=== PATIENT | female | born 1935 | race Caucasian/White ===

== ENCOUNTER 2019-12-31 08:56 | Outpatient (RCR) | payer OTHER, SELFPAY | END 2020-03-24 10:07 | disposition home or self-care (01) | LOC: HO.OT 08:56 | PROVIDERS: PCP Internal Medicine; Visit Provider Physician Assistant | DX: G56.02 Carpal tunnel syndrome, left upper limb (principal) | CPT/HCPCS: 97110 ==

== ENCOUNTER 2020-06-08 08:21 | Outpatient (REF) | payer OTHER, MEDICAID, SELFPAY ==
[2020-06-08 09:05] LABS: MANUAL DIFF FLAG NO
[2020-06-08 09:13] LABS: Basophils Percent Auto 0.7 % (0-2); Eosinophils Absolute Auto 0.1 X10*3/uL (0.0-0.4); Eosinophils Percent Auto 2.7 % (0-4); Hematocrit 30.7 % (37-47); Imm Gran Abs Auto 0.01 X10*3/uL (0.00-0.03); Imm Gran Pct Auto 0.2 % (0.0-0.4); Lymphocytes Absolute Auto 1.1 X10*3/uL (1.2-4.9); Lymphocytes Percent Auto 24.9 % (20-40); Mean Corpuscular HGB Conc 32.6 g/dl (31.0-35.0); Mean Corpuscular Hemoglobin 26.6 pg (27.0-33.0); Mean Corpuscular Volume 81.6 fL (80-98); Mean Platelet Volume 11.5 fL (9.4-12.3); Monocytes Absolute Auto 0.5 X10*3/uL (0.1-1.2); Monocytes Percent Auto 10.1 % (2-11); Neutrophils Absolute Auto 2.7 X10*3/uL (2.0-8.3); Neutrophils Percent Auto 61.4 % (45-73); Platelet Count 234 X10*3/uL (160-400); Red Blood Count 3.76 X10*6/uL (4.20-5.50); Red Cell Distribution Width 15.1 % (11.0-16.0); Retic HGB Equivalent 30.7 pg (30.0-35.0); Reticulocyte Percent 0.7 % (0.5-1.8); Reticulocytes Absolute 0.024 X10*6/uL (0.026-0.095); White Blood Count 4.5 X10*3/uL (4.8-10.8)
[2020-06-08 09:33] LABS: Alanine Aminotransferase 19 U/L (0-31); Alkaline Phosphatase 69 U/L (39-117); Anion Gap 11 (12-20); Aspartate Amino Transferase 24 U/L (5-31); Bilirubin Total 0.6 mg/dL (0.0-1.0); Blood Urea Nitrogen 23 mg/dL (9-16); Carbon Dioxide 28 mmol/L (22-29); Chloride 100 mmol/L (96-108); Cholesterol 151 mg/dL; Estimated Glomerular Filt Rate 51; Glucose Random 90 mg/dL (60-115); HDL Cholesterol 70 mg/dL; Iron 59 mcg/dL (30-160); LDL Cholesterol Calculated 74 mg/dl; Percent Iron Saturation 15 % (15-50); Potassium 5.1 mmol/L (3.3-5.1); Sodium 134 mmol/L (135-145); Total Iron Binding Capacity 400 mcg/dL (228-428); Total Protein 6.9 g/dL (6.5-8.0); Triglycerides 36 mg/dL; Unsaturated Iron Binding 341 ug/dL
[2020-06-08 09:53] LABS: Ferritin 19 ng/mL (10-250); TSH reflex Free T4 1.32 uIU/mL (0.32-4.0)
[2020-06-08 09:58] LABS: Vitamin B12 684 pg/mL (200-900)
== END 2020-06-08 08:22 | disposition home or self-care (01) ==
LOC: HO.LAB 08:21
PROVIDERS: PCP Internal Medicine; Visit Provider Internal Medicine
DX: D64.9 Anemia, unspecified (principal); E78.00 Pure hypercholesterolemia, unspecified; I10 Essential (primary) hypertension
CPT/HCPCS: 36415; 80053; 80061; 82607; 82728; 83540; 84443; 85025; 85045

== ENCOUNTER 2020-07-11 10:06 | Emergency (ER) | payer OTHER, MEDICAID, SELFPAY ==
--- NOTE | ~2020-07-11 | CT_ITS ---
EXAMINATION: CT HEAD WITHOUT CONTRAST CLINICAL INFORMATION: Generalized weakness COMPARISON: May 08, 2019 TECHNIQUE: Contiguous axial imaging was performed from the skull base to vertex without intravenous administration of contrast. This CT examination was performed using dose optimization techniques as appropriate, variously including the following: *Automated exposure control *Adjustment of mA and/or kV according to patient size (this includes techniques or standardized protocols for targeted exams where dose is matched to indication/reason for exam; i.e. extremities or head) *Use of iterative reconstruction technique DLP: 520 mGy-cm FINDINGS: There is no evidence of acute intracranial hemorrhage or territorial infarction. No abnormal mass effect or midline shift is seen. Adame to white matter differentiation is well preserved. No extra-axial fluid collections are identified. The ventricles are normal in size for age. There is some mild periventricular white matter low density consistent with microangiopathy. The osseous structures and soft tissues are normal. The mastoid air cells and visualized portions of the paranasal sinuses are well aerated. CT/CT head/brain wo con IMPRESSION: No acute intracranial pathology.
--- NOTE | ~2020-07-11 | XR_ITS ---
EXAMINATION: XR CHEST CLINICAL INFORMATION: Generalized weakness COMPARISON: Chest radiographs 05/08/2019, 05/24/2017 TECHNIQUE: 2 views of the chest were obtained. FINDINGS: The lungs are clear. The vascularity is normal. There is no airspace consolidation or effusion. Heart is borderline enlarged similar to prior exam. The hilar and mediastinal contours and bony structures are stable. XR/XR chest 2V IMPRESSION: No acute intrathoracic disease.
[2020-07-11 10:23] VITALS: BP 139/93; PULSE 80; RESP 18; TEMP 37; O2SAT 98; BMI 25.9
--- NOTE | 2020-07-11 11:01 | ECG_ITS ---
Test Reason : WEAKNESS Blood Pressure : / mmHG Vent. Rate : 074 BPM Atrial Rate : 074 BPM P-R Int : 150 ms QRS Dur : 110 ms QT Int : 424 ms P-R-T Axes : 026 053 009 degrees QTc Int : 470 ms Normal sinus rhythm Right bundle branch block Abnormal ECG When compared with ECG of 08-MAY-2019 22:12, No significant change was found Referred By: Tabby Spivey Electronically Signed By:ISELA JUDGE
--- NOTE | 2020-07-11 12:32 | ED.WEAKNESS ---
HPI - Weakness General Chief complaint: Weakness Stated complaint: weakness Time Seen by Provider: 07/11/20 10:46 Source: patient and family Mode of arrival: ambulatory Limitations: no limitations History of Present Illness HPI Narrative: 84-year-old female with a past medical history of anemia, hypertension, chronic kidney disease, carpal tunnel syndrome and history of breast cancer presenting to the ED with vague complaints of generalized weakness and dizziness over the past few days. Patient also reports bilateral upper leg tightness sensation. Denies any fevers, chills, headaches, changes in vision, jaw pain, nausea/vomiting, paresthesias, chest pain, shortness of breath, dyspnea on exertion, orthopnea, palpitations, abdominal pain, back pain, dysuria, diarrhea, constipation, black or bloody stools, hematuria or any other symptoms complaints or concerns at this time. Denies recent travel or sick contacts. MD Complaint: generalized weakness and lack of energy Onset (ago): day(s) Duration: constant and progressively worsening Location: generalized Severity: mild Relieving factors: none Exacerbating factors: none Associated symptoms: denies other symptoms Related Data Previous Rx's Medication Instructions Recorded losartan 100 mg tablet 100 mg PO DAILY #90 tab 04/19/20 cefuroxime axetil 500 mg PO BID 7 Days #14 tab 07/11/20 Allergies Allergy/AdvReac Type Severity Reaction Status Date / Time alendronate sodium Allergy Unknown MOUTH Verified 01/07/20 16:28 [From FOSAMAX] BLEEDING - IRRITATION cholecalciferol (vitamin D3) Allergy Unknown muscle Verified 01/07/20 16:28 [Vitamin D3] pains ALL VITAMINS Allergy Mild MUSCLE Uncoded 01/07/20 16:28 PAINS Review of Systems Review of Systems: Constitutional : No Fever, No Chills, No Night Sweats, No Fatigue, No Malaise ENT/Mouth : No Ear Pain, No Nasal Congestion, No Sinus Pain, No sore throat, No Rhinorrhea Eyes: No Eye Pain, No Swelling, No Redness, No Foreign Body, No Discharge, No Vision Changes Cardiovascular : No Chest Pain, No SOB, No Dyspnea on Exertion, No Orthopnea, No Palpitations Respiratory : No Cough, No Sputum, No Wheezing, No Dyspnea Gastrointestinal : No Nausea, No Vomiting, No Diarrhea, No Constipation, No abdominal Pain, No Hematochezia, No Melena Genitourinary : No Dysuria, No Urinary Frequency, No Urinary Incontinence, No Urgency, No Flank Pain Musculoskeletal : No joint pain, No Myalgias Skin : No lacerations Neuro : + Generalized weakness, + Dizziness, No Focal weakness, No Numbness, No Paresthesias, No Loss of Consciousness, No Headache Yes all other systems are reviewed and are negative [facility] Past Medical History Attestation statement: The following information was validated with the patient. Medical History Anemia Carpal tunnel syndrome Chronic kidney disease (CKD) stage G3a/A1, moderately decreased glomerular filtration rate (GFR) between 45-59 mL/min/1.73 square meter and albuminuria creatinine ratio less than 30 mg/g History of breast cancer Hypertension Surgical History History of carpal tunnel release History of cataract surgery History of cholecystectomy Family History Family History Father No problems noted. Mother No problems noted. Social History Social History Alcohol intake: never Smoking Status: Never smoker Use of substances other than those prescribed or required for medical reasons: No Advance Directives: No Advance Directives Information Provided: No Physical Exam Vital Signs: Vital Signs: Last Vital Signs Temp 98.9 F 07/11/20 15:58 Pulse 71 07/11/20 15:58 Resp 16 07/11/20 15:58 BP 180/79 H 07/11/20 15:58 Pulse Ox 99 07/11/20 15:58 Body Mass Index 25.9 Vital signs have been reviewed as normal and appeared to be correct. Blood pressure hypertensive at 139/93. Heart rate normal. Respiration rate normal. Temperature normal. Oxygen saturation normal. Appearance: Alert. Oriented X3. No acute distress. Head: Normal external exam. Normocephalic. Atraumatic. Able to rotate head bilaterally. Eyes: PERRLA. EOMI. No nystagmus noted. Conjunctiva and sclera normal. Eyelids normal. Corneal reflex normal. ENT: EAC normal. TM's Normal. Hearing normal. Pharynx normal. Uvula midline. tongue midline. Moist mucous membranes. No trismus noted. No drooling noted. No muffled voice noted. No nystagmus noted. Neck: Normal inspection. Neck supple. FROM. No adenopathy. Trachea midline. Thyroid Normal. No meningeal signs. No neck mass noted. CVS: Normal heart rate and rhythm. Heart sound normal. No murmurs noted. Pulses normal throughout. Respiratory: No respiratory distress. Painless inspiration. Breath sounds normal. No wheezes/rales/rhonchi noted. Chest nontender. No accessory muscle usage noted or decreased air movement noted. Abdomen: Soft and nontender. Bowel sounds normal in all 4 quadrants. No distention noted. No organomegaly noted. No visible injury noted. Back: No CVA tenderness. Full range of motion noted. Skin: Skin warm and dry. Normal skin color. Normal skin turgor. No rashes/lesions/lacerations noted. Extremities: No lower extremity edema. Extremities exhibit normal range of motion. Extremities nontender. Able to shrug shoulders bilaterally and keep up against resistance. Neuro: Oriented X 3. No motor deficit. No sensory deficit. Reflexes normal. Moving all extremities. No focal motor deficits. Cranial nerves II-XI intact bilaterally. Facial strength normal. Normal cognition. Speech normal. Gait normal. Strength 5/5 throughout. No pronator drift. No tremor noted. No fasciculations noted. No rigidity noted. Muscle tone normal throughout. No asterixis noted. Iykimd-hc-rpco test normal. Heel to hayes test normal. Tandem gait normal. Does not sway with eyes open. Romberg test negative. Rapid alternating movement upper extremity normal. Rapid alternating movement lower extremity normal. Hand drop from overhead Misses face. NIHSS score 0. Course Course Course Narrative: 12:40pm - 84-year-old female presenting to the ED with vague complaints of generalized weakness, dizziness over the past few days and upper leg tightness. - on exam patient is alert and oriented x3. Not in any acute distress. Mildly hypertensive at 139/93 otherwise all other vitals are within normal limits. No focal neuro deficits are noted. Patient has a normal steady gait NIHSS scored 0 non disabling symptoms therefore patient not a candidate for tPA at this time. - Plan: Labs, CT scan of brain, chest x-ray, EKG, UA, COVID/RSV/flu swab and re-evaluate. Reevaluation(s) Reevaluation #1: - white blood cell count 4000 - patient with a mild baseline anemia similar compared to prior - sodium 133 - potassium 5.5 - BUN 22 - troponin 6.1 - otherwise all other labs are within normal limits - COVID/RSV/flu negative - chest x-ray within normal limits no acute processes are noted - patient positive for UTI. Patient will need to go home with antibiotics for UTI. - awaiting CT scan of brain and patient will need a repeat troponin at 3:30pm will re-evaluate Time: 13:51 Reevaluation #2: - CT scan of brain within normal limits no acute processes are noted. - repeat troponin negative delta therefore at this time will DC home with antibiotics for UTI and instructions to have her blood work drawn again to recheck her sodium in her potassium within the next week with her PCP and to return if any new or worsening symptoms. Patient understands agrees with this plan. Time: 16:43 [facility] - Weakness Medical Records Attestation: I reviewed the patient's medical records. Lab Data Attestation: I reviewed the patient's lab results. Result diagrams: 07/11/20 12:38 07/11/20 12:38 Labs: Lab Results 07/11/20 07/11/20 07/11/20 Range/Units 12:37 12:38 12:38 WBC 4.2 L (4.8-10.8) X10*3/uL RBC 3.59 L (4.20-5.50) X10*6/uL Hgb 9.7 L (12.0-16.0) g/dl Hct 29.7 L (37-47) % MCV 82.7 (80-98) fL MCH 27.0 (27.0-33.0) pg MCHC 32.7 (31.0-35.0) g/dl RDW 14.8 (11.0-16.0) % Plt Count 206 (160-400) X10*3/uL MPV 10.5 (9.4-12.3) fL Immature Gran % (Auto) 0.2 (0.0-0.4) % Neut % (Auto) 59.8 (45-73) % Lymph % (Auto) 26.3 (20-40) % [place] % (Auto) 10.8 (2-11) % Eos % (Auto) 2.2 (0-4) % Baso % (Auto) 0.7 (0-2) % Lymph # (Auto) 1.1 L (1.2-4.9) X10*3/uL [place] # (Auto) 0.5 (0.1-1.2) X10*3/uL Eos # (Auto) 0.1 (0.0-0.4) X10*3/uL Baso # (Auto) 0.0 (0.0-0.2) X10*3/uL Abs Immat Gran (auto) 0.01 (0.00-0.03) X10*3/uL Absolute Neuts (auto) 2.5 (2.0-8.3) X10*3/uL Absolute Nucleated RBC 0.000 (0.0-0.012) X10*3/uL Nucleated RBC % (auto) 0.0 (0.0-0.2) /100WBC PT 10.6 L (10.8-13.0) SEC INR 0.9 (0.9-1.1) APTT 32.0 (24.1-38.0) SEC Sodium (135-145) mmol/L Potassium (3.3-5.1) mmol/L Chloride (96-108) mmol/L Carbon Dioxide (22-29) mmol/L Anion Gap (12-20) BUN (9-16) mg/dL Creatinine (0.5-1.4) mg/dL Estim Creat Clear Calc Estimated GFR Random Glucose (60-115) mg/dL Calcium (8.4-10.2) mg/dL Magnesium (1.6-2.6) mg/dL Total Bilirubin (0.0-1.0) mg/dL AST (5-31) U/L ALT (0-31) U/L Alkaline Phosphatase (39-117) U/L Troponin I High Sens (<3.5-17.0) ng/L B-Natriuretic Peptide (<100) pg/mL Total Protein (6.5-8.0) g/dL Albumin (3.5-5.0) g/dL Urine Color Urine Appearance Urine pH (5.0-8.0) Ur Specific Runnells (1.005-1.025) Urine Protein (NEG-TRACE) MG/DL Urine Glucose (UA) (NEG) MG/DL Urine Ketones (NEG) MG/DL Urine Blood (NEG) Urine Nitrite (NEG) Ur Leukocyte Esterase (NEG) Urine RBC (0) /HPF Urine WBC (0-4) /HPF Urine WBC Clumps Ur Squamous Epith Cells /LPF Urine Bacteria /LPF Coronavirus (PCR) NEGATIVE (Negative) Influenza Type A (PCR) NEGATIVE (Negative) Influenza Type B (PCR) NEGATIVE (Negative) RSV RNA Qual (PCR) NEGATIVE (Negative) 07/11/20 07/11/20 07/11/20 Range/Units 12:38 12:38 14:32 WBC (4.8-10.8) X10*3/uL RBC (4.20-5.50) X10*6/uL Hgb (12.0-16.0) g/dl Hct (37-47) % MCV (80-98) fL MCH (27.0-33.0) pg MCHC (31.0-35.0) g/dl RDW (11.0-16.0) % Plt Count (160-400) X10*3/uL MPV (9.4-12.3) fL Immature Gran % (Auto) (0.0-0.4) % Neut % (Auto) (45-73) % Lymph % (Auto) (20-40) % [place] % (Auto) (2-11) % Eos % (Auto) (0-4) % Baso % (Auto) (0-2) % Lymph # (Auto) (1.2-4.9) X10*3/uL [place] # (Auto) (0.1-1.2) X10*3/uL Eos # (Auto) (0.0-0.4) X10*3/uL Baso # (Auto) (0.0-0.2) X10*3/uL Abs Immat Gran (auto) (0.00-0.03) X10*3/uL Absolute Neuts (auto) (2.0-8.3) X10*3/uL Absolute Nucleated RBC (0.0-0.012) X10*3/uL Nucleated RBC % (auto) (0.0-0.2) /100WBC PT (10.8-13.0) SEC INR (0.9-1.1) APTT (24.1-38.0) SEC Sodium 133 L (135-145) mmol/L Potassium 5.5 H (3.3-5.1) mmol/L Chloride 100 (96-108) mmol/L Carbon Dioxide 27 (22-29) mmol/L Anion Gap 12 (12-20) BUN 22 H (9-16) mg/dL Creatinine 1.01 (0.5-1.4) mg/dL Estim Creat Clear Calc 22.4 Estimated GFR 52 Random Glucose 94 (60-115) mg/dL Calcium 9.6 (8.4-10.2) mg/dL Magnesium 2.3 (1.6-2.6) mg/dL Total Bilirubin 0.5 (0.0-1.0) mg/dL AST 22 (5-31) U/L ALT 17 (0-31) U/L Alkaline Phosphatase 62 (39-117) U/L Troponin I High Sens 6.1 (<3.5-17.0) ng/L B-Natriuretic Peptide 54 (<100) pg/mL Total Protein 6.8 (6.5-8.0) g/dL Albumin 4.0 (3.5-5.0) g/dL Urine Color STRAW Urine Appearance CLEAR Urine pH 6.5 (5.0-8.0) Ur Specific R[place]ells 1.010 (1.005-1.025) Urine Protein NEG (NEG-TRACE) MG/DL Urine Glucose (UA) NEG (NEG) MG/DL Urine Ketones NEG (NEG) MG/DL Urine Blood NEG (NEG) Urine Nitrite POS H (NEG) Ur Leukocyte Esterase 1+ H (NEG) Urine RBC 0 (0) /HPF Urine WBC 5-9 H (0-4) /HPF Urine WBC Clumps NOTED Ur Squamous Epith Cells TRACE /LPF Urine Bacteria 4+ /LPF Coronavirus (PCR) (Negative) Influenza Type A (PCR) (Negative) Influenza Type B (PCR) (Negative) RSV RNA Qual (PCR) (Negative) 07/11/20 Range/Units 15:54 WBC (4.8-10.8) X10*3/uL RBC (4.20-5.50) X10*6/uL Hgb (12.0-16.0) g/dl Hct (37-47) % MCV (80-98) fL MCH (27.0-33.0) pg MCHC (31.0-35.0) g/dl RDW (11.0-16.0) % Plt Count (160-400) X10*3/uL MPV (9.4-12.3) fL Immature Gran % (Auto) (0.0-0.4) % Neut % (Auto) (45-73) % Lymph % (Auto) (20-40) % [place] % (Auto) (2-11) % Eos % (Auto) (0-4) % Baso % (Auto) (0-2) % Lymph # (Auto) (1.2-4.9) X10*3/uL [place] # (Auto) (0.1-1.2) X10*3/uL Eos # (Auto) (0.0-0.4) X10*3/uL Baso # (Auto) (0.0-0.2) X10*3/uL Abs Immat Gran (auto) (0.00-0.03) X10*3/uL Absolute Neuts (auto) (2.0-8.3) X10*3/uL Absolute Nucleated RBC (0.0-0.012) X10*3/uL Nucleated RBC % (auto) (0.0-0.2) /100WBC PT (10.8-13.0) SEC INR (0.9-1.1) APTT (24.1-38.0) SEC Sodium (135-145) mmol/L Potassium (3.3-5.1) mmol/L Chloride (96-108) mmol/L Carbon Dioxide (22-29) mmol/L Anion Gap (12-20) BUN (9-16) mg/dL Creatinine (0.5-1.4) mg/dL Estim Creat Clear Calc Estimated GFR Random Glucose (60-115) mg/dL Calcium (8.4-10.2) mg/dL Magnesium (1.6-2.6) mg/dL Total Bilirubin (0.0-1.0) mg/dL AST (5-31) U/L ALT (0-31) U/L Alkaline Phosphatase (39-117) U/L Troponin I High Sens 6.0 (<3.5-17.0) ng/L B-Natriuretic Peptide (<100) pg/mL Total Protein (6.5-8.0) g/dL Albumin (3.5-5.0) g/dL Urine Color Urine Appearance Urine pH (5.0-8.0) Ur Specific R[place]ells (1.005-1.025) Urine Protein (NEG-TRACE) MG/DL Urine Glucose (UA) (NEG) MG/DL Urine Ketones (NEG) MG/DL Urine Blood (NEG) Urine Nitrite (NEG) Ur Leukocyte Esterase (NEG) Urine RBC (0) /HPF Urine WBC (0-4) /HPF Urine WBC Clumps Ur Squamous Epith Cells /LPF Urine Bacteria /LPF Coronavirus (PCR) (Negative) Influenza Type A (PCR) (Negative) Influenza Type B (PCR) (Negative) RSV RNA Qual (PCR) (Negative) Imaging Data Chest x-ray: Attestation: I personally reviewed and interpreted this imaging study as follows: Radiologist's impression: FINDINGS: The lungs are clear. The vascularity is normal. There is no airspace consolidation or effusion. Heart is borderline enlarged similar to prior exam. The hilar and mediastinal contours and bony structures are stable. XR/XR chest 2V IMPRESSION: No acute intrathoracic disease. CT scan of head without contrast: Attestation: I personally reviewed and interpreted this imaging study as follows: Radiologist's impression: FINDINGS: There is no evidence of acute intracranial hemorrhage or territorial infarction. No abnormal mass effect or midline shift is seen. Adame to white matter differentiation is well preserved. No extra-axial fluid collections are identified. The ventricles are normal in size for age. There is some mild periventricular white matter low density consistent with microangiopathy. The osseous structures and soft tissues are normal. The mastoid air cells and visualized portions of the paranasal sinuses are well aerated. CT/CT head/brain wo con IMPRESSION: No acute intracranial pathology. ECG Data Attestation: I personally reviewed and interpreted this ECG as follows: ECG interpretation date: 07/11/20 ECG interpretation time: 14:13 Interpretation: Normal sinus rhythm with ventricular rate of 74 with a right bundle-branch block otherwise no acute ischemic changes are noted. EKG 05/08/2019 Critical Care Time Critical Care Time Critical Care Time: Yes Total Critical Care Time: 60 Attestation: I personally attest to this time spent taking care of the patient Discharge Plan Discharge Clinical Impression: UTI (urinary tract infection), Acute hyperkalemia, Acute hyponatremia Patient Disposition: Home, Self-Care Instructions: Hyponatremia (ED), Hyperkalemia (ED), Urinary Tract Infection in Older Adults (ED) Additional Instructions: Your sodium was 133 today. Your potassium was 5.5. I gave you p.o. medication Kayexalate to get rid of the potassium. You should follow-up with her primary care provider this week to have repeat blood work to check her sodium and potassium. You have a UTI please start these antibiotics as prescribed and return if any new or worsening symptoms. Prescriptions: New cefuroxime axetil 500 mg tablet 500 mg PO BID 7 Days Qty: 14 RF: 0 No Action losartan 100 mg tablet 100 mg PO DAILY Qty: 90 RF: 2 Referrals: Po,Jarad Ruiz MD [Primary Care Provider] - 2 days Print Language: Setswana
[2020-07-11 12:45] LABS: MANUAL DIFF FLAG NO
[2020-07-11 12:48] LABS: Basophils Percent Auto 0.7 % (0-2); Eosinophils Absolute Auto 0.1 X10*3/uL (0.0-0.4); Eosinophils Percent Auto 2.2 % (0-4); Hematocrit 29.7 % (37-47); Hemoglobin 9.7 g/dl (12.0-16.0); Imm Gran Abs Auto 0.01 X10*3/uL (0.00-0.03); Imm Gran Pct Auto 0.2 % (0.0-0.4); Lymphocytes Absolute Auto 1.1 X10*3/uL (1.2-4.9); Lymphocytes Percent Auto 26.3 % (20-40); Mean Corpuscular HGB Conc 32.7 g/dl (31.0-35.0); Mean Corpuscular Volume 82.7 fL (80-98); Mean Platelet Volume 10.5 fL (9.4-12.3); Monocytes Absolute Auto 0.5 X10*3/uL (0.1-1.2); Monocytes Percent Auto 10.8 % (2-11); Neutrophils Absolute Auto 2.5 X10*3/uL (2.0-8.3); Neutrophils Percent Auto 59.8 % (45-73); Platelet Count 206 X10*3/uL (160-400); Red Blood Count 3.59 X10*6/uL (4.20-5.50); Red Cell Distribution Width 14.8 % (11.0-16.0); White Blood Count 4.2 X10*3/uL (4.8-10.8)
[2020-07-11 12:58] LABS: INTERNATIONAL NORM RATIO 0.9 (0.9-1.1); Prothrombin Time 10.6 SEC (10.8-13.0)
[2020-07-11 13:20] LABS: Alanine Aminotransferase 17 U/L (0-31); Alkaline Phosphatase 62 U/L (39-117); Anion Gap 12 (12-20); Aspartate Amino Transferase 22 U/L (5-31); Bilirubin Total 0.5 mg/dL (0.0-1.0); Blood Urea Nitrogen 22 mg/dL (9-16); Calcium 9.6 mg/dL (8.4-10.2); Carbon Dioxide 27 mmol/L (22-29); Chloride 100 mmol/L (96-108); Creatinine Clr Calc Pharmacy 22.4; Estimated Glomerular Filt Rate 52; Glucose Random 94 mg/dL (60-115); Magnesium 2.3 mg/dL (1.6-2.6); Potassium 5.5 mmol/L (3.3-5.1); Sodium 133 mmol/L (135-145); Total Protein 6.8 g/dL (6.5-8.0)
[2020-07-11 13:23] LABS: B Type Natriuretic Peptide 54 pg/mL (<100); Troponin-I High Sensitivity 6.1 ng/L (<3.5-17.0)
[2020-07-11 13:40] LABS: Influenza A PCR NEGATIVE (Negative); Influenza B PCR NEGATIVE (Negative); Resp Syncy Virus RNA Qual PCR NEGATIVE (Negative); SARS COV2 PCR INHOUSE NEGATIVE (Negative)
[2020-07-11] MEDS: Sodium Polystyrene Sulfon/Sorb 15 GM/60 ML ORAL.SUSP 45 GM PO (13:58)
--- NOTE | 2020-07-11 14:08 | PC.NURSE ---
pt updated about lab work, given kayexelate, tolerating po and swallow w/o issue.
[2020-07-11 14:35] VITALS: BP 192/70; PULSE 70; RESP 20; TEMP 37.1; O2SAT 98
[2020-07-11 14:37] VITALS: BP 192/70; PULSE 77
[2020-07-11 14:39] VITALS: BP 181/63; PULSE 73
[2020-07-11 14:41] VITALS: BP 166/71; PULSE 89
[2020-07-11 14:48] LABS: Glucose Urine UA NEG (NEG); Leukocyte Esterase Urine 1+ (NEG); Nitrite Urine POS (NEG); PH 6.5 (5.0-8.0); UACC Culture Trigger YES; Urine Blood NEG (NEG); Urine Ketones NEG (NEG); Urine Protein NEG (NEG-TRACE)
[2020-07-11 14:50] LABS: Appearance Urine CLEAR; Color Urine STRAW
[2020-07-11 14:57] LABS: RBC Urine 0 /HPF (0); Squamous Epithelial Cell Urine TRACE /LPF
[2020-07-11 14:58] LABS: Bacteria Urine 4+ /LPF; WBC Clumps Urine NOTED
[2020-07-11 15:58] VITALS: BP 180/79; PULSE 71; RESP 16; TEMP 37.2; O2SAT 99
--- NOTE | 2020-07-11 17:07 | PC.NURSE ---
provider and this rn at bedside to educate pt about workup, findings and discharge instructions. pt is extremely argumentative, sts youre giving me antibiotics but you dont know which one im alergic to . pt educated about lack of allergies in pt record and that we as healthcare providers cannot assume pt allergies if they are not provided by the pt. pt insistent that we should know her allergies and that it is our responsibility. pt advised to findout which abx they may be allergic to and contact us so that correct abx may be ordered. pt appears agitated. refusing to sign discharge paper work.
== END 2020-07-11 18:04 | disposition home or self-care (01) ==
PROVIDERS: Physician Assistant Medical; Emergency Provider Emergency Medicine; PCP Internal Medicine
DX: N39.0 Urinary tract infection, site not specified (principal); I12.9 Hypertensive chronic kidney disease with stage 1 through stage 4 chronic kidney disease, or unspecified chronic kidney disease; E87.5 Hyperkalemia; Z20.822 Contact with and (suspected) exposure to COVID-19; R53.1 Weakness; N18.31 Chronic kidney disease, stage 3a; E87.1 Hypo-osmolality and hyponatremia
CPT/HCPCS: 0241U; 36415; 70450; 71046; 80053; 81001; 81003; 83735; 83880; 84484; 85025; 85610; 85730; 87086; 93005; 99284; 99291

== ENCOUNTER 2020-07-28 10:39 | Outpatient (REF) | payer OTHER, MEDICAID, SELFPAY ==
[2020-07-28 11:21] LABS: MANUAL DIFF FLAG NO
[2020-07-28 11:43] LABS: Basophils Percent Auto 0.6 % (0-2); Eosinophils Absolute Auto 0.1 X10*3/uL (0.0-0.4); Eosinophils Percent Auto 1.8 % (0-4); Hematocrit 31.7 % (37-47); Hemoglobin 10.1 g/dl (12.0-16.0); Imm Gran Abs Auto 0.01 X10*3/uL (0.00-0.03); Imm Gran Pct Auto 0.2 % (0.0-0.4); Lymphocytes Absolute Auto 1.2 X10*3/uL (1.2-4.9); Lymphocytes Percent Auto 24.1 % (20-40); Mean Corpuscular HGB Conc 31.9 g/dl (31.0-35.0); Mean Corpuscular Hemoglobin 26.3 pg (27.0-33.0); Mean Corpuscular Volume 82.6 fL (80-98); Mean Platelet Volume 11.2 fL (9.4-12.3); Monocytes Absolute Auto 0.4 X10*3/uL (0.1-1.2); Neutrophils Absolute Auto 3.3 X10*3/uL (2.0-8.3); Neutrophils Percent Auto 65.3 % (45-73); Platelet Count 253 X10*3/uL (160-400); Red Blood Count 3.84 X10*6/uL (4.20-5.50); Red Cell Distribution Width 14.7 % (11.0-16.0)
[2020-07-28 11:51] LABS: Glucose Urine UA NEG (NEG); Leukocyte Esterase Urine TRACE (NEG); Nitrite Urine POS (NEG); Specific Gravity - Urine 1.015 (1.005-1.025); Urine Blood NEG (NEG); Urine Ketones NEG (NEG); Urine Protein NEG (NEG-TRACE)
[2020-07-28 11:53] LABS: Appearance Urine HAZY; Color Urine YELLOW
[2020-07-28 12:01] LABS: Bacteria Urine 4+ /LPF; RBC Urine 0 /HPF (0); Squamous Epithelial Cell Urine 3+ /LPF
[2020-07-28 12:33] LABS: Thyroid Stimulating Hormone 0.83 uIU/mL (0.32-4.0)
[2020-07-28 12:41] LABS: Alanine Aminotransferase 19 U/L (0-31); Albumin Level 4.3 g/dL (3.5-5.0); Alkaline Phosphatase 76 U/L (39-117); Anion Gap 14 (12-20); Aspartate Amino Transferase 19 U/L (5-31); Bilirubin Total 0.7 mg/dL (0.0-1.0); Blood Urea Nitrogen 16 mg/dL (9-16); Carbon Dioxide 26 mmol/L (22-29); Chloride 103 mmol/L (96-108); Estimated Glomerular Filt Rate 52; Glucose Random 101 mg/dL (60-115); Potassium 4.3 mmol/L (3.3-5.1); Sodium 139 mmol/L (135-145); Total Protein 7.3 g/dL (6.5-8.0)
== END 2020-07-28 10:40 | disposition home or self-care (01) ==
LOC: HO.LAB 10:39
PROVIDERS: PCP Internal Medicine; Visit Provider Internal Medicine
DX: Z13.89 Encounter for screening for other disorder (principal)
CPT/HCPCS: 36415; 80053; 81001; 84443; 85025

== ENCOUNTER 2020-07-30 02:00 | Inpatient (IN) | payer OTHER, MEDICAID, SELFPAY ==
[2020-07-30] VITALS (7 sets, daily range): BP systolic 115–186; BP diastolic 60–87; PULSE 18–79; RESP 16–18; TEMP 36.2–36.9; O2SAT 96–99; BMI 28.1
--- NOTE | ~2020-07-30 | MR_ITS ---
EXAMINATION: MR BRAIN WITHOUT CONTRAST CLINICAL INFORMATION: Acute psychosis. COMPARISON: CT head from 07/11/2020. TECHNIQUE: MRI of the brain was obtained using routine sequences without contrast. FINDINGS: No focal restricted diffusion is demonstrated to suggest acute or subacute cerebral ischemia. Small focus of susceptibility artifact in the left temporal lobe consistent with petechial microhemorrhage. Basal ganglia mineralization. No evidence of acute hemorrhagic products on heme-sensitive imaging. Scattered periventricular and deep white matter T2 FLAIR hyperintensities consistent with moderate underlying microangiopathy. Proportional prominence of the ventricles and sulcal spaces without evidence of obstructive hydrocephalus. No abnormal mass effect. No midline shift. Normal appearance of the pituitary gland. No abnormalities of the posterior fossa with normal appearance of the brainstem and cerebellum. Normal positioning of the cerebellar tonsils. Normal arterial and venous vascular flow voids are present. Normal, homogeneous marrow signal. Mild to moderate mucosal thickening of the paranasal sinuses. No signal abnormalities within the mastoids. Bilateral lens extractions. MR/MR head/brain wo con IMPRESSION: 1. No acute intracranial abnormalities. 2. Moderate underlying microangiopathy and mild generalized cerebral volume loss.
[2020-07-30 06:13] LABS: Basophils Percent Auto 0.7 % (0-2); Eosinophils Absolute Auto 0.1 X10*3/uL (0.0-0.4); Eosinophils Percent Auto 2.7 % (0-4); Hematocrit 32.8 % (37-47); Hemoglobin 10.5 g/dl (12.0-16.0); Imm Gran Abs Auto 0.01 X10*3/uL (0.00-0.03); Imm Gran Pct Auto 0.2 % (0.0-0.4); MANUAL DIFF FLAG NO; Mean Corpuscular Hemoglobin 26.6 pg (27.0-33.0); Mean Platelet Volume 10.2 fL (9.4-12.3); Monocytes Absolute Auto 0.4 X10*3/uL (0.1-1.2); Monocytes Percent Auto 8.9 % (2-11); Neutrophils Absolute Auto 2.9 X10*3/uL (2.0-8.3); Neutrophils Percent Auto 65.5 % (45-73); Platelet Count 228 X10*3/uL (160-400); Red Blood Count 3.95 X10*6/uL (4.20-5.50); Red Cell Distribution Width 14.6 % (11.0-16.0); White Blood Count 4.5 X10*3/uL (4.8-10.8)
[2020-07-30 06:18] LABS: Glucose Urine UA NEG (NEG); Leukocyte Esterase Urine 1+ (NEG); Nitrite Urine POS (NEG); Specific Gravity - Urine 1.015 (1.005-1.025); UACC Culture Trigger YES; Urine Blood NEG (NEG); Urine Ketones NEG (NEG); Urine Protein NEG (NEG-TRACE)
[2020-07-30 06:19] LABS: Appearance Urine HAZY; Color Urine YELLOW
[2020-07-30 06:31] LABS: Bacteria Urine 4+ /LPF; RBC Urine 0 /HPF (0); Squamous Epithelial Cell Urine 2+ /LPF
[2020-07-30 06:46] LABS: Alanine Aminotransferase 15 U/L (0-31); Albumin Level 4.1 g/dL (3.5-5.0); Alkaline Phosphatase 71 U/L (39-117); Anion Gap 15 (12-20); Aspartate Amino Transferase 22 U/L (5-31); Bilirubin Total 0.8 mg/dL (0.0-1.0); Blood Urea Nitrogen 15 mg/dL (9-16); Calcium 9.9 mg/dL (8.4-10.2); Carbon Dioxide 26 mmol/L (22-29); Chloride 103 mmol/L (96-108); Creatinine Clr Calc Pharmacy 21.3; Estimated Glomerular Filt Rate 54; Glucose Random 90 mg/dL (60-115); Potassium 4.1 mmol/L (3.3-5.1); Sodium 140 mmol/L (135-145); Total Protein 7.2 g/dL (6.5-8.0)
--- NOTE | 2020-07-30 07:54 | ED.GENADULT ---
HPI - General Adult General Chief complaint: Psychiatric Symptoms Stated complaint: Hallucinations Time Seen by Provider: 07/30/20 07:54 Source: patient and family Mode of arrival: ambulatory Limitations: no limitations History of Present Illness HPI narrative: 84 years old female presented with family for evaluation of auditory hallucination. This is a 84-year-old female with past medical history significant for anemia, hypertension, chronic kidney disease. Patient was seen and evaluated in the emergency department 3 weeks ago for generalized weakness and patient found to have a mild hyponatremia and mild hyperkalemia, patient had an extensive workup during her visit in the emergency department including head CT which was unremarkable for acute pathology. Patient brought in by family for re-evaluation because patient lives home alone complaining of hearing voices that telling her to hurt herself, patient has been hearing her son who live in [place] and other son who many years ago. Patient has been refusing to take her medication thing that she is not sick. Patient walked into the lobby of her building trying to skate the voices that she hears in her apartment telling her to hurt herself. Patient otherwise declined headache, blurry vision, chest pain, or abdominal pain. Patient has been complaining of cramps in her right lower extremities. Related Data Previous Rx's Medication Instructions Recorded cefuroxime axetil 500 mg PO BID 7 Days #14 tab 07/11/20 losartan 100 mg tablet 100 mg PO DAILY #90 tab 07/18/20 Allergies Allergy/AdvReac Type Severity Reaction Status Date / Time alendronate sodium Allergy Unknown MOUTH Verified 01/07/20 16:28 [From FOSAMAX] BLEEDING - IRRITATION cholecalciferol (vitamin D3) Allergy Unknown muscle Verified 01/07/20 16:28 [Vitamin D3] pains ALL VITAMINS Allergy Mild MUSCLE Uncoded 01/07/20 16:28 PAINS Review of Systems Review of Systems: All other systems are reviewed and are negative Constitutional: Reports as per HPI and Reports no additional constitutional complaints Eyes: Reports as per HPI and Reports no additional eye complaints Reports system reviewed and no additional complaints, except as documented Cardiovascular: Reports as per HPI and Reports no additional cardiovascular complaints Respiratory: Reports as per HPI and Reports no additional respiratory complaints Gastrointestinal: Reports as per HPI and Reports no additional gastrointestinal complaints Genitourinary: Reports no additional female genitourinary complaints Musculoskeletal: Reports no additional musculoskeletal complaints Skin/Breast: Reports system reviewed and no additional complaints, except as docu Psychiatric: Reports no additional psychiatric complaints Endocrine: Reports no additional endocrine complaints Hematologic/Lymphatic: Reports no additional hematologic/lymphatic complaints Allergic/Immunologic: Reports no additional allergic/immunologic complaints Reports system reviewed and no additional complaints, except as documented and Reports Abnormal speech present [facility] Past Medical History Medical History Anemia Carpal tunnel syndrome Chronic kidney disease (CKD) stage G3a/A1, moderately decreased glomerular filtration rate (GFR) between 45-59 mL/min/1.73 square meter and albuminuria creatinine ratio less than 30 mg/g History of breast cancer Hypertension Surgical History History of carpal tunnel release History of cataract surgery History of cholecystectomy Family History Family History Father No problems noted. Mother No problems noted. Social History Social History Alcohol intake: never Smoking Status: Never smoker Use of substances other than those prescribed or required for medical reasons: No Advance Directives: No Physical Exam Vital Signs: Vital Signs: Last Vital Signs Temp 98.4 F 07/30/20 02:29 Pulse 70 07/30/20 02:29 Resp 16 07/30/20 10:00 BP 115/67 07/30/20 02:29 Pulse Ox 98 07/30/20 02:29 Body Mass Index 28.1 Vital signs have been reviewed as appeared to be correct. Blood pressure normal. Heart rate normal. Respiration rate normal. Temperature normal. Oxygen saturation normal. Appearance: Alert. Oriented X3. No acute distress. Head: Normal external exam. Normocephalic. Atraumatic. No Mata signs noted. No raccoon eyes noted Eyes: PERRLA. EOMI. Conjunctiva and sclera normal. Eyelids normal. ENT: TM's Normal. Pharynx normal. Uvula midline. Moist mucous membranes. No trismus noted. No drooling noted. No muffled voice noted. Neck: Normal inspection. Neck supple. FROM. No adenopathy. Thyroid Normal. No meningeal signs. No neck mass noted. CVS: Normal heart rate and rhythm. Heart sound normal. No murmurs noted. Pulses normal throughout. Respiratory: No respiratory distress. Painless inspiration. Breath sounds normal. No wheezes/rales/rhonchi noted. Chest nontender. No accessory muscle usage noted or decreased air movement noted. Abdomen: Soft and nontender. Bowel sounds normal in all 4 quadrants. No distention noted. No organomegaly noted. No visible injury noted. Back: No CVA tenderness. Full range of motion noted. Skin: Skin warm and dry. Normal skin color. Normal skin turgor. No rashes/lesions/lacerations noted. Extremities: No lower extremity edema. Extremities exhibit normal range of motion. Extremities nontender. Neuro: Oriented X 3. No motor deficit. No sensory deficit. Reflexes normal. Patient Appearance: Appropriate Patient Orientation: Person, Place, Time and Situation Level of Consciousness: Awake, Appropriate and Alert Patient Behavior: Talkative, Cooperative. Mood Description: Depressed. Affect Description: Flat. Patient Cognition Impaired: No Ability to Follow Directions: Good Speech Pattern: Spontaneous Speech Memory Description: Intact Hallucinations: Not present. Delusions: Auditory hallucination Thought Process: Not logical Thought Content: Unremarkable Depressive Symptoms: Increased anxiety. Judgement: Poor. Course Reevaluation(s) Reevaluation #1: Physician observation started at8:30 . Patient placed in physician observation because the patient needed more time to be evaluated by N. patient's vital sign were stable, patient is alert and oriented , neuro exam unchanged, unremarkable rest of physical exam. Time: 08:38 Reevaluation #2: Patient has been seen and evaluated by N in, patient's psychosis is likely secondary to UTI, unlikely patient to have onset of psychosis at the age, patient had a recent CT of the head which was week ago was unremarkable, electrolytes are unremarkable. Patient was not compliant with her antibiotic for UTI, do not meet criteria for SIRS. Will admit the patient for IV antibiotic and reassess her mental status. Will end observation time now at 15:00. Time: 14:56 Medical Decision Making Lab Data Lab results reviewed: Yes I reviewed the patient's lab results. Result diagrams: 07/30/20 06:05 07/30/20 06:05 Labs: Lab Results 07/30/20 07/30/20 07/30/20 Range/Units 06:00 06:05 06:05 WBC 4.5 L (4.8-10.8) X10*3/uL RBC 3.95 L (4.20-5.50) X10*6/uL Hgb 10.5 L (12.0-16.0) g/dl Hct 32.8 L (37-47) % MCV 83.0 (80-98) fL MCH 26.6 L (27.0-33.0) pg MCHC 32.0 (31.0-35.0) g/dl RDW 14.6 (11.0-16.0) % Plt Count 228 (160-400) X10*3/uL MPV 10.2 (9.4-12.3) fL Immature Gran % (Auto) 0.2 (0.0-0.4) % Neut % (Auto) 65.5 (45-73) % Lymph % (Auto) 22.0 (20-40) % [place] % (Auto) 8.9 (2-11) % Eos % (Auto) 2.7 (0-4) % Baso % (Auto) 0.7 (0-2) % Lymph # (Auto) 1.0 L (1.2-4.9) X10*3/uL [place] # (Auto) 0.4 (0.1-1.2) X10*3/uL Eos # (Auto) 0.1 (0.0-0.4) X10*3/uL Baso # (Auto) 0.0 (0.0-0.2) X10*3/uL Abs Immat Gran (auto) 0.01 (0.00-0.03) X10*3/uL Absolute Neuts (auto) 2.9 (2.0-8.3) X10*3/uL Absolute Nucleated RBC 0.000 (0.0-0.012) X10*3/uL Nucleated RBC % (auto) 0.0 (0.0-0.2) /100WBC Hold Purple Top SEE NOTE Hold Blue Top Sodium (135-145) mmol/L Potassium (3.3-5.1) mmol/L Chloride (96-108) mmol/L Carbon Dioxide (22-29) mmol/L Anion Gap (12-20) BUN (9-16) mg/dL Creatinine (0.5-1.4) mg/dL Estim Creat Clear Calc Estimated GFR Random Glucose (60-115) mg/dL Calcium (8.4-10.2) mg/dL Total Bilirubin (0.0-1.0) mg/dL AST (5-31) U/L ALT (0-31) U/L Alkaline Phosphatase (39-117) U/L Total Protein (6.5-8.0) g/dL Albumin (3.5-5.0) g/dL Urine Color YELLOW Urine Appearance HAZY Urine pH 7.0 (5.0-8.0) Ur Specific [place] 1.015 (1.005-1.025) Urine Protein NEG (NEG-TRACE) MG/DL Urine Glucose (UA) NEG (NEG) MG/DL Urine Ketones NEG (NEG) MG/DL Urine Blood NEG (NEG) Urine Nitrite POS H (NEG) Ur Leukocyte Esterase 1+ H (NEG) Urine RBC 0 (0) /HPF Urine WBC 10-14 H (0-4) /HPF Ur Squamous Epith Cells 2+ /LPF Urine Bacteria 4+ /LPF 07/30/20 07/30/20 Range/Units 06:05 06:05 WBC (4.8-10.8) X10*3/uL RBC (4.20-5.50) X10*6/uL Hgb (12.0-16.0) g/dl Hct (37-47) % MCV (80-98) fL MCH (27.0-33.0) pg MCHC (31.0-35.0) g/dl RDW (11.0-16.0) % Plt Count (160-400) X10*3/uL MPV (9.4-12.3) fL Immature Gran % (Auto) (0.0-0.4) % Neut % (Auto) (45-73) % Lymph % (Auto) (20-40) % [place] % (Auto) (2-11) % Eos % (Auto) (0-4) % Baso % (Auto) (0-2) % Lymph # (Auto) (1.2-4.9) X10*3/uL [place] # (Auto) (0.1-1.2) X10*3/uL Eos # (Auto) (0.0-0.4) X10*3/uL Baso # (Auto) (0.0-0.2) X10*3/uL Abs Immat Gran (auto) (0.00-0.03) X10*3/uL Absolute Neuts (auto) (2.0-8.3) X10*3/uL Absolute Nucleated RBC (0.0-0.012) X10*3/uL Nucleated RBC % (auto) (0.0-0.2) /100WBC Hold Purple Top Hold Blue Top SEE NOTE Sodium 140 (135-145) mmol/L Potassium 4.1 (3.3-5.1) mmol/L Chloride 103 (96-108) mmol/L Carbon Dioxide 26 (22-29) mmol/L Anion Gap 15 (12-20) BUN 15 (9-16) mg/dL Creatinine 0.98 (0.5-1.4) mg/dL Estim Creat Clear Calc 21.3 Estimated GFR 54 Random Glucose 90 (60-115) mg/dL Calcium 9.9 (8.4-10.2) mg/dL Total Bilirubin 0.8 (0.0-1.0) mg/dL AST 22 (5-31) U/L ALT 15 (0-31) U/L Alkaline Phosphatase 71 (39-117) U/L Total Protein 7.2 (6.5-8.0) g/dL Albumin 4.1 (3.5-5.0) g/dL Urine Color Urine Appearance Urine pH (5.0-8.0) Ur Specific [place] (1.005-1.025) Urine Protein (NEG-TRACE) MG/DL Urine Glucose (UA) (NEG) MG/DL Urine Ketones (NEG) MG/DL Urine Blood (NEG) Urine Nitrite (NEG) Ur Leukocyte Esterase (NEG) Urine RBC (0) /HPF Urine WBC (0-4) /HPF Ur Squamous Epith Cells /LPF Urine Bacteria /LPF Discharge Plan Discharge Clinical Impression: Auditory hallucination Urinary tract infection Qualifiers: Urinary tract infection type: acute cystitis Hematuria presence: without hematuria Qualified Code(s): N30.00 - Acute cystitis without hematuria Prescriptions: No Action losartan 100 mg tablet 100 mg PO DAILY Qty: 90 RF: 2 cefuroxime axetil 500 mg tablet 500 mg PO BID 7 Days Qty: 14 RF: 0
--- NOTE | 2020-07-30 10:18 | PC.NURSE ---
faxed and called to [facility] spoke to remberto
--- NOTE | 2020-07-30 11:37 | PC.NURSE ---
[facility] states d/t medical diagnosis they do not feel the need to see the pt. no one is available anyway to see pt per n. care team made aware.
--- NOTE | 2020-07-30 13:56 | MHC.CARE ---
1315: Met with pt at the request of the ED staff, GREGORIA Huff. GREGORIA Huff advised me she had placed a consult with N a few hours prior and upon speaking with them was advised they wouldn't see the pt as the pt has a UTI. GREGORIA Huff advised me that they also advised her they had no one to respond. Conducted a collateral contact with pt's emergency contact Mr. Zhang who advised me that this is new behavior for the pt and is very out of character for her. Mr Zhang stated that she called him last evening frightened as she was hearing voices that were telling her she was going to be killed and that someone was coming for her. Mr. Jones met the pt in the lobby of her apartment building and brought her to [facility]. Mr. Zhang stated that she has a urinary tract infection and has not been taking her medications for that. Mr. Zhang, to the best of his knowledge, reports no known history of mental health disorders or any such behaviors or experiences before. The pt, is alert and oriented, stating that she is hearing voices, 1 male and 1 female for about a month. Pt stated that it has grown progressively worse and was at its worse yesterday. Pt stated that she was active and social prior to the pandemic and since the pandemic has been isolated and increasingly overwhelmed by maintaining her home, managing bills, and the volume of mail she is receiving. Pt reports no history or diagnosis of mental health disorder and no previous events such as this. Pts Delmy was present at bedside and confirmed what Mr. Zhang reported. [facility] staff arrived to interview the pt during my interview. [facility] will be holding onto this case. Spoke with Dr. Gregorio regarding the above.
--- NOTE | 2020-07-30 14:11 | PC.NURSE ---
[facility] at bedside
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
[2020-07-30 15:37] LABS: COVID-19 Test Negative (Negative)
[2020-07-30] MEDS: cefTRIAXone sodium 1 GM in 0.9 % Sodium Chloride 50 ML IV (15:54)
[2020-07-30 16:22] LABS: Lactic Acid 2.1 mmol/L (0.5-2.0)
--- NOTE | 2020-07-30 16:23 | PC.NURSE ---
CALLED TO [facility] FOR REPORT, POP WILL CALL BACK
--- NOTE | 2020-07-30 16:26 | PC.NURSE ---
REPORT GIVEN TO POP KINNEY
--- NOTE | 2020-07-30 16:34 | P.EN_ITS ---
Event Note Date of Service: 07/30/20 Event Note: Patient Seen examined case discussed with APC 84-year-old female with past medical history significant for hypertension chronic kidney disease and anemia recently seen at [facility] on 07/11 due to generalized weakness diagnosed to have mild hyponatremia, hyperkalemia and possible UTI patient was discharged home on antibiotics however patient decided not to take the medication and was brought back to [facility] today since she was complaining of hearing voices this morning she became scared and worked down to the lobby of her building since voicing were telling her to hurt herself therefore brought into [facility] at the present time patient is awake alert offers no acute complaints of headache lightheadedness dizziness no nausea vomiting fever chills no urinary symptoms denies visual hallucination, denies new medications her electrolytes are unremarkable has normal renal function is stable blood count, however urinalysis is positive for 4+ bacteria 10-14 WBC and positive nitrate On examination patient awake alert Neck is supple Lungs clear to auscultation Heart regular rate rhythm systolic murmur Extremities no edema Neuro nonfocal, patient oriented to person only Assessment and plan Auditory hallucination likely related to isolation and UTI will follow urine culture and sensitivity will treat patient with IV ceftriaxone follow clinical course Hypertension continue home medication and follow BP Agree with treatment plan as per APC
[2020-07-30] MEDS: Heparin Sodium,Porcine 5,000 UNIT/ML VIAL 5000 UNIT SUBCUT (17:17)
[2020-07-30 17:49] LABS: Reflex Lactate? Lactic Acid Added
[2020-07-30 18:54] LABS: ~Lactic Acid-LAB USE ONLY 1.5 mmol/L (0.5-2.0)
[2020-07-31] VITALS (7 sets, daily range): BP systolic 100–165; BP diastolic 49–76; PULSE 71–102; RESP 14–18; TEMP 35.6–37.3; O2SAT 96–99
[2020-07-31] MEDS: 0.9 % Sodium Chloride Flush 3 ML SYRINGE IVFLUSH ×4 (00:57→20:38)
[2020-07-31] MEDS: Heparin Sodium,Porcine 5,000 UNIT/ML VIAL 5000 UNIT SUBCUT ×2 (03:46→15:53)
[2020-07-31 07:08] LABS: MANUAL DIFF FLAG NO
[2020-07-31 07:12] LABS: Basophils Percent Auto 0.4 % (0-2); Eosinophils Absolute Auto 0.2 X10*3/uL (0.0-0.4); Eosinophils Percent Auto 3.1 % (0-4); Hematocrit 32.5 % (37-47); Hemoglobin 10.6 g/dl (12.0-16.0); Imm Gran Abs Auto 0.01 X10*3/uL (0.00-0.03); Imm Gran Pct Auto 0.2 % (0.0-0.4); Lymphocytes Absolute Auto 0.9 X10*3/uL (1.2-4.9); Lymphocytes Percent Auto 19.3 % (20-40); Mean Corpuscular HGB Conc 32.6 g/dl (31.0-35.0); Mean Corpuscular Volume 82.9 fL (80-98); Mean Platelet Volume 10.7 fL (9.4-12.3); Monocytes Absolute Auto 0.5 X10*3/uL (0.1-1.2); Monocytes Percent Auto 9.2 % (2-11); Neutrophils Absolute Auto 3.3 X10*3/uL (2.0-8.3); Neutrophils Percent Auto 67.8 % (45-73); Platelet Count 231 X10*3/uL (160-400); Red Blood Count 3.92 X10*6/uL (4.20-5.50); Red Cell Distribution Width 14.6 % (11.0-16.0); White Blood Count 4.9 X10*3/uL (4.8-10.8)
[2020-07-31 07:32] LABS: Anion Gap 11 (12-20); Blood Urea Nitrogen 23 mg/dL (9-16); Calcium 9.6 mg/dL (8.4-10.2); Carbon Dioxide 27 mmol/L (22-29); Chloride 105 mmol/L (96-108); Estimated Glomerular Filt Rate 45; Glucose Random 98 mg/dL (60-115); Potassium 4.1 mmol/L (3.3-5.1); Sodium 139 mmol/L (135-145)
[2020-07-31] MEDS: Losartan Potassium 50 MG TABLET 100 MG PO (09:56)
[2020-07-31] MEDS: QUEtiapine Fumarate 25 MG TABLET 12.5 MG PO ×2 (09:56→20:38)
--- NOTE | 2020-07-31 10:49 | MHC.CM.PN ---
Patient is here with Auditory Hallucinations and s/s of Confusion; CM spoke with Nephew/Donny @ [phone] and addressed IMM with him, mailing original certified letter to Donny and placing a copy on the chart. Patient lives alone in her apartment and she is functionally independent (no DME/No services). Home/no services is the goal for dc and CM has initiated and will follow for dc planning. Patient's Niece is the HCP.
--- NOTE | 2020-07-31 10:55 | P.PNIM_ITS ---
Subjective Subjective Date of Service: 07/31/20 Interval History: History obtained via behavioral health care manager, patient continued to hear voicing telling her that she has criminal and accusing her, later patient started screaming that someone is in the room, patient aware that she is in the hospital, eating breakfast, no aggressive behavior. ROS General no headache, no dizziness, no fever chills. CVS no chest pain, no palpitation. Respiratory no cough, no sob. Gastrointestinal no nausea, no vomiting, no abdominal pain Physical Exam Vital Signs: Vital Signs: Last Vital Signs Temp 99.2 F 07/31/20 07:55 Pulse 102 H 07/31/20 09:56 Resp 17 07/31/20 07:55 BP 138/72 07/31/20 09:56 Pulse Ox 98 07/31/20 07:55 Body Mass Index 28.1 General no acute distress. Neck no JVD. CVS regular rate rhythm, Respiratory lungs clear to auscultation, no respiratory distress Gastrointestinal abdomen soft, nontender, bowel sounds audible, no guarding Extremities no edema. Neuro nonfocal , speech clear, aware of place and person. Skin no rash Objective Data Current Medications Generic Name Dose Route Start Last Admin Trade Name Freq PRN Reason Stop Dose Admin Acetaminophen 650 mg 07/30/20 14:54 Acetaminophen 325 Mg Tablet PO Q6H PRN Pain, Mild (Pain Scale 1-3) Heparin Sodium (Porcine) 5,000 unit 07/30/20 16:00 07/31/20 03:46 Heparin Sodium,Porcine 5,000 Unit/Ml Vial SUBCUT 5,000 unit Q12H CHIKI Administration Ceftriaxone Sodium 1 gm/ 50 mls @ 100 mls/hr 07/31/20 14:00 Sodium Chloride IV Q24H [facility] Losartan Potassium 100 mg 07/31/20 09:00 07/31/20 09:56 Losartan Potassium 50 Mg Tablet PO 100 mg DAILY CHIKI Administration Protocol Ondansetron HCl 4 mg 07/30/20 14:54 Ondansetron Hcl 4 Mg/2 Ml Vial IVPUSH Q8H PRN Nausea and Vomiting Sodium Chloride 3 ml 07/30/20 16:00 07/31/20 09:56 0.9 % Sodium Chloride Flush 3 Ml Syringe IVFLUSH 3 ml QSHIFT CHIKI Administration Labs CBC & Chem 7: 07/31/20 06:58 07/31/20 06:58 Microbiology Microbiology Results: Microbiology 07/30/20 Unknown Urine clean catch - Clean Catch Midstream Urine Culture - Preliminary Culture in progress. Assessment and Plan (1) Auditory hallucination: Status: Acute (2) Urinary tract infection: Status: Acute (3) Hypertension: Status: Acute Assessment and Plan: 84 year old women admitted with auditory hallucinations secondary to a UTI. This is new, she has no hx of mental illness. UTI Patient offers no urinary symptoms, no fever chills, normal WBC, urine culture and blood cultures pending Continue IV Rocephin and follow cultures Auditory hallucinations. Persistent symptoms likely Secondary to UTI and living alone, no history of prior psychiatric disease. Will add low-dose Seroquel, follow clinical course Hypertension. On arrival to ED noted to have elevated blood pressure now improved continue Losartan Chronic normocytic anemia follow CBC DVT prophylaxis with heparin
[2020-07-31] MEDS: cefTRIAXone sodium 1 GM in 0.9 % Sodium Chloride 50 ML IV (13:50)
[2020-07-31] MEDS: OLANZapine 10 MG VIAL 2.5 MG IM (18:16)
--- NOTE | 2020-07-31 19:32 | PC.NURSE ---
1800 Pt began screaming at staff claiming we were trying to kill her. Pt would not get into her bed or sit down. Attempted to redirect with no success. Dr. Ledesma made aware. NETO Allen ordered and adminsitered.
[2020-08-01] VITALS (7 sets, daily range): BP systolic 140–198; BP diastolic 77–91; PULSE 86–105; RESP 14–22; TEMP 36.3–37; O2SAT 97–100
--- NOTE | 2020-08-01 | ECG_ITS ---
Test Reason : QTC CHECK Blood Pressure : / mmHG Vent. Rate : 094 BPM Atrial Rate : 094 BPM P-R Int : 142 ms QRS Dur : 112 ms QT Int : 376 ms P-R-T Axes : 007 064 020 degrees QTc Int : 470 ms Sinus rhythm with Premature atrial complexes Right bundle branch block Abnormal ECG When compared with ECG of 11-JUL-2020 14:13, Premature atrial complexes are now Present Referred By: Alphonso Priest Electronically Signed By:ISELA JUDGE
[2020-08-01] MEDS: Heparin Sodium,Porcine 5,000 UNIT/ML VIAL 5000 UNIT SUBCUT ×2 (05:54→16:20)
[2020-08-01] MEDS: Losartan Potassium 50 MG TABLET 100 MG PO (08:34)
[2020-08-01] MEDS: 0.9 % Sodium Chloride Flush 3 ML SYRINGE IVFLUSH ×3 (08:34→22:53)
--- NOTE | 2020-08-01 10:57 | P.CDIC_ITS ---
CDI Concurrent Query Service Date: 08/01/20 Documentation Clarification: Please clarify if you are treating a proba ble/suspected/likely or confirmed: Toxic encephalopathy Metabolic encephalopathy Please specify if known Encephalopathy, cause unknown Provider Response: Other Other Diagnosis: Encephalopathy, cause unknown PLEASE DO NOT DELETE/MODIFY EXISTING CONTENT Additional information is needed in order to code to the highest accuracy and appropriate Severity of Illness (SOI). Please clarify the information noted below in your progress notes and discharge summary. Risk Factors/Clinical Indicators/Treatments Auditory hallucinations was diagnosed over a month ago with UTI, refused to take meds. Auditiory hallucinations likely secondary to UTI infection and living alone. Recent CT scan was unremarkable for psychosis, abnormal speech present. trouble w location and date. IV antibiotics and reassess her mental status. No history of mental issues or dementia. Hyponatremia, hyperkalemia, urine positive for UTI. CDS: Delisa Hammer CCS, CDIS Contact Number: [phone] Please Review the information above and exercise your independent professional judgment in responding to the query. If you concur, pleas document in the PROGRESS NOTES and DISCHARGE SUMMARY. If you do not agree with the query, please document in the query above. THIS QUERY IS PART OF THE PERMANENT MEDICAL RECORD
--- NOTE | 2020-08-01 13:06 | MHC.CM.PN ---
PER PHYSICIAN ROUNDS, PSYCHIATRIC CONSULT PENDING. CASE MANAGEMENT CONTINUING TO FOLLOW
--- NOTE | 2020-08-01 13:33 | HO.PM.IMPN ---
Subjective Subjective Date of Service: 08/01/20 Interval History: seen this AM with educational interpreter services pt appears acutely psychotic and does not answer questions or exam repeatedly talking in Ukrainian per RN, multiple attempts to redirect her have been unfruitful and now she has become combative, attacking staff ROS unreliable Physical Exam Vital Signs: Vital Signs: Last Vital Signs Temp 98.6 F 08/01/20 11:56 Pulse 100 08/01/20 11:56 Resp 22 H 08/01/20 11:56 BP 198/91 H 08/01/20 11:56 Pulse Ox 97 08/01/20 11:56 Body Mass Index 28.1 Const: Other: General - appears in acute distress Lungs - does not appear to be in distress Extremities - no edema bilaterally Neuro - awake and alert psych - appears acute psychotic and agitated Objective Data Current Medications Generic Name Dose Route Start Last Admin Trade Name Freq PRN Reason Stop Dose Admin Acetaminophen 650 mg 07/30/20 14:54 Acetaminophen 325 Mg Tablet PO Q6H PRN Pain, Mild (Pain Scale 1-3) Heparin Sodium (Porcine) 5,000 unit 07/30/20 16:00 08/01/20 05:54 Heparin Sodium,Porcine 5,000 Unit/Ml Vial SUBCUT 5,000 unit Q12H CHIKI Administration Losartan Potassium 100 mg 07/31/20 09:00 08/01/20 08:34 Losartan Potassium 50 Mg Tablet PO 100 mg DAILY CHIKI Administration Protocol Ondansetron HCl 4 mg 07/30/20 14:54 Ondansetron Hcl 4 Mg/2 Ml Vial IVPUSH Q8H PRN Nausea and Vomiting Quetiapine Fumarate 12.5 mg 07/31/20 21:00 07/31/20 20:38 Quetiapine Fumarate 25 Mg Tablet PO 12.5 mg BEDTIME CHIKI Administration Sodium Chloride 3 ml 07/30/20 16:00 08/01/20 08:34 0.9 % Sodium Chloride Flush 3 Ml Syringe IVFLUSH 3 ml QSHIFT CHIKI Administration Labs CBC & Chem 7: 07/31/20 06:58 07/31/20 06:58 Microbiology Microbiology Results: Microbiology 07/30/20 Unknown Urine clean catch - Clean Catch Midstream Urine Culture - Final 07/30/20 15:43 Blood - Venous Blood Culture - Preliminary No growth after 24 hours. 07/30/20 15:13 Blood - Venous Blood Culture - Preliminary No growth after 24 hours. Assessment and Plan (1) Confusion: Status: Acute Assessment and Plan: This is an 84 yo F admitted for acute confusion, initially thought to be secondary to UTI. 1. Acute Confusion / ? psychosis initially thought to be secondary to UTI. Treated with IV antibiotics, will d/c today as cultures are negative She has been unable to managed with behavioral modifications. She appears to be acute psychotic. Will give IM zyprexa (she has refused to take oral meds) x 1 and get psych invovled. This does not appear to be related to an active medical issue, however no prior history of psychiatric illness reported and so will require further input from psych. 2. UTI, ruled out cultures negative, stop antibiotics 3. Uncontrolled HTN acutely worsened by her [facility] condition continue losartan and observe BP will avoid adding any additional meds at this time 4. Chronic normocytic anemia h/h stable monitor intermittently as needed Full Code DVT pptx, subcut. heparin
[2020-08-01] MEDS: OLANZapine 10 MG VIAL 2.5 MG IM (14:16)
--- NOTE | 2020-08-01 14:50 | PM.PSYCN ---
History of Present Illness Date of Service: t Chief Complaint: UTI Reason for Consult: Psychosis and agitation Discussed with referring provider: Yes Sources of Information: patient interviewed and chart reviewed Additional Sources of Information: Family members HPI Narrative: The patient is an 84 year old female, living alone, highly independent at baseline, with no prior history of mental illness. A few days ago, she came to the ED due to weakness and probably UTI and she had an extensive work-out and later discharged to her family. As per niece's report, since then, her behavior changed with episodes of confusion and irritability. The day of the admission to the ED, she complained of auditory hallucinations with derogatory content, paranoia and disorganized behavior, she went down to the lobby of her apartment on [address]. Apparently, she has always been very independent and highly functional. During the interview, the patient was able to be oriented on person and place but not on time, she acknowledged auditory hallucinations and paranoia. She was agitated in the morning and requiered Zyprexa AM. So far, medically, she is stable without a major metabolic problem. Past Psychiatric History: Denies Medical Evaluation Reviewed: Yes Personal & Social History: No prior psychiatric history, she is the mother of 4 adult children, she was always highly independent and functional. She lives by herself on her own apartment. [facility] Medical History Anemia Carpal tunnel syndrome Chronic kidney disease (CKD) stage G3a/A1, moderately decreased glomerular filtration rate (GFR) between 45-59 mL/min/1.73 square meter and albuminuria creatinine ratio less than 30 mg/g History of breast cancer Hypertension Surgical History History of carpal tunnel release History of cataract surgery History of cholecystectomy Family History: Denies Social History: Born [place], she was and had 4 children, she raised her children, has worked and she was very independent. Substance History: None Trauma History: Refused to elaborate Diagnostics Vital Signs (24Hr): Vital Signs - 24 hr 07/31/20 15:42 07/31/20 19:02 08/01/20 04:00 Temperature 96.7 F L 96.1 F L 97.4 F Pulse Rate 91 97 90 Respiratory Rate 16 14 18 Blood Pressure 126/54 L 100/49 L 173/77 H Pulse Oximetry 98 99 99 08/01/20 07:32 08/01/20 11:56 Temperature 97.6 F 98.6 F Pulse Rate 88 100 Respiratory Rate 16 22 H Blood Pressure 142/81 H 198/91 H Pulse Oximetry 99 97 Body Mass Index 28.1 Labs Results: 07/31/20 06:58 07/31/20 06:58 Labs: Laboratory Results - last 48 hr 07/30/20 07/30/20 07/30/20 15:03 15:43 18:31 WBC RBC Hgb Hct MCV MCH MCHC RDW Plt Count MPV Immature Gran % (Auto) Neut % (Auto) Lymph % (Auto) [place] % (Auto) Eos % (Auto) Baso % (Auto) Lymph # (Auto) [place] # (Auto) Eos # (Auto) Baso # (Auto) Abs Immat Gran (auto) Absolute Neuts (auto) Absolute Nucleated RBC Nucleated RBC % (auto) Sodium Potassium Chloride Carbon Dioxide Anion Gap BUN Creatinine Estim Creat Clear Calc Estimated GFR Random Glucose Lactic Acid 2.1 H* Lactic Acid Fup @ 2Hr 1.5 Calcium COVID-19 ([facility]) Negative COVID-19 Clin Com See Note 07/31/20 07/31/20 06:58 06:58 WBC 4.9 RBC 3.92 L Hgb 10.6 L Hct 32.5 L MCV 82.9 MCH 27.0 MCHC 32.6 RDW 14.6 Plt Count 231 MPV 10.7 Immature Gran % (Auto) 0.2 Neut % (Auto) 67.8 Lymph % (Auto) 19.3 L [place] % (Auto) 9.2 Eos % (Auto) 3.1 Baso % (Auto) 0.4 Lymph # (Auto) 0.9 L [place] # (Auto) 0.5 Eos # (Auto) 0.2 Baso # (Auto) 0.0 Abs Immat Gran (auto) 0.01 Absolute Neuts (auto) 3.3 Absolute Nucleated RBC 0.000 Nucleated RBC % (auto) 0.0 Sodium 139 Potassium 4.1 Chloride 105 Carbon Dioxide 27 Anion Gap 11 L BUN 23 H D Creatinine 1.16 Estim Creat Clear Calc 18.0 Estimated GFR 45 Random Glucose 98 Lactic Acid Lactic Acid Fup @ 2Hr Calcium 9.6 COVID-19 ([facility]) COVID-19 Clin Com Mental Status Exam Mental Status Exam Patient Appearance: Disheveled (on hospital gowns) Patient Orientation: Person and Situation Level of Consciousness: Awake Patient Behavior: Suspicious Mood Description: Constricted Affect Description: Withdrawn and Fearful Patient Cognition Impaired: Yes Ability to Follow Directions: Good Speech Pattern: Clear (in Yakut) Memory Description: Episodic Impaired Hallucinations: Auditory (Reported auditory hallucinations) Delusions: Paranoid Ideation Perceptual Disturbances: Hallucinations Thought Process: Distracted Thought Content: positive for Thought Blocking Depressive Symptoms: Increased Anxiety Abnormal Motor Activity Signs and Symptoms: Restlessness Judgement: Poor Medications Medications Current Medications Generic Name Dose Route Start Last Admin Trade Name Freq PRN Reason Stop Dose Admin Acetaminophen 650 mg 07/30/20 14:54 Acetaminophen 325 Mg Tablet PO Q6H PRN Pain, Mild (Pain Scale 1-3) Heparin Sodium (Porcine) 5,000 unit 07/30/20 16:00 08/01/20 05:54 Heparin Sodium,Porcine 5,000 Unit/Ml Vial SUBCUT 5,000 unit Q12H CHIKI Administration Losartan Potassium 100 mg 07/31/20 09:00 08/01/20 08:34 Losartan Potassium 50 Mg Tablet PO 100 mg DAILY CHIKI Administration Protocol Ondansetron HCl 4 mg 07/30/20 14:54 Ondansetron Hcl 4 Mg/2 Ml Vial IVPUSH Q8H PRN Nausea and Vomiting Quetiapine Fumarate 12.5 mg 07/31/20 21:00 07/31/20 20:38 Quetiapine Fumarate 25 Mg Tablet PO 12.5 mg BEDTIME CHIKI Administration Sodium Chloride 3 ml 07/30/20 16:00 08/01/20 08:34 0.9 % Sodium Chloride Flush 3 Ml Syringe IVFLUSH 3 ml QSHIFT CHIKI Administration Allergies Allergies Allergy/AdvReac Type Severity Reaction Status Date / Time alendronate sodium Allergy Unknown MOUTH Verified 01/07/20 16:28 [From FOSAMAX] BLEEDING - IRRITATION cholecalciferol (vitamin D3) Allergy Unknown muscle Verified 01/07/20 16:28 [Vitamin D3] pains ALL VITAMINS Allergy Mild MUSCLE Uncoded 01/07/20 16:28 PAINS Assessment & Plan Assessment & Plan (1) Auditory hallucination: Status: Acute Code(s): R44.0 - Auditory hallucinations Recommendations: Elderly female, mostly Yakut speaking with a recent onset of auditory hallucinations, paranoia and disorganized behavior without prior psychiatric history, most likely in the context of delirium post UTI. Plan: 1. D/C Seroquel at hs. 2. Start Zyprexa Zydis 2.5 mg po qhs to target psychotic symptoms. 3. Zyprexa 1.25 mg po qam. 4. Zyprexa 2.5 mg po q6h PRN psychotic symptoms. 5. Try to avoid benzodiazepines since they can worsened delirium. 6. Gather more collateral. 7. F/U in 24 hours. Greater than 50% of the session was spent on counseling and/or coordination of care
[2020-08-01] MEDS: OLANZapine 2.5 MG TABLET PO (19:52)
--- NOTE | 2020-08-01 22:26 | MHC.PIE ---
Addendum entered by Sophie Staley RN 08/01/20 22:50: i; new order haldol 2mg iv now e; will cont to monitor Original Note: p; pt in room yelling out for help, to go home and etc. prn brenda attempted multiple times - pt refused with combative behavior i; pt redirected multiple times by this jingle writer and sitter in room. p; pt cont to yell out at times i; dr goel notified
[2020-08-01] MEDS: Haloperidol Lactate 5 MG/ML VIAL 2 MG IVPUSH (22:50)
--- NOTE | 2020-08-02 | EEG_ITS ---
This is a 16-channel EEG with an EKG lead. The patient is reported awake, drowsy, and asleep during the tracing. Background EEG rhythm during wakefulness is low to medium amplitude fast alpha and beta with no obvious asymmetry or paroxysmal tendency. The patient transitioned into drowsiness and light sleep with no significant abnormality. No obvious sharp wave spikes or paroxysmal tendencies noted. Cardiac lead does not reveal any significant abnormality. Photic stimulation is normal. Hyperventilation is not performed. IMPRESSION: Unremarkable EEG. MD ELICEO Perez/EDU / [id number]
[2020-08-02 04:00] VITALS: BP 105/58; PULSE 63; RESP 20; TEMP 36.1; O2SAT 100
[2020-08-02] MEDS: Heparin Sodium,Porcine 5,000 UNIT/ML VIAL 5000 UNIT SUBCUT ×2 (05:14→17:09)
[2020-08-02 07:58] VITALS: BP 115/70; PULSE 80; RESP 15; TEMP 36.8; O2SAT 100
[2020-08-02] MEDS: OLANZapine 2.5 MG TABLET 1.25 MG PO (09:21)
[2020-08-02] MEDS: Losartan Potassium 50 MG TABLET 100 MG PO (09:22)
[2020-08-02] MEDS: 0.9 % Sodium Chloride Flush 3 ML SYRINGE IVFLUSH ×2 (09:22→17:07)
--- NOTE | 2020-08-02 09:36 | HO.PM.IMPN ---
Subjective Subjective Date of Service: 08/02/20 Interval History: seen and examined this AM overnight events reviewed this AM sleepy but opens eyes to her name. reports not feeling well ROS unreliable Physical Exam Vital Signs: Vital Signs: Last Vital Signs Temp 98.2 F 08/02/20 07:58 Pulse 80 08/02/20 07:58 Resp 15 08/02/20 07:58 BP 115/70 08/02/20 07:58 Pulse Ox 100 08/02/20 07:58 Body Mass Index 28.1 Const: Other: General - resting Lungs - does not appear to be in distress CVS - s1s2 Extremities - no edema bilaterally Neuro - resting, but opens eyes to verbal stimuli psych - appears acute psychotic and agitated Objective Data Current Medications Generic Name Dose Route Start Last Admin Trade Name Jarred PRN Reason Stop Dose Admin Acetaminophen 650 mg 07/30/20 14:54 Acetaminophen 325 Mg Tablet PO Q6H PRN Pain, Mild (Pain Scale 1-3) Heparin Sodium (Porcine) 5,000 unit 07/30/20 16:00 08/02/20 05:14 Heparin Sodium,Porcine 5,000 Unit/Ml Vial SUBCUT 5,000 unit Q12H CHIKI Administration Losartan Potassium 100 mg 07/31/20 09:00 08/02/20 09:22 Losartan Potassium 50 Mg Tablet PO 100 mg DAILY CHIKI Administration Protocol Olanzapine 2.5 mg 08/01/20 21:00 08/01/20 19:52 Olanzapine 2.5 Mg Tablet PO 2.5 mg BEDTIME CHIKI Administration Olanzapine 1.25 mg 08/02/20 09:00 08/02/20 09:21 Olanzapine 2.5 Mg Tablet PO 1.25 mg DAILY CHIKI Administration Olanzapine 2.5 mg 08/01/20 15:33 Olanzapine 2.5 Mg Tablet PO Q6H PRN psychotic symptoms Ondansetron HCl 4 mg 07/30/20 14:54 Ondansetron Hcl 4 Mg/2 Ml Vial IVPUSH Q8H PRN Nausea and Vomiting Sodium Chloride 3 ml 07/30/20 16:00 08/02/20 09:22 0.9 % Sodium Chloride Flush 3 Ml Syringe IVFLUSH 3 ml QSHIFT CHIKI Administration Labs CBC & Chem 7: 07/31/20 06:58 07/31/20 06:58 Microbiology Microbiology Results: Microbiology 07/30/20 15:43 Blood - Venous Blood Culture - Preliminary No growth after 48 hours. 07/30/20 15:13 Blood - Venous Blood Culture - Preliminary No growth after 48 hours. 07/30/20 Unknown Urine clean catch - Clean Catch Midstream Urine Culture - Final Assessment and Plan (1) Confusion: Status: Acute Assessment and Plan: This is an 84 yo F admitted for acute confusion, initially thought to be secondary to UTI. 1. Delirium still remains intermittently agitated, required IV haldol over night not entirely clear what the cause is, she was recently treated for UTI (per H&P she did not take these antibiotics). urine cx this time is negative psych input appreciated - meds ordered per their recs will get neurology 2. UTI, ruled out cultures negative, stop antibiotics 3. Uncontrolled HTN improved, continue norvasc 4. Chronic normocytic anemia h/h stable monitor intermittently as needed Full Code DVT pptx, subcut. heparin
[2020-08-02 11:28] VITALS: BP 114/59; PULSE 75; RESP 16; TEMP 36.6; O2SAT 99
--- NOTE | 2020-08-02 13:00 | P.CNNE_ITS ---
History of Present Illness Data of Consult Service Date: 08/02/20 Primary Care Provider: Jarad Johnson MD 84 years old woman with the previous history of intraductal carcinoma of breast in situ, but no previous history of psychiatric illness or dementia. He was brought to hospital with relatively acute onset of psychotic symptoms including delusions and hallucinations. When I talked to her she said that she was weak. She was comfortably sitting taking her lunch and did not seem overtly confused. There was no sign of distress. Review of Systems Review of Systems: No recent cold or flu-like illness. No rash. [facility] Past Medical History Medical History Anemia Carpal tunnel syndrome Chronic kidney disease (CKD) stage G3a/A1, moderately decreased glomerular filtration rate (GFR) between 45-59 mL/min/1.73 square meter and albuminuria c reatinine ratio less than 30 mg/g History of breast cancer Hypertension Family History Family History Father No problems noted. Mother No problems noted. Surgical History Surgical History History of carpal tunnel release History of cataract surgery History of cholecystectomy Social History Social History Household Members: None Housing: Apartment Do you presently have visiting nurse or other home services: No Alcohol intake: never Smoking Status: Never smoker Use of substances other than those prescribed or required for medical reasons: No Currently Displaying Signs/Symptoms of Drug Intoxication Withdrawal: No Have you been hit, kicked, punched, or otherwise hurt by someone within the past year? If so, by whom?: No Do you feel safe in your current relationship?: No Current Relationship Is there a partner from a previous relationship who is making you feel unsafe now?: No Are you made to feel afraid or neglected: No Advance Directives: No Do you have thoughts of harming others: None Do you have a plan to hurt others: No Plan Recently lost weight without trying: No Nutrition Risks: No Nutritional Risk service: No Current occupational status: disabled Meds Allergies Allergy/AdvReac Type Severity Reaction Status Date / Time alendronate sodium Allergy Unknown MOUTH Verified 01/07/20 16:28 [From FOSAMAX] BLEEDING - IRRITATION cholecalciferol (vitamin D3) Allergy Unknown muscle Verified 01/07/20 16:28 [Vitamin D3] pains ALL VITAMINS Allergy Mild MUSCLE Uncoded 01/07/20 16:28 PAINS Active Medications: Current Medications Generic Name Dose Route Start Last Admin Trade Name Freq PRN Reason Stop Dose Admin Acetaminophen 650 mg 07/30/20 14:54 Acetaminophen 325 Mg Tablet PO Q6H PRN Pain, Mild (Pain Scale 1-3) Heparin Sodium (Porcine) 5,000 unit 07/30/20 16:00 08/02/20 05:14 Heparin Sodium,Porcine 5,000 Unit/Ml Vial SUBCUT 5,000 unit Q12H CHIKI Administration Losartan Potassium 100 mg 07/31/20 09:00 08/02/20 09:22 Losartan Potassium 50 Mg Tablet PO 100 mg DAILY CHIKI Administration Protocol Olanzapine 2.5 mg 08/01/20 21:00 08/01/20 19:52 Olanzapine 2.5 Mg Tablet PO 2.5 mg BEDTIME CHIKI Administration Olanzapine 1.25 mg 08/02/20 09:00 08/02/20 09:21 Olanzapine 2.5 Mg Tablet PO 1.25 mg DAILY CHIKI Administration Olanzapine 2.5 mg 08/01/20 15:33 Olanzapine 2.5 Mg Tablet PO Q6H PRN psychotic symptoms Ondansetron HCl 4 mg 07/30/20 14:54 Ondansetron Hcl 4 Mg/2 Ml Vial IVPUSH Q8H PRN Nausea and Vomiting Sodium Chloride 3 ml 07/30/20 16:00 08/02/20 09:22 0.9 % Sodium Chloride Flush 3 Ml Syringe IVFLUSH 3 ml QSHIFT CHIKI Administration Physical Exam Vital Signs: Vital Signs: Last Vital Signs Temp 97.8 F 08/02/20 11:28 Pulse 75 08/02/20 11:28 Resp 16 08/02/20 11:28 BP 114/59 L 08/02/20 11:28 Pulse Ox 99 08/02/20 11:28 Body Mass Index 28.1 She was alert and awake with normal spontaneity of speech fluency comprehension and affect. Pupils were equal and reactive to light and extraocular muscles were intact. Visual goel are full to threat. Face was symmetrical. There was no obvious focal weakness. Deep tendon reflexes were somewhat on brisker side with absent ankle reflexes and equivocal plantars. Results Labs CBC & Chem 7: 07/31/20 06:58 07/31/20 06:58 Microbiology Microbiology Results: Microbiology 07/30/20 15:43 Blood - Venous Blood Culture - Preliminary No growth after 48 hours. 07/30/20 15:13 Blood - Venous Blood Culture - Preliminary No growth after 48 hours. 07/30/20 Unknown Urine clean catch - Clean Catch Midstream Urine Culture - Final Her noncontrast head CT did not reveal any significant abnormality. Assessment and Plan (1) Psychotic disorder: Problem details: 84 years old woman who apparently has no prior history of significant dementia or psychiatric disease presented with subacute onset of delusions paranoia and hallucinations. Examination was nonfocal other than mild hyper reflexia. Etiology of this syndrome included atypical dementias. I would start with an MRI of brain that could help to figure out multiple possible conditions. If MRI was entirely normal I might also considered lumbar puncture. An EEG was also recommended as prion disease was part of differential diagnosis. Status: Acute
[2020-08-02 15:32] VITALS: BP 99/50; PULSE 82; RESP 15; TEMP 36.4; O2SAT 99
--- NOTE | 2020-08-02 15:32 | MHC.CM.PN ---
PSYCH AND CARE TEAM ASSISTED WITH CONTACT NUMBER RETRIEVAL SON KARL (AKA PAGE) [phone] BROTHER LUDMILA [phone]. PATIENT ASKS THAT BROTHER ALSO BE ADDED TO HCP. COMPLETED DOCUMENT UPLOADED TO [email or web address] AND COPY IN CHART
--- NOTE | 2020-08-02 16:30 | PC.NURSE ---
Pt needing MRI form completed. Application Developer called, but pt unable to appropriately answer questions. Multiple attempts made to call niece and nephew but no responses. Dr. Priest updated. MRI aware. No new orders at this time.
[2020-08-02 19:18] VITALS: BP 116/62; PULSE 89; RESP 16; TEMP 37.2; O2SAT 98
[2020-08-02] MEDS: OLANZapine 2.5 MG TABLET PO (20:08)
[2020-08-02 23:59] VITALS: BP 123/65; PULSE 85; RESP 14; TEMP 37.1; O2SAT 98
[2020-08-03] MEDS: 0.9 % Sodium Chloride Flush 3 ML SYRINGE IVFLUSH ×4 (00:35→20:33)
[2020-08-03 03:36] VITALS: BP 130/66; PULSE 65; RESP 14; TEMP 37.2; O2SAT 100
[2020-08-03] MEDS: Heparin Sodium,Porcine 5,000 UNIT/ML VIAL 5000 UNIT SUBCUT ×2 (04:52→17:17)
[2020-08-03 07:50] VITALS: BP 145/68; PULSE 87; RESP 16; TEMP 36.8; O2SAT 98
[2020-08-03] MEDS: OLANZapine 2.5 MG TABLET 1.25 MG PO (08:12)
--- NOTE | 2020-08-03 11:54 | P.PNIM_ITS ---
Subjective Subjective Date of Service: 08/03/20 Interval History: seen this AM in her room and on her way to EEG she feels weak and tired. she knows shes in the hospital at [facility] Physical Exam Vital Signs: Vital Signs: Last Vital Signs Temp 98.3 F 08/03/20 07:50 Pulse 87 08/03/20 07:50 Resp 16 08/03/20 07:50 BP 145/68 H 08/03/20 07:50 Pulse Ox 98 08/03/20 07:50 Body Mass Index 28.1 Const: Other: General - resting Lungs - does not appear to be in distress CVS - s1s2 Extremities - no edema bilaterally Neuro - non-focal psych - calm and cooperative Objective Data Current Medications Generic Name Dose Route Start Last Admin Trade Name Freq PRN Reason Stop Dose Admin Acetaminophen 650 mg 07/30/20 14:54 Acetaminophen 325 Mg Tablet PO Q6H PRN Pain, Mild (Pain Scale 1-3) Heparin Sodium (Porcine) 5,000 unit 07/30/20 16:00 08/03/20 04:52 Heparin Sodium,Porcine 5,000 Unit/Ml Vial SUBCUT 5,000 unit Q12H CHIKI Administration Losartan Potassium 100 mg 07/31/20 09:00 08/02/20 09:22 Losartan Potassium 50 Mg Tablet PO 100 mg DAILY CHIKI Administration Protocol Olanzapine 2.5 mg 08/01/20 21:00 08/02/20 20:08 Olanzapine 2.5 Mg Tablet PO 2.5 mg BEDTIME CHIKI Administration Olanzapine 1.25 mg 08/02/20 09:00 08/03/20 08:12 Olanzapine 2.5 Mg Tablet PO 1.25 mg DAILY CHIKI Administration Olanzapine 2.5 mg 08/01/20 15:33 Olanzapine 2.5 Mg Tablet PO Q6H PRN psychotic symptoms Ondansetron HCl 4 mg 07/30/20 14:54 Ondansetron Hcl 4 Mg/2 Ml Vial IVPUSH Q8H PRN Nausea and Vomiting Sodium Chloride 3 ml 07/30/20 16:00 08/03/20 08:13 0.9 % Sodium Chloride Flush 3 Ml Syringe IVFLUSH 3 ml QSHIFT CHIKI Administration Labs CBC & Chem 7: 07/31/20 06:58 07/31/20 06:58 Microbiology Microbiology Results: Microbiology 07/30/20 15:43 Blood - Venous Blood Culture - Preliminary No growth after 48 hours. 07/30/20 15:13 Blood - Venous Blood Culture - Preliminary No growth after 48 hours. 07/30/20 Unknown Urine clean catch - Clean Catch Midstream Urine Culture - Final Assessment and Plan (1) Psychotic disorder: Status: Acute Assessment and Plan: This is an 84 yo F admitted for acute confusion, initially thought to be secondary to UTI. 1. Delirium appears improved but not at baseline work up in progress - DDx -- post medical illness delirium vs organic neurological cause (see neurology notes) EEG today MRI negative for acute findings -- but diffuse atrophy neuro and psych inputs appreciated 2. UTI, ruled out cultures negative, stop antibiotics 3. Uncontrolled HTN improved, continue norvasc 4. Chronic normocytic anemia h/h stable monitor intermittently as needed Full Code DVT pptx, subcut. heparin dipso: TBD -- home with services vs STR
--- NOTE | 2020-08-03 15:30 | PM.PSYCN ---
History of Present Illness Date of Service: t Chief Complaint: UTI Reason for Consult: Auditory hallucinations, management of atypical antipsychotics Requesting physician: Alphonso Priest Discussed with referring provider: Yes Sources of Information: patient interviewed and chart reviewed HPI Narrative: The pateint was assessed at [facility] and she was extremely tired and sleepy but she awaken with verbal stimuli in Hungarian. She was able to remember me froma previous visit I did 2 days ago. She admitted that she is hearing less voices, she is less paranoid but she looks oversedated. Past Psychiatric History: Denies Medical Evaluation Reviewed: Yes [facility] Medical History Anemia Carpal tunnel syndrome Chronic kidney disease (CKD) stage G3a/A1, moderately decreased glomerular filtration rate (GFR) between 45-59 mL/min/1.73 square meter and albuminuria creatinine ratio less than 30 mg/g History of breast cancer Hypertension Surgical History History of carpal tunnel release History of cataract surgery History of cholecystectomy Family History: Denies Social History: Born and raised in [place], she was and had 4 children, she raised her children, has worked and she was very independent. Trauma History: Refused to elaborate Diagnostics Vital Signs (24Hr): Vital Signs - 24 hr 08/02/20 15:32 08/02/20 19:18 08/02/20 23:59 Temperature 97.6 F 99 F 98.7 F Pulse Rate 82 89 85 Respiratory Rate 15 16 14 Blood Pressure 99/50 L 116/62 123/65 Pulse Oximetry 99 98 98 08/03/20 03:36 08/03/20 07:50 Temperature 98.9 F 98.3 F Pulse Rate 65 87 Respiratory Rate 14 16 Blood Pressure 130/66 145/68 H Pulse Oximetry 100 98 Body Mass Index 28.1 Labs Results: 07/31/20 06:58 07/31/20 06:58 Imaging Radiology Impressions: ITS Impressions Brain MRI 08/02/20 14:11 IMPRESSION: 1. No acute intracranial abnormalities. 2. Moderate underlying microangiopathy and mild generalized cerebral volume loss. Mental Status Exam Mental Status Exam Patient Appearance: Disheveled (on hospital gowns) Patient Orientation: Person, Place and Situation Level of Consciousness: Drowsy Patient Behavior: Passive Mood Description: Relaxed Affect Description: Constricted Patient Cognition Impaired: No Ability to Follow Directions: Fair Speech Pattern: Clear (in Hungarian) Hallucinations: Auditory (sporadic voices with derogatory content but no behavioral response) Thought Process: Slowed Thinking Thought Content: positive for Circumstantial Judgement: Fair Medications Medications Current Medications Generic Name Dose Route Start Last Admin Trade Name Freq PRN Reason Stop Dose Admin Acetaminophen 650 mg 07/30/20 14:54 Acetaminophen 325 Mg Tablet PO Q6H PRN Pain, Mild (Pain Scale 1-3) Heparin Sodium (Porcine) 5,000 unit 07/30/20 16:00 08/03/20 04:52 Heparin Sodium,Porcine 5,000 Unit/Ml Vial SUBCUT 5,000 unit Q12H CHIKI Administration Losartan Potassium 100 mg 07/31/20 09:00 08/02/20 09:22 Losartan Potassium 50 Mg Tablet PO 100 mg DAILY CHIKI Administration Protocol Olanzapine 2.5 mg 08/01/20 21:00 08/02/20 20:08 Olanzapine 2.5 Mg Tablet PO 2.5 mg BEDTIME CHIKI Administration Olanzapine 1.25 mg 08/02/20 09:00 08/03/20 08:12 Olanzapine 2.5 Mg Tablet PO 1.25 mg DAILY CHIKI Administration Olanzapine 2.5 mg 08/01/20 15:33 Olanzapine 2.5 Mg Tablet PO Q6H PRN psychotic symptoms Ondansetron HCl 4 mg 07/30/20 14:54 Ondansetron Hcl 4 Mg/2 Ml Vial IVPUSH Q8H PRN Nausea and Vomiting Sodium Chloride 3 ml 07/30/20 16:00 08/03/20 08:13 0.9 % Sodium Chloride Flush 3 Ml Syringe IVFLUSH 3 ml QSHIFT CHIKI Administration Allergies Allergies Allergy/AdvReac Type Severity Reaction Status Date / Time alendronate sodium Allergy Unknown MOUTH Verified 01/07/20 16:28 [From FOSAMAX] BLEEDING - IRRITATION cholecalciferol (vitamin D3) Allergy Unknown muscle Verified 01/07/20 16:28 [Vitamin D3] pains ALL VITAMINS Allergy Mild MUSCLE Uncoded 01/07/20 16:28 PAINS Assessment & Plan Assessment & Plan (1) Auditory hallucination: Status: Acute Code(s): R44.0 - Auditory hallucinations Recommendations: The patient is an elderly Puertor[place] female, with no prior history of mental illness or dementia who was admitted after an abrupt episode of psychosis elicited by auditory hallucinations with derogatory content, paranoia and confusion, most likely induced by UTI or any other medical problem. Currently, the patient is much better, still with some residual hallucinations but she seems oversedated. Plan: Taper off Zyprexa slowly: 1. Start by stopping Zyprexa 1.25 mg po qam. 2. After 24 hours, start lowering Zyprexa 2.5 mg po qhs to 1.25 mg po qhs for 3 days, then discontinue if the psychosis is resolved. Continue Neurology assessment and work-out Reassessment as demand. (2) Confusion: Status: Acute Code(s): R41.0 - Disorientation, unspecified Greater than 50% of the session was spent on counseling and/or coordination of care
[2020-08-03 15:31] VITALS: BP 160/64; PULSE 81; RESP 16; TEMP 37; O2SAT 98
[2020-08-03 19:41] VITALS: BP 133/67; PULSE 88; RESP 16; TEMP 36.5; O2SAT 96
[2020-08-03] MEDS: OLANZapine 2.5 MG TABLET PO (20:32)
[2020-08-03 23:59] VITALS: BP 126/60; PULSE 78; RESP 14; TEMP 37.1; O2SAT 96
[2020-08-04 03:07] VITALS: RESP 16
[2020-08-04] MEDS: Heparin Sodium,Porcine 5,000 UNIT/ML VIAL 5000 UNIT SUBCUT ×2 (04:16→15:17)
[2020-08-04 07:48] VITALS: BP 141/75; PULSE 83; RESP 18; TEMP 36.6; O2SAT 98
[2020-08-04] MEDS: 0.9 % Sodium Chloride Flush 3 ML SYRINGE IVFLUSH ×3 (09:04→20:51)
[2020-08-04 11:38] VITALS: BP 102/63; PULSE 95; RESP 18; TEMP 36.4; O2SAT 97
--- NOTE | 2020-08-04 14:02 | HO.PM.IMPN ---
Subjective Subjective Date of Service: 08/04/20 Interval History: seen and examined this AM much more lucid tells me she has bene hearing voices at home stating Agnes, home here voices not telling her to harm herself shes tells me that she doesnt think she can live on her own any longer she denies any current voices ROS General - no fevers or chills Cardiovascular - no chest pain Respiratory - no shortness of breath or cough Abdominal- no abdominal pain, nausea, vomiting, diarrhea neuro / psych -- no voices Physical Exam Vital Signs: Vital Signs: Last Vital Signs Temp 97.5 F 08/04/20 11:38 Pulse 95 08/04/20 11:38 Resp 18 08/04/20 11:38 BP 102/63 08/04/20 11:38 Pulse Ox 97 08/04/20 11:38 Body Mass Index 28.1 Const: Other: General - resting Lungs - does not appear to be in distress CVS - s1s2 Extremities - no edema bilaterally Neuro - non-focal, oriented x 3 psych - calm and cooperative Objective Data Current Medications Generic Name Dose Route Start Last Admin Trade Name Freq PRN Reason Stop Dose Admin Acetaminophen 650 mg 07/30/20 14:54 Acetaminophen 325 Mg Tablet PO Q6H PRN Pain, Mild (Pain Scale 1-3) Heparin Sodium (Porcine) 5,000 unit 07/30/20 16:00 08/04/20 04:16 Heparin Sodium,Porcine 5,000 Unit/Ml Vial SUBCUT 5,000 unit Q12H CHIKI Administration Losartan Potassium 100 mg 07/31/20 09:00 08/02/20 09:22 Losartan Potassium 50 Mg Tablet PO 100 mg DAILY CHIKI Administration Protocol Olanzapine 2.5 mg 08/01/20 21:00 08/03/20 20:32 Olanzapine 2.5 Mg Tablet PO 2.5 mg BEDTIME CHIKI Administration Olanzapine 2.5 mg 08/01/20 15:33 Olanzapine 2.5 Mg Tablet PO Q6H PRN psychotic symptoms Ondansetron HCl 4 mg 07/30/20 14:54 Ondansetron Hcl 4 Mg/2 Ml Vial IVPUSH Q8H PRN Nausea and Vomiting Sodium Chloride 3 ml 07/30/20 16:00 08/04/20 09:04 0.9 % Sodium Chloride Flush 3 Ml Syringe IVFLUSH 3 ml QSHIFT CHIKI Administration Labs CBC & Chem 7: 07/31/20 06:58 07/31/20 06:58 Microbiology Microbiology Results: Microbiology 07/30/20 15:43 Blood - Venous Blood Culture - Preliminary No growth after 48 hours. 07/30/20 15:13 Blood - Venous Blood Culture - Preliminary No growth after 48 hours. 07/30/20 Unknown Urine clean catch - Clean Catch Midstream Urine Culture - Final Assessment and Plan (1) Psychotic disorder: Status: Acute Assessment and Plan: This is an 84 yo F admitted for acute confusion, initially thought to be secondary to UTI. 1. Dementia with behavioral disturbances improving daily MRI showing volume loss + chronic microangiopathic changes, likely pointing towards dementia EEG negative d/w Dr. Najera today -- no need for LP Psych input appreciated -- starting to taper her antipsychotics -- AM dose zyprexa discontinued, will change to 1.25mg at bedtime starting tomorrow 2. UTI, ruled out cultures negative, stop antibiotics 3. Uncontrolled HTN likely worsened by her agitation losartan on hold last 48 hours, bp stable off losartan monitor and restart once it elevates 4. Chronic normocytic anemia h/h stable monitor intermittently as needed Full Code DVT pptx, subcut. heparin dipso: TBD -- home with services vs STR
--- NOTE | 2020-08-04 14:55 | MHC.CM.PN ---
Addendum entered by Marilia Gunderson RN 08/04/20 16:17: Per pt's niece pt reported she had AH as a child up until she was 12yrs old and they stopped, this is the only psychiatric hx niece is aware of. Original Note: CM contacted pt's nephew Donny at 1:45pm [phone] to determine if pt would be able to stay with him, per nephew he cannot accommodate pt and requested t/w contact his sister Helen who was visiting pt. CM spoke w/niece Helen who reported pt can not stay with her right now due to her having housing but said it might be a possibility in the future. Per niece pt is reporting the people in the tv are watching her and reports she will go home but she will not stay there at night. Per niece pt has 3 children, one of who from complications r/t AIDS, one who is in [facility] for life and the third is incapable due to living in a senior care. Niece also reports she will talk w/her brother (pt's nephew) and discuss any other options in assisting pt w/housing. Hospitalist aware and will order PT consult. CM to follow for d/c needs. CM also met w/pt via die tester to complete a HCP w/ pt, per pt she named her nephew Donny Villa [phone] as Health Care Agent and niece Helen Miller [phone], pt given education, original and two copies and a copy was uplaoded to [facility] and placed in chart.
[2020-08-04 15:25] VITALS: BP 139/59; PULSE 98; RESP 18; TEMP 36.4; O2SAT 97
[2020-08-04 19:16] VITALS: BP 102/53; PULSE 90; RESP 18; TEMP 37.1; O2SAT 97
[2020-08-04] MEDS: OLANZapine 2.5 MG TABLET PO (20:51)
[2020-08-04 23:09] VITALS: BP 134/62; PULSE 78; RESP 16; TEMP 36.9; O2SAT 99
[2020-08-05 04:00] VITALS: BP 150/84; PULSE 85; RESP 16; TEMP 36.8; O2SAT 97
[2020-08-05] MEDS: Heparin Sodium,Porcine 5,000 UNIT/ML VIAL 5000 UNIT SUBCUT ×2 (04:32→16:38)
[2020-08-05 08:00] VITALS: BP 134/63; PULSE 83; RESP 18; TEMP 36.1; O2SAT 97
[2020-08-05] MEDS: Losartan Potassium 50 MG TABLET 100 MG PO (08:18)
[2020-08-05] MEDS: 0.9 % Sodium Chloride Flush 3 ML SYRINGE IVFLUSH ×3 (08:20→23:54)
--- NOTE | 2020-08-05 09:57 | MHC.CM.PN ---
CM attempted to contact to contact pt's nephew at 9:46am [phone] to discuss possibility of family taking pt in or placement for pt, message was left w/ CM contact number.
--- NOTE | 2020-08-05 10:04 | P.PNIM_ITS ---
Subjective Subjective Date of Service: 08/05/20 Interval History: seen and examined this AM remains calm and cooperative no hallucinations at this time feels better than yesterday, less tired ROS General - no fevers or chills Cardiovascular - no chest pain Respiratory - no shortness of breath or cough Abdominal- no abdominal pain, nausea, vomiting, diarrhea neuro / psych -- no voices Physical Exam Vital Signs: Vital Signs: Last Vital Signs Temp 97.0 F 08/05/20 08:00 Pulse 83 08/05/20 08:00 Resp 18 08/05/20 08:00 BP 134/63 08/05/20 08:00 Pulse Ox 97 08/05/20 08:00 Body Mass Index 28.1 Const: Other: General - resting Lungs - does not appear to be in distress CVS - s1s2 Extremities - no edema bilaterally Neuro - non-focal, oriented x 3 psych - calm and cooperative, denies AH Objective Data Current Medications Generic Name Dose Route Start Last Admin Trade Name Freq PRN Reason Stop Dose Admin Acetaminophen 650 mg 07/30/20 14:54 Acetaminophen 325 Mg Tablet PO Q6H PRN Pain, Mild (Pain Scale 1-3) Heparin Sodium (Porcine) 5,000 unit 07/30/20 16:00 08/05/20 04:32 Heparin Sodium,Porcine 5,000 Unit/Ml Vial SUBCUT 5,000 unit Q12H CHIKI Administration Losartan Potassium 100 mg 07/31/20 09:00 08/05/20 08:18 Losartan Potassium 50 Mg Tablet PO 100 mg DAILY CHIKI Administration Protocol Olanzapine 2.5 mg 08/01/20 21:00 08/04/20 20:51 Olanzapine 2.5 Mg Tablet PO 2.5 mg BEDTIME CHIKI Administration Olanzapine 2.5 mg 08/01/20 15:33 Olanzapine 2.5 Mg Tablet PO Q6H PRN psychotic symptoms Ondansetron HCl 4 mg 07/30/20 14:54 Ondansetron Hcl 4 Mg/2 Ml Vial IVPUSH Q8H PRN Nausea and Vomiting Sodium Chloride 3 ml 07/30/20 16:00 08/05/20 08:20 0.9 % Sodium Chloride Flush 3 Ml Syringe IVFLUSH 3 ml QSHIFT CHIKI Administration Labs CBC & Chem 7: 07/31/20 06:58 07/31/20 06:58 Microbiology Microbiology Results: Microbiology 07/30/20 15:43 Blood - Venous Blood Culture - Final No growth after 5 days. 07/30/20 15:13 Blood - Venous Blood Culture - Final No growth after 5 days. 07/30/20 Unknown Urine clean catch - Clean Catch Midstream Urine Culture - Final Assessment and Plan (1) Psychotic disorder: Status: Acute Assessment and Plan: This is an 84 yo F admitted for acute confusion, initially thought to be secondary to UTI. 1. Dementia with behavioral disturbances continues to improve taper zyprexa per psych recs (1.25mg x 3 days, then stop if no further disturba nces). behavioral distubances have subsided MRI showing volume loss + chronic microangiopathic changes, likely pointing towards dementia. EEG negative Psych / Neuro input appreciated 2. UTI, ruled out cultures negative, stop antibiotics 3. Labile HTN Bp improved and stable x 24 hours will restart her losartan 4. Chronic normocytic anemia h/h stable monitor intermittently as needed 5. Weakness PT evaluation Full Code DVT pptx, subcut. heparin dipso: TBD -- home with services vs STR
[2020-08-05 10:30] VITALS: BP 134/63; PULSE 83; O2SAT 97
[2020-08-05 11:41] VITALS: BP 122/56; PULSE 88; RESP 18; TEMP 36.3; O2SAT 97
[2020-08-05 12:59] LABS: COVID-19 Test Negative (Negative); IDNOW Serial# 9DD0AD1C
--- NOTE | 2020-08-05 13:10 | MHC.CM.PN ---
CM ATTEMPTED TO CALL PT'S NEPHEW/HCP [facility] AT 12:20PM [phone] REGARDING PT'S DISCHARGE PLAN, NO ANSWER SECOND MESSAGE LEFT. CM MET W/PT WHO REPORTS SHE IS OK GOING TO STR TO GET STRONGER PRIOR TO GOING TO LIVE W/NEPHEW. CM ALSO ATTEMPTED TO CALL PT'S ALTERNATE HCP/NIECE MEL AT 1:10PM, NO ANSWER AND VOICEMAIL IS CURRENTLY FULL. CM TO CONT W/PLAN TO FIND STR BED FOR PT.
--- NOTE | 2020-08-05 13:53 | MHC.CM.PN ---
CM RECEIVED CALL FROM YARI PT'S CM FROM [facility] TO DISCUSS PT'S CASE AND PLAN, YARI IS ON BOARD W/PLAN FOR STR AND PLAN TO EVENTUALLY MOVE IN W/FAMILY.
--- NOTE | 2020-08-05 14:13 | P.DS_ITS ---
DS: Providers Provider Date of Service: 08/05/20 Date of admission: 07/30/20 14:54 Primary care physician: Jarad Johnson MD Consults: 07/30/20 08:03 Consult to Crisis Stat Reason for consultation: Auditory hallucination Has provider been notified: Yes 08/01/20 11:35 Consult to Psychiatry Routine Consulting Provider: [facility] Reason for consultation: acute psychosis 08/02/20 09:39 Consult to Neurology Routine Consulting Provider: [facility] Reason for consultation: acute delirium, ? psychatric vs medical in nature DS: Diagnosis Discharge Diagnosis (1) Dementia with behavioral disturbance: Status: Acute (2) Auditory hallucination: Status: Acute (3) Urinary tract infection: Status: Acute Problem details: ruled out DS: Medications Discharge Medications Home Medications: Previous Rx's Medication Instructions Recorded losartan 100 mg tablet 100 mg PO DAILY #90 tab 07/18/20 olanzapine 1.25 mg PO BEDTIME #30 tab 08/05/20 DS: Summary Hospital Course Hospital Course: Presented to the hospital with acute confusion and auditory hallucinations. This was initially felt secondary to a urinary tract infection and she was empirically started on IV ceftriaxone. Patient's urine cultures and blood cultures returned negative and her symptoms persisted. Further workup was initiated including psychiatric and neurologic evaluations. She underwent an MRI which showed diffuse cerebral atrophy and chronic microangiopathic changes. Her EEG was within normal limits. Psychiatry recommended treatment of her symptoms with oral Zyprexa in the morning as well as at bedtime. With these medications for hallucinations and acute psychosis resolved. Her a.m. dose of Zyprexa has been tapered and discontinued at the time of discharge. She was initially started on Zyprexa 2.5 mg at bedtime which is now decreased to 1.25 mg at bedtime at the time of discharge. This can be tapered off over the next several days as her behaviors continue to improve. Ultimately, the likely diagnosis of her presentation was deemed secondary to dementia with behavioral disturbances. Time Spent with Patient Time attestation: Total time spent providing and/or coordinating discharge services: Discharge coordination time: Greater than 30 minutes Physical Exam Vital Signs: Vital Signs: Last Vital Signs Temp 97.4 F 08/05/20 11:41 Pulse 88 08/05/20 11:41 Resp 18 08/05/20 11:41 BP 122/56 L 08/05/20 11:41 Pulse Ox 97 08/05/20 11:41 Body Mass Index 28.1 Const: Other: General - no acute distress, appears comfortable Cardiovascular - regular rate and rhythm, S1-S2 Lungs - normal respiratory effort, clear to auscultation bilaterally, no wheezing Abdomen - soft, non-tender, no rebound or guarding Extremities - no edema bilaterally Neuro - awake and alert - oriented to person, place and time, no focal deficits Psych - appropriate affect DS: Data Data Completed and Pending Labs on day of discharge: Laboratory Results - last 24 hr 08/05/20 12:30 COVID-19 ([facility]) Negative COVID-19 Clin Com See Note Discharge Plan Discharge Patient Disposition: Xfer SNF Discharge Diagnosis: Dementia with behavioral disturbances Referrals: Alex,Jarad Ruiz MD [Primary Care Provider] - 1 Week Discharge Medications: New olanzapine 2.5 mg Tablet 1.25 mg PO BEDTIME Qty: 30 RF: 0 Continued losartan 100 mg tablet 100 mg PO DAILY Qty: 90 RF: 2 Discontinued cefuroxime axetil 500 mg tablet 500 mg PO BID 7 Days Qty: 14 RF: 0 Discharge Orders: Discharge Order (Routine); Ordered 08/05/20 Ordered By: Alphonso Priest Diet: advance to usual diet Activity on Discharge: As tolerated Stand Alone Forms: Patient Portal Discharge page Care Plan Goals: To stay healthy and out of the hospital. Health Concerns: Dementia with behavioral disturbances Generalized weakness Plan of Treatment: Dementia with behavioral disturbances - take zyprexa and discontinue once symptoms resolved (already improved, likely able to d/c in a few days Generalized weakness - physical therapy at SNF Assessment: 84 yo F admitted for confusion, initially thought secondary to UTI (ruled out). Diagnosed with delirium. Neurological work up consist dementia
[2020-08-05 15:18] VITALS: BP 107/52; PULSE 70; RESP 12; TEMP 36.4; O2SAT 97
[2020-08-05 19:15] VITALS: BP 116/58; PULSE 85; RESP 14; TEMP 37.2; O2SAT 95
[2020-08-05] MEDS: OLANZapine 2.5 MG TABLET 1.25 MG PO (21:08)
[2020-08-06] VITALS (7 sets, daily range): BP systolic 103–131; BP diastolic 50–67; PULSE 76–91; RESP 15–17; TEMP 36.4–37.2; O2SAT 95–99
[2020-08-06] MEDS: Heparin Sodium,Porcine 5,000 UNIT/ML VIAL 5000 UNIT SUBCUT ×2 (05:05→15:06)
[2020-08-06] MEDS: Losartan Potassium 50 MG TABLET 100 MG PO (08:37)
[2020-08-06] MEDS: 0.9 % Sodium Chloride Flush 3 ML SYRINGE IVFLUSH ×3 (08:37→20:55)
--- NOTE | 2020-08-06 10:41 | MHC.CM.PN ---
PATIENT INSURANCE NOT AVAILABLE FOR AUTH PROCESS ON WEEKENDS. [facility] TO READDRESS ON Saturday08/08/20
[2020-08-06] MEDS: OLANZapine 2.5 MG TABLET 1.25 MG PO (20:46)
[2020-08-07] VITALS: BP 137/58; PULSE 79; TEMP 36.3; O2SAT 98
[2020-08-07 04:00] VITALS: BP 115/63; PULSE 74; RESP 18; TEMP 36.6; O2SAT 96
[2020-08-07] MEDS: Heparin Sodium,Porcine 5,000 UNIT/ML VIAL 5000 UNIT SUBCUT ×2 (04:41→17:07)
[2020-08-07] MEDS: 0.9 % Sodium Chloride Flush 3 ML SYRINGE IVFLUSH ×2 (07:51→17:09)
[2020-08-07 07:55] VITALS: BP 142/52; PULSE 80; RESP 16; TEMP 36.4; O2SAT 98
--- NOTE | 2020-08-07 09:45 | P.PNIM_ITS ---
Subjective Subjective Date of Service: 08/07/20 Interval History: seen and examined this AM remains calm and cooperative no hallucinations--could not be discharged d/t insurance issues ROS General - no fevers or chills Cardiovascular - no chest pain Respiratory - no shortness of breath or cough Abdominal- no abdominal pain, nausea, vomiting, diarrhea neuro / psych -- no voices Review of Systems No recent cold or flu-like illness. No rash. Physical Exam Vital Signs: Vital Signs: Last Vital Signs Temp 97.5 F 08/07/20 07:55 Pulse 80 08/07/20 07:55 Resp 16 08/07/20 07:55 BP 142/52 H 08/07/20 07:55 Pulse Ox 98 08/07/20 07:55 Body Mass Index 28.1 Const: Other: General - no acute distress, appears comfortable Cardiovascular - regular rate and rhythm, S1-S2 Lungs - normal respiratory effort, clear to auscultation bilaterally, no wheezing Abdomen - soft, non-tender, no rebound or guarding Extremities - no edema bilaterally Neuro - awake and alert - oriented to person, place and time, no focal deficits Psych - appropriate affect Objective Data Current Medications Generic Name Dose Route Start Last Admin Trade Name Freq PRN Reason Stop Dose Admin Acetaminophen 650 mg 07/30/20 14:54 Acetaminophen 325 Mg Tablet PO Q6H PRN Pain, Mild (Pain Scale 1-3) Heparin Sodium (Porcine) 5,000 unit 07/30/20 16:00 08/07/20 04:41 Heparin Sodium,Porcine 5,000 Unit/Ml Vial SUBCUT 5,000 unit Q12H CHIKI Administration Losartan Potassium 100 mg 07/31/20 09:00 08/07/20 09:10 Losartan Potassium 50 Mg Tablet PO Not Given DAILY CHIKI Protocol Olanzapine 1.25 mg 08/05/20 21:00 08/06/20 20:46 Olanzapine 2.5 Mg Tablet PO 08/07/20 21:01 1.25 mg BEDTIME CHIKI Administration Ondansetron HCl 4 mg 07/30/20 14:54 Ondansetron Hcl 4 Mg/2 Ml Vial IVPUSH Q8H PRN Nausea and Vomiting Sodium Chloride 3 ml 07/30/20 16:00 08/07/20 07:51 0.9 % Sodium Chloride Flush 3 Ml Syringe IVFLUSH 3 ml QSHIFT CHIKI Administration Labs CBC & Chem 7: 07/31/20 06:58 07/31/20 06:58 Microbiology Microbiology Results: Microbiology 07/30/20 15:43 Blood - Venous Blood Culture - Final No growth after 5 days. 07/30/20 15:13 Blood - Venous Blood Culture - Final No growth after 5 days. 07/30/20 Unknown Urine clean catch - Clean Catch Midstream Urine Culture - Final Assessment and Plan (1) Dementia with behavioral disturbance: Status: Acute (2) Auditory hallucination: Status: Acute (3) Urinary tract infection: Problem details: ruled out Status: Acute Assessment and Plan: This is an 84 yo F admitted for acute confusion, initially thought to be secondary to UTI. 1. Dementia with behavioral disturbances continues to improve taper zyprexa per psych recs (1.25mg x 3 days, then stop if no further disturbances)--day 3 today behavioral distubances have subsided MRI showing volume loss + chronic microangiopathic changes, likely pointing tow ards dementia. EEG negative Psych / Neuro input appreciated 2. UTI, ruled out cultures negative, no antibiotics needed 3. HTN--Losartan 4. Chronic normocytic anemia h/h stable monitor intermittently as needed 5. Weakness PT evaluation Full Code DVT pptx, subcut. heparin dipso: TBD -- home with services vs STR
--- NOTE | 2020-08-07 10:08 | PC.NURSE ---
Pt refused her Cozaar, states it akes her sick. Dr Frank notified. No new orders at this time. Will monitor BP
[2020-08-07 11:44] VITALS: BP 106/51; PULSE 75; RESP 16; TEMP 36.1; O2SAT 97
[2020-08-07 16:00] VITALS: BP 109/47; PULSE 85; RESP 14; TEMP 36.7; O2SAT 97
[2020-08-07 20:00] VITALS: BP 106/56; PULSE 92; RESP 14; TEMP 36.7; O2SAT 97
[2020-08-07] MEDS: OLANZapine 2.5 MG TABLET 1.25 MG PO (20:19)
[2020-08-08] MEDS: 0.9 % Sodium Chloride Flush 3 ML SYRINGE IVFLUSH ×2 (00:02→08:49)
[2020-08-08 00:04] VITALS: BP 112/55; PULSE 81; RESP 16; TEMP 36.7; O2SAT 95
[2020-08-08 03:32] VITALS: BP 119/57; PULSE 86; RESP 14; TEMP 37.1; O2SAT 98
[2020-08-08] MEDS: Heparin Sodium,Porcine 5,000 UNIT/ML VIAL 5000 UNIT SUBCUT (05:25)
[2020-08-08 07:56] VITALS: BP 111/52; PULSE 83; RESP 15; TEMP 36.6; O2SAT 100
[2020-08-08 08:37] VITALS: BP 111/52; PULSE 83; O2SAT 100
--- NOTE | 2020-08-08 10:29 | PM.EVENT ---
Event Note Date of Service: 08/08/20 Event Note: SEen and examined this AM was unable to be discharged over the weekend due to insurance issues doing well, no AH reported this Am tapered off her zyprexa and remains without issues await insurance auth and subsequent transfer to SNF
--- NOTE | 2020-08-08 11:40 | MHC.CM.PN ---
IMM 08/08/20, PT DISCHARGING TODAY AT 1PM TO [facility] [place] FOR STR, ACTION FOR BLS TRANSPORT. CM SPOKE W/PT'S NEPHEW/HCP BASSAM AT 11:35AM [phone], NEPHEW AWARE OF D/C PLAN AND FEELS IT IS A GOOD CHOICE FOR PT.
[2020-08-08 11:44] VITALS: BP 142/61; RESP 17; O2SAT 99
--- NOTE | 2020-08-08 12:21 | MHC.INPTTRAN ---
More alert and cooperative. Takes meds whole with water. BP med held today for BP 111/52 Ambulates with supervision. Yolanda diet. Denies pain. feels stiff in legs
[2020-08-08 12:41] LABS: COVID-19 Test Negative (Negative)
== END 2020-08-08 13:04 | disposition skilled nursing facility (03) | DRG 71 ==
LOC: HO.ED 15:00 → HO.EDOVER 15:04 → HO.S3 15:30
PROVIDERS: Nurse Practitioner Acute Care; Admitting Provider Hospitalist; Emergency Provider Emergency Medicine; PCP Internal Medicine; Visit Provider Family Medicine
DX: G93.40 Encephalopathy, unspecified (principal); F05 Delirium due to known physiological condition; F03.91 Unspecified dementia, unspecified severity, with behavioral disturbance; D63.1 Anemia in chronic kidney disease; I12.9 Hypertensive chronic kidney disease with stage 1 through stage 4 chronic kidney disease, or unspecified chronic kidney disease; N18.30 Chronic kidney disease, stage 3 unspecified; Z20.822 Contact with and (suspected) exposure to COVID-19; Z79.899 Other long term (current) drug therapy
CPT/HCPCS: 36415; 70551; 80048; 80053; 81001; 81003; 83605; 84443; 85025; 87040; 87086; 87635; 93005; 95816; 96365; 97116; 97162; 99285; J0696

== ENCOUNTER 2020-10-09 12:18 | Emergency (ER) | payer OTHER, MEDICAID, SELFPAY ==
[2020-10-09 12:24] VITALS: BP 194/86; PULSE 70; RESP 16; O2SAT 97; BMI 24.0
--- NOTE | 2020-10-09 12:32 | ECG_ITS ---
Test Reason : GENERAL MED Blood Pressure : / mmHG Vent. Rate : 067 BPM Atrial Rate : 067 BPM P-R Int : 166 ms QRS Dur : 114 ms QT Int : 414 ms P-R-T Axes : 035 035 017 degrees QTc Int : 437 ms Normal sinus rhythm Right bundle branch block Abnormal ECG When compared with ECG of 01-AUG-2020 14:22, Premature atrial complexes are no longer Present Referred By: Etelvina Phipps Electronically Signed By:ISELA JUDGE
[2020-10-09 12:42] VITALS: BP 194/86; PULSE 70
[2020-10-09] MEDS: Losartan Potassium 50 MG TABLET 100 MG PO (12:42)
--- NOTE | 2020-10-09 12:51 | ED_ITS ---
HPI - General Adult General Chief complaint: General Medical Stated complaint: EVALUATION Time Seen by Provider: 10/09/20 12:32 Source: patient and EMS Mode of arrival: EMS Limitations: no limitations History of Present Illness HPI narrative: 85-year-old female with a past medical history of dementia, chronic kidney disease here with complaints of high blood pressure. The patient tells me that she had the visiting nurse come in today and during her blood pressure check it was noted to be elevated with systolic of 200. The patient tells me that she does not normally check her blood pressure. She is supposed to be taking losartan 100 mg but she has not taken it for several weeks as it makes her feel weak and tired. Of note, the patient was recently discharged from [facility] after being admitted for short-term rehab. She does tell me that she checked herself out as she felt they were not doing anything for her. I asked the patient how she was feeling at home and she tells me she is feeling well. She denies any auditory hallucinations, SI or HI. She does feel anxious. No chest pain, shortness of breath, dizziness, YEH, vomiting. Related Data Previous Rx's Medication Instructions Recorded losartan 100 mg tablet 100 mg PO DAILY #90 tab 07/18/20 Allergies Allergy/AdvReac Type Severity Reaction Status Date / Time alendronate sodium Allergy Unknown MOUTH Verified 01/07/20 16:28 [From FOSAMAX] BLEEDING - IRRITATION cholecalciferol (vitamin D3) Allergy Unknown muscle Verified 01/07/20 16:28 [Vitamin D3] pains ALL VITAMINS Allergy Mild MUSCLE Uncoded 01/07/20 16:28 PAINS Review of Systems Review of Systems: Yes all other systems are reviewed and are negative Constitutional: Constitutional: Reports no additional constitutional complaints, Denies body ache(s), Denies chills, Denies fever(s), Denies headache(s) and Denies weakness Eyes: Eyes: Reports no additional eye complaints and Denies change in vision ENT: Reports system reviewed and no additional complaints, except as documented, Denies dizziness, Denies headache(s), Denies nasal congestion, Denies nasal discharge and Denies neck pain Cardiovascular: Cardiovascular: Reports no additional cardiovascular complaints, Denies chest pain, Denies leg edema and Denies dyspnea Respiratory: Respiratory: Reports no additional respiratory complaints, Denies cough and Denies dyspnea Gastrointestinal: Gastrointestinal: Reports no additional gastrointestinal complaints, Denies abdominal pain, Denies diarrhea, Denies nausea and Denies vomiting Genitourinary: Genitourinary: Reports no additional female genitourinary complaints and Denies urinary incontinence Musculoskeletal: Musculoskeletal: Reports no additional musculoskeletal complaints, Denies back pain, Denies arthralgias, Denies joint swelling, Denies neck pain, Denies numbness and Denies tingling Integumentary/Breasts: Skin/Breast: Reports system reviewed and no additional complaints, except as docu and Denies rash Neurologic: Reports system reviewed and no additional complaints, except as documented, Denies Abnormal speech present, Denies dizziness, Denies headach e(s), Denies numbness, Denies tingling and Denies weakness Psychiatric: Psychiatric: Reports anxiety, Denies paranoia, Denies visual hallucinations, Denies hallucinations, Denies homicidal ideation and Denies suicidal ideation [facility] Past Medical History Attestation statement: The following information was validated with the patient. Source: old records reviewed and nursing notes reviewed Medical History Anemia Carpal tunnel syndrome Chronic kidney disease (CKD) stage G3a/A1, moderately decreased glomerular filtration rate (GFR) between 45-59 mL/min/1.73 square meter and albuminuria creatinine ratio less than 30 mg/g History of breast cancer Hypertension Surgical History History of carpal tunnel release History of cataract surgery History of cholecystectomy Family History Family History Father No problems noted. Mother No problems noted. Social History Social History Household Members: None Housing: Apartment Do you presently have visiting nurse or other home services: No Alcohol intake: never Advance Directives: No Advance Directives Information Provided: Yes service: No Current occupational status: disabled Physical Exam Vital Signs: Vital Signs: Last Vital Signs Temp 98.4 F 10/09/20 13:33 Pulse 63 10/09/20 14:30 Resp 16 10/09/20 14:30 BP 189/74 H 10/09/20 14:30 Pulse Ox 93 10/09/20 13:33 Body Mass Index 24.0 Const: General: anxious Limitations: no limitations HENMT: Head: Yes normal to inspection Ears: hearing grossly normal bilaterally General nose exam: Normal external nose present Face and sinus: Yes normal facial exam Mouth: Normal oral and palatal mucosa present Throat: Yes posterior oropharynx normal Eyes: General: appearance normal, both eyes and all related structures Pupils: Equal, round and reactive pupils present Neck: Neck: Yes normal visual inspection Chest: Chest palpation & inspection: normal inspection of the chest Resp: Effort & Inspection: normal respiratory effort Auscultation: clear to auscultation bilaterally Cardio: Rate: regular rate Rhythm: regular rhythm Peripheral pulses: Peripheral pulses 2+ throughout GI: Inspection: Yes normal to inspection Palpation (GI): Soft to palpation and nontender Auscultation: normal bowel sounds Back/Spine/Pelvis: Thoracic/Lumbar Spine: thoracic and lumbar spine normal to inspection Skin: General skin exam: no rashes or lesions noted Neuro: General: no focal motor deficits and normal sensation to monofilament Cranial nerves: Yes CN's II-XII intact bilaterally, Yes Equal, round and reactive pupils present, Yes Bilaterally intact EOM present, Yes Nystagmus not present, Yes Normal facial strength present and Yes Midline tongue present Cognition (Neuro): normal cognition Speech: No Abnormal speech present Gait exam (Neuro): Normal gait present Motor exam (neuro): 5/5 motor strength present throughout Sensory Exam: Normal double simultaneous stimulation for sensation Extrem: General: Yes normal to inspection, Yes no pedal edema and Yes no calf tenderness Course Course Course Narrative: 85-year-old female here after being noted to be hypertensive by the visiting nurse. She is asymptomatic. It sounds like she has been noncompliant with her losartan at home due to feeling weak and tired. On arrival she is mildly hypertensive. Normal neuro exam. Alert and oriented. Will check labs, EKG, UA will give dose of losartan. Patient very anxious. She tells me she has not been taking her losartan because she thinks the physical therapist that came in to visit her home stole it. However, she has a bottle on her person. She had a recent admission for auditory hallucinations, change in mental status and has been taking Zyprexa. She denies hallucinations. Denies SI. Will have care team involved. May also need CM 1410-labs are unremarkable. EKG shows no ischemic changes. Patient has asymptomatic hypertension which is mildly improving after receiving her dose of losartan. She does appear to be perseverating on several things during the exam. She appears very anxious but denies feeling this way. Will have care team come and evaluate her. 1430-cleared by care team. Patient walks with a steady gait the bathroom. She does have VNA services as well as physical therapy that come into her home. She feels comfortable going home and does not feel like she needs any additional services. 1440-I also spoke to the patient's next of kin Donny her nephew and I explained to him that I a.m. concerned the patient seems confused about which medication she should be taking and appropriate follow-up. He tells me that he checks on the patient frequently and will make sure she takes her medication and follows up with her primary care doctor. Reviewed worrisome signs symptoms of when to return to the emergency department. Comfortable discharge home. Medical Decision Making Medical Records Medical records reviewed: Yes I reviewed the patient's medical records. Lab Data Lab results reviewed: Yes I reviewed the patient's lab results. Result diagrams: 10/09/20 13:21 07 13:21 Labs: Lab Results 10/09/20 10/09/20 10/09/20 Range/Units 13:21 13:21 13:21 WBC 4.5 L (4.8-10.8) X10*3/uL RBC 3.56 L (4.20-5.50) X10*6/uL Hgb 9.4 L (12.0-16.0) g/dl Hct 29.2 L (37-47) % MCV 82.0 (80-98) fL MCH 26.4 L (27.0-33.0) pg MCHC 32.2 (31.0-35.0) g/dl RDW 15.3 (11.0-16.0) % Plt Count 198 (160-400) X10*3/uL MPV 10.8 (9.4-12.3) fL Immature Gran % (Auto) 0.4 (0.0-0.4) % Neut % (Auto) 61.5 (45-73) % Lymph % (Auto) 25.2 (20-40) % [place] % (Auto) 8.2 (2-11) % Eos % (Auto) 3.8 (0-4) % Baso % (Auto) 0.9 (0-2) % Lymph # (Auto) 1.1 L (1.2-4.9) X10*3/uL [place] # (Auto) 0.4 (0.1-1.2) X10*3/uL Eos # (Auto) 0.2 (0.0-0.4) X10*3/uL Baso # (Auto) 0.0 (0.0-0.2) X10*3/uL Abs Immat Gran (auto) 0.02 (0.00-0.03) X10*3/uL Absolute Neuts (auto) 2.8 (2.0-8.3) X10*3/uL Absolute Nucleated RBC 0.000 (0.0-0.012) X10*3/uL Nucleated RBC % (auto) 0.0 (0.0-0.2) /100WBC Sodium 137 (135-145) mmol/L Potassium 4.2 (3.3-5.1) mmol/L Chloride 102 (96-108) mmol/L Carbon Dioxide 26 (22-29) mmol/L Anion Gap 13 (12-20) BUN 20 H (9-16) mg/dL Creatinine 1.07 (0.5-1.4) mg/dL Estim Creat Clear Calc 33.2 Estimated GFR 49 Random Glucose 94 (60-115) mg/dL Calcium 9.8 (8.4-10.2) mg/dL Magnesium 2.1 (1.6-2.6) mg/dL Total Bilirubin 0.5 (0.0-1.0) mg/dL Direct Bilirubin 0.2 (0.0-0.5) mg/dL AST 22 (5-31) U/L ALT 17 (0-31) U/L Alkaline Phosphatase 63 (39-117) U/L Total Protein 7.1 (6.5-8.0) g/dL Albumin 4.2 (3.5-5.0) g/dL Urine Color Urine Appearance Urine pH (5.0-8.0) Ur Specific [place] (1.005-1.025) Urine Protein (NEG-TRACE) MG/DL Urine Glucose (UA) (NEG) MG/DL Urine Ketones (NEG) MG/DL Urine Blood (NEG) Urine Nitrite (NEG) Ur Leukocyte Esterase (NEG) 10/09/20 Range/Units 13:21 WBC (4.8-10.8) X10*3/uL RBC (4.20-5.50) X10*6/uL Hgb (12.0-16.0) g/dl Hct (37-47) % MCV (80-98) fL MCH (27.0-33.0) pg MCHC (31.0-35.0) g/dl RDW (11.0-16.0) % Plt Count (160-400) X10*3/uL MPV (9.4-12.3) fL Immature Gran % (Auto) (0.0-0.4) % Neut % (Auto) (45-73) % Lymph % (Auto) (20-40) % [place] % (Auto) (2-11) % Eos % (Auto) (0-4) % Baso % (Auto) (0-2) % Lymph # (Auto) (1.2-4.9) X10*3/uL [place] # (Auto) (0.1-1.2) X10*3/uL Eos # (Auto) (0.0-0.4) X10*3/uL Baso # (Auto) (0.0-0.2) X10*3/uL Abs Immat Gran (auto) (0.00-0.03) X10*3/uL Absolute Neuts (auto) (2.0-8.3) X10*3/uL Absolute Nucleated RBC (0.0-0.012) X10*3/uL Nucleated RBC % (auto) (0.0-0.2) /100WBC Sodium (135-145) mmol/L Potassium (3.3-5.1) mmol/L Chloride (96-108) mmol/L Carbon Dioxide (22-29) mmol/L Anion Gap (12-20) BUN (9-16) mg/dL Creatinine (0.5-1.4) mg/dL Estim Creat Clear Calc Estimated GFR Random Glucose (60-115) mg/dL Calcium (8.4-10.2) mg/dL Magnesium (1.6-2.6) mg/dL Total Bilirubin (0.0-1.0) mg/dL Direct Bilirubin (0.0-0.5) mg/dL AST (5-31) U/L ALT (0-31) U/L Alkaline Phosphatase (39-117) U/L Total Protein (6.5-8.0) g/dL Albumin (3.5-5.0) g/dL Urine Color YELLOW Urine Appearance CLEAR Urine pH 6.0 (5.0-8.0) Ur Specific [place] <= 1.005 (1.005-1.025) Urine Protein NEG (NEG-TRACE) MG/DL Urine Glucose (UA) NEG (NEG) MG/DL Urine Ketones NEG (NEG) MG/DL Urine Blood NEG (NEG) Urine Nitrite NEG (NEG) Ur Leukocyte Esterase NEG (NEG) ECG Data Attestation: I personally reviewed and interpreted this ECG as follows: Interpretation: Normal sinus rhythm with a rate of 67, right bundle-branch block, normal [place] Discharge Plan Discharge Clinical Impression: Hypertension Patient Disposition: Home, Self-Care Instructions: Hypertension (ED) Additional Instructions: You need to take your losartan every single day. If you do not take your losartan your blood pressure will be elevated. If you feel like this is not the right medication for you you should discuss this with your primary care doctor who manages your blood pressure. See attached list for new PCP. Your lab work, EKG and urine tests were all normal today. Prescriptions: No Action losartan 100 mg tablet 100 mg PO DAILY Qty: 90 RF: 2 Referrals: Po,Jarad Ruiz MD [Primary Care Provider] - 2 days Interventions: ED Discharge Assessment Last Done: 10/09/20 15:12 Discharge Date/Time: 10/09/20 15:14
[2020-10-09 13:28] LABS: MANUAL DIFF FLAG NO
[2020-10-09 13:30] LABS: Glucose Urine UA NEG (NEG); Leukocyte Esterase Urine NEG (NEG); Nitrite Urine NEG (NEG); Specific Gravity - Urine <= 1.005 (1.005-1.025); Urine Blood NEG (NEG); Urine Ketones NEG (NEG); Urine Protein NEG (NEG-TRACE)
[2020-10-09 13:33] VITALS: BP 187/78; PULSE 76; RESP 16; TEMP 36.9; O2SAT 93
[2020-10-09 13:34] LABS: Appearance Urine CLEAR; Color Urine YELLOW
[2020-10-09 13:35] LABS: Basophils Percent Auto 0.9 % (0-2); Eosinophils Absolute Auto 0.2 X10*3/uL (0.0-0.4); Eosinophils Percent Auto 3.8 % (0-4); Hematocrit 29.2 % (37-47); Hemoglobin 9.4 g/dl (12.0-16.0); Imm Gran Abs Auto 0.02 X10*3/uL (0.00-0.03); Imm Gran Pct Auto 0.4 % (0.0-0.4); Lymphocytes Absolute Auto 1.1 X10*3/uL (1.2-4.9); Lymphocytes Percent Auto 25.2 % (20-40); Mean Corpuscular HGB Conc 32.2 g/dl (31.0-35.0); Mean Corpuscular Hemoglobin 26.4 pg (27.0-33.0); Mean Platelet Volume 10.8 fL (9.4-12.3); Monocytes Absolute Auto 0.4 X10*3/uL (0.1-1.2); Monocytes Percent Auto 8.2 % (2-11); Neutrophils Absolute Auto 2.8 X10*3/uL (2.0-8.3); Neutrophils Percent Auto 61.5 % (45-73); Platelet Count 198 X10*3/uL (160-400); Red Blood Count 3.56 X10*6/uL (4.20-5.50); Red Cell Distribution Width 15.3 % (11.0-16.0); White Blood Count 4.5 X10*3/uL (4.8-10.8)
[2020-10-09 13:51] LABS: Magnesium 2.1 mg/dL (1.6-2.6)
[2020-10-09 13:52] LABS: Alanine Aminotransferase 17 U/L (0-31); Albumin Level 4.2 g/dL (3.5-5.0); Alkaline Phosphatase 63 U/L (39-117); Anion Gap 13 (12-20); Aspartate Amino Transferase 22 U/L (5-31); Bilirubin Direct 0.2 mg/dL (0.0-0.5); Bilirubin Total 0.5 mg/dL (0.0-1.0); Blood Urea Nitrogen 20 mg/dL (9-16); Calcium 9.8 mg/dL (8.4-10.2); Carbon Dioxide 26 mmol/L (22-29); Chloride 102 mmol/L (96-108); Creatinine Clr Calc Pharmacy 33.2; Estimated Glomerular Filt Rate 49; Glucose Random 94 mg/dL (60-115); Potassium 4.2 mmol/L (3.3-5.1); Sodium 137 mmol/L (135-145); Total Protein 7.1 g/dL (6.5-8.0)
[2020-10-09 14:30] VITALS: BP 189/74; PULSE 63; RESP 16
== END 2020-10-09 15:14 | disposition home or self-care (01) ==
PROVIDERS: Nurse Practitioner Family; Emergency Provider Emergency Medicine; PCP Internal Medicine
DX: I12.9 Hypertensive chronic kidney disease with stage 1 through stage 4 chronic kidney disease, or unspecified chronic kidney disease (principal); N18.31 Chronic kidney disease, stage 3a; Z91.14 Patient's other noncompliance with medication regimen
CPT/HCPCS: 36415; 80048; 80076; 81003; 83735; 85025; 93005; 99284; 99285

== ENCOUNTER 2020-11-18 11:58 | Emergency (ER) | payer OTHER, MEDICAID, SELFPAY ==
[2020-11-18 12:11] VITALS: BP 138/75; PULSE 75; O2SAT 99
[2020-11-18 12:13] VITALS: BP 141/58; PULSE 73; RESP 18; TEMP 36.7; O2SAT 99; BMI 30.9
[2020-11-18 12:55] LABS: MANUAL DIFF FLAG NO
[2020-11-18 13:00] LABS: Basophils Percent Auto 0.5 % (0-2); Eosinophils Absolute Auto 0.1 X10*3/uL (0.0-0.4); Eosinophils Percent Auto 1.7 % (0-4); Hematocrit 30.8 % (37-47); Hemoglobin 10.1 g/dl (12.0-16.0); Imm Gran Abs Auto 0.01 X10*3/uL (0.00-0.03); Imm Gran Pct Auto 0.2 % (0.0-0.4); Lymphocytes Absolute Auto 1.1 X10*3/uL (1.2-4.9); Lymphocytes Percent Auto 27.2 % (20-40); Mean Corpuscular HGB Conc 32.8 g/dl (31.0-35.0); Mean Corpuscular Hemoglobin 26.7 pg (27.0-33.0); Mean Corpuscular Volume 81.5 fL (80-98); Mean Platelet Volume 10.6 fL (9.4-12.3); Monocytes Absolute Auto 0.4 X10*3/uL (0.1-1.2); Monocytes Percent Auto 9.8 % (2-11); Neutrophils Absolute Auto 2.5 X10*3/uL (2.0-8.3); Neutrophils Percent Auto 60.6 % (45-73); Platelet Count 211 X10*3/uL (160-400); Red Blood Count 3.78 X10*6/uL (4.20-5.50); Red Cell Distribution Width 15.7 % (11.0-16.0); White Blood Count 4.2 X10*3/uL (4.8-10.8)
[2020-11-18 13:25] LABS: Anion Gap 12 (12-20); Blood Urea Nitrogen 15 mg/dL (9-16); Carbon Dioxide 27 mmol/L (22-29); Chloride 98 mmol/L (96-108); Creatinine Clr Calc Pharmacy 16.7; Estimated Glomerular Filt Rate 46; Glucose Random 101 mg/dL (60-115); Potassium 5.2 mmol/L (3.3-5.1); Sodium 132 mmol/L (135-145)
[2020-11-18 22:03] VITALS: BP 126/59; PULSE 65; RESP 18; TEMP 36.6; O2SAT 97
--- NOTE | 2020-11-18 22:57 | ED.EXTPRO ---
HPI - Extremity Problem General Chief complaint: Extremity Problem Stated complaint: leg pain Time Seen by Provider: 11/18/20 22:57 Source: patient Mode of arrival: ambulatory Limitations: no limitations History of Present Illness HPI Narrative: patient with one week of feet swelling. No leg or calf pain, no leg swelling. No history of long trips. No history of DVT. Patient has a history of renal insufficiency. MD Complaint: extremity swelling Onset (ago): week(s) Pain Consistency: constant Location: left, right and other (feet) Quality: burning Associated symptoms: denies other symptoms Related Data Previous Rx's Medication Instructions Recorded losartan 100 mg tablet 100 mg PO DAILY #90 tab 07/18/20 Allergies Allergy/AdvReac Type Severity Reaction Status Date / Time alendronate sodium Allergy Unknown MOUTH Verified 01/07/20 16:28 [From FOSAMAX] BLEEDING - IRRITATION cholecalciferol (vitamin D3) Allergy Unknown muscle Verified 01/07/20 16:28 [Vitamin D3] pains ALL VITAMINS Allergy Mild MUSCLE Uncoded 01/07/20 16:28 PAINS Review of Systems Constitutional: Constitutional: Reports no additional constitutional complaints Eyes: Eyes: Reports no additional eye complaints ENT: Denies dizziness Cardiovascular: Cardiovascular: Reports no additional cardiovascular complaints Respiratory: Respiratory: Reports as per HPI Gastrointestinal: Gastrointestinal: Reports no additional gastrointestinal complaints Genitourinary: Genitourinary: Reports no additional female genitourinary complaints Musculoskeletal: Musculoskeletal: Reports no additional musculoskeletal complaints Integumentary/Breasts: Skin/Breast: Denies rash Neurologic: Reports system reviewed and no additional complaints, except as documented, Denies dizziness and Denies Sensory deficit (Neuro) Psychiatric: Psychiatric: Denies anxiety [facility] Past Medical History Medical History Anemia Carpal tunnel syndrome Chronic kidney disease (CKD) stage G3a/A1, moderately decreased glomerular filtration rate (GFR) between 45-59 mL/min/1.73 square meter and albuminuria creatinine ratio less than 30 mg/g History of breast cancer Hypertension Surgical History History of carpal tunnel release History of cataract surgery History of cholecystectomy Family History Family History Father No problems noted. Mother No problems noted. Social History Social History Household Members: None Housing: Apartment Do you presently have visiting nurse or other home services: No Alcohol intake: never Advance Directives: Yes Advance Directives Information Provided: Yes Advance Directives on File: No service: No Current occupational status: disabled Physical Exam Vital Signs: Vital Signs: Last Vital Signs Temp 97.8 F 11/18/20 22:03 Pulse 65 11/18/20 22:03 Resp 18 11/18/20 22:03 BP 126/59 L 11/18/20 22:03 Pulse Ox 97 11/18/20 22:03 Body Mass Index 30.9 Const: General: healthy appearing Nutritional Appearance: average body habitus Orientation/consciousness: oriented to person and patient oriented x3 Limitations: no limitations HENMT: Head: Yes normal to inspection Ears: external ears normal General nose exam: Normal external nose present Mouth: Normal oral and palatal mucosa present and oropharynx normal Throat: Yes posterior oropharynx normal Eyes: General: appearance normal, both eyes and all related structures Neck: Other: supple Neck: Yes normal visual inspection Chest: Chest palpation & inspection: normal inspection of the chest Resp: Auscultation: clear to auscultation bilaterally Cardio: Jugular venous distension: no JVD Rate: regular rate Rhythm: regular rhythm Heart sounds: S1 normal heart sound present and S2 normal heart sound present GI: Inspection: Yes normal to inspection Palpation (GI): Soft to palpation, nontender and No hepatosplenomegaly present Auscultation: normal bowel sounds : General: Yes no CVA tenderness Back/Spine/Pelvis: Back: no CVA tenderness Skin: General skin exam: no rashes or lesions noted Neuro: General: oriented to person and patient oriented x3 Cranial nerves: Yes CN's II-XII intact bilaterally Motor exam (neuro): 5/5 motor strength present throughout Sensory Exam: No Sensory deficit (Neuro) Extrem: Other: feet with slight swelling good DP pulses Psych: Appearance: grossly normal Course Reevaluation(s) Reevaluation #1: patients renal function is baseline, UA negative, not spilling protein. Impression is that her edema is secondary to new amliodipine that was started last week. Will have patient follow up with her PMD. Time: 01:02 MDM - Extremity (Nontraumatic) Lab Data Result diagrams: 11/18/20 12:50 11/18/20 12:50 Labs: Lab Results 11/18/20 11/18/20 11/19/20 Range/Units 12:50 12:50 00:11 WBC 4.2 L (4.8-10.8) X10*3/uL RBC 3.78 L (4.20-5.50) X10*6/uL Hgb 10.1 L (12.0-16.0) g/dl Hct 30.8 L (37-47) % MCV 81.5 (80-98) fL MCH 26.7 L (27.0-33.0) pg MCHC 32.8 (31.0-35.0) g/dl RDW 15.7 (11.0-16.0) % Plt Count 211 (160-400) X10*3/uL MPV 10.6 (9.4-12.3) fL Immature Gran % (Auto) 0.2 (0.0-0.4) % Neut % (Auto) 60.6 (45-73) % Lymph % (Auto) 27.2 (20-40) % [place] % (Auto) 9.8 (2-11) % Eos % (Auto) 1.7 (0-4) % Baso % (Auto) 0.5 (0-2) % Lymph # (Auto) 1.1 L (1.2-4.9) X10*3/uL [place] # (Auto) 0.4 (0.1-1.2) X10*3/uL Eos # (Auto) 0.1 (0.0-0.4) X10*3/uL Baso # (Auto) 0.0 (0.0-0.2) X10*3/uL Abs Immat Gran (auto) 0.01 (0.00-0.03) X10*3/uL Absolute Neuts (auto) 2.5 (2.0-8.3) X10*3/uL Absolute Nucleated RBC 0.000 (0.0-0.012) X10*3/uL Nucleated RBC % (auto) 0.0 (0.0-0.2) /100WBC Sodium 132 L (135-145) mmol/L Potassium 5.2 H D (3.3-5.1) mmol/L Chloride 98 (96-108) mmol/L Carbon Dioxide 27 (22-29) mmol/L Anion Gap 12 (12-20) BUN 15 (9-16) mg/dL Creatinine 1.13 (0.5-1.4) mg/dL Estim Creat Clear Calc 16.7 Estimated GFR 46 Random Glucose 101 (60-115) mg/dL Calcium 10.0 (8.4-10.2) mg/dL Urine Color STRAW Urine Appearance CLEAR Urine pH 6.5 (5.0-8.0) Ur Specific [place] <= 1.005 (1.005-1.025) Urine Protein NEG (NEG-TRACE) MG/DL Urine Glucose (UA) NEG (NEG) MG/DL Urine Ketones NEG (NEG) MG/DL Urine Blood NEG (NEG) Urine Nitrite NEG (NEG) Ur Leukocyte Esterase TRACE H (NEG) Urine RBC 0 (0) /HPF Urine WBC 0-2 (0-4) /HPF Ur Squamous Epith Cells 3+ /LPF Urine Bacteria TRACE /LPF Discharge Plan Discharge Clinical Impression: Lower extremity edema Patient Disposition: Home, Self-Care Instructions: Leg Edema (ED) Additional Instructions: It is likely that your swelling is secondary to you starting amlodipine. Please discuss this with your doctor. Prescriptions: No Action losartan 100 mg tablet 100 mg PO DAILY Qty: 90 RF: 2 Referrals: Physician,Unknown [Primary Care Provider] - 5 days
[2020-11-19 00:20] LABS: Glucose Urine UA NEG (NEG); Leukocyte Esterase Urine TRACE (NEG); Nitrite Urine NEG (NEG); PH 6.5 (5.0-8.0); Specific Gravity - Urine <= 1.005 (1.005-1.025); UACC Culture Trigger YES; Urine Blood NEG (NEG); Urine Ketones NEG (NEG); Urine Protein NEG (NEG-TRACE)
[2020-11-19 00:21] LABS: Appearance Urine CLEAR; Color Urine STRAW
[2020-11-19 00:26] LABS: Bacteria Urine TRACE /LPF; RBC Urine 0 /HPF (0); Squamous Epithelial Cell Urine 3+ /LPF; WBC Urine 0-2 /HPF (0-4)
== END 2020-11-19 01:21 | disposition home or self-care (01) ==
PROVIDERS: Emergency Provider Emergency Medicine
DX: R60.0 Localized edema (principal); I12.9 Hypertensive chronic kidney disease with stage 1 through stage 4 chronic kidney disease, or unspecified chronic kidney disease; N18.31 Chronic kidney disease, stage 3a; D64.9 Anemia, unspecified; F03.91 Unspecified dementia, unspecified severity, with behavioral disturbance; Z85.3 Personal history of malignant neoplasm of breast
CPT/HCPCS: 36415; 80048; 81001; 85025; 87086; 99283; 99284

== ENCOUNTER 2020-12-26 15:45 | Emergency (ER) | payer OTHER, MEDICAID, SELFPAY ==
[2020-12-26 15:50] VITALS: BP 140/73; BP 157/69; PULSE 75; PULSE 76; RESP 18; TEMP 36.1; O2SAT 97; O2SAT 99; BMI 17.7
[2020-12-26 16:03] VITALS: BP 153/58; PULSE 61; RESP 16; TEMP 37; O2SAT 98
--- NOTE | 2020-12-26 16:12 | ED.PSYCH ---
HPI - Psych General Chief Complaint: Psychiatric Symptoms Stated Complaint: HEARING VOICES Time Seen by Provider: 12/26/20 16:12 Source: patient Mode of arrival: ambulatory Limitations: no limitations History of Present Illness HPI Narrative: Patient is hearing voices, they are just calling her name and she is scared. This has happened in the past. Patient lives alone. Patient denies suicidal or homicidal ideation. The voices are not letting her sleep. complaint: feels depressed and anxiety Onset (ago): day(s) Duration: intermittent and getting worse History of same: Yes Relieving factors: medication Exacerbating factors: none Related Data Home Medications Medication Instructions Recorded Confirmed amlodipine 10 mg tablet 1 tab PO DAILY 12/26/20 12/26/20 ferrous sulfate 325 mg (65 mg 1 tab PO 3XW 12/26/20 12/26/20 iron) tablet,delayed release hydrochlorothiazide 25 mg tablet 1 tab PO DAILY 12/26/20 12/26/20 Previous Rx's Medication Instructions Recorded nitrofurantoin 100 mg PO Q12H 7 Days #14 cap 12/27/20 monohydrate/macrocrystals 100 mg capsule (Macrobid) Allergies Allergy/AdvReac Type Severity Reaction Status Date / Time alendronate sodium Allergy Unknown MOUTH Verified 01/07/20 16:28 [From FOSAMAX] BLEEDING - IRRITATION cholecalciferol (vitamin D3) Allergy Unknown muscle Verified 01/07/20 16:28 [Vitamin D3] pains ALL VITAMINS Allergy Mild MUSCLE Uncoded 01/07/20 16:28 PAINS Review of Systems Constitutional: Constitutional: Reports no additional constitutional complaints Eyes: Eyes: Reports no additional eye complaints ENT: Denies dizziness Cardiovascular: Cardiovascular: Reports no additional cardiovascular complaints Respiratory: Respiratory: Reports as per HPI Gastrointestinal: Gastrointestinal: Reports no additional gastrointestinal complaints Genitourinary: Genitourinary: Reports no additional female genitourinary complaints Musculoskeletal: Musculoskeletal: Reports no additional musculoskeletal complaints Integumentary/Breasts: Skin/Breast: Denies rash Neurologic: Reports system reviewed and no additional complaints, except as documented, Denies dizziness and Denies Sensory deficit (Neuro) Psychiatric: Psychiatric: Denies anxiety PMFSH Past Medical History Medical History Anemia Carpal tunnel syndrome Chronic kidney disease (CKD) stage G3a/A1, moderately decreased glomerular filtration rate (GFR) between 45-59 mL/min/1.73 square meter and albuminuria creatinine ratio less than 30 mg/g History of breast cancer Hypertension Surgical History History of carpal tunnel release History of cataract surgery History of cholecystectomy Family History Family History Father No problems noted. Mother No problems noted. Social History Social History Household Members: None Housing: Apartment Do you presently have visiting nurse or other home services: No Alcohol intake: never Advance Directives: No Advance Directives Information Provided: No service: No Current occupational status: disabled Physical Exam Vital Signs: Vital Signs: Last Vital Signs Temp 98.0 F 12/26/20 22:00 Pulse 60 12/26/20 22:00 Resp 15 12/26/20 22:00 BP 163/63 H 12/26/20 22:00 Pulse Ox 98 12/26/20 22:00 Body Mass Index 17.7 Const: Other: anxious teaful General: healthy appearing Nutritional Appearance: average body habitus Orientation/consciousness: oriented to person and patient oriented x3 Limitations: no limitations HENMT: Head: Yes normal to inspection Ears: external ears normal General nose exam: Normal external nose present Mouth: Normal oral and palatal mucosa present and oropharynx normal Throat: Yes posterior oropharynx normal Eyes: General: appearance normal, both eyes and all related structures Neck: Other: supple Neck: Yes normal visual inspection Chest: Chest palpation & inspection: normal inspection of the chest Resp: Auscultation: clear to auscultation bilaterally Cardio: Jugular venous distension: no JVD Rate: regular rate Rhythm: regular rhythm Heart sounds: S1 normal heart sound present and S2 normal heart sound present GI: Inspection: Yes normal to inspection Palpation (GI): Soft to palpation, nontender and No hepatosplenomegaly present Auscultation: normal bowel sounds : General: Yes no CVA tenderness Back/Spine/Pelvis: Back: no CVA tenderness Skin: General skin exam: no rashes or lesions noted Neuro: General: oriented to person and patient oriented x3 Cranial nerves: Yes CN's II-XII intact bilaterally Motor exam (neuro): 5/5 motor strength present throughout Sensory Exam: No Sensory deficit (Neuro) Extrem: General: Yes normal to inspection Psych: Other: anxious and tearful Course Reevaluation(s) Reevaluation #1: seen by crisis who feels that this is not acute psychosis. Will start Macrobid and dc home Time: 01:09 [facility] - Psych Lab Data Result diagrams: 12/26/20 16:38 12/26/20 16:38 Labs: Lab Results 12/26/20 12/26/20 12/26/20 Range/Units 16:38 16:38 16:38 WBC 4.6 L (4.8-10.8) X10*3/uL RBC 3.68 L (4.20-5.50) X10*6/uL Hgb 10.0 L (12.0-16.0) g/dl Hct 30.2 L (37-47) % MCV 82.1 (80-98) fL MCH 27.2 (27.0-33.0) pg MCHC 33.1 (31.0-35.0) g/dl RDW 15.1 (11.0-16.0) % Plt Count 210 (160-400) X10*3/uL MPV 9.7 (9.4-12.3) fL Immature Gran % (Auto) 0.2 (0.0-0.4) % Neut % (Auto) 57.1 (45-73) % Lymph % (Auto) 30.1 (20-40) % [place] % (Auto) 9.5 (2-11) % Eos % (Auto) 2.4 (0-4) % Baso % (Auto) 0.7 (0-2) % Lymph # (Auto) 1.4 (1.2-4.9) X10*3/uL [place] # (Auto) 0.4 (0.1-1.2) X10*3/uL Eos # (Auto) 0.1 (0.0-0.4) X10*3/uL Baso # (Auto) 0.0 (0.0-0.2) X10*3/uL Abs Immat Gran (auto) 0.01 (0.00-0.03) X10*3/uL Absolute Neuts (auto) 2.6 (2.0-8.3) X10*3/uL Absolute Nucleated RBC 0.000 (0.0-0.012) X10*3/uL Nucleated RBC % (auto) 0.0 (0.0-0.2) /100WBC Sodium 135 (135-145) mmol/L Potassium 3.9 D (3.3-5.1) mmol/L Chloride 99 (96-108) mmol/L Carbon Dioxide 31 H (22-29) mmol/L Anion Gap 9 L (12-20) BUN 15 (9-16) mg/dL Creatinine 0.96 (0.5-1.4) mg/dL Estim Creat Clear Calc 29.8 Estimated GFR 55 Random Glucose 106 (60-115) mg/dL Calcium 9.6 (8.4-10.2) mg/dL Total Bilirubin 0.4 (0.0-1.0) mg/dL AST 20 (5-31) U/L ALT 17 (0-31) U/L Alkaline Phosphatase 51 (39-117) U/L Total Protein 6.5 (6.5-8.0) g/dL Albumin 3.9 (3.5-5.0) g/dL Urine Color Urine Appearance Urine pH (5.0-8.0) Ur Specific [place] (1.005-1.025) Urine Protein (NEG-TRACE) MG/DL Urine Glucose (UA) (NEG) MG/DL Urine Ketones (NEG) MG/DL Urine Blood (NEG) Urine Nitrite (NEG) Ur Leukocyte Esterase (NEG) Urine RBC (0) /HPF Urine WBC (0-4) /HPF Urine WBC Clumps Ur Squamous Epith Cells /LPF Ur Renal Epithelial Cell [place] Biurate Crystals Calcium Carbonate Cryst Calcium Phosphate Cryst Calcium Oxalate Crystal Leucine Crystals Cystine Crystals Uric Acid Crystals Triple Phos Crystals Talc Crystals Tyrosine Crystals Other Crystals Amorphous Sediment Urine Bacteria /LPF Epithelial Casts Fatty Casts Hyaline Casts Granular Casts Waxy Casts RBC Casts WBC Casts Other Casts Urine Mucus Urine Trichomonas Urine Yeast Urine Sperm Ur Oval Fat Bodies Urine Opiates Screen (Not Detect) Urine Fentanyl Screen (Not Detect) Ur Barbiturates Screen (Not Detect) Ur Phencyclidine Scrn (Not Detect) Ur Amphetamines Screen (Not Detect) U Benzodiazepines Scrn (Not Detect) Urine Cocaine Screen (Not Detect) U Marijuana (THC) Screen (Not Detect) Ethyl Alcohol < 10 mg/dL 12/26/20 12/26/20 12/26/20 Range/Units 17:27 20:48 21:36 WBC (4.8-10.8) X10*3/uL RBC (4.20-5.50) X10*6/uL Hgb (12.0-16.0) g/dl Hct (37-47) % MCV (80-98) fL MCH (27.0-33.0) pg MCHC (31.0-35.0) g/dl RDW (11.0-16.0) % Plt Count (160-400) X10*3/uL MPV (9.4-12.3) fL Immature Gran % (Auto) (0.0-0.4) % Neut % (Auto) (45-73) % Lymph % (Auto) (20-40) % [place] % (Auto) (2-11) % Eos % (Auto) (0-4) % Baso % (Auto) (0-2) % Lymph # (Auto) (1.2-4.9) X10*3/uL [place] # (Auto) (0.1-1.2) X10*3/uL Eos # (Auto) (0.0-0.4) X10*3/uL Baso # (Auto) (0.0-0.2) X10*3/uL Abs Immat Gran (auto) (0.00-0.03) X10*3/uL Absolute Neuts (auto) (2.0-8.3) X10*3/uL Absolute Nucleated RBC (0.0-0.012) X10*3/uL Nucleated RBC % (auto) (0.0-0.2) /100WBC Sodium (135-145) mmol/L Potassium (3.3-5.1) mmol/L Chloride (96-108) mmol/L Carbon Dioxide (22-29) mmol/L Anion Gap (12-20) BUN (9-16) mg/dL Creatinine (0.5-1.4) mg/dL Estim Creat Clear Calc Estimated GFR Random Glucose (60-115) mg/dL Calcium (8.4-10.2) mg/dL Total Bilirubin (0.0-1.0) mg/dL AST (5-31) U/L ALT (0-31) U/L Alkaline Phosphatase (39-117) U/L Total Protein (6.5-8.0) g/dL Albumin (3.5-5.0) g/dL Urine Color YELLOW Cancelled Urine Appearance HAZY Cancelled Urine pH 6.5 Cancelled (5.0-8.0) Ur Specific [place] 1.010 Cancelled (1.005-1.025) Urine Protein NEG Cancelled (NEG-TRACE) MG/DL Urine Glucose (UA) NEG Cancelled (NEG) MG/DL Urine Ketones NEG Cancelled (NEG) MG/DL Urine Blood TRACE Cancelled (NEG) Urine Nitrite NEG Cancelled (NEG) Ur Leukocyte Esterase 3+ H Cancelled (NEG) Urine RBC 0-2 Cancelled (0) /HPF Urine WBC 15-29 H Cancelled (0-4) /HPF Urine WBC Clumps Cancelled Ur Squamous Epith Cells TRACE Cancelled /LPF Ur Renal Epithelial Cell Cancelled [place] Biurate Crystals Cancelled Calcium Carbonate Cryst Cancelled Calcium Phosphate Cryst Cancelled Calcium Oxalate Crystal Cancelled Leucine Crystals Cancelled Cystine Crystals Cancelled Uric Acid Crystals Cancelled Triple Phos Crystals Cancelled Talc Crystals Cancelled Tyrosine Crystals Cancelled Other Crystals Cancelled Amorphous Sediment Cancelled Urine Bacteria 2+ Cancelled /LPF Epithelial Casts Cancelled Fatty Casts Cancelled Hyaline Casts Cancelled Granular Casts Cancelled Waxy Casts Cancelled RBC Casts Cancelled WBC Casts Cancelled Other Casts Cancelled Urine Mucus Cancelled Urine Trichomonas Cancelled Urine Yeast Cancelled Urine Sperm Cancelled Ur Oval Fat Bodies Cancelled Urine Opiates Screen Not Detected (Not Detect) Urine Fentanyl Screen Not Detected (Not Detect) Ur Barbiturates Screen Not Detected (Not Detect) Ur Phencyclidine Scrn Not Detected (Not Detect) Ur Amphetamines Screen Not Detected (Not Detect) U Benzodiazepines Scrn Not Detected (Not Detect) Urine Cocaine Screen Not Detected (Not Detect) U Marijuana (THC) Screen Not Detected (Not Detect) Ethyl Alcohol mg/dL Discharge Plan Discharge Clinical Impression: Acute anxiety Urinary tract infection Qualifiers: Urinary tract infection type: site unspecified Hematuria presence: without hematuria Qualified Code(s): N39.0 - Urinary tract infection, site not specified Patient Disposition: Home, Self-Care Instructions: Urinary Tract Infection in Women (ED), Anxiety (ED) Prescriptions: New nitrofurantoin monohyd/m-cryst [Macrobid] 100 mg capsule 100 mg PO Q12H 7 Days Qty: 14 RF: 0 No Action amlodipine 10 mg tablet 1 tab PO DAILY RF: 0 hydrochlorothiazide 25 mg tablet 1 tab PO DAILY RF: 0 ferrous sulfate 325 mg (65 mg iron) tablet,delayed release (DR/EC) 1 tab PO 3XW RF: 0 Referrals: Physician,Unknown [Primary Care Provider] - 1 week
[2020-12-26 16:43] LABS: MANUAL DIFF FLAG NO
[2020-12-26 16:44] LABS: Basophils Percent Auto 0.7 % (0-2); Eosinophils Absolute Auto 0.1 X10*3/uL (0.0-0.4); Eosinophils Percent Auto 2.4 % (0-4); Hematocrit 30.2 % (37-47); Imm Gran Abs Auto 0.01 X10*3/uL (0.00-0.03); Imm Gran Pct Auto 0.2 % (0.0-0.4); Lymphocytes Absolute Auto 1.4 X10*3/uL (1.2-4.9); Lymphocytes Percent Auto 30.1 % (20-40); Mean Corpuscular HGB Conc 33.1 g/dl (31.0-35.0); Mean Corpuscular Hemoglobin 27.2 pg (27.0-33.0); Mean Corpuscular Volume 82.1 fL (80-98); Mean Platelet Volume 9.7 fL (9.4-12.3); Monocytes Absolute Auto 0.4 X10*3/uL (0.1-1.2); Monocytes Percent Auto 9.5 % (2-11); Neutrophils Absolute Auto 2.6 X10*3/uL (2.0-8.3); Neutrophils Percent Auto 57.1 % (45-73); Platelet Count 210 X10*3/uL (160-400); Red Blood Count 3.68 X10*6/uL (4.20-5.50); Red Cell Distribution Width 15.1 % (11.0-16.0); White Blood Count 4.6 X10*3/uL (4.8-10.8)
--- NOTE | 2020-12-26 16:45 | PC.NURSE ---
patient arrives to ED from home via EMS with c/o hearing voices. A+Ox4. States does not have a history of hearing voices. Labs drawn and sent. Resting safely.
[2020-12-26 17:00] LABS: Ethanol < 10 mg/dL
[2020-12-26 17:02] LABS: Alanine Aminotransferase 17 U/L (0-31); Albumin Level 3.9 g/dL (3.5-5.0); Alkaline Phosphatase 51 U/L (39-117); Anion Gap 9 (12-20); Aspartate Amino Transferase 20 U/L (5-31); Bilirubin Total 0.4 mg/dL (0.0-1.0); Blood Urea Nitrogen 15 mg/dL (9-16); Calcium 9.6 mg/dL (8.4-10.2); Carbon Dioxide 31 mmol/L (22-29); Chloride 99 mmol/L (96-108); Creatinine Clr Calc Pharmacy 29.8; Estimated Glomerular Filt Rate 55; Glucose Random 106 mg/dL (60-115); Potassium 3.9 mmol/L (3.3-5.1); Sodium 135 mmol/L (135-145); Total Protein 6.5 g/dL (6.5-8.0)
[2020-12-26 17:13] VITALS: BP 158/64; PULSE 63; RESP 18; TEMP 36.8; O2SAT 97
[2020-12-26 17:46] LABS: Amphetamine Screen Urine Not Detected (Not Detect); Barbiturates, Urine Not Detected (Not Detect); Benzodiazepines Screen Urine Not Detected (Not Detect); Cannabinoid Screen Urine Not Detected (Not Detect); Cocaine Screen Urine Not Detected (Not Detect); Fentanyl, urine Not Detected (Not Detect); Opiate Screen Urine Not Detected (Not Detect); Phencyclidine Screen Urine Not Detected (Not Detect)
[2020-12-26 19:50] VITALS: BP 137/65; PULSE 61; RESP 16; TEMP 36.9; O2SAT 98
[2020-12-26 20:22] VITALS: BP 163/63; PULSE 60; RESP 15; TEMP 36.7; O2SAT 98
[2020-12-26 21:01] LABS: Appearance Urine HAZY; Color Urine YELLOW; Glucose Urine UA NEG (NEG); Leukocyte Esterase Urine 3+ (NEG); Nitrite Urine NEG (NEG); PH 6.5 (5.0-8.0); UACC Culture Trigger YES; Urine Blood TRACE (NEG); Urine Ketones NEG (NEG); Urine Protein NEG (NEG-TRACE)
[2020-12-26 21:18] LABS: Bacteria Urine 2+ /LPF; RBC Urine 0-2 /HPF (0); Squamous Epithelial Cell Urine TRACE /LPF
[2020-12-26 22:00] VITALS: BP 163/63; PULSE 60; RESP 15; TEMP 36.7; O2SAT 98
[2020-12-27] MEDS: Nitrofurantoin Monohyd/M-Cryst 100 MG CAPSULE PO (02:14)
== END 2020-12-27 02:37 | disposition home or self-care (01) ==
PROVIDERS: Emergency Provider Emergency Medicine
DX: N39.0 Urinary tract infection, site not specified (principal); R44.0 Auditory hallucinations; F41.1 Generalized anxiety disorder; F43.0 Acute stress reaction; Z79.899 Other long term (current) drug therapy
CPT/HCPCS: 80053; 80307; 81001; 81003; 82077; 85025; 87086; 99284

== ENCOUNTER 2021-11-12 14:06 | Emergency (ER) | payer OTHER, MEDICAID, SELFPAY ==
--- NOTE | ~2021-11-12 | XR_ITS ---
EXAMINATION: XR chest 1V CLINICAL INFORMATION: Reason for Exam COVID positive. Cough COMPARISON: Chest radiograph 07/11/2020 TECHNIQUE: One view of the chest FINDINGS: Clear lungs. No pneumothorax or pleural effusion. Normal cardiomediastinal silhouette. XR/XR chest 1V Impression: * Clear lungs.
--- NOTE | 2021-11-12 14:36 | ED_ITS ---
HPI - General Adult General Chief complaint: General Medical Stated complaint: AGGRESIVE Time Seen by Provider: 11/12/21 14:35 Source: patient and EMS Mode of arrival: EMS History of Present Illness HPI narrative: 86-year-old female with a past medical history of CKD, anemia, HTN, COVID-19 positive yesterday, presenting to ED via EMS from [facility] for increased aggression since diagnosed with UTI, recently finished antibiotics. Per EMS patient was also started on Risperidone yesterday. Patient reports cough. States staff members at the facility yell at her/she is unhappy which causes increased anxiety. Reports symptomatic improvement at present. Also reports symptoms of UTI have resolved since completing antibiotics, denies dysuria, hematuria, abdominal pain, nausea/vomiting, CP/SOB, fever Onset (ago): unknown Related Data Home Medications Medication Instructions Recorded Confirmed amlodipine 10 mg tablet 1 tab PO DAILY 12/26/20 12/26/20 ferrous sulfate 325 mg (65 mg 1 tab PO 3XW 12/26/20 12/26/20 iron) tablet,delayed release hydrochlorothiazide 25 mg tablet 1 tab PO DAILY 12/26/20 12/26/20 Previous Rx's Medication Instructions Recorded nitrofurantoin 100 mg PO Q12H 7 days #14 caps 12/27/20 monohydrate/macrocrystals 100 mg capsule (Macrobid) Allergies Allergy/AdvReac Type Severity Reaction Status Date / Time alendronate sodium Allergy Unknown MOUTH Verified 01/07/20 16:28 [From FOSAMAX] BLEEDING - IRRITATION cholecalciferol (vitamin D3) Allergy Unknown muscle Verified 01/07/20 16:28 [Vitamin D3] pains fish oil Allergy Unknown Verified 11/12/21 14:44 ALL VITAMINS Allergy Mild MUSCLE Uncoded 01/07/20 16:28 PAINS Review of Systems Review of Systems: Constitutional: No Fever, No Chills, No Fatigue, No Malaise ENT/Mouth: No Ear Pain, No Nasal Congestion, No Sinus Pain, No sore throat, No Rhinorrhea, No Swallowing Difficulty Eyes: No Eye Pain, No Swelling, No Redness, No Foreign Body, No Discharge, No Vision Changes Cardiovascular: No Chest Pain, No SOB, No Dyspnea on Exertion, No Orthopnea, No Edema, No Palpitations Respiratory: + Cough, No Sputum, No Wheezing, No Dyspnea Gastrointestinal: No Nausea, No Vomiting, No Diarrhea, No Constipation, No Abdominal pain Genitourinary: No Dysuria, No Urinary Frequency, No Hematuria, No Urinary Incontinence/retention, No Flank Pain, No Urinary Flow Changes Musculoskeletal: No joint pain, No Myalgias, No Joint Swelling Skin: No Skin Lesions, No rash Neuro: No Weakness, No Numbness, No Paresthesias, No Headache Psych: No Anxiety/Panic, No Depression, No SI/HI/AH/VH, +Social Issues Yes all other systems are reviewed and are negative Constitutional: Constitutional: Reports as per [facility] Past Medical History Attestation statement: The following information was validated with the patient. Medical History Anemia Carpal tunnel syndrome Chronic kidney disease (CKD) stage G3a/A1, moderately decreased glomerular roger tration rate (GFR) between 45-59 mL/min/1.73 square meter and albuminuria creatinine ratio less than 30 mg/g History of breast cancer Hypertension Surgical History History of carpal tunnel release History of cataract surgery History of cholecystectomy Family History Family History Father No problems noted. Mother No problems noted. Social History Social History Household Members: None Housing: Apartment Do you presently have visiting nurse or other home services: No Alcohol intake: never Advance Directives: No Advance Directives Information Provided: Yes service: No Current occupational status: disabled Physical Exam ED Vital Signs: Vital Signs - 24 hr 11/12/21 14:38 Pulse Rate 95 Respiratory Rate 16 Blood Pressure 125/65 Pulse Oximetry 96 Oxygen Delivery Method Room Air BMI result Body Mass Index 36.6 Const General: cooperative, healthy appearing, no acute distress, alert and awake Orientation/consciousness: patient oriented x3 Limitations: no limitations HENMT Head: Yes normal to inspection and Yes atraumatic Ears: hearing grossly normal bilaterally General nose exam: Normal external nose present Face and sinus: Yes normal facial exam Eyes General: appearance normal, both eyes and all related structures EOM: EOMs intact bilaterally Neck Neck: Yes normal visual inspection and Yes no meningeal signs Resp Effort & Inspection: normal respiratory effort and no respiratory distress Auscultation: clear to auscultation bilaterally, no crackles, no rales, no rhonchi and no wheezes Cardio Rate: regular rate Heart sounds: S1 normal heart sound present and S2 normal heart sound present GI Inspection: Yes normal to inspection Palpation (GI): Soft to palpation, nontender, no guarding and not rigid General: Yes no CVA tenderness Back/Spine/Pelvis Back: no CVA tenderness Skin Rashes: no rashes Wounds: no wounds Neuro General: patient oriented x3, tone normal, moves all extremities, no meningeal signs and no focal motor deficits Extrem General: Yes normal to inspection Psych Appearance: grossly normal Affect: normal affect Attitude: cooperative Thought process: Normal thought process present Course Course Course Narrative: XR chest 1V Impression: ? *? Clear lungs. -1900--UA not infected. Patient has been calm and cooperative since ED arrival. Plan to DC back to SNF Medical Decision Making MDM Narrative Medical decision making narrative: 86-year-old female with a past medical history of CKD, anemia, HTN, COVID-19 positive yesterday, presenting to ED via EMS from [facility] for increased aggression since diagnosed with UTI, was also started on Risperidone yesterday. Patient reports cough. States staff members at the facility yell at her/she is unhappy which causes increased anxiety. On exam vital signs stable, NAD, nontoxic appearing, A&O x3, cooperative/calm during evaluation. Concern for behavioral disturbance due to patient being unhappy at facility. Low suspicion for psychosis or metabolic/infectious etiology Plan: Repeat UA, CXR, contact facility for patients return Medical Records Medical records reviewed: Yes I reviewed the patient's medical records. Lab Data Lab results reviewed: Yes I reviewed the patient's lab results. Labs: Lab Results 11/12/21 Range/Units 17:45 Urine Color YELLOW Urine Appearance CLEAR Urine pH 5.5 (5.0-8.0) Ur Specific [place] 1.015 (1.005-1.025) Urine Protein 1+ H (NEG-TRACE) MG/DL Urine Glucose (UA) NEG (NEG) MG/DL Urine Ketones NEG (NEG) MG/DL Urine Blood NEG (NEG) Urine Nitrite NEG (NEG) Ur Leukocyte Esterase NEG (NEG) Urine RBC 0-2 (0) /HPF Urine WBC 1-4 (0-4) /HPF Ur Squamous Epith Cells 2+ /LPF Urine Bacteria NONE /LPF Hyaline Casts 0-2 /LPF Discharge Plan Discharge Clinical Impression: Aggressive behavior, COVID-19 Patient Disposition: Xfer [facility] Additional Instructions: Your chest x-ray was unremarkable. Your urine is not infected. Continue home medications. You are cleared to go back to your halfway. If symptoms persist or worsen return to the emergency department Prescriptions: No Action amlodipine 10 mg tablet 1 tab PO DAILY hydrochlorothiazide 25 mg tablet 1 tab PO DAILY ferrous sulfate 325 mg (65 mg iron) tablet,delayed release (DR/EC) 1 tab PO 3XW nitrofurantoin monohyd/m-cryst [Macrobid] 100 mg capsule 100 mg PO Q12H 7 Days Qty: 14 0RF Rx Instructions: must administer with a meal/food Referrals: Physician,Unknown J [Primary Care Provider] -
[2021-11-12 14:38] VITALS: BP 125/65; BP 129/67; PULSE 93; PULSE 95; RESP 16; O2SAT 96; O2SAT 99; BMI 36.6
[2021-11-12 17:51] LABS: Appearance Urine CLEAR; Color Urine YELLOW; Glucose Urine UA NEG (NEG); Leukocyte Esterase Urine NEG (NEG); Nitrite Urine NEG (NEG); PH 5.5 (5.0-8.0); Specific Gravity - Urine 1.015 (1.005-1.025); UACC Culture Trigger NO; Urine Blood NEG (NEG); Urine Ketones NEG (NEG); Urine Protein 1+ MG/DL (NEG-TRACE)
[2021-11-12 18:03] LABS: RBC Urine 0-2 /HPF (0); Squamous Epithelial Cell Urine 2+ /LPF
[2021-11-12 18:04] LABS: Hyaline Casts Urine 0-2 /LPF
--- NOTE | 2021-11-12 19:54 | PC.NURSE ---
RN to RN report given to Robson SINGH pt to return to facility.
--- NOTE | 2021-11-12 20:19 | PC.NURSE ---
[facility] was called at 1930 regarding transport to return patient back to [facility] REGAN spoke to FRIDA and she confirmed [facility] will do transport before [id number]
== END 2021-11-12 20:59 | disposition skilled nursing facility (03) ==
PROVIDERS: Physician Assistant; Emergency Provider Emergency Medicine Emergency Medical Services
DX: U07.1 COVID-19 (principal); R07.89 Other chest pain; I10 Essential (primary) hypertension; Z79.899 Other long term (current) drug therapy
CPT/HCPCS: 71045; 81001; 99282; 99283

== ENCOUNTER 2021-11-13 20:06 | Emergency (ER) | payer OTHER, MEDICAID, SELFPAY ==
--- NOTE | 2021-11-13 | ECG_ITS ---
Test Reason : SYNCOPE Blood Pressure : / mmHG Vent. Rate : 081 BPM Atrial Rate : 081 BPM P-R Int : 216 ms QRS Dur : 106 ms QT Int : 400 ms P-R-T Axes : 018 063 041 degrees QTc Int : 464 ms Sinus rhythm with 1st degree A-V block with Premature atrial complexes Right bundle branch block T wave abnormality, consider anterior ischemia Abnormal ECG When compared with ECG of 09-OCT-2020 13:15, Premature atrial complexes are now Present ME interval has increased Referred By: Matias Fernandes Electronically Signed By:SUZANNE QUINTANILLA
--- NOTE | ~2021-11-13 | CT_ITS ---
EXAMINATION: CT ABDOMEN AND PELVIS WITHOUT CONTRAST CLINICAL INFORMATION: Abdominal pain COMPARISON: None TECHNIQUE: Multidetector volumetric imaging was performed from the superior aspect of the liver through the pubic symphysis. Sagittal and coronal reformatted images were obtained on the technologist's workstation. This CT examination was performed using dose optimization techniques as appropriate, variously including the following: *Automated exposure control *Adjustment of mA and/or kV according to patient size (this includes techniques or standardized protocols for targeted exams where dose is matched to indication/reason for exam; i.e. extremities or head) *Use of iterative reconstruction technique DLP: 303 mGy-cm FINDINGS: LUNG BASES: There are small calcified bilateral lower lobe pulmonary nodules probably representing calcified granulomas. LIVER, GALLBLADDER, AND BILIARY TREE: The liver is normal in size, shape, and attenuation. No focal hepatic lesion or biliary ductal dilatation is present. The gallbladder has been removed. PANCREAS: Unremarkable. SPLEEN: Unremarkable. ADRENAL GLANDS: Unremarkable. KIDNEYS AND URETERS: There are multiple low-attenuation right renal lesion suggestive of cysts. Largest measures 4 cm in the lower pole of the right kidney. There is a small 1 cm low-attenuation lesion in the upper pole the left kidney also probably representing a cyst BLADDER: There is diffuse mild wall thickening of the bladder. There is more focal thicker wall thickening along the right anterior lateral bladder wall and stranding of the perivesicular fat. GASTROINTESTINAL TRACT: There is diverticulosis of the colon. No evidence of diverticulitis is seen. There is a long segment of questionable wall thickening of the distal left colon and proximal sigmoid colon questionable for colitis versus changes due to underdistention. There is a similar question mild wall thickening versus changes due to underdistention of the proximal right colon. Small and large bowel is otherwise unremarkable. The appendix is unremarkable. The stomach is unremarkable. ABDOMINAL WALL: No significant hernia is appreciated. LYMPH NODES: Normal. VASCULAR: There is evidence of atherosclerotic disease. No aneurysm. PELVIC VISCERA: Unremarkable. OSSEOUS STRUCTURES: There is curvature of the lumbar spine and degenerative changes. There are degenerative changes of the right hip joint. CT/CT abdomen pelvis wo con IMPRESSION: Wall thickening of the bladder particularly involving the right anterior lateral bladder wall. There is also mild perivesicular fat stranding. Infectious, inflammatory and neoplastic processes should be considered. Correlation with urinalysis, urine cytology and urine culture recommended. Diverticulosis of the colon. No evidence of diverticulitis. Question mild colitis of the distal left and proximal sigmoid colon and proximal right colon versus changes due to underdistention. Bilateral renal cysts., Right greater than left. Fleischner guidelines were followed.
[2021-11-13 20:12] VITALS: BP 106/44; PULSE 65; O2SAT 96
[2021-11-13 20:20] VITALS: BMI 22.5
--- NOTE | 2021-11-13 20:25 | ED.SYNCOPE ---
HPI - Syncope General Chief Complaint: Syncope Stated Complaint: Syncope Covid + Time Seen by Provider: 11/13/21 20:19 Source: EMS Mode of arrival: EMS Limitations: altered mental status History of Present Illness HPI narrative: Patient 86 years old with history of dementia with behavioral disturbances CKD chronic anemia was COVID positive on 11/11 syncopized while having bowel movement, was found on the floor was confused when EMS reached vomited 2 times blood pressure was 76/40 repeat blood pressure was 106/44 heart rate 65 patient received 350 cc of Ringer's lactate prior to arrival 4 mg of Zofran was given patient was seen here yesterday for aggression since she was diagnosed with UTI recently she finished her antibiotics UA yesterday was negative for UTI patient states since yesterday patient been having multiple bowel movements nausea vomiting and diffuse abdominal pain Related Data Home Medications Medication Instructions Recorded Confirmed cholecalciferol (vitamin D3) 25 25 mcg PO DAILY 11/13/21 11/13/21 mcg (1,000 unit) tablet (Vitamin D3) escitalopram oxalate 5 mg tablet 1 tab PO DAILY 11/13/21 11/13/21 lisinopril 20 mg tablet 1 tab PO DAILY 11/13/21 11/13/21 risperidone 0.5 mg tablet 0.25 mg PO BID PRN Psychosis 11/13/21 11/13/21 risperidone 0.5 mg tablet 0.25 mg PO DAILY 11/13/21 11/13/21 Allergies Allergy/AdvReac Type Severity Reaction Status Date / Time alendronate sodium Allergy Unknown MOUTH Verified 01/07/20 16:28 [From FOSAMAX] BLEEDING - IRRITATION cholecalciferol (vitamin D3) Allergy Unknown muscle Verified 01/07/20 16:28 [Vitamin D3] pains fish oil Allergy Unknown Verified 11/12/21 14:44 ALL VITAMINS Allergy Mild MUSCLE Uncoded 01/07/20 16:28 PAINS PMFSH Past Medical History Medical History Anemia Carpal tunnel syndrome Chronic kidney disease (CKD) stage G3a/A1, moderately decreased glomerular filtration rate (GFR) between 45-59 mL/min/1.73 square meter and albuminuria creatinine ratio less than 30 mg/g History of breast cancer Hypertension Surgical History History of carpal tunnel release History of cataract surgery History of cholecystectomy Family History Family History Father No problems noted. Mother No problems noted. Social History Social History Household Members: None Housing: Apartment Do you presently have visiting nurse or other home services: No Alcohol intake: never Advance Directives: No Advance Directives Information Provided: No service: No Current occupational status: disabled Physical Exam Vital Signs: Vital Signs: Last Vital Signs Temp 98.3 F 11/13/21 22:03 Pulse 91 11/14/21 00:58 Resp 14 11/14/21 00:46 BP 135/60 11/14/21 00:58 Pulse Ox 95 11/14/21 00:46 O2 Del Method 11/14/21 00:46 BMI result Body Mass Index 22.5 Appearance: Alert. Oriented X3. No acute distress. Eyes: PERRLA, No Nystagmus ENT: Pharynx normal. Oral Mucosa moist Neck: Normal inspection. Neck supple. CVS: Normal heart rate and rhythm. Pulses normal. Respiratory: No respiratory distress. Equal air entry bilateral, no wheezing/rales/rhonchi Abdomen: Soft and nontender. Bowel sounds are present, no mass palpable, no CVA tenderness Skin: Skin warm and dry. Normal skin color. Normal skin turgor. Extremities: No lower extremity edema. No calf tenderness Neuro: Oriented X 3. No motor deficit. No sensory deficit.No cerebellar signs , cranial nerves II-XII intact MDM - Syncope MDM Narrative Medical decision making narrative: Patient with acute gastroenteritis with nausea vomiting and diarrhea with vasovagal syncope episode with recent COVID CT scan of the abdomen negative for any acute pathology. Patient had 3 bowel movement in the ER blood pressure stayed stable back to baseline will discharge patient to group home for gastroenteritis advised drink plenty of fluids Medical Records Attestation: I reviewed the patient's medical records. Lab Data Attestation: I reviewed the patient's lab results. Result diagrams: 11/13/21 20:58 11/13/21 20:58 Labs: Lab Results 11/13/21 11/13/21 11/13/21 Range/Units 20:57 20:58 20:58 WBC 8.9 (4.8-10.8) X10*3/uL RBC 3.60 L (4.20-5.50) X10*6/uL Hgb 10.3 L (12.0-16.0) g/dl Hct 32.1 L (37.0-47.0) % MCV 89.2 (80.0-98.0) fL MCH 28.6 (27.0-33.0) pg MCHC 32.1 (31.0-35.0) g/dl RDW 13.5 (11.0-16.0) % Plt Count 162 (160-400) X10*3/uL MPV 11.0 (9.4-12.3) fL Immature Gran % (Auto) 0.6 H (0.0-0.4) % Neut % (Auto) 84.3 H (45-73) % Lymph % (Auto) 8.0 L (20-40) % [place] % (Auto) 6.2 (2-11) % Eos % (Auto) 0.6 (0-4) % Baso % (Auto) 0.3 (0-2) % Lymph # (Auto) 0.7 L (1.2-4.9) X10*3/uL [place] # (Auto) 0.6 (0.1-1.2) X10*3/uL Eos # (Auto) 0.1 (0.0-0.4) X10*3/uL Baso # (Auto) 0.0 (0.0-0.2) X10*3/uL Abs Immat Gran (auto) 0.05 H (0.00-0.03) X10*3/uL Absolute Neuts (auto) 7.5 (2.0-8.3) x10*3/uL Absolute Nucleated RBC 0.000 (0.0-0.012) X10*3/uL Nucleated RBC % (auto) 0.0 (0.0-0.2) /100WBC Sodium 138 (135-145) mmol/L Potassium 5.1 D (3.3-5.1) mmol/L Chloride 104 (96-108) mmol/L Carbon Dioxide 23 (22-29) mmol/L Anion Gap 16 (12-20) BUN 30 H (9-16) mg/dL Creatinine 1.59 H (0.5-1.4) mg/dL Estim Creat Clear Calc 18.2 Estimated GFR 31 POC Glucose 147 H (60-115) mg/dL Random Glucose 155 H (60-115) mg/dL Lactic Acid (0.5-2.0) mmol/L Calcium 8.8 D (8.4-10.2) mg/dL Total Bilirubin 0.5 (0.0-1.0) mg/dL Direct Bilirubin 0.2 (0.0-0.5) mg/dL AST 24 (5-31) U/L ALT 16 (0-31) U/L Alkaline Phosphatase 53 (39-117) U/L Troponin I High Sens (<3.5-17.0) ng/L Total Protein 6.1 L (6.5-8.0) g/dL Albumin 3.4 L (3.5-5.0) g/dL Lipase 64 (8-78) U/L 11/13/21 11/13/21 Range/Units 20:58 20:58 WBC (4.8-10.8) X10*3/uL RBC (4.20-5.50) X10*6/uL Hgb (12.0-16.0) g/dl Hct (37.0-47.0) % MCV (80.0-98.0) fL MCH (27.0-33.0) pg MCHC (31.0-35.0) g/dl RDW (11.0-16.0) % Plt Count (160-400) X10*3/uL MPV (9.4-12.3) fL Immature Gran % (Auto) (0.0-0.4) % Neut % (Auto) (45-73) % Lymph % (Auto) (20-40) % [place] % (Auto) (2-11) % Eos % (Auto) (0-4) % Baso % (Auto) (0-2) % Lymph # (Auto) (1.2-4.9) X10*3/uL [place] # (Auto) (0.1-1.2) X10*3/uL Eos # (Auto) (0.0-0.4) X10*3/uL Baso # (Auto) (0.0-0.2) X10*3/uL Abs Immat Gran (auto) (0.00-0.03) X10*3/uL Absolute Neuts (auto) (2.0-8.3) x10*3/uL Absolute Nucleated RBC (0.0-0.012) X10*3/uL Nucleated RBC % (auto) (0.0-0.2) /100WBC Sodium (135-145) mmol/L Potassium (3.3-5.1) mmol/L Chloride (96-108) mmol/L Carbon Dioxide (22-29) mmol/L Anion Gap (12-20) BUN (9-16) mg/dL Creatinine (0.5-1.4) mg/dL Estim Creat Clear Calc Estimated GFR POC Glucose (60-115) mg/dL Random Glucose (60-115) mg/dL Lactic Acid 2.0 (0.5-2.0) mmol/L Calcium (8.4-10.2) mg/dL Total Bilirubin (0.0-1.0) mg/dL Direct Bilirubin (0.0-0.5) mg/dL AST (5-31) U/L ALT (0-31) U/L Alkaline Phosphatase (39-117) U/L Troponin I High Sens 6.2 (<3.5-17.0) ng/L Total Protein (6.5-8.0) g/dL Albumin (3.5-5.0) g/dL Lipase (8-78) U/L Discharge Plan Discharge Clinical Impression: Vasovagal syncope, Gastroenteritis Patient Disposition: Home, Self-Care Instructions: Gastroenteritis (ED), Syncope in Older Adults (ED) Additional Instructions: Drink plenty of fluids Imodium for severe diarrhea Follow-up with your PCP in 1 week to recheck your kidney functions Prescriptions: No [facility] lisinopril 20 mg tablet 1 tab PO DAILY risperidone 0.5 mg tablet 0.25 mg PO DAILY risperidone 0.5 mg tablet 0.25 mg PO BID PRN (Reason: Psychosis) escitalopram oxalate 5 mg tablet 1 tab PO DAILY cholecalciferol (vitamin D3) [Vitamin D3] 25 mcg (1,000 unit) Tablet 25 mcg PO DAILY
[2021-11-13] MEDS: 0.9 % Sodium Chloride 1,000 ML 999 ML IV ×2 (20:37→22:40)
[2021-11-13 20:46] VITALS: BP 102/41; PULSE 95; RESP 16
[2021-11-13 20:47] VITALS: O2SAT 96
--- NOTE | 2021-11-13 20:48 | PC.NURSE ---
call out to [facility] to get more information as no info was included with paperwork. no answer, this RN was on hold for 10 minutes, called back and was on hold for 8 minutes before the line disconnected
[2021-11-13 20:51] VITALS: BP 114/55; PULSE 74; RESP 13; O2SAT 95
--- NOTE | 2021-11-13 20:51 | PC.NURSE ---
immediatley upon entering room, pt asked for bedpad as she had to have BM. pt had a large BM, was in some discomfort during, but is now resting quietly with no complaints.
[2021-11-13 21:02] LABS: Glucose, Whole Blood 147 mg/dL (60-115)
[2021-11-13 21:03] LABS: MANUAL DIFF FLAG NO
[2021-11-13 21:23] LABS: Alanine Aminotransferase 16 U/L (0-31); Albumin Level 3.4 g/dL (3.5-5.0); Alkaline Phosphatase 53 U/L (39-117); Anion Gap 16 (12-20); Aspartate Amino Transferase 24 U/L (5-31); Basophils Percent Auto 0.3 % (0-2); Bilirubin Direct 0.2 mg/dL (0.0-0.5); Bilirubin Total 0.5 mg/dL (0.0-1.0); Blood Urea Nitrogen 30 mg/dL (9-16); Calcium 8.8 mg/dL (8.4-10.2); Carbon Dioxide 23 mmol/L (22-29); Chloride 104 mmol/L (96-108); Creatinine Clr Calc Pharmacy 18.2; Eosinophils Absolute Auto 0.1 X10*3/uL (0.0-0.4); Eosinophils Percent Auto 0.6 % (0-4); Estimated Glomerular Filt Rate 31; Glucose Random 155 mg/dL (60-115); Hematocrit 32.1 % (37.0-47.0); Hemoglobin 10.3 g/dl (12.0-16.0); Imm Gran Abs Auto 0.05 X10*3/uL (0.00-0.03); Imm Gran Pct Auto 0.6 % (0.0-0.4); Lipase 64 U/L (8-78); Lymphocytes Absolute Auto 0.7 X10*3/uL (1.2-4.9); Mean Corpuscular HGB Conc 32.1 g/dl (31.0-35.0); Mean Corpuscular Hemoglobin 28.6 pg (27.0-33.0); Mean Corpuscular Volume 89.2 fL (80.0-98.0); Monocytes Absolute Auto 0.6 X10*3/uL (0.1-1.2); Monocytes Percent Auto 6.2 % (2-11); Neutrophils Absolute Auto 7.5 x10*3/uL (2.0-8.3); Neutrophils Percent Auto 84.3 % (45-73); Platelet Count 162 X10*3/uL (160-400); Potassium 5.1 mmol/L (3.3-5.1); Red Cell Distribution Width 13.5 % (11.0-16.0); Sodium 138 mmol/L (135-145); Total Protein 6.1 g/dL (6.5-8.0); White Blood Count 8.9 X10*3/uL (4.8-10.8)
[2021-11-13 21:25] LABS: Troponin-I High Sensitivity 6.2 ng/L (<3.5-17.0)
[2021-11-13 22:03] VITALS: BP 131/56; PULSE 69; RESP 15; TEMP 36.8; O2SAT 96
--- NOTE | 2021-11-13 22:12 | PC.NURSE ---
pt assisted on bedpan per request. pt had a medium loose BM. alert and oriented. pt reminded to keep her left arm straight so she gets her fluids
--- NOTE | 2021-11-13 22:33 | PC.NURSE ---
update given to RN at [facility]. will contact with updates in plan of care.
[2021-11-13 23:55] VITALS: BP 128/53; PULSE 82
[2021-11-14] MEDS: Loperamide HCl 2 MG CAPSULE PO (00:44)
--- NOTE | 2021-11-14 00:45 | PC.NURSE ---
pt requested bedpanapprox 1 hr ago, had a medium loose bm, pt was reassessed, had an incontinent loose BM. pt given incontinent care with the assistance of another RN. notified.
[2021-11-14 00:46] VITALS: BP 124/62; PULSE 74; RESP 14; O2SAT 95
[2021-11-14 00:56] VITALS: BP 127/52; PULSE 85
[2021-11-14 00:58] VITALS: BP 135/60; PULSE 91
--- NOTE | 2021-11-14 01:51 | PC.NURSE ---
This Us/Pct Called [facility] at 0140 spoke with Usha for a BLS transfer back to [facility],She stated that she has no trucks and she will try to pass. At 0150 Usha called and stated [facility] will transport patient ETA of a 30Mins. RN and wool grader aware
== END 2021-11-14 02:24 | disposition home or self-care (01) ==
PROVIDERS: Emergency Provider Internal Medicine
DX: R55 Syncope and collapse (principal); K52.9 Noninfective gastroenteritis and colitis, unspecified; R11.2 Nausea with vomiting, unspecified; F03.91 Unspecified dementia, unspecified severity, with behavioral disturbance; I12.9 Hypertensive chronic kidney disease with stage 1 through stage 4 chronic kidney disease, or unspecified chronic kidney disease; N18.31 Chronic kidney disease, stage 3a
CPT/HCPCS: 36415; 74176; 80053; 82248; 82947; 83605; 83690; 84484; 85025; 93005; 96360; 96361; 99285

== ENCOUNTER 2022-11-05 12:02 | Emergency (ER) | payer OTHER, MEDICAID, SELFPAY ==
[2022-11-05 12:13] VITALS: BP 116/80; PULSE 93; O2SAT 99
[2022-11-05 12:18] VITALS: BP 179/88; PULSE 83; RESP 16; TEMP 36.7; O2SAT 96; BMI 20.6
--- NOTE | 2022-11-05 12:24 | ECG_ITS ---
Test Reason : POLYPHARAMACY Blood Pressure : / mmHG Vent. Rate : 078 BPM Atrial Rate : 078 BPM P-R Int : 140 ms QRS Dur : 106 ms QT Int : 398 ms P-R-T Axes : 013 059 017 degrees QTc Int : 453 ms Sinus rhythm with Premature atrial complexes Incomplete right bundle branch block Borderline ECG When compared with ECG of 13-NOV-2021 20:47, [place] interval has decreased Referred By: Sandie Murphy Electronically Signed By:Luis Mccoy
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
[2022-11-05 13:37] LABS: MANUAL DIFF FLAG NO
[2022-11-05 13:38] LABS: Basophils Absolute Auto 0.1 X10*3/uL (0.0-0.2); Basophils Percent Auto 0.9 % (0-2); Eosinophils Absolute Auto 0.1 X10*3/uL (0.0-0.4); Eosinophils Percent Auto 1.3 % (0-4); Hematocrit 34.1 % (37.0-47.0); Hemoglobin 10.8 g/dl (12.0-16.0); Imm Gran Abs Auto 0.01 X10*3/uL (0.00-0.03); Imm Gran Pct Auto 0.2 % (0.0-0.4); Lymphocytes Absolute Auto 1.3 X10*3/uL (1.2-4.9); Lymphocytes Percent Auto 23.5 % (20-40); Mean Corpuscular HGB Conc 31.7 g/dl (31.0-35.0); Mean Corpuscular Hemoglobin 27.1 pg (27.0-33.0); Mean Corpuscular Volume 85.5 fL (80.0-98.0); Mean Platelet Volume 10.2 fL (9.4-12.3); Monocytes Absolute Auto 0.4 X10*3/uL (0.1-1.2); Monocytes Percent Auto 7.9 % (2-11); Neutrophils Absolute Auto 3.7 x10*3/uL (2.0-8.3); Neutrophils Percent Auto 66.2 % (45-73); Platelet Count 181 X10*3/uL (160-400); Red Blood Count 3.99 X10*6/uL (4.20-5.50); Red Cell Distribution Width 13.7 % (11.0-16.0); White Blood Count 5.6 X10*3/uL (4.8-10.8)
[2022-11-05 14:00] LABS: Alanine Aminotransferase 13 U/L (0-31); Albumin Level 3.8 g/dL (3.5-5.0); Alkaline Phosphatase 57 U/L (39-117); Anion Gap 13 (12-20); Aspartate Amino Transferase 19 U/L (5-31); Bilirubin Total 0.6 mg/dL (0.0-1.0); Blood Urea Nitrogen 21 mg/dL (9-16); Calcium 9.6 mg/dL (8.4-10.2); Carbon Dioxide 26 mmol/L (22-29); Chloride 103 mmol/L (96-108); Creatinine Clr Calc Pharmacy 23.6; Estimated Glomerular Filt Rate 51; Ethanol < 10 mg/dL; Glucose Random 86 mg/dL (60-115); Potassium 3.8 mmol/L (3.3-5.1); Sodium 138 mmol/L (135-145); Total Protein 6.7 g/dL (6.5-8.0)
[2022-11-05 14:03] VITALS: BP 165/60; PULSE 74; RESP 13; TEMP 36.6; O2SAT 98
[2022-11-05 14:19] LABS: Acetaminophen LAB < 17 mcg/mL (<30); Salicylate < 5.0 mg/dL (15-30)
[2022-11-05 14:27] LABS: COVID-19 Test Negative (Negative); IDNOW Serial# 6674DD1D
[2022-11-05 16:00] VITALS: BP 178/84; PULSE 70; RESP 16; TEMP 36.8; O2SAT 99
[2022-11-05 17:39] LABS: Appearance Urine Clear; Color Urine Yellow; Glucose Urine UA Negative (Negative); Leukocyte Esterase Urine Trace (Negative); Nitrite Urine Negative (Negative); UMIC TRIGGER UACC YES; Urine Blood Negative (Negative); Urine Ketones Negative (Negative); Urine Protein Negative (Neg-Trace)
[2022-11-05 17:47] LABS: Bacteria Urine 4+ (None Seen); Hyaline Casts Urine 0-2 /LPF (0-2); RBC Urine 0-2 /HPF (0-2); Squamous Epithelial Cell Urine 0-2 /HPF (0-2); UACC Culture Trigger YES
[2022-11-05 18:00] VITALS: BP 178/71; PULSE 67; RESP 16; TEMP 36.8; O2SAT 97
[2022-11-05 19:52] VITALS: BP 167/83; PULSE 74; RESP 16; TEMP 36.2; O2SAT 98
--- NOTE | 2022-11-05 19:53 | MHC.EDTECH ---
2000 VITALS SIGN TAKEN ,PT HAD A [employer] SANDWICH AND SOME ORANGE JUICE FOR SNACK ,PT IN [place] WATCHING TELEVISION .
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
== END 2022-11-05 21:11 | disposition skilled nursing facility (03) ==
PROVIDERS: Physician Assistant Medical; Emergency Provider Emergency Medicine
DX: N39.0 Urinary tract infection, site not specified (principal); B96.20 Unspecified Escherichia coli [E. coli] as the cause of diseases classified elsewhere; Z20.822 Contact with and (suspected) exposure to COVID-19; I12.9 Hypertensive chronic kidney disease with stage 1 through stage 4 chronic kidney disease, or unspecified chronic kidney disease; N18.30 Chronic kidney disease, stage 3 unspecified; Z79.899 Other long term (current) drug therapy
CPT/HCPCS: 80053; 80143; 80179; 80307; 81001; 81003; 85025; 87086; 87088; 87186; 87635; 93005; 99283; 99284; S9485

== ENCOUNTER → 2022-11-05 12:24 | Outpatient (BNV) | payer OTHER, MEDICAID, SELFPAY | PROVIDERS: Emergency Provider Emergency Medicine; Visit Provider Internal Medicine Cardiovascular Disease | DX: I49.1 Atrial premature depolarization (principal) | CPT/HCPCS: 93010 ==

== ENCOUNTER 2023-03-10 03:05 | Emergency (ER) | payer OTHER, SELFPAY ==
--- NOTE | 2023-03-10 | ECG_ITS ---
Test Reason : ams Blood Pressure : / mmHG Vent. Rate : 079 BPM Atrial Rate : 080 BPM P-R Int : 152 ms QRS Dur : 102 ms QT Int : 396 ms P-R-T Axes : 007 051 016 degrees QTc Int : 454 ms Sinus rhythm with marked sinus arrhythmia Incomplete right bundle branch block T wave abnormality, consider anterior ischemia Abnormal ECG When compared with ECG of 05-NOV-2022 13:18, No significant changes seen Referred By: Generic ED Physician Electronically Signed By:ISELA JUDGE
[2023-03-10 03:14] VITALS: BP 123/66; BP 132/78; PULSE 81; PULSE 93; RESP 18; TEMP 36.8; O2SAT 95; O2SAT 97; BMI 18.5
[2023-03-10 03:29] LABS: MANUAL DIFF FLAG NO
[2023-03-10 03:31] LABS: Basophils Percent Auto 0.9 % (0-2); Eosinophils Absolute Auto 0.1 X10*3/uL (0.0-0.4); Eosinophils Percent Auto 1.3 % (0-4); Hematocrit 32.5 % (37.0-47.0); Hemoglobin 10.7 g/dl (12.0-16.0); Imm Gran Abs Auto 0.01 X10*3/uL (0.00-0.03); Imm Gran Pct Auto 0.2 % (0.0-0.4); Lymphocytes Absolute Auto 1.3 X10*3/uL (1.2-4.9); Lymphocytes Percent Auto 27.8 % (20-40); Mean Corpuscular HGB Conc 32.9 g/dl (31.0-35.0); Mean Corpuscular Hemoglobin 27.9 pg (27.0-33.0); Mean Corpuscular Volume 84.6 fL (80.0-98.0); Monocytes Absolute Auto 0.4 X10*3/uL (0.1-1.2); Monocytes Percent Auto 9.5 % (2-11); Neutrophils Absolute Auto 2.8 x10*3/uL (2.0-8.3); Neutrophils Percent Auto 60.3 % (45-73); Platelet Count 199 X10*3/uL (160-400); Red Blood Count 3.84 X10*6/uL (4.20-5.50); Red Cell Distribution Width 14.3 % (11.0-16.0); White Blood Count 4.6 X10*3/uL (4.8-10.8)
[2023-03-10 03:52] LABS: Alanine Aminotransferase 18 U/L (0-31); Alkaline Phosphatase 55 U/L (39-117); Anion Gap 15 (12-20); Aspartate Amino Transferase 38 U/L (5-31); Bilirubin Total 0.4 mg/dL (0.0-1.0); Blood Urea Nitrogen 28 mg/dL (9-16); Calcium 9.7 mg/dL (8.4-10.2); Carbon Dioxide 23 mmol/L (22-29); Chloride 105 mmol/L (96-108); Creatinine Clr Calc Pharmacy 24.5; Estimated Glomerular Filt Rate 49; Glucose Random 103 mg/dL (60-115); Potassium 5.2 mmol/L (3.3-5.1); Sodium 138 mmol/L (135-145); Total Protein 7.6 g/dL (6.5-8.0)
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
[2023-03-10 04:28] LABS: Lactic Acid 0.6 mmol/L (0.5-2.0)
--- NOTE | 2023-03-10 04:30 | PC.NURSE ---
this rn straight cath pt, pt tolerated well. pt voided 600cc of urine.
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
[2023-03-10 04:37] LABS: Appearance Urine Cloudy; Color Urine Yellow; Glucose Urine UA Negative (Negative); Leukocyte Esterase Urine Negative (Negative); Nitrite Urine Negative (Negative); PH 6.5 (5.0-9.0); Specific Gravity - Urine 1.015 (1.005-1.025); Urine Blood Negative (Negative); Urine Ketones Negative (Negative); Urine Protein Negative (Neg-Trace)
[2023-03-10] MEDS: 0.9 % Sodium Chloride 500 ML 999 ML IV (05:05)
--- NOTE | 2023-03-10 06:05 | PC.NURSE ---
fluids complete at this time, repeat BMP obtained and sent.
[2023-03-10 06:14] VITALS: BP 150/78; PULSE 87; RESP 12; TEMP 36.7; O2SAT 98
[2023-03-10 06:21] LABS: Anion Gap 10 (12-20); Blood Urea Nitrogen 27 mg/dL (9-16); Calcium 9.1 mg/dL (8.4-10.2); Carbon Dioxide 26 mmol/L (22-29); Chloride 109 mmol/L (96-108); Creatinine Clr Calc Pharmacy 22.2; Estimated Glomerular Filt Rate 44; Glucose Random 85 mg/dL (60-115); Potassium 4.2 mmol/L (3.3-5.1); Sodium 141 mmol/L (135-145)
== END 2023-03-10 08:42 | disposition home or self-care (01) ==
PROVIDERS: Emergency Provider Student in an Organized Health Care Education/Training Program; PCP Internal Medicine
DX: F03.918 Unspecified dementia, unspecified severity, with other behavioral disturbance (principal); I12.9 Hypertensive chronic kidney disease with stage 1 through stage 4 chronic kidney disease, or unspecified chronic kidney disease; N18.31 Chronic kidney disease, stage 3a; Z85.3 Personal history of malignant neoplasm of breast; Z87.440 Personal history of urinary (tract) infections
CPT/HCPCS: 36415; 51701; 80048; 80053; 81003; 83605; 85025; 87040; 93005; 96360; 99284; 99285

== ENCOUNTER → 2023-03-10 03:32 | Outpatient (BNV) | payer OTHER, MEDICAID, SELFPAY | PROVIDERS: Emergency Provider Student in an Organized Health Care Education/Training Program; PCP Internal Medicine; Visit Provider Internal Medicine | DX: R94.31 Abnormal electrocardiogram [ECG] [EKG] (principal); I45.10 Unspecified right bundle-branch block | CPT/HCPCS: 93010 ==

== ENCOUNTER 2023-04-27 16:01 | Emergency (ER) | payer OTHER, SELFPAY ==
[2023-04-27 16:20] VITALS: BP 200/86; PULSE 97; RESP 16; TEMP 36.8; O2SAT 97; BMI 18.4
[2023-04-27 16:22] VITALS: BP 176/97; PULSE 98; O2SAT 97
--- NOTE | 2023-04-27 16:55 | PC.NURSE ---
pt presents to dept from [facility]. pt has know shingles, with zosters primarily located on the chest. today pt began screaming uncontrollably and pointing to the posterior surface of her arm. EMS was then contacted by the facility for evaluation. on arrival pt is noted to be hypertensive (200/86), all other vital signs WNL. pt does have dementia, and will respond to some questions. oriented pt to room and call walter, bed in lowest postition, bilateral side rails up for safety.
--- NOTE | 2023-04-27 18:35 | ED_ITS ---
HPI - General Adult General Chief complaint: General Medical Stated complaint: left arm pain from SNF, hx of shingles Time Seen by Provider: 04/27/23 18:31 Source: patient and EMS Mode of arrival: EMS Limitations: language barrier and altered mental status (patient is demented at baseline) History of Present Illness HPI narrative: Patient is an 87 year old assigned female at with a history of CKD, shingles, and dementia presenting to the emergency department today with possible left arm pain and increased disruptive behavior. Patient is unable to answer questions appropriately per her baseline. SNF staff states that they were concerned she was having pain and that's why she was shouting more. SNF staff states that the patient's neighbor was caught watching the exorcist last night and ever since, the patient has been acting out further and paranoid there is someone in her trash. Related Data Home Medications Medication Instructions Recorded Confirmed cholecalciferol (vitamin D3) 25 25 mcg PO DAILY 11/13/21 11/13/21 mcg (1,000 unit) tablet (Vitamin D3) escitalopram oxalate 5 mg tablet 1 tab PO DAILY 11/13/21 11/13/21 lisinopril 20 mg tablet 1 tab PO DAILY 11/13/21 11/13/21 risperidone 0.5 mg tablet 0.25 mg PO BID PRN Psychosis 11/13/21 11/13/21 risperidone 0.5 mg tablet 0.25 mg PO DAILY 11/13/21 11/13/21 Previous Rx's Medication Instructions Recorded loperamide 2 mg capsule (Imodium 2 mg PO Q8H PRN loose stool #10 11/14/21 A-D) caps cefuroxime axetil 500 mg tablet 500 mg PO BID #13 tabs 11/05/22 Allergies Allergy/AdvReac Type Severity Reaction Status Date / Time alendronate sodium Allergy Unknown MOUTH Verified 03/10/23 03:21 [From FOSAMAX] BLEEDING - IRRITATION cholecalciferol (vitamin D3) Allergy Unknown muscle Verified 03/10/23 03:21 [Vitamin D3] pains fish oil Allergy Unknown Verified 03/10/23 03:21 ALL VITAMINS Allergy Mild MUSCLE Uncoded 01/07/20 16:28 PAINS Review of Systems 2 Review of Systems: Yes Unobtainable due to mental condition (dementia) Neurologic: Reports confusion (per baseline) Psychiatric: Psychiatric: Reports confusion (per baseline) [facility] Past Medical History Attestation statement: The following information was validated with the patient. Source: old records reviewed and nursing notes reviewed Medical History Chronic kidney disease (CKD) stage G3a/A1, moderately decreased glomerular filtration rate (GFR) between 45-59 mL/min/1.73 square meter and albuminuria creatinine ratio less than 30 mg/g Carpal tunnel syndrome History of breast cancer Anemia Hypertension Surgical History History of carpal tunnel release History of cataract surgery History of cholecystectomy Family History Family History Father No problems noted. Mother No problems noted. Social History Social History Household Members: None Housing: Apartment Do you presently have visiting nurse or other home services: No Unable to assess alcohol history related to: Unable to respond Alcohol intake: never Smoked in Last 30 Days: No Use of substances other than those prescribed or required for medical reasons: Unable to respond Advance Directives: Yes Advance Directives on File: Yes Advance Directives Date on File: 08/09/20 service: No Current occupational status: disabled Physical Exam ED Vital Signs: Vital Signs - 24 hr 04/27/23 16:20 04/27/23 18:46 04/27/23 20:27 Temperature 98.2 F 98.2 F 98.7 F Pulse Rate 97 77 72 Respiratory Rate 16 16 14 Blood Pressure 200/86 H 196/98 H 181/81 H Pulse Oximetry 97 95 97 Oxygen Delivery Method Room Air Room Air Room Air 04/27/23 22:12 Temperature 98.2 F Pulse Rate 67 Respiratory Rate 14 Blood Pressure 194/74 H Pulse Oximetry 98 Oxygen Delivery Method Room Air BMI result Body Mass Index 18.4 Const General: cooperative, no acute distress, alert, awake and confusion (per baseline) Nutritional Appearance: well nourished Orientation/consciousness: confusion (per baseline) Limitations: no limitations HENMT Head: Yes normal to inspection and Yes atraumatic Ears: hearing grossly normal bilaterally and external ears normal General nose exam: Normal external nose present, no nasal discharge noted and no epistaxis Face and sinus: Yes normal facial exam, No abrasion and No laceration Mouth: Normal oral and palatal mucosa present, no drooling and no muffled voice Eyes General: appearance normal, both eyes and all related structures Periorbital: periorbital findings normal Eyelids: Yes eyelids normal Conjunctivae: conjunctivae normal Pupils: Equal, round and reactive pupils present EOM: EOMs intact bilaterally Neck Neck: Yes normal visual inspection, Yes full ROM and Yes no lymphadenopathy Chest Chest palpation & inspection: normal inspection of the chest Resp Effort & Inspection: normal respiratory effort and able to speak in complete sentences GI Inspection: Yes normal to inspection Neuro General: moves all extremities and confusion (per baseline) Cranial nerves: Yes Equal, round and reactive pupils present Extrem General: Yes normal to inspection, Yes full ROM and Yes capillary refill normal Medical Decision Making Medical Decision Making [facility] Narrative: Patient is an 87 year old assigned female at with a history of CKD, shingles, and dementia presenting to the emergency department today with possible arm pain and an outburst. Patient's physical exam was as noted in the physical exam portion of this note. Patient's blood work was unremarkable. I explained my physical exam findings as well as all test results to the patient. Patient cleared for discharge back to her SNF. Differential Diagnosis Differential Diagnoses: The differential diagnosis associated with the presentation includes Dementia Outburst Behavioral problem Shingles Admission/Observation Consideration of admission/observation: Escalation of care including admission/observation considered Patient would have been admitted to the hospital had her work up had any findings where hospital admission was appropriate and her clinical presentation warranted hospital admission. Lab Data [facility] Lab Attestation statement: I reviewed the patient's lab results. My interpretation of these results are in the MDM Rationale portion of this note. 04/27/23 18:53 04/27/23 18:53 Labs: Lab Results 04/27/23 Range/Units 18:53 WBC 4.1 L (4.8-10.8) X10*3/uL RBC 3.30 L (4.20-5.50) X10*6/uL Hgb 9.1 L (12.0-16.0) g/dl Hct 28.2 L (37.0-47.0) % MCV 85.5 (80.0-98.0) fL MCH 27.6 (27.0-33.0) pg MCHC 32.3 (31.0-35.0) g/dl RDW 14.6 (11.0-16.0) % Plt Count 262 D (160-400) X10*3/uL MPV 9.3 L (9.4-12.3) fL Immature Gran % (Auto) 0.2 (0.0-0.4) % Neut % (Auto) 51.2 (45-73) % Lymph % (Auto) 28.9 (20-40) % [place] % (Auto) 16.2 H (2-11) % Eos % (Auto) 2.0 (0-4) % Baso % (Auto) 1.5 (0-2) % Lymph # (Auto) 1.2 (1.2-4.9) X10*3/uL [place] # (Auto) 0.7 (0.1-1.2) X10*3/uL Eos # (Auto) 0.1 (0.0-0.4) X10*3/uL Baso # (Auto) 0.1 (0.0-0.2) X10*3/uL Abs Immat Gran (auto) 0.01 (0.00-0.03) X10*3/uL Absolute Neuts (auto) 2.1 (2.0-8.3) x10*3/uL Absolute Nucleated RBC 0.000 (0.0-0.012) X10*3/uL Nucleated RBC % (auto) 0.0 (0.0-0.2) /100WBC Sodium 140 (135-145) mmol/L Potassium 4.1 (3.3-5.1) mmol/L Chloride 105 (96-108) mmol/L Carbon Dioxide 25 (22-29) mmol/L Anion Gap 14 (12-20) BUN 15 (9-16) mg/dL Creatinine 0.84 (0.5-1.4) mg/dL Estim Creat Clear Calc 30.8 Estimated GFR > 60 Random Glucose 106 (60-115) mg/dL Calcium 9.3 (8.4-10.2) mg/dL Magnesium 2.0 (1.6-2.6) mg/dL Total Bilirubin 0.3 (0.0-1.0) mg/dL AST 15 (5-31) U/L ALT 13 (0-31) U/L Alkaline Phosphatase 53 (39-117) U/L Total Protein 6.3 L (6.5-8.0) g/dL Albumin 3.3 L (3.5-5.0) g/dL Independent Historian Clinical information obtained from an independent historian. History obtained from or confirmed by: EMS (EMS provided additional history and confirmed the history provided by the SNF staff) and Other (SNF staff provided additional history and confirmed the history provided by EMS) Discharge Plan Discharge Clinical Impression: Dementia with behavioral disturbance, Shingles Patient Disposition: Home, Self-Care Instructions: Shingles (ED), Dementia (ED) Additional Instructions: Follow up with your primary care provider. Return to the emergency department immediately if your symptoms worsen or if you develop any dizziness, shortness of breath, difficulty breathing, chest pain, blurry vision, loss of vision, nausea, vomiting, abdominal pain, fever, chills, back pain, or any other complaints. Todd un seguimiento con montejo proveedor de atenci?n primaria. Regrese al departamento de emergencias inmediatamente si katelynn s?ntomas empeoran o si presenta mareos, dificultad para respirar, dificultad para respirar, dolor en el pecho, visi?n borrosa, p?rdida de la visi?n, n?useas, v?mitos, dolor abdominal, fiebre, escalofr?os, dolor de espalda o cualquier otras quejas. Prescriptions: No Action lisinopril 20 mg tablet 1 tab PO DAILY risperidone 0.5 mg tablet 0.25 mg PO DAILY risperidone 0.5 mg tablet 0.25 mg PO BID PRN (Reason: Psychosis) escitalopram oxalate 5 mg tablet 1 tab PO DAILY cholecalciferol (vitamin D3) [Vitamin D3] 25 mcg (1,000 unit) Tablet 25 mcg PO DAILY loperamide [Imodium A-D] 2 mg capsule 2 mg PO Q8H PRN (Reason: loose stool) Qty: 10 0RF cefuroxime axetil 500 mg tablet 500 mg PO BID Qty: 13 0RF Referrals: Ruth Richardson PA-C [Primary Care Provider] - Print Language: Thai
[2023-04-27 18:46] VITALS: BP 196/98; PULSE 77; RESP 16; TEMP 36.8; O2SAT 95
[2023-04-27 18:57] LABS: MANUAL DIFF FLAG NO
[2023-04-27 18:59] LABS: Basophils Absolute Auto 0.1 X10*3/uL (0.0-0.2); Basophils Percent Auto 1.5 % (0-2); Eosinophils Absolute Auto 0.1 X10*3/uL (0.0-0.4); Hematocrit 28.2 % (37.0-47.0); Hemoglobin 9.1 g/dl (12.0-16.0); Imm Gran Abs Auto 0.01 X10*3/uL (0.00-0.03); Imm Gran Pct Auto 0.2 % (0.0-0.4); Lymphocytes Absolute Auto 1.2 X10*3/uL (1.2-4.9); Lymphocytes Percent Auto 28.9 % (20-40); Mean Corpuscular HGB Conc 32.3 g/dl (31.0-35.0); Mean Corpuscular Hemoglobin 27.6 pg (27.0-33.0); Mean Corpuscular Volume 85.5 fL (80.0-98.0); Mean Platelet Volume 9.3 fL (9.4-12.3); Monocytes Absolute Auto 0.7 X10*3/uL (0.1-1.2); Monocytes Percent Auto 16.2 % (2-11); Neutrophils Absolute Auto 2.1 x10*3/uL (2.0-8.3); Neutrophils Percent Auto 51.2 % (45-73); Platelet Count 262 X10*3/uL (160-400); Red Cell Distribution Width 14.6 % (11.0-16.0); White Blood Count 4.1 X10*3/uL (4.8-10.8)
--- NOTE | 2023-04-27 19:00 | MHC.EDTECH ---
Patient was change into hospital attire ,vitals taken ,GREGORIA Greenfield aware of Pt high bp ,blood drawn and sent to lab .
[2023-04-27 19:14] LABS: Alanine Aminotransferase 13 U/L (0-31); Albumin Level 3.3 g/dL (3.5-5.0); Alkaline Phosphatase 53 U/L (39-117); Anion Gap 14 (12-20); Aspartate Amino Transferase 15 U/L (5-31); Bilirubin Total 0.3 mg/dL (0.0-1.0); Blood Urea Nitrogen 15 mg/dL (9-16); Calcium 9.3 mg/dL (8.4-10.2); Carbon Dioxide 25 mmol/L (22-29); Chloride 105 mmol/L (96-108); Creatinine Clr Calc Pharmacy 30.8; Estimated Glomerular Filt Rate > 60; Glucose Random 106 mg/dL (60-115); Potassium 4.1 mmol/L (3.3-5.1); Sodium 140 mmol/L (135-145); Total Protein 6.3 g/dL (6.5-8.0)
--- NOTE | 2023-04-27 20:01 | PC.NURSE ---
pt has been resting quietly,pt did have an episode of screaming in dept but was quickly redirected. Labs pending. call walter within reach
[2023-04-27 20:27] VITALS: BP 181/81; PULSE 72; RESP 14; TEMP 37.1; O2SAT 97
--- NOTE | 2023-04-27 20:28 | PC.NURSE ---
spoke with GREGORIA Rodriguez at [facility] that pt was sent to dept to evaluate left arm pain. reviewed providers exam findings with nurse, reviewed labs. [facility] facility is willing to take pt back pending medical clearance. With regard to pt behaviors of screaming, t/w advised pt has been calm and cooperative throughout visit. Jennifer then advised that they will consulting [facility] to evaluate pt in house. as there have been other concerning behaviors a the facility as well (ex: another pt on unit was watching a scary movie and pt thought the devil was in her room. Pt has also dug through trash cans in an attempt to save a person that she believes is trapped in said trash can. advised thus far pt workup has been reassuring and at this time plan is for DC bck to facility. ANAMARIA Palacios updated.
--- NOTE | 2023-04-27 21:19 | PC.NURSE ---
US notified pt will; need transport back to [facility]- nurse to nurse called to sergio blandon
[2023-04-27 22:12] VITALS: BP 194/74; PULSE 67; RESP 14; TEMP 36.8; O2SAT 98
--- NOTE | 2023-04-28 08:36 | MHC.CM.ED ---
Received CM consult for assessment of d/c needs: pt from a SNF: brought in to ED for evaluations of ? behaviors. No findings for admission or further work up by ED: pt d/c'd back to SNF prior to CM arrival on 04/28.
== END 2023-04-28 01:46 | disposition skilled nursing facility (03) ==
PROVIDERS: Physician Assistant Medical; Emergency Provider Emergency Medicine; PCP Physician Assistant Medical
DX: F03.911 Unspecified dementia, unspecified severity, with agitation (principal); B02.9 Zoster without complications; I10 Essential (primary) hypertension; Z85.3 Personal history of malignant neoplasm of breast; Z79.899 Other long term (current) drug therapy
CPT/HCPCS: 36415; 80053; 83735; 85025; 99284

== ENCOUNTER 2024-09-03 14:21 | Emergency (ER) | payer OTHER, SELFPAY ==
--- NOTE | ~2024-09-03 | CT_ITS ---
CLINICAL HISTORY: poorly responsive CT head without contrast. COMPARISON: None FINDINGS: The visualized paranasal sinuses are clear. The mastoid air cells are clear. No calvarial fracture. Atherosclerotic intracranial vasculature. No evidence for mass or mass effect. No intracranial hemorrhage or abnormal extra-axial fluid collection. No CT evidence of acute infarct. The ventricles are proportional with the degree of mild global cerebral volume loss without evidence of hydrocephalus. Basilar cisterns are patent. There are periventricular areas of low attenuation compatible with mild white matter small vessel disease. Posterior fossa appears unremarkable. IMPRESSION: 1. No acute intracranial findings. This document has been electronically signed by: Judd Chong MD on 09/03/2024 17:23:12
--- NOTE | ~2024-09-03 | XR_ITS ---
EXAMINATION: XR CHEST CLINICAL INFORMATION: weakness COMPARISON: 11/12/2021. TECHNIQUE: Frontal view of the chest was obtained. FINDINGS: The cardiac, hilar, and mediastinal contours are normal. The lungs are clear bilaterally. No pneumothorax or effusion. No focal osseous or soft tissue abnormality. There are spinal degenerative changes. There are cholecystectomy clips. XR/XR chest 1V IMPRESSION: No active pulmonary disease. Electronically signed by: Cristofer Apodaca MD 09/03/2024 03:31 PM EDT
[2024-09-03 14:25] VITALS: BP 151/83; PULSE 66; RESP 16; TEMP 37.1; O2SAT 94; BMI 21.1
--- NOTE | 2024-09-03 14:37 | ECG_ITS ---
Test Reason : AMS Blood Pressure : */* mmHG Vent. Rate : 65 BPM Atrial Rate : 65 BPM P-R Int : 174 ms QRS Dur : 110 ms QT Int : 450 ms P-R-T Axes : 37 61 18 degrees QTcB Int : 468 ms Sinus rhythm with Fusion complexes Right bundle branch block Abnormal ECG When compared with ECG of 10-Mar-2023 03:32, No significant changes seen Referred By: Oneyda Ro Electronically Signed By: ISELA JUDGE
--- NOTE | 2024-09-03 14:38 | ED_ITS ---
HPI - Altered Mental Status General Chief Complaint: Altered Mental Status Stated Complaint: UNRESPONSIVE @SNF,RESPOND TO PAIN,UNK LKWT PER EMS Time Seen by Provider: 09/03/24 14:28 Source: patient, EMS, RN notes reviewed and old records reviewed Mode of arrival: EMS Limitations: altered mental status History of Present Illness ED Provider: Jono Ro PA-C HPI narrative: 88-year-old female with history of vascular dementia with behavioral disturbances, history of auditory hallucinations, history of anemia, breast cancer, carpal tunnel syndrome, CKD III, HTN who presents to the ER for evaluation of unresponsiveness. Patient was found to be poorly responsive at her SNF on afternoon rounds. She was reportedly normal earlier this morning. Unclear last known well time. She was responsive to pain per EMS. On arrival to the ER patient was slightly groaning, opened her eyes to verbal stimuli. She is moving all 4 extremities on command. She denied any physical pain Called and spoke with the [facility] nurse [facility] - nurse reports that she is baseline confused, speaks Cambodian only. she sleeps most of the day and is lethargic often. she frequently has poor PO intake and needs to be forced to eat and drink. she occasionally walks slowly with a walker and assistance. she is incontinent and requires straight cath for retention. MD complaint: decreased responsiveness Onset (ago): unknown Consistency of symptoms: waxing and waning Associated symptoms: denies other symptoms Related Data Home Medications ?Medication ?Instructions ?Recorded ?Confirmed cholecalciferol (vitamin D3) 25 25 mcg PO DAILY 11/13/21 11/13/21 mcg (1,000 unit) tablet (Vitamin D3) escitalopram oxalate 5 mg tablet 1 tab PO DAILY 11/13/21 11/13/21 lisinopril 20 mg tablet 1 tab PO DAILY 11/13/21 11/13/21 risperidone 0.5 mg tablet 0.25 mg PO BID PRN Psychosis 11/13/21 11/13/21 risperidone 0.5 mg tablet 0.25 mg PO DAILY 11/13/21 11/13/21 Previous Rx's ?Medication ?Instructions ?Recorded loperamide 2 mg capsule (Imodium 2 mg PO Q8H PRN loose stool #10 11/14/21 A-D) caps cefuroxime axetil 500 mg tablet 500 mg PO BID #13 tabs 11/05/22 Allergies Allergy/AdvReac Type Severity Reaction Status Date / Time alendronate sodium Allergy Unknown MOUTH Verified 03/10/23 03:21 [From FOSAMAX] BLEEDING - IRRITATION cholecalciferol (vitamin D3) Allergy Unknown muscle Verified 03/10/23 03:21 [Vitamin D3] pains fish oil Allergy Unknown Unknown Verified 09/03/24 14:56 ALL VITAMINS Allergy Mild MUSCLE Uncoded 01/07/20 16:28 PAINS Review of Systems 2 Review of Systems: Yes all other systems are reviewed and are negative [facility] Past Medical History Medical History Chronic kidney disease (CKD) stage G3a/A1, moderately decreased glomerular filtration rate (GFR) between 45-59 mL/min/1.73 square meter and albuminuria creatinine ratio less than 30 mg/g Carpal tunnel syndrome History of breast cancer Anemia Hypertension Surgical History History of carpal tunnel release History of cataract surgery History of cholecystectomy Family History Family History Father No problems noted. Mother No problems noted. Social History Social History Household Members: None Housing: Apartment Do you presently have visiting nurse or other home services: No Unable to assess alcohol history related to: Unable to respond Alcohol intake: never Smoked in Last 30 Days: No Use of substances other than those prescribed or required for medical reasons: No Advance Directives: Yes Advance Directives on File: Yes Advance Directives Date on File: 08/09/20 Do you have a plan to hurt others: No Plan service: No Current occupational status: disabled Physical Exam ED Vital Signs: Vital Signs - 24 hr 09/03/24 14:25 09/03/24 18:16 Temperature 98.8 F 97.8 F Pulse Rate 66 66 Respiratory Rate 16 16 Blood Pressure 151/83 H 99/84 Pulse Oximetry 94 100 Oxygen Delivery Method Room Air Room Air BMI result Body Mass Index 21.1 Appearance: Lethargic, frail, elderly woman lying in bed, Oriented X2. No acute distress. Head: normocephalic, atraumatic. Eyes: Pupils equal, round and reactive to light. Corneal haziness bilaterally ENT: Pharynx normal. No tonsillar swelling or exudate. Neck: Normal inspection. Neck supple. CVS: Normal heart rate and rhythm. Pulses normal. Respiratory: No respiratory distress. Breath sounds normal. Abdomen: Softly distended with lower abdominal tenderness and fullness to the umbilicus +BS x4 Skin: Skin warm and dry. Normal skin color. Normal skin turgor. No rashes. Extremities: No lower extremity edema. No joint swelling. Neuro/psych: Oriented X 2 No motor deficit. No sensory deficit. Bilateral upper extremities with equal and symmetrical strength. Able to lift both lower extremities off of the bed. CN II-XII intact. Answers some questions intermittently with yes no answers NIH Stroke Scale Internal: Initial- Upon Arrival Level of Consciousness: Not Alert; requires repeated stimulation, or strong of painful stim. Level of Consciousness Questions: Answers one question correctly Level of Consciousness Commands: Performs both tasks correctly Best Gaze: Normal Visual: No visual loss Facial Palsy: Normal Motor Arm (Right): Drift Motor Arm (Left): Drift Motor Leg (Right): Some effort against gravity Motor Leg (Left): Some effort against gravity Limb Ataxia: Absent Sensory: Normal Best Language: No aphasia Dysarthia: Normal Extinction and Inattention: No abnormality Score: 9 Course Reevaluation(s) Reevaluation #1: When Radha BAUMANN have accepted care of the patient and signed out pending IV fluid therapy and discharged back to the nursing facility. Medications Administered Discontinued Medications Generic Name Dose Route Start Last Admin Trade Name Freq PRN Reason Stop Dose Admin Lactated Ringer's 1,000 mls @ 999 mls/hr 09/03/24 17:00 09/03/24 18:05 Lr IV 09/03/24 18:00 999 mls/hr .Q1H1M CHIKI Administration Medical Decision Making Medical Decision Making MDM Narrative: 88-year-old female with history of vascular dementia with behavioral disturbances, auditory hallucinations, history of failure to thrive, CKD, anxiety, failure to thrive coming from SNF after she was found unresponsive on afternoon rounds. She arrives to the ER lethargic but arouses to voice and stimulation. she is oriented to self only. she is weak but moves all 4 extremities. VS are stable. afebrile on rectal temp. abdominal distention noted, straight cathed for 800+ cc. initial presentation less consistent with stroke as her primary symptom is lethargy and generalized weakness, she is nonfocal and moving all extremities equally. she does not appear to be septic at this time. labs showing mild, stable normocytic anemia. no leukocytosis. she has mildly elevated BUN 21, and SCr 1.01. LFTs, TSH, ammonia, VBG all unremarkable. CT head was performed, pending results. 17:03 - re-evaluated with staff forester. patient continues to be lethargic, difficult to arouse but states her name and is able to move all extremities. she reports she is hungry. she denies pain. Will plan to hydrate with IV fluids and reassess. 17:42 - negative head CT. Differential Diagnosis Differential Diagnoses: The differential diagnosis associated with the presentation includes Acute metabolic encephalopathy, seizure, stroke, UTI, medication adverse reaction, behavioral disturbance Admission/Observation Consideration of admission/observation: Escalation of care including admission/observation considered Lab Data MDM Lab Attestation statement: I reviewed the patient's lab results. as above 09/03/24 16:05 09/03/24 16:05 Labs: Lab Results 09/03/24 09/03/24 09/03/24 Range/Units 14:28 14:50 16:05 WBC 5.9 (4.8-10.8) X10*3/uL RBC 4.15 L D (4.20-5.50) X10*6/uL Hgb 11.5 L D (12.0-16.0) g/dl Hct 35.1 L D (37.0-47.0) % MCV 84.6 (80.0-98.0) fL MCH 27.7 (27.0-33.0) pg MCHC 32.8 (31.0-35.0) g/dl RDW 15.1 (11.0-16.0) % Plt Count 208 (160-400) X10*3/uL MPV 10.6 (9.4-12.3) fL Immature Gran % (Auto) 0.5 H (0.0-0.4) % Neut % (Auto) 53.5 (45-73) % Lymph % (Auto) 33.5 (20-40) % Dane % (Auto) 9.4 (2-11) % Eos % (Auto) 2.4 (0-4) % Baso % (Auto) 0.7 (0-2) % Lymph # (Auto) 2.0 (1.2-4.9) X10*3/uL Dane # (Auto) 0.6 (0.1-1.2) X10*3/uL Eos # (Auto) 0.1 (0.0-0.4) X10*3/uL Baso # (Auto) 0.0 (0.0-0.2) X10*3/uL Abs Immat Gran (auto) 0.03 (0.00-0.03) X10*3/uL Absolute Neuts (auto) 3.2 (2.0-8.3) x10*3/uL Absolute Nucleated RBC 0.000 (0.0-0.012) X10*3/uL Nucleated RBC % (auto) 0.0 (0.0-0.2) /100WBC VBG pH (7.32-7.43) VBG pCO2 mmHg VBG pO2 mmHg VBG HCO3 (22-26) mmol/L VBG O2 Saturation % VBG Base Excess mmol/L Sodium 140 (135-145) mmol/L Potassium 4.0 (3.3-5.1) mmol/L Chloride 106 (96-108) mmol/L Carbon Dioxide 27 (22-29) mmol/L Anion Gap 11 L (12-20) BUN 21 H (9-16) mg/dL Creatinine 1.01 (0.5-1.4) mg/dL Estim Creat Clear Calc 27.6 Estimated GFR 52 POC Glucose 78 (60-115) mg/dL Random Glucose 83 (60-115) mg/dL Calcium 9.5 (8.4-10.2) mg/dL Magnesium 2.0 (1.6-2.6) mg/dL Total Bilirubin 0.6 (0.0-1.0) mg/dL Direct Bilirubin 0.2 (0.0-0.5) mg/dL AST 19 (5-31) U/L ALT 10 (0-31) U/L Alkaline Phosphatase 50 (39-117) U/L Ammonia 29 (13-55) umol/L Troponin I High Sens 6.2 (<3.5-17.0) ng/L Total Protein 6.5 (6.5-8.0) g/dL Albumin 3.6 (3.5-5.0) g/dL TSH 1.10 (0.32-4.0) uIU/mL Urine Color Yellow Urine Appearance Clear Urine pH 6.5 (5.0-9.0) Ur Specific [place] 1.015 (1.005-1.025) Urine Protein Negative (Neg-Trace) mg/dL Urine Glucose (UA) Negative (Negative) mg/dL Urine Ketones Trace (Negative) mg/dL Urine Blood Negative (Negative) Urine Nitrite Negative (Negative) Ur Leukocyte Esterase Trace H (Negative) Urine RBC 0-2 (0-2) /HPF Urine WBC 0-5 (0-5) /HPF Ur Squamous Epith Cells 0-2 (0-2) /HPF Urine Bacteria None Seen (None Seen) Hyaline Casts 0-2 (0-2) /LPF Influenza Type A (PCR) NEGATIVE (Negative) Influenza Type B (PCR) NEGATIVE (Negative) RSV RNA Qual (PCR) NEGATIVE (Negative) SARS-CoV-2 RNA (RT-PCR) NEGATIVE (Negative) 09/03/24 Range/Units 16:26 WBC (4.8-10.8) X10*3/uL RBC (4.20-5.50) X10*6/uL Hgb (12.0-16.0) g/dl Hct (37.0-47.0) % MCV (80.0-98.0) fL MCH (27.0-33.0) pg MCHC (31.0-35.0) g/dl RDW (11.0-16.0) % Plt Count (160-400) X10*3/uL MPV (9.4-12.3) fL Immature Gran % (Auto) (0.0-0.4) % Neut % (Auto) (45-73) % Lymph % (Auto) (20-40) % Dane % (Auto) (2-11) % Eos % (Auto) (0-4) % Baso % (Auto) (0-2) % Lymph # (Auto) (1.2-4.9) X10*3/uL Dane # (Auto) (0.1-1.2) X10*3/uL Eos # (Auto) (0.0-0.4) X10*3/uL Baso # (Auto) (0.0-0.2) X10*3/uL Abs Immat Gran (auto) (0.00-0.03) X10*3/uL Absolute Neuts (auto) (2.0-8.3) x10*3/uL Absolute Nucleated RBC (0.0-0.012) X10*3/uL Nucleated RBC % (auto) (0.0-0.2) /100WBC VBG pH 7.39 (7.32-7.43) VBG pCO2 52 mmHg VBG pO2 42 mmHg VBG HCO3 32 H (22-26) mmol/L VBG O2 Saturation 40.0 % VBG Base Excess 6.3 mmol/L Sodium (135-145) mmol/L Potassium (3.3-5.1) mmol/L Chloride (96-108) mmol/L Carbon Dioxide (22-29) mmol/L Anion Gap (12-20) BUN (9-16) mg/dL Creatinine (0.5-1.4) mg/dL Estim Creat Clear Calc Estimated GFR POC Glucose (60-115) mg/dL Random Glucose (60-115) mg/dL Calcium (8.4-10.2) mg/dL Magnesium (1.6-2.6) mg/dL Total Bilirubin (0.0-1.0) mg/dL Direct Bilirubin (0.0-0.5) mg/dL AST (5-31) U/L ALT (0-31) U/L Alkaline Phosphatase (39-117) U/L Ammonia (13-55) umol/L Troponin I High Sens (<3.5-17.0) ng/L Total Protein (6.5-8.0) g/dL Albumin (3.5-5.0) g/dL TSH (0.32-4.0) uIU/mL Urine Color Urine Appearance Urine pH (5.0-9.0) Ur Specific [place] (1.005-1.025) Urine Protein (Neg-Trace) mg/dL Urine Glucose (UA) (Negative) mg/dL Urine Ketones (Negative) mg/dL Urine Blood (Negative) Urine Nitrite (Negative) Ur Leukocyte Esterase (Negative) Urine RBC (0-2) /HPF Urine WBC (0-5) /HPF Ur Squamous Epith Cells (0-2) /HPF Urine Bacteria (None Seen) Hyaline Casts (0-2) /LPF Influenza Type A (PCR) (Negative) Influenza Type B (PCR) (Negative) RSV RNA Qual (PCR) (Negative) SARS-CoV-2 RNA (RT-PCR) (Negative) Independent Interpretation I performed an independent interpretation of an: EKG, Plain X-Ray and CT Scan Interpretation: EKG with normal sinus rhythm, right bundle branch block present, T-wave inversions in V1 through V3 - present on prior Chest x-ray is clear without any focal infiltrate or effusion CT of the head without any acute bleed or edema Radiology Impression Discussion of test interpretation with radiology: I have reviewed the radiologist's reading. Radiologist Impression: XR/XR chest 1V IMPRESSION: No active pulmonary disease. CT Head: IMPRESSION: 1. No acute intracranial findings. Independent Historian Clinical information obtained from an independent historian. History obtained from or confirmed by: EMS and Other (nurse at SNF) External Record Review External record reviewed: Inpatient record, Outpatient record, Prior outpatient labs and Prior outpatient radiology Tests considered The following testing was considered but not selected: CTA head and neck considered, low suspicion for LVO Prescription Management I considered prescription management with: Antibiotic Chronic Conditions Patient?s care impacted by: Other (Vascular dementia with behavioral disturbances) Critical Care Time Critical Care Time Critical Care Time: Yes Total Critical Care Time: 36 Attestation: I have personally provided critical care time exclusive of time spent on separately billable procedures. Time includes review of lab data, radiology results, multiple bedside re-evaluations of mental status and monitoring for potential decompensation. Intervention performed as documented. Discharge Plan Discharge Clinical Impression: Altered mental status Qualifiers: Altered mental status type: somnolence Qualified Code(s): R40.0 - Somnolence Patient Disposition: Xfer [facility] Additional Instructions: All the patient's screening labs were normal. Her urinalysis did not reveal infection. A viral panel was obtained, she was screened for influenza, RSV and COVID. It was negative. A CT scan of the brain was negative. She received IV fluid hydration. Her new onset fatigue/somnolence, and lack of appetite, could be progression of the dementia. She should follow up with her primary care provider for further assessment. Prescriptions: No Action lisinopril 20 mg tablet 1 tab PO DAILY risperidone 0.5 mg tablet 0.25 mg PO DAILY risperidone 0.5 mg tablet 0.25 mg PO BID PRN (Reason: Psychosis) escitalopram oxalate 5 mg tablet 1 tab PO DAILY cholecalciferol (vitamin D3) [Vitamin D3] 25 mcg (1,000 unit) Tablet 25 mcg PO DAILY loperamide [Imodium A-D] 2 mg capsule 2 mg PO Q8H PRN (Reason: loose stool) Qty: 10 0RF cefuroxime axetil 500 mg tablet 500 mg PO BID Qty: 13 0RF Print Language: Macedonian
[2024-09-03 15:09] LABS: Appearance Urine Clear; Color Urine Yellow; Glucose Urine UA Negative (Negative); Leukocyte Esterase Urine Trace (Negative); Nitrite Urine Negative (Negative); PH 6.5 (5.0-9.0); Specific Gravity - Urine 1.015 (1.005-1.025); UMIC TRIGGER UACC YES; Urine Blood Negative (Negative); Urine Ketones Trace mg/dL (Negative); Urine Protein Negative (Neg-Trace)
[2024-09-03 15:11] LABS: Bacteria Urine None Seen (None Seen); Hyaline Casts Urine 0-2 /LPF (0-2); RBC Urine 0-2 /HPF (0-2); Squamous Epithelial Cell Urine 0-2 /HPF (0-2); WBC Urine 0-5 /HPF (0-5)
[2024-09-03 16:11] LABS: MANUAL DIFF FLAG NO
[2024-09-03 16:12] LABS: Basophils Percent Auto 0.7 % (0-2); Eosinophils Absolute Auto 0.1 X10*3/uL (0.0-0.4); Eosinophils Percent Auto 2.4 % (0-4); Hematocrit 35.1 % (37.0-47.0); Hemoglobin 11.5 g/dl (12.0-16.0); Imm Gran Abs Auto 0.03 X10*3/uL (0.00-0.03); Imm Gran Pct Auto 0.5 % (0.0-0.4); Lymphocytes Percent Auto 33.5 % (20-40); Mean Corpuscular HGB Conc 32.8 g/dl (31.0-35.0); Mean Corpuscular Hemoglobin 27.7 pg (27.0-33.0); Mean Corpuscular Volume 84.6 fL (80.0-98.0); Mean Platelet Volume 10.6 fL (9.4-12.3); Monocytes Absolute Auto 0.6 X10*3/uL (0.1-1.2); Monocytes Percent Auto 9.4 % (2-11); Neutrophils Absolute Auto 3.2 x10*3/uL (2.0-8.3); Neutrophils Percent Auto 53.5 % (45-73); Platelet Count 208 X10*3/uL (160-400); Red Blood Count 4.15 X10*6/uL (4.20-5.50); Red Cell Distribution Width 15.1 % (11.0-16.0); White Blood Count 5.9 X10*3/uL (4.8-10.8)
[2024-09-03 16:22] LABS: Ammonia 29 umol/L (13-55)
[2024-09-03 16:23] LABS: Glucose, Whole Blood 78 mg/dL (60-115)
[2024-09-03 16:29] LABS: Venous Blood Gas Refer to POC result
[2024-09-03 16:30] LABS: VBG Base Excess 6.3 mmol/L; VBG HCO3 32 mmol/L (22-26); VBG pCO2 52 mmHg; VBG pH 7.39 (7.32-7.43); VBG pO2 42 mmHg
[2024-09-03 16:39] LABS: Alanine Aminotransferase 10 U/L (0-31); Albumin Level 3.6 g/dL (3.5-5.0); Alkaline Phosphatase 50 U/L (39-117); Anion Gap 11 (12-20); Aspartate Amino Transferase 19 U/L (5-31); Bilirubin Direct 0.2 mg/dL (0.0-0.5); Bilirubin Total 0.6 mg/dL (0.0-1.0); Blood Urea Nitrogen 21 mg/dL (9-16); Calcium 9.5 mg/dL (8.4-10.2); Carbon Dioxide 27 mmol/L (22-29); Chloride 106 mmol/L (96-108); Creatinine Clr Calc Pharmacy 27.6; Estimated Glomerular Filt Rate 52; Glucose Random 83 mg/dL (60-115); Sodium 140 mmol/L (135-145); Total Protein 6.5 g/dL (6.5-8.0)
[2024-09-03 16:40] LABS: Troponin-I High Sensitivity 6.2 ng/L (<3.5-17.0)
[2024-09-03 16:54] LABS: Influenza A PCR NEGATIVE (Negative); Influenza B PCR NEGATIVE (Negative); Resp Syncy Virus RNA Qual PCR NEGATIVE (Negative); SARS COV2 PCR INHOUSE NEGATIVE (Negative)
[2024-09-03] MEDS: Lactated Ringers 1,000 ML 999 ML IV (18:05)
[2024-09-03 18:16] VITALS: BP 99/84; PULSE 66; RESP 16; TEMP 36.6; O2SAT 100
--- OUTSIDE RECORDS SUMMARY | 2024-09-03 18:16 | XMS_ITS | Encounter Summary ---
Author Organization [employer] Address [address] [place] [address] Care Team Providers Care Side Trimmer Name Role Phone Leatha Cantu MD Primary Care Provider + Encounter Details Date Type Department Care Team (Late st Contact Info) Description 08/16/2024 Lab Requisition [facility] - Main Lab [address] [facility] [place] [address] Leatha Cantu MD [address] [address] Chronic kidney disease, unspecified Social History Tobacco Use Types Packs/Day Years Used Date Smoking Tobacco: Never Assessed Comments Unknown Sex and Gender Information Value Date Recorded Sex Assigned at Not on file Legal Sex Female 11:28 AM EST Gender Identity Not on file Sexual Orientation Not on file documented as of this encounter Plan of Treatment Not on file documented as of this encounter Procedures Procedure Name Priority Date/Time Associated Diagnosis Comments BASIC METABOLIC PANEL Routine 08/17/2024 10:50 AM EDT Chronic kidney disease, unspecified documented in this encounter Results * Basic metabolic panel (08/17/2024 10:50 AM EDT) Sodium 135 133 - 145 mmol/L LAB CHEMISTRY METHOD 08/17/2024 2:[address] [facility] Potassium 4.1 3.5 - 5.5 mmol/L LAB CHEMISTRY METHOD 08/17/2024 2:[address] [facility] Chloride 102 96 - 110 mmol/L LAB CHEMISTRY METHOD 08/17/2024 2:06 PM [facility] CO2 25 21 - 32 mmol/L LAB CHEMISTRY METHOD 08/17/2024 2:[address] [facility] Anion Gap 8 3 - 11 LAB CHEMISTRY METHOD 08/17/2024 2:[address] [facility] Glucose 91 70 - 100 mg/dL LAB CHEMISTRY METHOD 08/17/2024 2:[address] [facility] BUN 16 5 - 25 mg/dL LAB CHEMISTRY METHOD 08/17/2024 2:[address] [facility] Creatinine 0.92 0.50 - 1.10 mg/dL LAB CHEMISTRY METHOD 08/17/2024 2:[address] [facility] eGFR 60 >=60 mL/min/1. 73m2 LAB CHEMISTRY METHOD 08/17/2024 2:[address] [facility] Comment:Calculation based on the Chronic Kidney Disease Epidemiology Collaboration (CKD-EPI) equation refit without adjustment for race. BUN/Creatinine Ratio 17.4 LAB CHEMISTRY METHOD 08/17/2024 2:06 PM [facility] Calcium 9.2 8.5 - 10.5 mg/dL LAB CHEMISTRY METHOD 08/17/2024 2:06 PM [facility] Blood Venous blood specimen / Unknown Venipuncture / Unknown 08/17/2024 10:50 AM EDT 08/17/2024 12:33 PM EDT us Leatha Cantu MD LAB BLOOD ORDERABLES Fin al Result [facility] [address] [place] [address], documented in this encounter Visit Diagnoses Diagnosis Chronic kidney disease, unspecified documented in this encounter Care Teams Side Trimmer Relationship Specialty Start Date End Date Leatha Cantu MD [address] [place] [id number] PCP - General Family Medicine 05/04/24 documented as of this encounter
--- NOTE | 2024-09-03 18:24 | MHC.EDTECH ---
pt is clean and dry, no episode of incontinence. pt was repositioned to right side. vitals obtained and documented
[2024-09-03 20:22] VITALS: BP 162/60; PULSE 66; RESP 16; TEMP 36.6; O2SAT 100
== END 2024-09-03 20:23 | disposition skilled nursing facility (03) ==
PROVIDERS: Physician Assistant; Emergency Provider Emergency Medicine; PCP Internal Medicine
DX: R40.0 Somnolence (principal); F03.911 Unspecified dementia, unspecified severity, with agitation; F05 Delirium due to known physiological condition; I12.9 Hypertensive chronic kidney disease with stage 1 through stage 4 chronic kidney disease, or unspecified chronic kidney disease; N18.30 Chronic kidney disease, stage 3 unspecified; D63.1 Anemia in chronic kidney disease; I45.10 Unspecified right bundle-branch block; R94.31 Abnormal electrocardiogram [ECG] [EKG]; Z79.899 Other long term (current) drug therapy; Z03.818 Encounter for observation for suspected exposure to other biological agents ruled out
CPT/HCPCS: 0241U; 70450; 71045; 80048; 80076; 81001; 81003; 82140; 82803; 82947; 83735; 84443; 84484; 85025; 93005; 96360; 99284; 99285; J7120

== ENCOUNTER → 2024-09-03 14:37 | Outpatient (BNV) | payer OTHER, SELFPAY | PROVIDERS: Emergency Provider Emergency Medicine; Visit Provider Radiology Diagnostic Radiology | DX: R46.4 Slowness and poor responsiveness (principal); R53.1 Weakness | CPT/HCPCS: 70450; 71045 ==

== ENCOUNTER → 2024-09-03 14:37 | Outpatient (BNV) | payer OTHER, SELFPAY | PROVIDERS: Emergency Provider Emergency Medicine; PCP Internal Medicine; Visit Provider Internal Medicine | DX: I45.10 Unspecified right bundle-branch block (principal) | CPT/HCPCS: 93010 ==

== ENCOUNTER 2024-09-17 12:49 | Inpatient (IN) | payer OTHER, SELFPAY ==
[2024-09-17] VITALS (10 sets, daily range): BP systolic 86–157; BP diastolic 36–81; PULSE 63–106; RESP 9–18; TEMP 36.4–37.9; O2SAT 92–99; BMI 20.9; BMI 19.2
--- NOTE | ~2024-09-17 | CT_ITS ---
EXAMINATION: CT CHEST WITHOUT CONTRAST CLINICAL INFORMATION: Cough, dyspnea, rule out pneumonia. COMPARISON: None available. TECHNIQUE: Multidetector volumetric CT imaging of the chest was done. Axial MIP volume rendering provided. Sagittal and coronal reformatted images were obtained. This CT examination was performed using dose optimization techniques as appropriate, variously including the following: *Automated exposure control *Adjustment of mA and/or kV according to patient size (this includes techniques or standardized protocols for targeted exams where dose is matched to indication/reason for exam; i.e. extremities or head) *Use of iterative reconstruction technique FINDINGS: LUNGS: There are patchy right upper lobe groups centrilobular nodules with associated mild reticular and groundglass foci, findings consistent with bronchopneumonia. There is rather diffuse small airway thickening suggesting inflammatory small airways disease. This is most notable in the lower lobes and right upper lobe. There is no segmental consolidation. There is minimal gravity dependent atelectasis. There are no suspicious nodules. There are a few scattered calcified granulomata. There is no effusion or pneumothorax. MEDIASTINUM: There is a 2.0 cm right thyroid nodule. Thyroid is otherwise normal. No adenopathy or mass in the mediastinum. There are calcified prevascular lymph nodes, suggesting prior granulomatous disease. The aorta is normal in caliber with mild atheromatous calcification. The main pulmonary artery is mildly prominent but not enlarged by size criteria. The heart size is mildly enlarged. There is a small pericardial effusion present. There are moderate coronary calcifications. There is a small type I hiatus hernia. There is mild thickening of the distal esophagus which could indicate esophagitis. AXILLA/CHEST WALL: No mass or lymphadenopathy. There are postoperative changes in the left superior breast. UPPER ABDOMEN: There is abundant stool seen in the imaged colon. There are bilateral renal cysts, the largest on the right, upper pole, measuring 3.4 cm in diameter. There has been a cholecystectomy. The unenhanced liver is normal. OSSEOUS STRUCTURES: No suspicious lytic or blastic bone lesions. There are mild degenerative changes throughout the spine. CT/CT chest wo IV con IMPRESSION: 1. Findings suspicious for right upper lobe bronchopneumonia. 2. Diffuse small airway thickening, suggesting infectious/inflammatory airways disease. 3. Evidence of prior granulomatous disease. 4. No effusion or pneumothorax. 5. Mild cardiomegaly with a small pericardial effusion. 6. There is a 2.0 cm right thyroid nodule. 7. There is abundant stool within the imaged colon. 8. Additional ancillary findings as discussed in the body of the report. Fleischner guidelines were followed. Electronically signed by: Cristofer Apodaca MD 09/17/2024 01:32 PM EDT
--- NOTE | ~2024-09-17 | CT_ITS ---
EXAMINATION: CT HEAD WITHOUT CONTRAST (STROKE PROTOCOL) CLINICAL INFORMATION: Stroke protocol. Altered mental status; unresponsive. COMPARISON: 09/03/2024. TECHNIQUE: Contiguous axial imaging was performed from the skull base to vertex without intravenous administration of contrast. This CT examination was performed using dose optimization techniques as appropriate, variously including the following: *Automated exposure control *Adjustment of mA and/or kV according to patient size (this includes techniques or standardized protocols for targeted exams where dose is matched to indication/reason for exam; i.e. extremities or head) *Use of iterative reconstruction technique FINDINGS: There is no evidence of intracranial hemorrhage or extra-axial fluid collection. There is no mass effect, or edema. No CT evidence of acute territorial infarct. Ventricles, sulci, and cisterns are normal in size and configuration for patient age. No hydrocephalus. No midline shift. Negative hyperdense MCA sign. Negative insular ribbon sign. Patchy periventricular and deep white matter hypoattenuation is consistent with mild to moderate small vessel ischemic changes. There is a prominent VR space in the right subinsular region. Mild atheromatous calcification of the bilateral carotid siphons and V4 segments vertebral arteries bilaterally. Globes and orbital contents image normally. There are bilateral lens replacements, and bilateral senile calcifications. No extracranial soft tissue abnormalities. The paranasal sinuses, mastoid air cells, and tympanic cavities are normally aerated. No suspicious bony abnormalities. There are no acute fractures evident. CT/CT head for STROKE IMPRESSION: No acute intracranial abnormality. This critical result was discussed with Dr. Rios of the [facility] at 1:15 PM, 09/17/2024. It was ascertained that the content and urgency of the report was understood at the time of direct communication. Electronically signed by: Cristofer Apodaca MD 09/17/2024 01:12 PM EDT
--- NOTE | ~2024-09-17 | CT_ITS ---
CLINICAL HISTORY: Fevers and UTI CT abdomen and pelvis without IV contrast. COMPARISON: None provided. FINDINGS: Cardiomegaly. Small pericardial effusion. Coronary artery calcifications present within the partially visualized RCA. Aortic annular calcifications. No focal hepatic lesion. Cholecystectomy. Normal spleen. Normal pancreas. Normal adrenal glands. Right renal cystic lesion measuring 2.7 cm. No hydronephrosis or hydroureter. No renal or ureteral calculus bilaterally. Normal appendix. Moderate colonic stool burden. No bowel obstruction. No mesenteric or retroperitoneal lymphadenopathy. Moderate aortoiliac atherosclerotic vascular calcifications. Garcia catheter present within the contracted urinary bladder. Diffuse thickening of the mucosa of the urinary bladder. No adnexal mass. Levocurvature of the lower thoracic and upper lumbar spine. Moderate to advanced multilevel spondylosis. Osteopenia. No acute fracture or suspicious bone lesion. IMPRESSION: 1. No evidence of renal obstruction. No renal or ureteral calculus identified bilaterally. 2. Diffuse thickening of the mucosa of the urinary bladder can be seen with cystitis, chronic instrumentation, or outlet obstruction. 3. Moderate colonic stool burden. No bowel obstruction. 4. Cardiomegaly with small pericardial effusion. This document has been electronically signed by: Judd Chong MD on 09/19/2024 16:17:09
--- NOTE | 2024-09-17 12:55 | ECG_ITS ---
Test Reason : STROKE Blood Pressure : */* mmHG Vent. Rate : 82 BPM Atrial Rate : 82 BPM P-R Int : 140 ms QRS Dur : 112 ms QT Int : 416 ms P-R-T Axes : 44 65 6 degrees QTcB Int : 486 ms Normal sinus rhythm Right bundle branch block Abnormal ECG When compared with ECG of 03-Sep-2024 14:53, Fusion complexes are no longer Present Referred By: Eddie Rios Electronically Signed By: Luis Mccoy
--- NOTE | 2024-09-17 12:57 | ED_ITS ---
HPI - Neuro Symptoms/Deficit General Chief Complaint: Altered Mental Status Stated Complaint: AMS,UNRESPONSIVE TO VERBAL STIMULI PER EMS Time Seen by Provider: 09/17/24 12:53 Source: EMS Mode of arrival: EMS Limitations: altered mental status History of Present Illness HPI Narrative: THIS IS 88 YEARS OLD THE PATIENT SENT FROM [facility] BECAUSE OF ALTERED MENTAL STATUS PER EMT REPORT SYMPTOMS ABOUT 07:30 AMBULANCE WAS CALLED AT THIS TIME BY THE STAFF. PATIENT HAS BEEN MORE LETHARGIC. PATIENT HAS HISTORY OF DEMENTIA, URINARY TRACT INFECTION, CHRONIC KIDNEY DISEASE Onset (ago): hour(s) (5) Timing confirmed by: other (EMS) History of same: No Severity: moderate Relieving factors: none Exacerbating factors: none Context: gradual onset Related Data Home Medications ?Medication ?Instructions ?Recorded ?Confirmed cholecalciferol (vitamin D3) 25 25 mcg PO DAILY 11/13/21 mcg (1,000 unit) tablet (Vitamin D3) escitalopram oxalate 5 mg tablet 1 tab PO DAILY 11/13/21 lisinopril 20 mg tablet 1 tab PO DAILY 11/13/2110/30 risperidone 0.5 mg tablet 0.25 mg PO BID PRN Psychosis 11/13/21 11/13/21 risperidone 0.5 mg tablet 0.25 mg PO DAILY 11/13/21 Previous Rx's ?Medication ?Instructions ?Recorded loperamide 2 mg capsule (Imodium 2 mg PO Q8H PRN loose stool #10 11/14/21 A-D) caps cefuroxime axetil 500 mg tablet 500 mg PO BID #13 tabs 11/05/22 Allergies Allergy/AdvReac Type Severity Reaction Status Date / Time alendronate sodium (From Allergy Unknown MOUTH Verified 09/17/24 13:03 FOSAMAX) BLEEDING - IRRITATION cholecalciferol (vitamin D3) Allergy Unknown muscle Verified 09/17/24 13:03 (Vitamin D3) pains fish oil Allergy Unknown Unknown Verified 09/17/24 13:03 ALL VITAMINS Allergy Mild MUSCLE Uncoded 09/17/24 13:03 PAINS Review of Systems 2 Review of Systems: Yes Unobtainable due to mental status PMFSH Past Medical History Attestation statement: The following information was validated with the patient. Medical History Chronic kidney disease (CKD) stage G3a/A1, moderately decreased glomerular filtration rate (GFR) between 45-59 mL/min/1.73 square meter and albuminuria creatinine ratio less than 30 mg/g Carpal tunnel syndrome History of breast cancer Anemia Hypertension Surgical History History of carpal tunnel release History of cataract surgery History of cholecystectomy Family History Family History Father No problems noted. Mother No problems noted. Social History Social History Household Members: None Housing: Apartment Do you presently have visiting nurse or other home services: No Unable to assess alcohol history related to: Unable to respond Alcohol intake: never Advance Directives: Yes Advance Directives on File: Yes Advance Directives Date on File: 08/09/20 service: No Current occupational status: disabled Physical Exam 2 Vital Signs: Vital Signs: Last Vital Signs Temp 97.7 F 09/17/24 15:16 Pulse 65 09/17/24 15:16 Resp 10 L 09/17/24 15:16 BP 111/54 L 09/17/24 15:16 Pulse Ox 94 09/17/24 15:16 O2 Del Method Room Air 09/17/24 15:16 BMI result Body Mass Index 20.9 PATIENT IS LETHARGIC AROUSABLE TO PAINFUL STIMULI AT THIS TIME Const: Nutritional Appearance: average body habitus HEENT: Head: Yes normal to inspection General nose exam: Normal external nose present Face and sinus: Yes normal facial exam Mouth: Normal oral and palatal mucosa present Neck: Neck: Yes normal visual inspection Chest: Chest palpation & inspection: normal inspection of the chest Resp: Effort & Inspection: normal respiratory effort Auscultation: clear to auscultation bilaterally Cardio: Jugular venous distension: no JVD Rate: regular rate Rhythm: r egular rhythm GI: Inspection: Yes normal to inspection Palpation (GI): Soft to palpation, not firm and nontender Skin: General skin exam: no rashes or lesions noted Lesions: no lesions Rashes: no rashes Neuro: Other: LETHARGIC RESPOND TO PAINFUL STIMULI Course Reevaluation(s) Reevaluation #1: ON RE-EXAMINATION THE PATIENT IS IMPROVING SOMEWHAT SHE IS AFEBRILE A LACTIC ACID IS NORMAL WORKUP COMPLETED CLINICAL PICTURE CONSISTENT WITH URINARY TRACT INFECTION ALSO BY CT SCAN SHE HAS A RIGHT UPPER LOBE INFILTRATE WE WILL ADMIT THE PATIENT FOR IV ANTIBIOTIC AND MONITORING DISCUSSED WITH THE HOSPITALIST Time: 15:40 Medications Administered Generic Name Dose Route Start Last Admin Trade Name Freq PRN Reason Stop Dose Admin Enoxaparin Sodium 30 mg 09/17/24 17:00 09/17/24 16:00 Enoxaparin Sodium 30 Mg/0.3 Ml Syringe SUBCUT 30 mg Q24H CHIKI Administration Vancomycin HCl 1,250 mg/ 250 mls @ 166.667 mls/hr 09/17/24 16:00 09/17/24 16:00 Sodium Chloride IV 09/17/24 17:29 166.67 mls/hr ONCE ONE Administration Sodium Chloride 3 ml 09/17/24 16:00 09/17/24 16:01 0.9 % Sodium Chloride Flush 3 Ml Syringe IVFLUSH 3 ml QSHIFT CHIKI Administration Discontinued Medications Generic Name Dose Route Start Last Admin Trade Name Freq PRN Reason Stop Dose Admin Sodium Chloride 1,000 mls @ 999 mls/hr 09/17/24 13:00 09/17/24 15:07 Ns IVCONT 09/17/24 14:00 Infused .Q1H1M CHIKI Infusion Cefepime HCl 2 gm in 50 mls @ 100 mls/hr 09/17/24 14:12 09/17/24 15:57 Maxipime IV 09/17/24 14:41 Infused ONCE ONE Infusion Medical Decision Making Medical Decision Making [facility] Narrative: PATIENT IS HERE WITH ALTERED MENTAL STATUS BROAD DIFFERENTIAL DIAGNOSIS WE WILL OBTAIN HEAD CT UA LABS Differential Diagnosis Differential Diagnoses: The differential diagnosis associated with the presentation includes URINARY TRACT INFECTION/HYPOGLYCEMIA/STROKE/HEAD BLEED Admission/Observation Consideration of admission/observation: Escalation of care including admission/observation considered Consult Healthcare Provider Management of the patient was discussed with: Hospitalist Lab Data [facility] Lab Attestation statement: I reviewed the patient's lab results. 09/17/24 13:21 09/17/24 13:21 Labs: Lab Results 09/17/24 09/17/24 09/17/24 Range/Units 12:55 13:21 13:36 WBC 11.5 H (4.8-10.8) X10*3/uL RBC 3.95 L (4.20-5.50) X10*6/uL Hgb 11.2 L (12.0-16.0) g/dl Hct 33.1 L (37.0-47.0) % MCV 83.8 (80.0-98.0) fL MCH 28.4 (27.0-33.0) pg MCHC 33.8 (31.0-35.0) g/dl RDW 15.2 (11.0-16.0) % Plt Count 170 (160-400) X10*3/uL MPV 10.2 (9.4-12.3) fL Immature Gran % (Auto) 0.6 H (0.0-0.4) % Neut % (Auto) 87.0 H (45-73) % Lymph % (Auto) 5.6 L (20-40) % [place] % (Auto) 6.7 (2-11) % Eos % (Auto) 0.0 (0-4) % Baso % (Auto) 0.1 (0-2) % Lymph # (Auto) 0.7 L (1.2-4.9) X10*3/uL [place] # (Auto) 0.8 (0.1-1.2) X10*3/uL Eos # (Auto) 0.0 (0.0-0.4) X10*3/uL Baso # (Auto) 0.0 (0.0-0.2) X10*3/uL Abs Immat Gran (auto) 0.07 H (0.00-0.03) X10*3/uL Absolute Neuts (auto) 10.0 H (2.0-8.3) x10*3/uL Absolute Nucleated RBC 0.000 (0.0-0.012) X10*3/uL Nucleated RBC % (auto) 0.0 (0.0-0.2) /100WBC Whole Blood PT 12.4 (11.1-13.5) sec Whole Blood INR 1.0 (0.9-1.1) Sodium 136 (135-145) mmol/L Potassium 3.9 (3.3-5.1) mmol/L Chloride 100 (96-108) mmol/L Carbon Dioxide 24 (22-29) mmol/L Anion Gap 16 (12-20) BUN 23 H (9-16) mg/dL Creatinine 1.21 (0.5-1.4) mg/dL Estim Creat Clear Calc 23.0 Estimated GFR 42 POC Glucose 100 (60-115) mg/dL Random Glucose 102 (60-115) mg/dL Lactic Acid (0.5-2.0) mmol/L Calcium 9.5 (8.4-10.2) mg/dL Total Bilirubin 0.8 (0.0-1.0) mg/dL AST 23 (5-31) U/L ALT 8 (0-31) U/L Alkaline Phosphatase 48 (39-117) U/L Troponin I High Sens 14.3 D (<3.5-17.0) ng/L Total Protein 7.0 (6.5-8.0) g/dL Albumin 3.9 (3.5-5.0) g/dL Urine Color Yellow Urine Appearance Cloudy Urine pH 6.0 (5.0-9.0) Ur Specific [place] 1.010 (1.005-1.025) Urine Protein 30 (1+) H (Neg-Trace) mg/dL Urine Glucose (UA) Negative (Negative) mg/dL Urine Ketones Negative (Negative) mg/dL Urine Blood Negative (Negative) Urine Nitrite Negative (Negative) Ur Leukocyte Esterase Large (3+) H (Negative) Urine RBC 0-2 (0-2) /HPF Urine WBC >50 H (0-5) /HPF Ur Squamous Epith Cells 0-2 (0-2) /HPF Urine Bacteria 4+ (None Seen) Hyaline Casts 0-2 (0-2) /LPF 09/17/24 Range/Units 14:08 WBC (4.8-10.8) X10*3/uL RBC (4.20-5.50) X10*6/uL Hgb (12.0-16.0) g/dl Hct (37.0-47.0) % MCV (80.0-98.0) fL MCH (27.0-33.0) pg MCHC (31.0-35.0) g/dl RDW (11.0-16.0) % Plt Count (160-400) X10*3/uL MPV (9.4-12.3) fL Immature Gran % (Auto) (0.0-0.4) % Neut % (Auto) (45-73) % Lymph % (Auto) (20-40) % [place] % (Auto) (2-11) % Eos % (Auto) (0-4) % Baso % (Auto) (0-2) % Lymph # (Auto) (1.2-4.9) X10*3/uL [place] # (Auto) (0.1-1.2) X10*3/uL Eos # (Auto) (0.0-0.4) X10*3/uL Baso # (Auto) (0.0-0.2) X10*3/uL Abs Immat Gran (auto) (0.00-0.03) X10*3/uL Absolute Neuts (auto) (2.0-8.3) x10*3/uL Absolute Nucleated RBC (0.0-0.012) X10*3/uL Nucleated RBC % (auto) (0.0-0.2) /100WBC Whole Blood PT (11.1-13.5) sec Whole Blood INR (0.9-1.1) Sodium (135-145) mmol/L Potassium (3.3-5.1) mmol/L Chloride (96-108) mmol/L Carbon Dioxide (22-29) mmol/L Anion Gap (12-20) BUN (9-16) mg/dL Creatinine (0.5-1.4) mg/dL Estim Creat Clear Calc Estimated GFR POC Glucose (60-115) mg/dL Random Glucose (60-115) mg/dL Lactic Acid 0.8 (0.5-2.0) mmol/L Calcium (8.4-10.2) mg/dL Total Bilirubin (0.0-1.0) mg/dL AST (5-31) U/L ALT (0-31) U/L Alkaline Phosphatase (39-117) U/L Troponin I High Sens (<3.5-17.0) ng/L Total Protein (6.5-8.0) g/dL Albumin (3.5-5.0) g/dL Urine Color Urine Appearance Urine pH (5.0-9.0) Ur Specific [place] (1.005-1.025) Urine Protein (Neg-Trace) mg/dL Urine Glucose (UA) (Negative) mg/dL Urine Ketones (Negative) mg/dL Urine Blood (Negative) Urine Nitrite (Negative) Ur Leukocyte Esterase (Negative) Urine RBC (0-2) /HPF Urine WBC (0-5) /HPF Ur Squamous Epith Cells (0-2) /HPF Urine Bacteria (None Seen) Hyaline Casts (0-2) /LPF Independent Interpretation I performed an independent interpretation of an: CT Scan Radiology Impression Discussion of test interpretation with radiology: I have reviewed the radiologist's reading. Radiologist Impression: compression Doppler were performed on the left lower extremity. FINDINGS: Respiratory variation, normal compression and augmented flow are present throughout the interrogated left common femoral vein, superficial femoral vein, profunda femoral vein, popliteal vein and midcalf peroneal and posterior tibial venous segments. There is no Quinn's cyst. US/US venous duplex LE LT IMPRESSION: No acute deep venous thrombosis interrogated veins, left lower extremity. Negative for DVT. Electronically signed by: Pratik Cobb MD 09/17/2024 09:57 AM EDT External Record Review External record reviewed: Inpatient record Prescription Management I considered prescription management with: Antibiotic Chronic Conditions Patient?s care impacted by: Other (DEMENTIA) Critical Care Time Critical Care Time Critical Care Time: Yes Total Critical Care Time: 60 Attestation: altered mental status /pneumonia UTI Discharge Plan Discharge Clinical Impression: Acute UTI Pneumonia Qualifiers: Pneumonia type: due to unspecified organism Laterality: right Lung location: u pper lobe of lung Qualified Code(s): J18.9 - Pneumonia, unspecified organism Patient Disposition: Admitted As Inpatient
[2024-09-17 12:59] LABS: Prothrombin Time Whole Bld POC 12.4 sec (11.1-13.5)
[2024-09-17 13:01] LABS: Glucose, Whole Blood 100 mg/dL (60-115)
[2024-09-17 13:25] LABS: MANUAL DIFF FLAG NO
[2024-09-17 13:27] LABS: Basophils Percent Auto 0.1 % (0-2); Hematocrit 33.1 % (37.0-47.0); Hemoglobin 11.2 g/dl (12.0-16.0); Imm Gran Abs Auto 0.07 X10*3/uL (0.00-0.03); Imm Gran Pct Auto 0.6 % (0.0-0.4); Lymphocytes Absolute Auto 0.7 X10*3/uL (1.2-4.9); Lymphocytes Percent Auto 5.6 % (20-40); Mean Corpuscular HGB Conc 33.8 g/dl (31.0-35.0); Mean Corpuscular Hemoglobin 28.4 pg (27.0-33.0); Mean Corpuscular Volume 83.8 fL (80.0-98.0); Mean Platelet Volume 10.2 fL (9.4-12.3); Monocytes Absolute Auto 0.8 X10*3/uL (0.1-1.2); Monocytes Percent Auto 6.7 % (2-11); Platelet Count 170 X10*3/uL (160-400); Red Blood Count 3.95 X10*6/uL (4.20-5.50); Red Cell Distribution Width 15.2 % (11.0-16.0); White Blood Count 11.5 X10*3/uL (4.8-10.8)
[2024-09-17] MEDS: 0.9 % Sodium Chloride 1,000 ML 999 ML IVCONT (13:37)
--- NOTE | 2024-09-17 13:45 | PC.NURSE ---
patient straight catheterization for urine sample. Output 900ml. odorous cloudy straw colored urine.
[2024-09-17 13:57] LABS: Alanine Aminotransferase 8 U/L (0-31); Albumin Level 3.9 g/dL (3.5-5.0); Alkaline Phosphatase 48 U/L (39-117); Anion Gap 16 (12-20); Aspartate Amino Transferase 23 U/L (5-31); Bilirubin Total 0.8 mg/dL (0.0-1.0); Blood Urea Nitrogen 23 mg/dL (9-16); Calcium 9.5 mg/dL (8.4-10.2); Carbon Dioxide 24 mmol/L (22-29); Chloride 100 mmol/L (96-108); Estimated Glomerular Filt Rate 42; Glucose Random 102 mg/dL (60-115); Potassium 3.9 mmol/L (3.3-5.1); Sodium 136 mmol/L (135-145)
[2024-09-17 14:00] LABS: Troponin-I High Sensitivity 14.3 ng/L (<3.5-17.0)
[2024-09-17 14:01] LABS: Appearance Urine Cloudy; Color Urine Yellow; Glucose Urine UA Negative (Negative); Leukocyte Esterase Urine Large (3+) (Negative); Nitrite Urine Negative (Negative); UMIC TRIGGER UACC YES; Urine Blood Negative (Negative); Urine Ketones Negative (Negative); Urine Protein 30 (1+) mg/dL (Neg-Trace)
[2024-09-17 14:06] LABS: Bacteria Urine 4+ (None Seen); Hyaline Casts Urine 0-2 /LPF (0-2); RBC Urine 0-2 /HPF (0-2); Squamous Epithelial Cell Urine 0-2 /HPF (0-2); UACC Culture Trigger YES; WBC Urine >50 /HPF (0-5)
[2024-09-17 14:31] LABS: Lactic Acid 0.8 mmol/L (0.5-2.0)
[2024-09-17] MEDS: cefEPime HCl/D5W 2 GM/50 ML PIGGYBACK IV (14:37)
--- OUTSIDE RECORDS SUMMARY | 2024-09-17 15:28 | XMS_ITS | Encounter Summary ---
Author Organization [employer] Address [address] [place] [address] Care Team Providers Care Administration Assistant Name Role Phone Leatha Cantu MD Primary Care Provider + Encounter Details Date Type Department Care Team (Late st Contact Info) Description 08/16/2024 Lab Requisition [facility] - Main Lab [address] [facility], [facility] [place] [address] Leatha Cantu MD [address] [address] Chronic kidney disease, unspecified Social History Tobacco [...] LAB CHEMISTRY METHOD 08/17/2024 2:06 PM EDT [facility] Potassium 4.1 3.5 - 5.5 mmol/L LAB CHEMISTRY METHOD 08/17/2024 2:06 PM T [facility] Chloride 102 96 - 110 mmol/L LAB CHEMISTRY METHOD 08/17/2024 2:06 PM [facility] CO2 25 21 - 32 mmol/L LAB CHEMISTRY METHOD 08/17/2024 2:06 PM EDT [facility] Anion Gap 8 3 - 11 LAB CHEMISTRY METHOD 08/17/2024 2:06 PM T [facility] Glucose 91 70 - 100 mg/dL LAB CHEMISTRY METHOD 08/17/2024 2:06 PM T [facility] BUN 16 5 - 25 mg/dL LAB CHEMISTRY METHOD 08/17/2024 2:06 PM EDT [facility] Creatinine 0.92 0.50 - 1.10 mg/dL LAB CHEMISTRY METHOD 08/17/2024 2:06 PM T [facility] eGFR 60 >=60 mL/min/1. 73m2 LAB CHEMISTRY METHOD 08/17/2024 2:06 PM T [facility] Comment:Calculation based on the Chronic Kidney Disease Epidemiology Collaboration (CKD-EPI) equation refit without adjustment for race. BUN/Creatinine Ratio 17.4 LAB CHEMISTRY METHOD 08/17/2024 2:06 PM [facility] Calcium 9.2 8.5 - 10.5 mg/dL LAB CHEMISTRY METHOD 08/17/2024 2:06 PM [facility] Blood Venous blood specimen / Unknown Venipuncture / Unknown 08/17/2024 10:50 AM EDT 08/17/2024 12:33 PM EDT us Leatha Cantu MD LAB BLOOD ORDERABLES Fin al Result [facility] [address] [place] [address], documented in this encounter Visit Diagnoses Diagnosis Chronic kidney disease, unspecified documented in this encounter Care Teams Administration Assistant Relationship Specialty Start Date End Date Leatha Cantu MD [address] [place] [id number] PCP - General Family Medicine 05/04/24 documented as of this encounter
--- NOTE | 2024-09-17 15:35 | P.HPHOSP_ITS ---
History of Present Illness Date of Service: 09/17/24 Chief Complaint: AMS An 88-year-old [place]an-speaking female with a history of CKD stage 3, hypertension (HTN), and dementia, residing in a correction, was brought to the ED for altered mental status. She was at her baseline at 6:30 AM when morning medications were given but was noted to be confused by 7:30 AM during breakfast reassessment. No focal neurological deficits were reported. In the ED, a head CT showed no acute findings. A chest CT, performed for unclear reasons, suggested possible bronchopneumonia, though the patient has no fever or respiratory symptoms. Labs show WBC 11.5 (mildly elevated), normal lactic acid, and a urinalysis positive for UTI. The patient is significantly confused, limiting history-taking, so records were reviewed. Review of Systems 2 Review of Systems: Yes Unobtainable due to mental status [facility] Medical History Chronic kidney disease (CKD) stage G3a/A1, moderately decreased glomerular filtration rate (GFR) between 45-59 mL/min/1.73 square meter and albuminuria creatinine ratio less than 30 mg/g Carpal tunnel syndrome History of breast cancer Anemia Hypertension Family History Father No problems noted. Mother No problems noted. Surgical History History of carpal tunnel release History of cataract surgery History of cholecystectomy Social History Household Members: None Housing: Apartment Do you presently have visiting nurse or other home services: No Unable to assess alcohol history related to: Unable to respond Alcohol intake: never Advance Directives: Yes Advance Directives on File: Yes Advance Directives Date on File: 08/09/20 service: No Current occupational status: disabled Meds Allergies Allergy/AdvReac Type Severity Reaction Status Date / Time alendronate sodium (From Allergy Unknown MOUTH Verified 09/17/24 13:03 FOSAMAX) BLEEDING - IRRITATION cholecalciferol (vitamin D3) Allergy Unknown muscle Verified 09/17/24 13:03 (Vitamin D3) pains fish oil Allergy Unknown Unknown Verified 09/17/24 13:03 ALL VITAMINS Allergy Mild MUSCLE Uncoded 09/17/24 13:03 PAINS Active Medications: Current Medications Acetaminophen (Acetaminophen 325 Mg Tablet) 650 mg PO Q6H PRN PRN Reason: Pain, Mild 1-3,fever,headache Al Hydroxide/Mg Hydroxide (Magnesium Hydrox/Alum Hydrox 30 Ml Oral.Susp) 30 ml PO Q4H PRN PRN Reason: Heartburn Calcium Carbonate (Calcium Carbonate 750 Mg Tab.Chew) 750 mg PO Q4H PRN PRN Reason: Heartburn Docusate Sodium (Docusate Sodium 100 Mg Capsule) 100 mg PO BID [facility] Enoxaparin Sodium (Enoxaparin Sodium 40 Mg/0.4 Ml Syringe) 40 mg SUBCUT Q24H CHIKI Vancomycin HCl 1,250 mg/ (Sodium Chloride) 250 mls @ 166.667 mls/hr IV ONCE ONE Stop: 09/17/24 17:29 Magnesium Hydroxide (Milk Of Magnesia 30 Ml Oral.Susp) 30 ml PO DAILY PRN PRN Reason: Constipation Melatonin (Melatonin 3 Mg Tablet) 6 mg PO BEDTIME PRN PRN Reason: Insomnia Ondansetron HCl (Ondansetron Hcl 4 Mg/2 Ml Vial) 4 mg IVPUSH Q8H PRN PRN Reason: Nausea and Vomiting Senna (Sennosides 8.6 Mg Tablet) 17.2 mg PO BEDTIME CHIKI Sodium Chloride (0.9 % Sodium Chloride Flush 3 Ml Syringe) 3 ml IVFLUSH QSHIFT [facility] Home Medications ?Medication ?Instructions ?Recorded ?Confirmed ?Last Taken ?Type cholecalciferol (vitamin D3) 25 25 mcg PO DAILY 09/17/24 Unknown History mcg (1,000 unit) tablet (Vitamin D3) escitalopram oxalate 5 mg tablet 1 tab PO DAILY 09/17/24 Unknown History risperidone 0.5 mg tablet 0.25 mg PO BID 11/13/2108/30 Unknown History acetaminophen 325 mg tablet 650 mg PO Q6H PRN Pain (Sc joe 09/17/24 09/17/24 Unknown History Score 1-3) bisacodyl 10 mg rectal suppository 10 mg DC Q24H PRN C onstipation 09/17/24 09/17/24 Unknown History gabapentin 100 mg capsule 100 mg PO BID 09/17/2409/17 Unknown History guaifenesin 100 mg/5 mL oral liquid 200 mg PO Q24H PRN Cough 09/17/24 09/17/24 Unknown History hydrocortisone 1 % topical cream 1 appl topical BID DC N itchy 09/17/24 09/17/24 Unknown History magnesium hydroxide 400 mg/5 mL 30 ml PO Q24H PRN Cons tipation 09/17/24 09/17/24 Unknown History oral suspension (Milk of Magnesia) melatonin 3 mg tablet 3 mg PO Q8H PRN Insomnia 09/17/24 Unknown History menthol 5 % topical patch 1 patch topical Q24H PRN Sujata n 09/17/24 09/17/24 Unknown History (Scale Score 1-3) Physical Exam 2 Vital Signs and Narrative: Vital Signs: Last Vital Signs Temp 97.7 F 09/17/24 15:16 Pulse 65 09/17/24 15:16 Resp 10 L 09/17/24 15:16 BP 111/54 L 09/17/24 15:16 Pulse Ox 94 09/17/24 15:16 O2 Del Method Room Air 09/17/24 15:16 BMI result Body Mass Index 20.9 Results Labs 09/17/24 13:21 09/17/24 13:21 Labs: Laboratory Results - last 24 hr 09/17/24 09/17/24 09/17/24 12:55 13:21 13:36 MCV 83.8 MCH 28.4 MCHC 33.8 RDW 15.2 Plt Count 170 MPV 10.2 Immature Gran % (Auto) 0.6 H Neut % (Auto) 87.0 H Lymph % (Auto) 5.6 L [place] % (Auto) 6.7 Eos % (Auto) 0.0 Baso % (Auto) 0.1 Lymph # (Auto) 0.7 L [place] # (Auto) 0.8 Eos # (Auto) 0.0 Baso # (Auto) 0.0 Abs Immat Gran (auto) 0.07 H Absolute Neuts (auto) 10.0 H Absolute Nucleated RBC 0.000 Nucleated RBC % (auto) 0.0 Whole Blood PT 12.4 Whole Blood INR 1.0 Anion Gap 16 Estim Creat Clear Calc 23.0 Estimated GFR 42 POC Glucose 100 Random Glucose 102 Lactic Acid Calcium 9.5 Total Bilirubin 0.8 AST 23 ALT 8 Alkaline Phosphatase 48 Troponin I High Sens 14.3 D Total Protein 7.0 Albumin 3.9 Urine Color Yellow Urine Appearance Cloudy Urine pH 6.0 Ur Specific [place] 1.010 Urine Protein 30 (1+) H Urine Glucose (UA) Negative Urine Ketones Negative Urine Blood Negative Urine Nitrite Negative Ur Leukocyte Esterase Large (3+) H Urine RBC 0-2 Urine WBC >50 H Ur Squamous Epith Cells 0-2 Urine Bacteria 4+ Hyaline Casts 0-2 09/17/24 14:08 MCV MCH MCHC RDW Plt Count MPV Immature Gran % (Auto) Neut % (Auto) Lymph % (Auto) [place] % (Auto) Eos % (Auto) Baso % (Auto) Lymph # (Auto) [place] # (Auto) Eos # (Auto) Baso # (Auto) Abs Immat Gran (auto) Absolute Neuts (auto) Absolute Nucleated RBC Nucleated RBC % (auto) Whole Blood PT Whole Blood INR Anion Gap Estim Creat Clear Calc Estimated GFR POC Glucose Random Glucose Lactic Acid 0.8 Calcium Total Bilirubin AST ALT Alkaline Phosphatase Troponin I High Sens Total Protein Albumin Urine Color Urine Appearance Urine pH Ur Specific Center Urine Protein Urine Glucose (UA) Urine Ketones Urine Blood Urine Nitrite Ur Leukocyte Esterase Urine RBC Urine WBC Ur Squamous Epith Cells Urine Bacteria Hyaline Casts Imaging Radiologist's Impressions: Impressions Head CT 09/17/24 11:54 IMPRESSION: No acute intracranial abnormality. This critical result was discussed with Dr. Rios of the [facility] at 1:15 PM, 09/17/2024. It was ascertained that the content and urgency of the report was understood at the time of direct communication. Electronically signed by: Cristofer Apodaca MD 09/17/2024 01:[address] 09/17/24 11:58 IMPRESSION: 1. Findings suspicious for right upper lobe bronchopneumonia. 2. Diffuse small airway thickening, suggesting infectious/inflammatory airways disease. 3. Evidence of prior granulomatous disease. 4. No effusion or pneumothorax. 5. Mild cardiomegaly with a small pericardial effusion. 6. There is a 2.0 cm right thyroid nodule. 7. There is abundant stool within the imaged colon. 8. Additional ancillary findings as discussed in the body of the report. Fleischner guidelines were followed. Electronically signed by: Cristofer Apodaca MD 09/17/2024 01:32 PM EDT RP Assessment and Plan (1) Metabolic encephalopathy: Status: Acute (2) UTI (urinary tract infection): Status: Inactive Plan 88 year old mongolian speaking with history of CKD3, HTN, dementia from correction brought in to be assess for altereed mental status and found to have UTI Metabolic encephalopathy due to UTI continue Ceftriaxone follow cultures incidental finding of ? Pnuemonia on CT chest, has no respiratory symptoms and doubt clinical pneumonia no specific treatment at this time HTN not on meds, bp ok Dimentia CKD 3 stable DVT prophylaxis: lovenox Full code Quality Stroke Does the patient have a stroke diagnosis?: No VTE Prior VTE?: No VTE Risk Level:: Medical - moderate - high VTE Device Contraindication: Treatment Not Indicated VTE Drug Contraindication: N/A - Med Ordered
[2024-09-17] MEDS: Enoxaparin Sodium 30 MG/0.3 ML SYRINGE SUBCUT (16:00)
[2024-09-17] MEDS: vancomycin HCL 1,250 MG in 0.9 % Sodium Chloride 250 ML 166.67 MG IV (16:00)
[2024-09-17] MEDS: 0.9 % Sodium Chloride Flush 3 ML SYRINGE IVFLUSH ×2 (16:01→20:45)
--- NOTE | 2024-09-17 16:43 | PHA.MEDREC ---
Pharmacy Consult ? Medication Reconciliation Pharmacy has completed the medication reconciliation. list from [facility] and md gino notified med rec complete
[2024-09-18 03:43] VITALS: BP 135/63; PULSE 89; RESP 18; TEMP 37.4; O2SAT 98
--- NOTE | 2024-09-18 06:19 | PC.NURSE ---
0600 pt did not void all shift and was bladder scanned for 720cc. notified and ordered st.cath x1.pt st.cathed for 800cc cloudy foul smelling urine.
[2024-09-18 07:07] LABS: MANUAL DIFF FLAG NO
[2024-09-18 07:15] LABS: Basophils Absolute Auto 0.1 X10*3/uL (0.0-0.2); Basophils Percent Auto 0.6 % (0-2); Eosinophils Percent Auto 0.1 % (0-4); Hematocrit 36.3 % (37.0-47.0); Hemoglobin 11.6 g/dl (12.0-16.0); Imm Gran Pct Auto 0.7 % (0.0-0.4); Lymphocytes Absolute Auto 1.5 X10*3/uL (1.2-4.9); Lymphocytes Percent Auto 10.4 % (20-40); Mean Corpuscular Hemoglobin 27.7 pg (27.0-33.0); Mean Corpuscular Volume 86.6 fL (80.0-98.0); Mean Platelet Volume 10.6 fL (9.4-12.3); Monocytes Absolute Auto 1.1 X10*3/uL (0.1-1.2); Monocytes Percent Auto 7.8 % (2-11); Neutrophils Absolute Auto 11.4 x10*3/uL (2.0-8.3); Neutrophils Percent Auto 80.4 % (45-73); Platelet Count 179 X10*3/uL (160-400); Red Blood Count 4.19 X10*6/uL (4.20-5.50); Red Cell Distribution Width 15.5 % (11.0-16.0); White Blood Count 14.2 X10*3/uL (4.8-10.8)
[2024-09-18 07:39] LABS: Anion Gap 14 (12-20); Blood Urea Nitrogen 24 mg/dL (9-16); Calcium 9.3 mg/dL (8.4-10.2); Carbon Dioxide 21 mmol/L (22-29); Chloride 105 mmol/L (96-108); Creatinine Clr Calc Pharmacy 23.7; Estimated Glomerular Filt Rate 45; Glucose Random 78 mg/dL (60-115); Potassium 4.1 mmol/L (3.3-5.1); Sodium 136 mmol/L (135-145)
[2024-09-18] MEDS: 0.9 % Sodium Chloride Flush 3 ML SYRINGE IVFLUSH ×2 (07:40→16:07)
[2024-09-18 08:00] VITALS: BP 179/81; PULSE 89; RESP 18; TEMP 37.7; O2SAT 94
[2024-09-18] MEDS: Cholecalciferol (Vitamin D3) 25 MCG TABLET PO (08:00)
[2024-09-18] MEDS: risperiDONE 0.25 MG TABLET PO (08:00)
[2024-09-18] MEDS: Gabapentin 100 MG CAPSULE PO (08:00)
[2024-09-18] MEDS: Docusate Sodium 100 MG CAPSULE PO (08:00)
[2024-09-18] MEDS: Escitalopram Oxalate 5 MG TABLET PO (08:01)
--- NOTE | 2024-09-18 08:55 | P.PNIM_ITS ---
Subjective Subjective Date of Service: 09/18/24 Interval History: she is more awake, alert and conversing more Physical Exam 2 Vital Signs: Vital Signs: Last Vital Signs Temp 99.8 F 09/18/24 08:00 Pulse 89 09/18/24 08:00 Resp 18 09/18/24 08:00 BP 179/81 H 09/18/24 08:00 Pulse Ox 94 09/18/24 08:00 O2 Del Method Room Air 09/18/24 08:00 BMI result Body Mass Index 19.2 General: oriented x 1 Resp: CTA bilateral CVS: S1,S2,RRR GI: +BS, NT, no distention Skin: No rash Neuro: motor grossly intact Psych: appropriate affect Objective Data Active Medications Acetaminophen (Acetaminophen 325 Mg Tablet) 650 mg PO Q6H PRN PRN Reason: Pain, Mild 1-3,fever,headache Al Hydroxide/Mg Hydroxide (Magnesium Hydrox/Alum Hydrox 30 Ml Oral.Susp) 30 ml PO Q4H PRN PRN Reason: Heartburn Bisacodyl (Bisacodyl 10 Mg Supp.Rect) 10 mg ID Q24H PRN PRN Reason: Constipation Calcium Carbonate (Calcium Carbonate 750 Mg Tab.Chew) 750 mg PO Q4H PRN PRN Reason: Heartburn Ceftriaxone Sodium (Ceftriaxone Sodium 2 Gm Vial) 2 gm IVPUSH Q24H [facility] Docusate Sodium (Docusate Sodium 100 Mg Capsule) 100 mg PO BID [facility] Last Admin: 09/18/24 08:00 Dose: 100 mg Documented By: NUSRAT Enoxaparin Sodium (Enoxaparin Sodium 30 Mg/0.3 Ml Syringe) 30 mg SUBCUT Q24H [facility] Last Admin: 09/17/24 16:00 Dose: 30 mg Documented By: SUJEY Escitalopram Oxalate (Escitalopram Oxalate 5 Mg Tablet) 5 mg PO DAILY [facility] Last Admin: 09/18/24 08:01 Dose: 5 mg Documented By: NUSRAT Gabapentin (Gabapentin 100 Mg Capsule) 100 mg PO BID [facility] Last Admin: 09/18/24 08:00 Dose: 100 mg Documented By: NUSRAT Guaifenesin (Guaifenesin 200 Mg/10 Ml 10 Ml Liquid) 10 ml PO Q24H PRN PRN Reason: Cough Magnesium Hydroxide (Milk Of Magnesia 30 Ml Oral.Susp) 30 ml PO DAILY PRN PRN Reason: Constipation Magnesium Hydroxide (Milk Of Magnesia 30 Ml Oral.Susp) 30 ml PO Q24H PRN PRN Reason: Constipation Melatonin (Melatonin 3 Mg Tablet) 6 mg PO BEDTIME PRN PRN Reason: Insomnia Ondansetron HCl (Ondansetron Hcl 4 Mg/2 Ml Vial) 4 mg IVPUSH Q8H PRN PRN Reason: Nausea and Vomiting Risperidone (Risperidone 0.25 Mg Tablet) 0.25 mg PO BID [facility] Last Admin: 09/18/24 08:00 Dose: 0.25 mg Documented By: NUSRAT Senna (Sennosides 8.6 Mg Tablet) 17.2 mg PO BEDTIME [facility] Last Admin: 09/17/24 20:44 Dose: Not Given Documented By: MALIK Non-Admin Reason: pt lethargic Sodium Chloride (0.9 % Sodium Chloride Flush 3 Ml Syringe) 3 ml IVFLUSH QSHIFT [facility] Last Admin: 09/18/24 07:40 Dose: 3 ml Documented By: NUSRAT Vitamin D (Cholecalciferol (Vitamin D3) 25 Mcg Tablet) 25 mcg PO DAILY [facility] Last Admin: 09/18/24 08:00 Dose: 25 mcg Documented By: NUSRAT Labs 09/18/24 06:04 09/18/24 06:04 Labs: Laboratory Results - last 24 hr 09/17/24 09/17/24 09/17/24 12:55 13:21 13:36 MCV 83.8 MCH 28.4 MCHC 33.8 RDW 15.2 Plt Count 170 MPV 10.2 Immature Gran % (Auto) 0.6 H Neut % (Auto) 87.0 H Lymph % (Auto) 5.6 L [place] % (Auto) 6.7 Eos % (Auto) 0.0 Baso % (Auto) 0.1 Lymph # (Auto) 0.7 L [place] # (Auto) 0.8 Eos # (Auto) 0.0 Baso # (Auto) 0.0 Abs Immat Gran (auto) 0.07 H Absolute Neuts (auto) 10.0 H Absolute Nucleated RBC 0.000 Nucleated RBC % (auto) 0.0 Whole Blood PT 12.4 Whole Blood INR 1.0 Anion Gap 16 Estim Creat Clear Calc 23.0 Estimated GFR 42 POC Glucose 100 Random Glucose 102 Lactic Acid Calcium 9.5 Total Bilirubin 0.8 AST 23 ALT 8 Alkaline Phosphatase 48 Troponin I High Sens 14.3 D Total Protein 7.0 Albumin 3.9 Urine Color Yellow Urine Appearance Cloudy Urine pH 6.0 Ur Specific [place] 1.010 Urine Protein 30 (1+) H Urine Glucose (UA) Negative Urine Ketones Negative Urine Blood Negative Urine Nitrite Negative Ur Leukocyte Esterase Large (3+) H Urine RBC 0-2 Urine WBC >50 H Ur Squamous Epith Cells 0-2 Urine Bacteria 4+ Hyaline Casts 0-2 09/17/24 09/18/24 14:08 06:04 MCV 86.6 MCH 27.7 MCHC 32.0 RDW 15.5 Plt Count 179 MPV 10.6 Immature Gran % (Auto) 0.7 H Neut % (Auto) 80.4 H Lymph % (Auto) 10.4 L [place] % (Auto) 7.8 Eos % (Auto) 0.1 Baso % (Auto) 0.6 Lymph # (Auto) 1.5 [place] # (Auto) 1.1 Eos # (Auto) 0.0 Baso # (Auto) 0.1 Abs Immat Gran (auto) 0.10 H Absolute Neuts (auto) 11.4 H Absolute Nucleated RBC 0.000 Nucleated RBC % (auto) 0.0 Whole Blood PT Whole Blood INR Anion Gap 14 Estim Creat Clear Calc 23.7 Estimated GFR 45 POC Glucose Random Glucose 78 Lactic Acid 0.8 Calcium 9.3 Total Bilirubin AST ALT Alkaline Phosphatase Troponin I High Sens Total Protein Albumin Urine Color Urine Appearance Urine pH Ur Specific [place] Urine Protein Urine Glucose (UA) Urine Ketones Urine Blood Urine Nitrite Ur Leukocyte Esterase Urine RBC Urine WBC Ur Squamous Epith Cells Urine Bacteria Hyaline Casts Assessment and Plan (1) Metabolic encephalopathy: Status: Acute (2) Acute UTI: Status: Acute Plan 88 year old sri lankan speaking with history of CKD3, HTN, dementia from detention brought in to be assess for altereed mental status and found to have UTI Metabolic encephalopathy due to UTI, clinically improving continue Ceftriaxone D2 follow cultures incidental finding of ? Pnuemonia on CT chest, has no respiratory symptoms and doubt clinical pneumonia no specific treatment at this time HTN, bp high not on meds add norvasc 2.5 Dimentia mood disorders continue risperidal, lexapro, and gabapentin CKD 3 stable -stable DVT prophylaxis: lovenox Full code Diet: regular Quality Stroke Does the patient have a stroke diagnosis?: No VTE Prior VTE?: No VTE Risk Level:: Medical - moderate - high VTE Device Contraindication: Treatment Not Indicated VTE Drug Contraindication: N/A - Med Ordered
--- NOTE | 2024-09-18 12:39 | MHC.CM.PN ---
PT FROM [facility] WHERE SHE WILL RETURN WHEN DCD
--- NOTE | 2024-09-18 14:30 | PC.NURSE ---
Patient unable to urinate ,Dr. Frank notified
--- NOTE | 2024-09-18 14:44 | PC.NURSE ---
Patient to be str cath per Dr. Frank
[2024-09-18 15:59] VITALS: BP 131/65; PULSE 92; RESP 16; TEMP 36.8; O2SAT 93
[2024-09-18] MEDS: cefTRIAXone sodium 2 GM VIAL IVPUSH (16:07)
[2024-09-18] MEDS: Enoxaparin Sodium 30 MG/0.3 ML SYRINGE SUBCUT (16:08)
[2024-09-18 19:30] VITALS: BP 166/78; PULSE 87; RESP 16; TEMP 39.5; O2SAT 93
[2024-09-18] MEDS: Ketorolac Tromethamine 15 MG/ML VIAL IVPUSH (19:48)
[2024-09-18 19:57] VITALS: TEMP 40
[2024-09-18 20:29] LABS: Lactic Acid 0.6 mmol/L (0.5-2.0)
[2024-09-18 21:30] VITALS: TEMP 38.6
[2024-09-18] MEDS: Acetaminophen Supp 650 MG SUPP.RECT PR (22:36)
--- NOTE | 2024-09-18 23:08 | PC.NURSE ---
Pt was due to void at 21:00, pt was unable to void on her own, only aelrt to self. .Pt denies any pain/discomfort to bladder. Pt bladder scan for 419ml at 20:35. Md Nina was notified, per MD to recheck in 2hrs. Pt was still unable to void on her own. Pt bladder scan at 22:42 for 452ml. MD Duarte was notified again of the situation. ordered Garcia catheter for urinary retention. 16g Garcia catheter was inserted at 23:05 w/ output of 300ml yellow urine. Will continue to monitor pt's output.
[2024-09-19] VITALS (7 sets, daily range): BP systolic 119–159; BP diastolic 63–70; PULSE 65–87; RESP 15–18; TEMP 36.4–38.1; O2SAT 96–97
--- NOTE | 2024-09-19 03:33 | PC.NURSE ---
Upon assuming care of pt at 19:00, pt was lethargic/sleepy, arousable to name & touch, and only alert to self, Scottish speaking only. Pt's vitals were taken and had oral temp of 103.1, BP 166/78, HR 87, and 02 93%. Pt's rectal temp was check and was 104. On assessment, this RN noted the pt's L eye to be crusted shut. MD Duarte was notified of the situation. MD ordered lactic acid, blood cultures, one time dose of Toradol IV for the fever and to clean the pt's eye w/ wet gauze. Pt's lactic acid came back at 0.6 and blood cultures still pending. After the one time dose of Toradol at 19:48, pt's rectal temp was rechecked and was 101.5. MD Duarte was notified of the rectal temp and ordered one time dose of Tylenol Supp, given at 22:36, see MAR, pt unable to take PO medications. At 00:05, pt's rectal temp went down to 98.8. MD Duarte was notified of the updated rectal temp. This RN notified the MD about the pt's decreased PO intake and inquired about maintenance fluids. No orders were given at this time. Pt has HX of CKD stage 3. Will continue to monitor pt's temperature and I&O.
[2024-09-19 08:12] LABS: Hematocrit 31.9 % (37.0-47.0); PLT CLUMP 1; Red Cell Distribution Width 15.3 % (11.0-16.0)
[2024-09-19 08:14] LABS: Hemoglobin 10.8 g/dl (12.0-16.0); Mean Corpuscular HGB Conc 33.9 g/dl (31.0-35.0); Mean Corpuscular Hemoglobin 27.8 pg (27.0-33.0); Mean Corpuscular Volume 82.2 fL (80.0-98.0); Mean Platelet Volume 11.6 fL (9.4-12.3)
[2024-09-19 08:47] LABS: Platelet Count 120 X10*3/uL (160-400); Red Blood Count 3.89 X10*6/uL (4.20-5.50)
[2024-09-19] MEDS: Gabapentin 100 MG CAPSULE PO ×2 (08:58→21:00)
[2024-09-19] MEDS: 0.9 % Sodium Chloride Flush 3 ML SYRINGE IVFLUSH ×2 (08:58→17:49)
[2024-09-19] MEDS: Cholecalciferol (Vitamin D3) 25 MCG TABLET PO (08:59)
[2024-09-19] MEDS: risperiDONE 0.25 MG TABLET PO ×2 (08:59→21:01)
[2024-09-19] MEDS: Escitalopram Oxalate 5 MG TABLET PO (08:59)
[2024-09-19] MEDS: Docusate Sodium 100 MG CAPSULE PO ×2 (08:59→21:00)
[2024-09-19] MEDS: cefTRIAXone sodium 2 GM VIAL IVPUSH (13:17)
[2024-09-19] MEDS: Acetaminophen 325 MG TABLET 650 MG PO (13:17)
--- NOTE | 2024-09-19 15:05 | P.PNIM_ITS ---
Subjective Subjective Date of Service: 09/19/24 Interval History: Had a temp of 103, and low grade temps this morning Physical Exam 2 Vital Signs: Vital Signs: Last Vital Signs Temp 100.5 F H 09/19/24 15:04 Pulse 83 09/19/24 07:12 Resp 15 09/19/24 07:12 BP 145/70 H 09/19/24 07:12 Pulse Ox 96 09/19/24 07:12 O2 Del Method Room Air 09/19/24 07:12 BMI result Body Mass Index 19.2 General: oriented to self only Resp: CTA bilateral CVS: S1,S2,RRR GI: +BS, NT, no distention Skin: No rash Neuro: motor grossly intact Psych: appropriate affect Objective Data Active Medications Acetaminophen (Acetaminophen 325 Mg Tablet) 650 mg PO Q6H PRN PRN Reason: Pain, Mild 1-3,fever,headache Last Admin: 09/19/24 13:17 Dose: 650 mg Documented By: LEILA Al Hydroxide/Mg Hydroxide (Magnesium Hydrox/Alum Hydrox 30 Ml Oral.Susp) 30 ml PO Q4H PRN PRN Reason: Heartburn Bisacodyl (Bisacodyl 10 Mg Supp.Rect) 10 mg [place] Q24H PRN PRN Reason: Constipation Calcium Carbonate (Calcium Carbonate 750 Mg Tab.Chew) 750 mg PO Q4H PRN PRN Reason: Heartburn Ceftriaxone Sodium (Ceftriaxone Sodium 2 Gm Vial) 2 gm IVPUSH Q24H [facility] Last Admin: 09/19/24 13:17 Dose: 2 gm Documented By: LEILA Docusate Sodium (Docusate Sodium 100 Mg Capsule) 100 mg PO BID [facility] Last Admin: 09/19/24 08:59 Dose: 100 mg Documented By: LEILA Enoxaparin Sodium (Enoxaparin Sodium 30 Mg/0.3 Ml Syringe) 30 mg SUBCUT Q24H [facility] Last Admin: 09/18/24 16:08 Dose: 30 mg Documented By: NUSRAT Escitalopram Oxalate (Escitalopram Oxalate 5 Mg Tablet) 5 mg PO DAILY [facility] Last Admin: 09/19/24 08:59 Dose: 5 mg Documented By: LEILA Gabapentin (Gabapentin 100 Mg Capsule) 100 mg PO BID [facility] Last Admin: 09/19/24 08:58 Dose: 100 mg Documented By: LEILA Guaifenesin (Guaifenesin 200 Mg/10 Ml 10 Ml Liquid) 10 ml PO Q24H PRN PRN Reason: Cough Magnesium Hydroxide (Milk Of Magnesia 30 Ml Oral.Susp) 30 ml PO DAILY PRN PRN Reason: Constipation Magnesium Hydroxide (Milk Of Magnesia 30 Ml Oral.Susp) 30 ml PO Q24H PRN PRN Reason: Constipation Melatonin (Melatonin 3 Mg Tablet) 6 mg PO BEDTIME PRN PRN Reason: Insomnia Ondansetron HCl (Ondansetron Hcl 4 Mg/2 Ml Vial) 4 mg IVPUSH Q8H PRN PRN Reason: Nausea and Vomiting Risperidone (Risperidone 0.25 Mg Tablet) 0.25 mg PO BID [facility] Last Admin: 09/19/24 08:59 Dose: 0.25 mg Documented By: LEILA Senna (Sennosides 8.6 Mg Tablet) 17.2 mg PO BEDTIME [facility] Last Admin: 09/18/24 21:47 Dose: Not Given Documented By: ERASTO Non-Admin Reason: Patient Condition Contraindication Sodium Chloride (0.9 % Sodium Chloride Flush 3 Ml Syringe) 3 ml IVFLUSH QSHIFT [facility] Last Admin: 09/19/24 08:58 Dose: 3 ml Documented By: LEILA Vitamin D (Cholecalciferol (Vitamin D3) 25 Mcg Tablet) 25 mcg PO DAILY [facility] Last Admin: 09/19/24 08:59 Dose: 25 mcg Documented By: LEILA Labs 09/19/24 07:53 09/18/24 06:04 Labs: Laboratory Results - last 24 hr 09/18/24 09/19/24 19:59 07:53 MCV 82.2 MCH 27.8 MCHC 33.9 RDW 15.3 Plt Count 120 L D MPV 11.6 Absolute Nucleated RBC 0.000 Nucleated RBC % (auto) 0.0 Lactic Acid 0.6 Microbiology Microbiology Results: Microbiology 09/17/24 14:08 Urine Culture - Final Urine Catheterized - Garcia Catheter Escherichia coli 09/17/24 14:08 Blood Culture - Preliminary Blood - Venous No growth after 24 hours. 09/17/24 13:58 Blood Culture - Preliminary Blood - Venous No growth after 24 hours. Assessment and Plan (1) Metabolic encephalopathy: Status: Acute (2) Acute UTI: Status: Acute Plan 88 year old belarusian speaking with history of CKD3, HTN, dementia from shelter brought in to be assess for altereed mental status and found to have UTI Metabolic encephalopathy due to UTI, clinically improving continue Ceftriaxone D2 Urine culture e coli sensitive to ceftriaxone, CT of abdomen without contrast today incidental finding of ? Pnuemonia on CT chest, has no respiratory symptoms and doubt clinical pneumonia no specific treatment at this time HTN, bp high not on meds add norvasc 2.5 Dimentia mood disorders continue risperidal, lexapro, and gabapentin CKD 3 stable stable DVT prophylaxis: lovenox Full code Diet: regular Quality Stroke Does the patient have a stroke diagnosis?: No VTE Prior VTE?: No VTE Risk Level:: Medical - moderate - high VTE Device Contraindication: Treatment Not Indicated VTE Drug Contraindication: N/A - Med Ordered
[2024-09-19] MEDS: Enoxaparin Sodium 30 MG/0.3 ML SYRINGE SUBCUT (17:49)
[2024-09-19] MEDS: Sennosides 8.6 MG TABLET 17.2 MG PO (21:00)
[2024-09-20 04:00] VITALS: BP 154/72; PULSE 85; RESP 18; TEMP 36.9; O2SAT 95
[2024-09-20 07:54] VITALS: BP 164/78; PULSE 90; RESP 16; TEMP 37; O2SAT 96
[2024-09-20] MEDS: Gabapentin 100 MG CAPSULE PO (09:00)
[2024-09-20] MEDS: Docusate Sodium 100 MG CAPSULE PO (09:00)
[2024-09-20] MEDS: 0.9 % Sodium Chloride Flush 3 ML SYRINGE IVFLUSH (09:00)
[2024-09-20] MEDS: Escitalopram Oxalate 5 MG TABLET PO (09:00)
[2024-09-20] MEDS: risperiDONE 0.25 MG TABLET PO (09:00)
[2024-09-20] MEDS: Cholecalciferol (Vitamin D3) 25 MCG TABLET PO (09:00)
--- NOTE | 2024-09-20 09:02 | P.DS_ITS ---
DS: Providers Provider Date of Service: 09/20/24 Date of admission: 09/17/24 15:31 Date of discharge: 09/20/24 Primary care physician: Leatha Cantu MD DS: Diagnosis Discharge Diagnosis (1) Metabolic encephalopathy: Status: Acute (2) Acute UTI: Status: Acute DS: Summary Hospital Course Hospital Course: admission hpi Chief Complaint: AMS An 88-year-old Arabic-speaking female with a history of CKD stage 3, hypertension (HTN), and dementia, residing in a correction, was brought to the ED for altered mental status. She was at her baseline at 6:30 AM when morning medications were given but was noted to be confused by 7:30 AM during breakfast reassessment. No focal neurological deficits were reported. In the ED, a head CT showed no acute findings. A chest CT, performed for unclear reasons, suggested possible bronchopneumonia, though the patient has no fever or respiratory symptoms. Labs show WBC 11.5 (mildly elevated), normal lactic acid, and a urinalysis positive for UTI. The patient is significantly confused, limiting history-taking, so records were reviewed. Hospital course: incidental finding of ? Pnuemonia on CT chest, has no respiratory symptoms and doubt clinical pneumonia no specific treatment at this time and there is pneumonia should be covered with above antibiotics as well HTN, bp high not on meds add norvasc 2.5 Dimentia mood disorders continue risperidal, lexapro, and gabapentin CKD 3 stable -stable Dispo: to return to SNF Time Attestation Discharge Coordination Time (in mins): 45 Quality: Safe Use of Opioids Does Pt have an Active Cancer Diagnosis on the Problem List?: No Quality: Stroke Does the patient have a stroke diagnosis?: No Physical Exam Vital Signs: Vital Signs: Selected Entries 09/20/24 07:54 Temperature 98.6 F Pulse Rate 90 Respiratory Rate 16 Blood Pressure 164/78 H Pulse Oximetry 96 Oxygen Delivery Me thod Room Air General: AO X 3, no acute distress Resp: CTA bilateral CVS: S1,S2,RRR GI: +BS, NT, no distention Skin: No rash Neuro: motor grossly intact Psych: appropriate affect DS: Data Data Completed and Pending Labs on day of discharge: Laboratory Results - last 24 hr 09/18/24 09/19/24 19:59 07:53 WBC 7.0 RBC 3.89 L Hgb 10.8 L Hct 31.9 L MCV 82.2 MCH 27.8 MCHC 33.9 RDW 15.3 Plt Count 120 L D MPV 11.6 Absolute Nucleated RBC 0.000 Nucleated RBC % (auto) 0.0 Lactic Acid 0.6 Preliminary micro results at discharge 09/17/24 14:08 Blood Culture - Preliminary Blood - Venous No growth after 24 hours. 09/17/24 13:58 Blood Culture - Preliminary Blood - Venous No growth after 24 hours. Discharge Plan Discharge Anticipated Discharge Date/Time: 09/20/24 13:30 Patient Disposition: Xfer SNF Discharge Diagnosis: UTI, metabolic encephalopathy, urinary retention Referrals: [facility] [Outside] - 1 Week Clive Singh MD [Physician, Urology] - 2 Weeks Referral Note: urinary retention Leatha Cantu MD [Primary Care Provider, Internal Medicine] - 1 Week Discharge Medications: New cefuroxime axetil 250 mg tablet 250 mg PO BID 7 Days Qty: 14 0RF Continued risperidone 0.5 mg tablet 0.25 mg PO BID escitalopram oxalate 5 mg tablet 1 tab PO DAILY cholecalciferol (vitamin D3) [Vitamin D3] 25 mcg (1,000 unit) Tablet 25 mcg PO DAILY acetaminophen 325 mg Tablet 650 mg PO Q6H PRN (Reason: Pain (Scale Score 1-3)) melatonin 3 mg Tablet 3 mg PO Q8H PRN (Reason: Insomnia) guaifenesin 100 mg/5 mL Liquid 200 mg PO Q24H PRN (Reason: Cough) magnesium hydroxide [Milk of Magnesia] 400 mg/5 mL Suspension 30 ml PO Q24H PRN (Reason: Constipation) hydrocortisone 1 % Cream 1 appl TOPICAL BID PRN (Reason: itchy) bisacodyl 10 mg Suppository 10 mg SD Q24H PRN (Reason: Constipation) gabapentin 100 mg Capsule 100 mg PO BID menthol 5 % Adhesive Patch,Medicated 1 patch TOPICAL Q24H PRN (Reason: Pain (Scale Score 1-3)) Rx Instructions: apply to lower back Discharge Orders: Discharge Order (Routine); Ordered 09/20/24 Ordered By: Aron Frank Diet: Advance to usual diet Activity on Discharge: As tolerated Stand Alone Forms: Patient Portal Discharge page Print Language: Lithuanian Care Plan Goals: recovery from uti, metabolic encephalopathy Health Concerns: urinary retention uti Plan of Treatment: take cefuroxime as recommended and fllow up with your doctor in a week do voiding trial within a week and if still retaining urine, then outpatient urology follow up Assessment: see above Patient Instructions: Urinary Tract Infection in Women (DC)
[2024-09-20] MEDS: cefTRIAXone sodium 2 GM VIAL IVPUSH (13:50)
--- NOTE | 2024-09-20 14:01 | MHC.CM.PN ---
Addendum entered by Judie Larson 09/20/24 14:03: CM SPOKE TO PTS NIECE/ALT HCP, MEL GUZMAN [phone] SHE IS AWARE AND IN AGREEMENT WITH DCP/TIME Original Note: PT CLEARED TO DC BACK TO [facility] AT [facility] TODAY BLS TRANSPORT BOOKED FOR 1600 VM MSG LEFT FOR HCP, [place] [phone]
[2024-09-20 15:37] VITALS: BP 172/79; PULSE 91; RESP 16; TEMP 37.4; O2SAT 96
[2024-09-20 16:18] VITALS: BP 148/78
== END 2024-09-20 16:32 | disposition skilled nursing facility (03) | DRG 689 ==
LOC: HO.ED 15:27 → HO.EDOVER 15:49 → HO.S3 17:20
PROVIDERS: Hospitalist; Admitting Provider Internal Medicine; Emergency Provider Emergency Medicine; PCP Internal Medicine; Visit Provider Internal Medicine
DX: N39.0 Urinary tract infection, site not specified (principal); G93.41 Metabolic encephalopathy; I12.9 Hypertensive chronic kidney disease with stage 1 through stage 4 chronic kidney disease, or unspecified chronic kidney disease; N18.30 Chronic kidney disease, stage 3 unspecified; F10.90 Alcohol use, unspecified, uncomplicated; B96.20 Unspecified Escherichia coli [E. coli] as the cause of diseases classified elsewhere; R33.9 Retention of urine, unspecified; Z79.899 Other long term (current) drug therapy
CPT/HCPCS: 36415; 70450; 71250; 74176; 80048; 80053; 81001; 82947; 83605; 84484; 85025; 85027; 85610; 87040; 87086; 87088; 87186; 93005; 99285; J0692; J0696; J1650; J1885; J3371

== ENCOUNTER → 2024-09-17 12:53 | Outpatient (BNV) | payer OTHER, SELFPAY | PROVIDERS: Emergency Provider Emergency Medicine; Visit Provider Radiology Diagnostic Radiology | DX: E04.1 Nontoxic single thyroid nodule (principal); I31.39 Other pericardial effusion (noninflammatory); I63.9 Cerebral infarction, unspecified; R41.82 Altered mental status, unspecified | CPT/HCPCS: 70450; 71250 ==

== ENCOUNTER → 2024-09-17 12:55 | Outpatient (BNV) | payer OTHER, SELFPAY | PROVIDERS: Admitting Provider Internal Medicine; Emergency Provider Emergency Medicine; PCP Internal Medicine; Visit Provider Internal Medicine Cardiovascular Disease | DX: I45.10 Unspecified right bundle-branch block (principal) | CPT/HCPCS: 93010 ==

== ENCOUNTER 2024-09-17 15:31 | Outpatient (BNV) | payer OTHER, SELFPAY | END 2024-09-19 14:27 | PROVIDERS: Admitting Provider Internal Medicine; Emergency Provider Emergency Medicine; PCP Internal Medicine; Visit Provider Radiology Diagnostic Radiology | DX: N32.89 Other specified disorders of bladder (principal); K56.41 Fecal impaction; I51.7 Cardiomegaly; I31.39 Other pericardial effusion (noninflammatory) | CPT/HCPCS: 74176 ==

== ENCOUNTER → 2024-09-17 15:31 | Outpatient (BNV) | payer OTHER, SELFPAY | PROVIDERS: Admitting Provider Internal Medicine; Emergency Provider Emergency Medicine; PCP Internal Medicine; Visit Provider Internal Medicine | DX: G93.41 Metabolic encephalopathy (principal); N39.0 Urinary tract infection, site not specified | CPT/HCPCS: 99223; 99232 ==

== ENCOUNTER 2024-10-13 09:48 | Outpatient (AMB) | payer OTHER, SELFPAY ==
--- NOTE | 2024-10-13 10:18 | MHC.OFFVIS ---
Intake Visit Reasons: retention/UTI Intake Note: New Patient is present for retention/ UTI Urology Rx:none PVR:999 mls Blood Thinners:none [place] Required: No Accompanied by: Self / Same As Patient Allergies alendronate sodium (From FOSAMAX) Allergy (Unknown, Verified 10/13/24 10:19) MOUTH BLEEDING - IRRITATION cholecalciferol (vitamin D3) (Vitamin D3) Allergy (Unknown, Verified 10/13/24 10:19) muscle pains fish oil Allergy (Unknown, Verified 10/13/24 10:19) Unknown ALL VITAMINS Allergy (Mild, Uncoded 09/17/24 13:03) MUSCLE PAINS HPI Comments Details: Agnes is a pleasant Syriac-speaking female. She is a patient of Dr. Cantu. She is seen for the following urologic conditions - incomplete bladder Challenging clinical scenario Progressive dementia Incomplete bladder emptying with over 800 cc on PVR today Overflow incontinence Recurrent UTI Textbook management would involve bladder drainage intermittently with catheter This is not available at the facility she is at Secondary approach would be Garcia catheter Facility she is at is not able to manage We will trial bethanechol to try to improve bladder emptying [facility], [facility] Medical History Chronic kidney disease (CKD) stage G3a/A1, moderately decreased glomerular filtration rate (GFR) between 45-59 mL/min/1.73 square meter and albuminuria creatinine ratio less than 30 mg/g Carpal tunnel syndrome History of breast cancer Anemia Hypertension Surgical History History of carpal tunnel release History of cataract surgery History of cholecystectomy Family History Father No problems noted. Mother No problems noted. Social History Household Members: Other Housing: Senior Living Do you presently have visiting nurse or other home services: No Unable to assess alcohol history related to: Unknown Alcohol intake: never Patient Tobacco Use Status: Tobacco use Unknown Advance Directives Date on File: 08/09/20 service: No Current occupational status: disabled Review of Systems Const Denies chills and Denies fever(s) Card Reports no additional complaints and Denies syncope Resp Denies cough GI Denies abdominal pain and Denies heartburn Reports as per HPI and Denies change in libido Neuro Denies syncope Psych Denies change in libido Endo Denies change in libido Physical Exam Const General: cooperative, healthy appearing, comfortable and no acute distress Orientation/consciousness: patient oriented x3 HEENT Face and sinus: Yes normal facial exam Mouth: moist mucous membranes Neck Neck: Yes normal visual inspection, Yes full ROM and Yes trachea midline Chest Chest palpation & inspection: normal inspection of the chest Resp Effort & Inspection: normal respiratory effort, able to speak in complete sentences and no respiratory distress GI Inspection: Yes normal to inspection Back/Spine/Pelvis Cervical Spine: normal cervical lordosis Thoracic/Lumbar Spine: thoracic and lumbar spine normal to inspection Skin General skin exam: no rashes or lesions noted Neuro General: patient oriented x3, gait normal, tone normal and moves all extremities Extrem General: Yes normal to inspection and Yes capillary refill normal Assessment & Plan Assessment & Plan (1) Neurogenic urinary bladder disorder: Code(s): N31.9 - Neuromuscular dysfunction of bladder, unspecified Category: Medical Plan Incomplete bladder emptying in setting of dementia Medications: New bethanechol chloride 50 mg PO BID 180 tabs 1RF 90 days N31.9 - Neuromuscular dysfunction of bladder, unspecified Patient Instructions: This note is constructed using voice recognition software. While every effort has been made to ensure accuracy medical device sales consultant errors may have been included. Imaging studies, laboratory and physical exam results were discussed and reviewed in detail. No major barriers to patient understanding were identified. An opportunity to ask questions regarding the treatment plan was provided. All questions were answered. The patient expressed understanding and agreement with the above treatment plan. The patient is aware they should contact our office by phone for worsening of their current condition or the appearance of new urologic symptoms. Compliance is encouraged with any medications and followup testing that is ordered. It is a privilege to participate in the urologic care of your patient. If you have any questions or concerns regarding treatment for the above conditions, or other urologic issues, please do not hesitate to contact me. The office telephone contact is [phone]. Sincerely, Dr Gerson Valverde MD, MAUREEN [facility] - Urology Compassionate Specialist Care for the Genitourinary System Coding Level of Care Code New Pt Level 4 (43081) Diagnoses Neurogenic urinary bladder disorder N31.9
--- OUTSIDE RECORDS SUMMARY | 2024-10-13 10:32 | XMS_ITS | Encounter Summary ---
Author Organization [employer] Address [address] [place] [address] Care Team Providers Care Rehabilitation Medicine Physician Name Role Phone Leatha Cantu MD Primary Care Provider + Encounter Details Date Type Department Care Team (Late st Contact Info) Description 08/16/2024 Lab Requisition [facility] - Main Lab [address] [facility] [address] Leatha Cantu MD [address] [address] Chronic kidney disease, unspecified Social History Tobacco [...] mmol/L LAB CHEMISTRY METHOD 08/17/2024 2:06 PM [facility] CO2 25 21 - 32 mmol/L [...] 17.4 LAB CHEMISTRY METHOD 08/17/2024 2:06 PM [facility] Calcium 9.2 8.5 - 10.5 mg/dL LAB CHEMISTRY METHOD 08/17/2024 2:06 PM [facility] Blood Venous blood specimen / Unknown Venipuncture / Unknown 08/17/2024 10:50 AM EDT 08/17/2024 12:33 PM EDT us Leatha Cantu MD LAB BLOOD ORDERABLES Fin al Result [facility] [address] [place] [address], documented in this encounter Visit Diagnoses Diagnosis Chronic kidney disease, unspecified documented in this encounter Care Teams Rehabilitation Medicine Physician Relationship Specialty Start Date End Date Leatha Cantu MD [address] [place] [id number] PCP - General Family Medicine 05/04/24 documented as of this encounter
== END 2024-10-13 11:14 | disposition home or self-care (01) ==
LOC: HO.HUSH 09:49
PROVIDERS: PCP Internal Medicine; Visit Provider Urology
DX: N31.9 Neuromuscular dysfunction of bladder, unspecified (principal)
CPT/HCPCS: 99204

== ENCOUNTER → 2024-10-13 09:48 | Outpatient (BNVA) | payer OTHER, SELFPAY | PROVIDERS: PCP Internal Medicine; Visit Provider Urology | DX: N31.9 Neuromuscular dysfunction of bladder, unspecified (principal); R33.9 Retention of urine, unspecified | CPT/HCPCS: 51798; 99202 ==

== ENCOUNTER 2024-11-29 19:58 | Inpatient (IN) | payer OTHER, SELFPAY ==
--- NOTE | ~2024-11-29 | XR_ITS ---
CLINICAL HISTORY: sepsis 1 view chest x-ray Comparison: 09/03/2024 Findings: Lungs are clear without acute infiltrates. No pneumothorax. Heart size normal. No acute bony abnormalities. Impression: No acute processes This document has been electronically signed by: Hernan Parham MD on 11/29/2024 22:53:36
--- NOTE | ~2024-11-29 | CT_ITS ---
CLINICAL HISTORY: ams CT head without contrast Comparison: 09/17/2024 Findings: No intracranial mass, midline shift, hydrocephalus, or acute hemorrhage. Moderate chronic ischemic white matter disease with volume loss. No acute process in sinuses or mastoids. No acute bony abnormality. Impression: No acute intracranial process This document has been electronically signed by: Hernan Parham MD on 11/30/2024 00:05:51
--- NOTE | ~2024-11-29 | CT_ITS ---
CLINICAL HISTORY: abd pain and diarrhea CT abdomen and pelvis with contrast Comparison: CT/SR - CT ABDOMEN PELVIS WO IV CON - 09/19/24 15:27 EDT Findings: CT abdomen: Images degraded by respiratory motion and patient motion. Minor atelectasis within the lung bases. Trace amount of fluid in the pleural spaces bilaterally, [id number]-[id number]. No acute bony abnormality. Kjld-hc-umwjexvx convex left upper lumbar curvature with compensatory convex right lower lumbar curvature. Pericardial effusion measures up to 15 mm in thickness. Dystrophic calcification seen within the left breast. tiny hypodensities within the liver measure up to 4 mm in size. No concerning hepatic mass lesion. Main portal vein is patent. There is mild dilation of both the intrahepatic and extrahepatic biliary tree without discrete filling defects seen within the common bile duct. Gallbladder surgically absent. Spleen, pancreas, adrenal glands, and kidneys are unremarkable for acute findings. Simple bilateral renal cysts are evident. No dilated small bowel. CT pelvis: Urinary bladder is decompressed with Garcia catheter in place. Concentric wall thickening beginning at the rectum and extending contiguously to the cecum. Hyperenhancement of the colonic mucosa throughout. Adjacent inflammatory stranding. No findings to suggest abscess or perforation. Wall thickening of the distal ileum and terminal ileum as well. Trace free fluid within the pelvis. Uterus is surgically absent. No free air. IMPRESSION: 1. Images degraded by patient motion. 2. Spencer colitis with additional involvement of the rectum. This also extends into the distal ileum suggesting infectious or inflammatory enterocolitis. Inflammatory bowel disease could be considered. 3. Nonspecific biliary dilation. Correlation with the patient's bilirubin level suggested. This may simply be related to postcholecystectomy ectasia. This document has been electronically signed by: Nas Yung MD on 11/30/2024 01:56:29
[2024-11-29 20:21] VITALS: BP 124/78; BP 151/72; PULSE 91; PULSE 95; RESP 16; TEMP 37.3; O2SAT 95; O2SAT 96; BMI 17.7
[2024-11-29 21:06] VITALS: BP 95/42; PULSE 87; O2SAT 94
--- NOTE | 2024-11-29 21:23 | ED_ITS ---
HPI - General Adult General Chief complaint: General Medical Stated complaint: only responsive to pain, d x4 days, 15L Time Seen by Provider: 11/29/24 21:16 Source: patient Mode of arrival: ambulatory Limitations: no limitations History of Present Illness ED Provider: Dr. Cuenca HPI narrative: 89-year-old female presented from long-term for unresponsiveness. Patient has history of dementia, recurrent UTI, CKD, anemia on chart review According to triage nurse the patient was reported hypoxic. A&O times 0. Related Data Home Medications ?Medication ?Instructions ?Recorded ?Confirmed cholecalciferol (vitamin D3) 25 25 mcg PO DAILY 11/29/24 mcg (1,000 unit) tablet (Vitamin D3) escitalopram oxalate 5 mg tablet 1 tab PO DAILY 11/29/24 acetaminophen 325 mg tablet 650 mg PO Q6H PRN Pain (Sc joe 09/17/24 11/29/24 Score 1-3) bisacodyl 10 mg rectal suppository 10 mg OK Q24H PRN C onstipation 09/17/24 11/29/24 gabapentin 100 mg capsule 100 mg PO BID 09/17/2411/29 guaifenesin 100 mg/5 mL oral liquid 200 mg PO Q24H PRN Cough 09/17/24 11/29/24 magnesium hydroxide 400 mg/5 mL 30 ml PO Q24H PRN Cons tipation 09/17/24 11/29/24 oral suspension (Milk of Magnesia) menthol 5 % topical patch 1 patch topical Q24H PRN Sujata n 09/17/24 11/29/24 (Scale Score 1-3) risperidone 1 mg/mL oral solution 0.125 mg PO DAILY OK N Agitation 11/29/24 11/29/24 risperidone 1 mg/mL oral solution 0.125 mg PO TID 11/0111/29/24 Allergies Allergy/AdvReac Type Severity Reaction Status Date / Time alendronate sodium (From Allergy Unknown MOUTH Verified 11/29/24 20:24 FOSAMAX) BLEEDING - IRRITATION cholecalciferol (vitamin D3) Allergy Unknown muscle Verified 11/29/24 20:24 (Vitamin D3) pains fish oil Allergy Unknown Unknown Verified 11/29/24 20:24 ALL VITAMINS Allergy Mild MUSCLE Uncoded 11/29/24 20:24 PAINS Review of Systems 2 Review of Systems: Unable to obtain review of system on patient due to altered mentation [facility] Past Medical History [facility] Narrative: Medical history as mentioned in HPI via chart review Medical History Chronic kidney disease (CKD) stage G3a/A1, moderately decreased glomerular filtration rate (GFR) between 45-59 mL/min/1.73 square meter and albuminuria creatinine ratio less than 30 mg/g Carpal tunnel syndrome History of breast cancer Anemia Hypertension Surgical History History of carpal tunnel release History of cataract surgery History of cholecystectomy Family History Family History Father No problems noted. Mother No problems noted. Social History Social History Household Members: Other Housing: Assisted Do you presently have visiting nurse or other home services: No Unable to assess alcohol history related to: Unknown Alcohol intake: never Patient Tobacco Use Status: Tobacco use Unknown Advance Directives: Yes Advance Directives on File: Yes Advance Directives Date on File: 08/09/20 Do you have a plan to hurt others: No Plan service: No Current occupational status: disabled Physical Exam ED Exam Exam: General: Unresponsive, responsive to painful stimuli Head: Normacephalic, atraumatic ENT: oral mucosa dry, neck supple, no tracheal deviation Cardiovascular: regular rate, regular rhythm, no murmurs, rubbing, gallops Respiratory: CTAB, no wheeze, rales, rhonchi Gastrointestinal: Soft, non distended, non tender, non guarding Extremities: No limb pain or swelling, no calf tenderness Neurological: Minimally responsive on exam Skin: Warm and dry Vital Signs: Vital Signs - 24 hr 11/29/24 20:21 11/29/24 21:06 11/29/24 21:44 Temperature 99.2 F Pulse Rate 95 87 77 Respiratory Rate 16 13 Blood Pressure 151/72 H 95/42 L 98/68 Pulse Oximetry 95 94 Oxygen Delivery Method Room Air Oxygen Flow Rate 11/29/24 22:12 11/29/24 22:35 11/29/24 22:59 Temperature Pulse Rate 83 95 93 Respiratory Rate 13 14 Blood Pressure 122/53 L 142/63 H 123/62 Pulse Oximetry 94 94 95 Oxygen Delivery Method Room Air Room Air Room Air Oxygen Flow Rate 11/30/24 01:17 Temperature 99 F Pulse Rate 84 Respiratory Rate 15 Blood Pressure 120/64 Pulse Oximetry 100 Oxygen Delivery Method Nasal Cannula Oxygen Flow Rate 2 BMI result Body Mass Index 17.7 Medications Administered Generic Name Dose Route Start Last Admin Trade Name Freq PRN Reason Stop Dose Admin Lactated Ringer's 1,000 mls @ 999 mls/hr 11/30/24 02:30 11/30/24 02:33 Lr IV 11/30/24 03:30 999 mls/hr .Q1H1M CHIKI Administration Discontinued Medications Generic Name Dose Route Start Last Admin Trade Name Freq PRN Reason Stop Dose Admin Ceftriaxone Sodium 2 gm 11/29/24 21:20 11/29/24 22:17 Ceftriaxone Sodium 2 Gm Vial IVPUSH 11/29/24 21:21 2 gm ONCE ONE Administration Sodium Chloride 1,000 mls @ 999 mls/hr 11/29/24 21:30 11/29/24 22:32 Ns IV 11/29/24 22:30 Infused .Q1H1M CHIKI Infusion Sodium Chloride 1,000 mls @ 999 mls/hr 11/29/24 23:30 11/30/24 00:43 Ns IV 11/30/24 00:30 Infused .Q1H1M CHIKI Infusion Iohexol 85 ml 11/30/24 01:07 11/30/24 01:11 Iohexol 350 Mg/Ml 100 Ml Infus..Btl IV 11/30/24 01:08 85 ml ONCE ONE Administration Medical Decision Making Medical Decision Making MDM Narrative: 89-year-old female history of dementia, recurrent UTI presented hospital for evaluation of unresponsiveness. We will plan to pursue altered mentation workup for the patient including CT head dry scan. TSH VBG ammonia level. We will obtain a CBC chemistry lactic acid level and blood culture as well. I am unsure if the patient is septic. However she does have history of recurrent UTI. UA will be obtained. Chest x- ray will be obtained as well. We will plan to order empiric dose of IV ceftriaxone for the patient. Patient's CBC shows some anemia 8.5. No sign of leukocytosis, patient's lactic acid is not elevated, patient's VBG did not show any signs of hypercarbia. Electrolytes are within normal limits. Patient TSH level was normal. UA did show leuk esterase with bacteria. Suspect patient likely has a UTI. IV ceftriaxone was given to the patient Due to 4 days of diarrhea I did obtain a CT Patient's CT imaging does shows pancolitis Patient's blood pressure was hypotensive notably transiently systolic in the 90s. After 2 bolus of IV fluid. Patient's blood pressure has improved. The patient is likely in significant fluid deficit due to 4 days of diarrhea. No sign of hypoxia while patient has been here. Patient is resting comfortably satting at 100% on room air. Patient will be admitted to the hospital for further observation and workup. Differential Diagnosis Differential Diagnoses: The differential diagnosis associated with the presentation includes Altered mentation, UTI, dementia, intracranial bleed, hypercapnia, encephalopathy Consult Healthcare Provider Management of the patient was discussed with: Hospitalist Lab Data MDM Lab Attestation statement: I reviewed the patient's lab results. 11/29/24 21:46 11/29/24 21:46 Labs: Lab Results 11/29/24 11/29/24 11/29/24 Range/Units 21:46 21:54 22:06 WBC 9.3 (4.8-10.8) X10*3/uL RBC 3.03 L D (4.20-5.50) X10*6/uL Hgb 8.5 L D (12.0-16.0) g/dl Hct 25.7 L (37.0-47.0) % MCV 84.8 (80.0-98.0) fL MCH 28.1 (27.0-33.0) pg MCHC 33.1 (31.0-35.0) g/dl RDW 14.8 (11.0-16.0) % Plt Count 167 D (160-400) X10*3/uL MPV 10.6 (9.4-12.3) fL Immature Gran % (Auto) 0.3 (0.0-0.4) % Neut % (Auto) 76.2 H (45-73) % Lymph % (Auto) 13.6 L (20-40) % [place] % (Auto) 9.1 (2-11) % Eos % (Auto) 0.5 (0-4) % Baso % (Auto) 0.3 (0-2) % Lymph # (Auto) 1.3 (1.2-4.9) X10*3/uL [place] # (Auto) 0.8 (0.1-1.2) X10*3/uL Eos # (Auto) 0.1 (0.0-0.4) X10*3/uL Baso # (Auto) 0.0 (0.0-0.2) X10*3/uL Abs Immat Gran (auto) 0.03 (0.00-0.03) X10*3/uL Absolute Neuts (auto) 7.0 (2.0-8.3) x10*3/uL Absolute Nucleated RBC 0.000 (0.0-0.012) X10*3/uL Nucleated RBC % (auto) 0.0 (0.0-0.2) /100WBC VBG pH 7.40 (7.32-7.43) VBG pCO2 37 mmHg VBG pO2 74 mmHg VBG HCO3 23 (22-26) mmol/L VBG O2 Saturation 94.0 % VBG Base Excess -0.5 mmol/L Sodium 138 (135-145) mmol/L Potassium 3.4 (3.3-5.1) mmol/L Chloride 109 H (96-108) mmol/L Carbon Dioxide 23 (22-29) mmol/L Anion Gap 9 L (12-20) BUN 20 H (9-16) mg/dL Creatinine 0.90 (0.5-1.4) mg/dL Estim Creat Clear Calc 31.3 Estimated GFR 59 Random Glucose 100 (60-115) mg/dL Lactic Acid 0.9 (0.5-2.0) mmol/L Calcium 8.2 L D (8.4-10.2) mg/dL Total Bilirubin 0.6 (0.0-1.0) mg/dL AST 88 H (5-31) U/L ALT 53 H (0-31) U/L Alkaline Phosphatase 75 (39-117) U/L Ammonia 24 (13-55) umol/L Total Protein 5.5 L (6.5-8.0) g/dL Albumin 3.0 L (3.5-5.0) g/dL TSH 1.97 (0.32-4.0) uIU/mL Urine Color Urine Appearance Urine pH (5.0-9.0) Ur Specific [place] (1.005-1.025) Urine Protein (Neg-Trace) mg/dL Urine Glucose (UA) (Negative) mg/dL Urine Ketones (Negative) mg/dL Urine Blood (Negative) Urine Nitrite (Negative) Ur Leukocyte Esterase (Negative) Urine RBC (0-2) /HPF Urine WBC (0-5) /HPF Ur Squamous Epith Cells (0-2) /HPF Urine Bacteria (None Seen) Hyaline Casts (0-2) /LPF 11/30/24 Range/Units 00:38 WBC (4.8-10.8) X10*3/uL RBC (4.20-5.50) X10*6/uL Hgb (12.0-16.0) g/dl Hct (37.0-47.0) % MCV (80.0-98.0) fL MCH (27.0-33.0) pg MCHC (31.0-35.0) g/dl RDW (11.0-16.0) % Plt Count (160-400) X10*3/uL MPV (9.4-12.3) fL Immature Gran % (Auto) (0.0-0.4) % Neut % (Auto) (45-73) % Lymph % (Auto) (20-40) % [place] % (Auto) (2-11) % Eos % (Auto) (0-4) % Baso % (Auto) (0-2) % Lymph # (Auto) (1.2-4.9) X10*3/uL [place] # (Auto) (0.1-1.2) X10*3/uL Eos # (Auto) (0.0-0.4) X10*3/uL Baso # (Auto) (0.0-0.2) X10*3/uL Abs Immat Gran (auto) (0.00-0.03) X10*3/uL Absolute Neuts (auto) (2.0-8.3) x10*3/uL Absolute Nucleated RBC (0.0-0.012) X10*3/uL Nucleated RBC % (auto) (0.0-0.2) /100WBC VBG pH (7.32-7.43) VBG pCO2 mmHg VBG pO2 mmHg VBG HCO3 (22-26) mmol/L VBG O2 Saturation % VBG Base Excess mmol/L Sodium (135-145) mmol/L Potassium (3.3-5.1) mmol/L Chloride (96-108) mmol/L Carbon Dioxide (22-29) mmol/L Anion Gap (12-20) BUN (9-16) mg/dL Creatinine (0.5-1.4) mg/dL Estim Creat Clear Calc Estimated GFR Random Glucose (60-115) mg/dL Lactic Acid (0.5-2.0) mmol/L Calcium (8.4-10.2) mg/dL Total Bilirubin (0.0-1.0) mg/dL AST (5-31) U/L ALT (0-31) U/L Alkaline Phosphatase (39-117) U/L Ammonia (13-55) umol/L Total Protein (6.5-8.0) g/dL Albumin (3.5-5.0) g/dL TSH (0.32-4.0) uIU/mL Urine Color Yellow Urine Appearance Cloudy Urine pH 5.5 (5.0-9.0) Ur Specific [place] 1.015 (1.005-1.025) Urine Protein Negative (Neg-Trace) mg/dL Urine Glucose (UA) Negative (Negative) mg/dL Urine Ketones Negative (Negative) mg/dL Urine Blood Negative (Negative) Urine Nitrite Negative (Negative) Ur Leukocyte Esterase Moderate (2+) H (Negative) Urine RBC 0-2 (0-2) /HPF Urine WBC >50 H (0-5) /HPF Ur Squamous Epith Cells 0-2 (0-2) /HPF Urine Bacteria 4+ (None Seen) Hyaline Casts 0-2 (0-2) /LPF Independent Interpretation I performed an independent interpretation of an: Plain X-Ray and CT Scan Radiology Impression Discussion of test interpretation with radiology: I have reviewed the radiologist's reading. Critical Care Time Critical Care Time Critical Care Time: Yes Total Critical Care Time: 40 Attestation: Time is exclusive of separately billable procedures. Time includes: direct patient care, patient reassessment, coordination of patient care, interpretation of data (laboratory data, pulse oximetry, arterial blood gases and chest xrays), review of patient's medical records, medical consultation and documentation of patient care. Procedures excluded from critical care time: central intravenous line placement and electrocardiography. Discharge Plan Discharge Clinical Impression: Acute UTI, Colitis Patient Disposition: Admitted As Inpatient
[2024-11-29 21:44] VITALS: BP 98/68; PULSE 77; RESP 13
[2024-11-29 21:53] LABS: MANUAL DIFF FLAG NO
[2024-11-29 21:55] LABS: Hematocrit 25.7 % (37.0-47.0); Hemoglobin 8.5 g/dl (12.0-16.0); Imm Gran Abs Auto 0.03 X10*3/uL (0.00-0.03); Imm Gran Pct Auto 0.3 % (0.0-0.4); Lymphocytes Absolute Auto 1.3 X10*3/uL (1.2-4.9); Mean Corpuscular HGB Conc 33.1 g/dl (31.0-35.0); Mean Corpuscular Hemoglobin 28.1 pg (27.0-33.0); Mean Corpuscular Volume 84.8 fL (80.0-98.0); NRBC Abs Auto 0.000 X10*3/uL (0.0-0.012); NRBC Pct Auto 0.0 /100WBC (0.0-0.2); Platelet Count 167 X10*3/uL (160-400); Red Blood Count 3.03 X10*6/uL (4.20-5.50); White Blood Count 9.3 X10*3/uL (4.8-10.8)
[2024-11-29 22:00] LABS: VBG HCO3 23 mmol/L (22-26); VBG O2 % Saturation 94.0 %
[2024-11-29 22:01] LABS: Venous Blood Gas Refer to POC result
[2024-11-29 22:12] VITALS: BP 122/53; PULSE 83; RESP 13; O2SAT 94
--- OUTSIDE RECORDS SUMMARY | 2024-11-29 22:12 | XMS_ITS | Encounter Summary ---
Author Organization [employer] Address [address] [place] [address] Care Team Providers Care Pile Operator Name Role Phone Leatha Cantu MD Primary Care Provider + Encounter Details Date Type Department Care Team (Late st Contact Info) Description 05/09/2024 Lab Requisition [facility] - Main Lab [address] [facility] [employer] [place] [address] Leatha Cantu MD [address] [facility] [place] [address] Urinary tract infection, site not specified Social History Tobacco Use Types Packs/Day Years [...] Procedure Name Priority Date/Time Associated Diagnosis Comments URINALYSIS WITH REFLEX MICROSCOPIC Routine 05/08/2024 3:20 PM EST Urinary tract infection, site not specified URINALYSIS WITH REFLEX MICROSCOPIC Routine 05/08/2024 3:20 PM EST Urinary tract infection, site not specified CULTURE URINE Routine 05/08/2024 3:20 PM EST Urinary tract infection, site not specified documented in this encounter Results * (ABNORMAL) Urinalysis with reflex microscopic (05/08/2024 3:20 PM EST) Specific [place] Urine 1.010 1.003 - 1.030 LAB URINALYSIS - AUTOMATED METHOD 05/09/2024 4:37 PM EST [facility] pH, Urine 7.0 5.0 - 8.0 pH LAB URINALYSIS - AUTOMATED METHOD 05/09/2024 4:37 PM [facility] Leukocytes, Urine Large(A) Negative LAB URINALYSIS - AUTOMATED METHOD 05/09/2024 4:37 PM [facility] Nitrite, Urine Positive(A) Negative LAB URINALYSIS - AUTOMATED METHOD 05/09/2024 4:37 PM [facility] Protein, Urine Trace <=Trace mg/dL LAB URINALYSIS - AUTOMATED METHOD 05/09/2024 4:37 PM [facility] Glucose, Urine Negative Negative mg/dL LAB URINALYSIS - AUTOMATED METHOD 05/09/2024 4:37 PM [facility] Ketones, Urine Negative Negative mg/dL LAB URINALYSIS - AUTOMATED METHOD 05/09/2024 4:37 PM [facility] Urobilinogen , Urine 0.2 0.2 - 1.0 mg/dL LAB URINALYSIS - AUTOMATED METHOD 05/09/2024 4:37 PM [facility] Bilirubin, Urine Negative Negative LAB URINALYSIS - AUTOMATED METHOD 05/09/2024 4:37 PM [facility] Blood, Urine Trace(A) Negative LAB URINALYSIS - AUTOMATED METHOD 05/09/2024 4:37 PM [facility] RBC, Urine 2.5 0 - 4 /HPF LAB URINALYSIS - AUTOMATED METHOD 05/09/2024 4:37 PM [facility] WBC, Urine 309.2(H) 0 - 4 /HPF LAB URINALYSIS - AUTOMATED METHOD 05/09/2024 4:37 PM [facility] Squamous Epithelial, Urine 10 0 - 60 /LPF LAB URINALYSIS - AUTOMATED METHOD 05/09/2024 4:37 PM [facility] Bacteria, Urine Many(A) Negative /HPF LAB URINALYSIS - AUTOMATED METHOD 05/09/2024 4:37 PM [facility] Hyaline Casts, Urine 2.4 0 - 3 /LPF LAB URINALYSIS - AUTOMATED METHOD 05/09/2024 4:37 PM EST [facility] Urine Urine specimen obtained by clean catch procedure / Unknown Non-blood Collection / Unknown 05/08/2024 3:20 PM EST 05/09/2024 3:52 PM EST us Leatha Cantu MD LAB URINE ORDERABLES Fin al Result [facility] [address] [place] [address], [place] [phone] * (ABNORMAL) Culture urine (05/08/2024 3:20 PM EST) Culture, Urine >100,000 CFU/mL Methicillin-Sensi tive Staphylococcus aureus(A) MAURILIO 05/12/2024 8:10 AM EST [facility] Comment: The organism value for this result has been updated. These results have been appended to the previously preliminary verified report. Edited result: Previously reported as Staphylococcus aureus on 05/11/2024 at 1009 EST. Urine Urine specimen obtained by clean catch procedure / Unknown Non-blood Collection / Unknown 05/08/2024 3:20 PM EST 05/09/2024 3:52 PM EST Narrative Organism Antibiotic Method Susceptibility Methicillin-Sensitive Staphylococcus aureus Benzylpenicillin MAURILIO >=0.5 ug/ml: Resistant Methicillin-Sensitive Staphylococcus aureus Oxacillin MAURILIO 0.5 ug/ml: Susceptible Methicillin-Sensitive Staphylococcus aureus Gentamicin MAURILIO <=0.5 ug/ml: Susceptible Methicillin-Sensitive Staphylococcus aureus Ciprofloxacin MAURILIO <=0.5 ug/ml: Susceptible Methicillin-Sensitive Staphylococcus aureus Levofloxacin MAURILIO <=0.12 ug/ml: Susceptible Methicillin-Sensitive Staphylococcus aureus Moxifloxacin MAURILIO <=0.25 ug/ml: Susceptible Methicillin-Sensitive Staphylococcus aureus Quinupristin/Dalfopristin MAURILIO <=0.25 ug/ml: Susceptible Methicillin-Sensitive Staphylococcus aureus Linezolid MAURILIO 2 ug/ml: Susceptible Methicillin-Sensitive Staphylococcus aureus Vancomycin MAURILIO <=0.5 ug/ml: Susceptible Methicillin-Sensitive Staphylococcus aureus Tetracycline MAURILIO <=1 ug/ml: Susceptible Methicillin-Sensitive Staphylococcus aureus Nitrofurantoin MAURILIO <=16 ug/ml: Susceptible Methicillin-Sensitive Staphylococcus aureus Rifampin MAURILIO <=0.5 ug/ml: Susceptible Methicillin-Sensitive Staphylococcus aureus Trimethoprim/Sulfamethoxazo le MAURILIO <=10 ug/ml: Susceptible us Leatha Cantu MD LAB MICROBIOLOGY - GENER AL ORDERABLES Final Result [facility] [address] [place] [address], documented in this encounter Visit Diagnoses Diagnosis Urinary tract infection, site not specified documented in this encounter Care Teams Pile Operator Relationship Specialty Start Date End Date Leatha Cantu MD [address] [address] PCP - General Family Medicine 05/04/24 documented as of this encounter
--- OUTSIDE RECORDS SUMMARY | 2024-11-29 22:12 | XMS_ITS | Encounter Summary ---
Author Organization [employer] Address [address] [place] [address] Care Team Providers Care Digital Sales Manager Name Role Phone Leatha Cantu MD Primary Care Provider + Encounter Details Date Type Department Care Team (Late st Contact Info) Description 08/12/2024 Lab Requisition [facility] - Main Lab 299 [facility] [place] [address] Leatha Cantu MD [address] [address] Other fatigue; Anemia, unspecified Social History Tobacco Use Types Packs/Day [...] Procedure Name Priority Date/Time Associated Diagnosis Comments COMPLETE BLOOD COUNT Routine 08/12/2024 4:46 AM EDT Other fatigue Anemia, unspecified COMPREHENSIVE METABOLIC PANEL Routine 08/12/2024 4:46 AM EDT Other fatigue Anemia, unspecified documented in this encounter Results * (ABNORMAL) Comprehensive metabolic panel (08/12/2024 4:46 AM EDT) Sodium 136 133 - 145 mmol/L LAB CHEMISTRY METHOD 08/12/2024 9:45 AM EDT [facility] Potassium 4.2 3.5 - 5.5 mmol/L LAB CHEMISTRY METHOD 08/12/2024 9:45 AM EDT [facility] Chloride 101 96 - 110 mmol/L LAB CHEMISTRY METHOD 08/12/2024 9:45 AM [facility] CO2 28 21 - 32 mmol/L LAB CHEMISTRY METHOD 08/12/2024 9:45 AM [facility] Anion Gap 7 3 - 11 LAB CHEMISTRY METHOD 08/12/2024 9:45 AM [facility] Glucose 85 70 - 100 mg/dL LAB CHEMISTRY METHOD 08/12/2024 9:45 AM [facility] BUN 27(H) 5 - 25 mg/dL LAB CHEMISTRY METHOD 08/12/2024 9:45 AM [facility] Creatinine 1.27(H) 0.50 - 1.10 mg/dL LAB CHEMISTRY METHOD 08/12/2024 9:45 AM [facility] eGFR 41(L) >=60 mL/min/1. 73m2 LAB CHEMISTRY METHOD 08/12/2024 9:45 AM [facility] Comment:Calculation based on the Chronic Kidney Disease Epidemiology Collaboration (CKD-EPI) equation refit without adjustment for race. BUN/Creatinine Ratio 21.3 LAB CHEMISTRY METHOD 08/12/2024 9:45 AM [facility] Calcium 9.0 8.5 - 10.5 mg/dL LAB CHEMISTRY METHOD 08/12/2024 9:45 AM [facility] AST (SGOT) 12 10 - 42 unit/L LAB CHEMISTRY METHOD 08/12/2024 9:45 AM [facility] ALT (SGPT) 13 10 - 60 unit/L LAB CHEMISTRY METHOD 08/12/2024 9:45 AM [facility] Alkaline Phosphatase 53 42 - 121 unit/L LAB CHEMISTRY METHOD 08/12/2024 9:45 AM [facility] Total Protein 6.4 6.0 - 8.0 g/dL LAB CHEMISTRY METHOD 08/12/2024 9:45 AM [facility] Albumin 3.1(L) 3.2 - 5.0 g/dL LAB CHEMISTRY METHOD 08/12/2024 9:45 AM EDT [facility] Total Bilirubin 0.4 0.0 - 1.4 mg/dL LAB CHEMISTRY METHOD 08/12/2024 9:45 AM [facility] Blood Venous blood specimen / Unknown Venipuncture / Unknown 08/12/2024 4:46 AM EDT 08/12/2024 8:52 AM EDT us Leatha Cantu MD LAB BLOOD ORDERABLES Fin al Result [facility] [address] [place] [address], * (ABNORMAL) Complete blood count (08/12/2024 4:46 AM EDT) WBC 5.9 4.8 - 10.8 K/mcL LAB HEMETOLOGY METHOD 08/12/2024 9:28 AM [facility] RBC 4.00 3.80 - 4.80 M/mcL LAB HEMETOLOGY METHOD 08/12/2024 9:28 AM [facility] Hemoglobin 11.2(L) 11.5 - 16.0 g/dL LAB HEMETOLOGY METHOD 08/12/2024 9:28 AM [facility] Hematocrit 35.1 35.0 - 47.0 % LAB HEMETOLOGY METHOD 08/12/2024 9:28 AM [facility] MCV 87.3 79.0 - 98.0 FL LAB HEMETOLOGY METHOD 08/12/2024 9:28 AM [facility] MCH 27.9 27.0 - 32.0 pcg LAB HEMETOLOGY METHOD 08/12/2024 9:28 AM [facility] MCHC 31.9(L) 32.0 - 37.0 g/dL LAB HEMETOLOGY METHOD 08/12/2024 9:28 AM EDT [facility] RDW 14.6 11.0 - 15.0 % LAB HEMETOLOGY METHOD 08/12/2024 9:28 AM EDT [facility] Platelets 195 130 - 400 K/mcL LAB HEMETOLOGY METHOD 08/12/2024 9:28 AM EDT [facility] MPV 11.0 7.0 - 11.0 FL LAB HEMETOLOGY METHOD 08/12/2024 9:28 AM EDT [facility] NRBC 0.0 <1.0 % LAB HEMETOLOGY METHOD 08/12/2024 9:28 AM EDT [facility] NRBC Absolute 0.00 <0.10 K/mcL LAB HEMETOLOGY METHOD 08/12/2024 9:28 AM EDT [facility] Blood Venous blood specimen / Unknown Venipuncture / Unknown 08/12/2024 4:46 AM EDT 08/12/2024 8:52 AM EDT us Leatha Cantu MD LAB BLOOD ORDERABLES Fin al Result [facility] [address] [place] [address], documented in this encounter Visit Diagnoses Diagnosis Other fatigue Anemia, unspecified documented in this encounter Care Teams Digital Sales Manager Relationship Specialty Start Date End Date Leahta Cantu MD [address] [address] PCP - General Family Medicine 05/04/24 documented as of this encounter
--- OUTSIDE RECORDS SUMMARY | 2024-11-29 22:12 | XMS_ITS | Encounter Summary ---
Author Organization [employer] Address [address] [place] [address] Care Team Providers Care Casting House Laborer Name Role Phone Leatha Cantu MD Primary Care Provider + Encounter Details Date Type Department Care Team (Late st Contact Info) Description 05/04/2024 Lab Requisition [facility] - Main Lab [address] [place] [address] Leatha Cantu MD [address] [address] Dysuria Social History Tobacco Use Types Packs/Day Years [...] Diagnosis Comments URINALYSIS WITH REFLEX MICROSCOPIC Routine 05/04/2024 7:00 AM EST Dysuria URINALYSIS WITH REFLEX MICROSCOPIC Routine 05/04/2024 7:00 AM EST Dysuria CULTURE URINE Routine 05/04/2024 7:00 AM EST Dysuria documented in this encounter Results * (ABNORMAL) Urinalysis with reflex microscopic (05/04/2024 7:00 AM EST) Specific [place] Urine 1.013 1.003 - 1.030 LAB URINALYSIS - AUTOMATED METHOD 05/04/2024 12:49 PM EST [facility] pH, Urine 7.5 5.0 - 8.0 pH LAB URINALYSIS - AUTOMATED METHOD 05/04/2024 12:49 PM [facility] Leukocytes, Urine Large(A) Negative LAB URINALYSIS - AUTOMATED METHOD 05/04/2024 12:49 PM [facility] Nitrite, Urine Negative Negative LAB URINALYSIS - AUTOMATED METHOD 05/04/2024 12:49 PM [facility] Protein, Urine 100(A) <=Trace mg/dL LAB URINALYSIS - AUTOMATED METHOD 05/04/2024 12:49 PM [facility] Glucose, Urine Negative Negative mg/dL LAB URINALYSIS - AUTOMATED METHOD 05/04/2024 12:49 PM [facility] Ketones, Urine Negative Negative mg/dL LAB URINALYSIS - AUTOMATED METHOD 05/04/2024 12:49 PM [facility] Urobilinogen , Urine 0.2 0.2 - 1.0 mg/dL LAB URINALYSIS - AUTOMATED METHOD 05/04/2024 12:49 PM [facility] Bilirubin, Urine Negative Negative LAB URINALYSIS - AUTOMATED METHOD 05/04/2024 12:49 PM [facility] Blood, Urine Small(A) Negative LAB URINALYSIS - AUTOMATED METHOD 05/04/2024 12:49 PM [facility] RBC, Urine 5.0(H) 0 - 4 /HPF LAB URINALYSIS - AUTOMATED METHOD 05/04/2024 12:49 PM [facility] WBC, Urine 1,060.1(H) 0 - 4 /HPF LAB URINALYSIS - AUTOMATED METHOD 05/04/2024 12:49 PM [facility] Squamous Epithelial, Urine 0 0 - 60 /LPF LAB URINALYSIS - AUTOMATED METHOD 05/04/2024 12:49 PM [facility] Non-Squamous Epithelial, Urine 2-5 Transitional Epithelial Cells /LPF 05/04/2024 12:49 PM [facility] Bacteria, Urine Moderate(A) Negative /HPF LAB URINALYSIS - AUTOMATED METHOD 05/04/2024 12:49 PM EST [facility] Hyaline Casts, Urine 0.0 0 - 3 /LPF LAB URINALYSIS - AUTOMATED METHOD 05/04/2024 12:49 PM EST [facility] Urine Urine specimen obtained by clean catch procedure / Unknown Non-blood Collection / Unknown 05/04/2024 7:00 AM EST 05/04/2024 11:36 AM EST us Leatha Cantu MD LAB URINE ORDERABLES Fin al Result [facility] [address] [place] [address], [place] [phone] * Culture urine (05/04/2024 7:00 AM EST) Culture, Urine >100,000 CFU/mL Mixed bacterial morphotypes present suggestive of possible contamination during collection. Suggest appropriate recollection if clinically indicated. 05/06/2024 8:28 AM [facility] Urine Urine specimen obtained by clean catch procedure / Unknown Non-blood Collection / Unknown 05/04/2024 7:00 AM EST 05/04/2024 11:36 AM EST us Leatha Cantu MD LAB MICROBIOLOGY - GENER AL ORDERABLES Final Result [facility] [address] [place] [address], [place] [phone] documented in this encounter Visit Diagnoses Diagnosis Dysuria documented in this encounter Care Teams Casting House Laborer Relationship Specialty Start Date End Date Leatha Cantu MD [address] [place] [id number] PCP - General Family Medicine 05/04/24 documented as of this encounter
--- OUTSIDE RECORDS SUMMARY | 2024-11-29 22:12 | XMS_ITS | Encounter Summary ---
Author Organization [employer] Address [address] [place] [address] Care Team Providers Care Hackler Doll Wigs Name Role Phone Leatha Cantu MD Primary Care Provider + Encounter Details Date Type Department Care Team (Late st Contact Info) Description 08/13/[address] [facility] - Main Lab 299 [facility] [place] [address] Leatha Cantu MD [address] [facility] 1 [place] [address] Urinary tract infection, site not specified Social [...] Diagnosis Comments URINALYSIS WITH REFLEX MICROSCOPIC Routine 08/12/2024 3:30 AM EDT Urinary tract infection, site not specified URINALYSIS WITH REFLEX MICROSCOPIC Routine 08/12/2024 3:30 AM EDT Urinary tract infection, site not specified CULTURE URINE Routine 08/12/2024 3:30 AM EDT Urinary tract infection, site not specified documented in this encounter Results * (ABNORMAL) Urinalysis with reflex microscopic (08/12/2024 3:30 AM EDT) Specific [place] Urine 1.015 1.003 - 1.030 LAB URINALYSIS - AUTOMATED METHOD 08/13/2024 9:[address] [facility] pH, Urine 6.0 5.0 - 8.0 pH LAB URINALYSIS - AUTOMATED METHOD 08/13/2024 9:08 AM [facility] Leukocytes, Urine Small(A) Negative LAB URINALYSIS - AUTOMATED METHOD 08/13/2024 9:08 AM [facility] Nitrite, Urine Negative Negative LAB URINALYSIS - AUTOMATED METHOD 08/13/2024 9:08 AM [facility] Protein, Urine Negative <=Trace mg/dL LAB URINALYSIS - AUTOMATED METHOD 08/13/2024 9:08 AM [facility] Glucose, Urine Negative Negative mg/dL LAB URINALYSIS - AUTOMATED METHOD 08/13/2024 9:08 AM [facility] Ketones, Urine Negative Negative mg/dL LAB URINALYSIS - AUTOMATED METHOD 08/13/2024 9:08 AM [facility] Urobilinogen, Urine 0.2 0.2 - 1.0 mg/dL LAB URINALYSIS - AUTOMATED METHOD 08/13/2024 9:08 AM [facility] Bilirubin, Urine Negative Negative LAB URINALYSIS - AUTOMATED METHOD 08/13/2024 9:08 AM [facility] Blood, Urine Negative Negative LAB URINALYSIS - AUTOMATED METHOD 08/13/2024 9:08 AM [facility] RBC, Urine 3.6 0 - 4 /HPF LAB URINALYSIS - AUTOMATED METHOD 08/13/2024 9:08 AM [facility] WBC, Urine 5.4(H) 0 - 4 /HPF LAB URINALYSIS - AUTOMATED METHOD 08/13/2024 9:08 AM [facility] Squamous Epithelial, Urine 59 0 - 60 /LPF LAB URINALYSIS - AUTOMATED METHOD 08/13/2024 9:08 AM [facility] Bacteria, Urine Negative Negative /HPF LAB URINALYSIS - AUTOMATED METHOD 08/13/2024 9:[address] [facility] Hyaline Casts, Urine 1.6 0 - 3 /LPF LAB URINALYSIS - AUTOMATED METHOD 08/13/2024 9:[address] [facility] Urine Urine specimen obtained by clean catch procedure / Unknown 08/12/2024 3:30 AM EDT 08/13/2024 8:33 AM EDT us Leatha Cantu MD LAB URINE ORDERABLES Fin al Result Performing Organization Address [facility]/ZIP Co de Phone Number [facility] [address] [place] [address], [place] [phone] * Culture urine (08/12/2024 3:30 AM EDT) Culture, Urine 50,000-99,000 CFU/mL Mixed bacterial morphotypes present suggestive of possible contamination during collection. Suggest appropriate recollection if clinically indicated. 08/14/2024 9:[address] [facility] Urine Urine specimen obtained by clean catch procedure / Unknown 08/12/2024 3:30 AM EDT 08/13/2024 8:33 AM EDT us Leatha Cantu MD LAB MICROBIOLOGY - GENER AL ORDERABLES Final Result Performing Organization Address [facility]/ZIP Co de Phone Number [facility] [address] [place] [address], [place] [phone] documented in this encounter Visit Diagnoses Diagnosis Urinary tract infection, site not specified documented in this encounter Care Teams Hackler Doll Wigs Relationship Specialty Start Date End Date Leatha Cantu MD [address] [place] [id number] PCP - General Family Medicine 05/04/24 documented as of this encounter
--- OUTSIDE RECORDS SUMMARY | 2024-11-29 22:12 | XMS_ITS | Encounter Summary ---
Author Organization [employer] Address [address] [place] [address] Care Team Providers Care Reserve Operator Name Role Phone Leatha Cantu MD Primary Care Provider + Encounter Details Date Type Department Care Team (Late st Contact Info) Description 08/16/2024 Lab Requisition [facility] - Main Lab 299 [facility] [place] [address] Leatha Cantu MD [address] [address] Chronic kidney disease, unspecified Social History Tobacco [...] LAB CHEMISTRY METHOD 08/17/2024 2:06 PM EDT [facility] Potassium 4.1 3.5 - 5.5 mmol/L LAB CHEMISTRY METHOD 08/17/2024 2:06 PM T [facility] Chloride 102 96 - 110 mmol/L LAB CHEMISTRY METHOD 08/17/2024 2:06 PM [facility] CO2 25 21 - 32 mmol/L LAB CHEMISTRY METHOD 08/17/2024 2:06 PM EDT [facility] Anion Gap 8 3 - 11 LAB CHEMISTRY METHOD 08/17/2024 2:06 PM T [facility] Glucose 91 70 - 100 mg/dL LAB CHEMISTRY METHOD 08/17/2024 2:06 PM T [facility] BUN 16 5 - 25 mg/dL LAB CHEMISTRY METHOD 08/17/2024 2:06 PM EDT [facility] Creatinine 0.92 0.50 - 1.10 mg/dL LAB CHEMISTRY METHOD 08/17/2024 2:06 PM T [facility] eGFR 60 >=60 mL/min/1. 73m2 LAB CHEMISTRY METHOD 08/17/2024 2:06 PM T [facility] Comment:Calculation based on the Chronic Kidney Disease Epidemiology Collaboration (CKD-EPI) equation refit without adjustment for race. BUN/Creatinine Ratio 17.4 LAB CHEMISTRY METHOD 08/17/2024 2:06 PM [facility] Calcium 9.2 8.5 - 10.5 mg/dL LAB CHEMISTRY METHOD 08/17/2024 2:06 PM [facility] Blood Venous blood specimen / Unknown Venipuncture / Unknown 08/17/2024 10:50 AM EDT 08/17/2024 12:33 PM EDT us Leatha Cantu MD LAB BLOOD ORDERABLES Fin al Result [facility] [address] [place] [address], documented in this encounter Visit Diagnoses Diagnosis Chronic kidney disease, unspecified documented in this encounter Care Teams Reserve Operator Relationship Specialty Start Date End Date Leatha Cantu MD [address] [place] [phone] PCP - General Family Medicine 05/04/24 documented as of this encounter
--- OUTSIDE RECORDS SUMMARY | 2024-11-29 22:12 | XMS_ITS | Clinical Summary ---
Author Organization 299 [facility] Address [address] [place] [address] Phone Care Team Providers Care Wheel Loader Operator Name Role Phone Elder, Leatha Salas MD Primary Care Provider + Social History Tobacco Use Types Packs/Day Years Used Date Smoking Tobacco: Never Assessed Comments Unknown Sex and Gender Information Value Date Recorded Sex Assigned at Not on file Legal Sex Female 11:28 AM EST Gender Identity Not on file Sexual Orientation Not on file Plan of Treatment Health Maintenance Due Date Last Done Comments DTaP,Tdap,and Td Vaccines (1 - Tdap) 10/06/1954 Pneumococcal Vaccine: 50+ Years (1 of 2 - PCV) 10[birth year]06/1954 Zoster Vaccines (1 of 2) 10[birth year]06/1954 RSV Immunization Adult Patients (1 - 1-dose 75+ series) 10/06/2010 COVID-19 Vaccine (2 - Concepcion risk series) 02/10/2021 01/13/2021 Depression Screening 04/01/2024 Cholesterol Screening (Lipid Panel) 05/04/2024 Falls Risk Assessment 05/04/2024 Medicare Annual Wellness Visit 05/04/2024 Osteoporosis Screening (Bone Density Screening) 05/04/2024 Social Influencers of Health Screening 05/04/2024 Influenza Vaccine (#1) 2024 Hypertension/CHF/CAD Annual BMP Blood Test 08/17/2025 08/17/2024, 08/12/2024, 05/29/2024, Additional history exists HIB Vaccines Aged Out No longer eligi ble based on patient's age to complete this topic HPV Vaccines Aged Out No longer eligi ble based on patient's age to complete this topic Hepatitis A Vaccines Aged Out No long er eligible based on patient's age to complete this topic Hepatitis B Vaccines Aged Out No long er eligible based on patient's age to complete this topic IPV Vaccines Aged Out No longer eligi ble based on patient's age to complete this topic MMR Vaccines Aged Out No longer eligi ble based on patient's age to complete this topic Meningococcal ACWY Vaccine Aged Out N o longer eligible based on patient's age to complete this topic Meningococcal B Vaccine Aged Out No l onger eligible based on patient's age to complete this topic RSV Immunization Patients Under 20 months Aged Out No longer eligible based on patient's age to complete this topic Varicella Vaccines Aged Out No longer eligible based on patient's age to complete this topic Procedures Procedure Name Priority Date/Time Associated Diagnosis Comments BASIC METABOLIC PANEL Routine 08/17/2024 10:50 AM EDT Chronic kidney disease, unspecified from Last 3 Months or Most Recently Relevant to Health Maintenance Results * Basic metabolic panel (08/17/2024 10:50 AM EDT) Sodium 135 133 - 145 mmol/L LAB CHEMISTRY METHOD 08/17/2024 2:[address] [facility] Potassium 4.1 3.5 - 5.5 mmol/L LAB CHEMISTRY METHOD 08/17/2024 2:[address] [facility] Chloride 102 96 - 110 mmol/L LAB CHEMISTRY METHOD 08/17/2024 2:[address] [facility] CO2 25 21 - 32 mmol/L LAB CHEMISTRY METHOD 08/17/2024 2:[address] [facility] Anion Gap 8 3 - 11 LAB CHEMISTRY METHOD 08/17/2024 2:[address] [facility] Glucose 91 70 - 100 mg/dL LAB CHEMISTRY METHOD 08/17/2024 2:[address] [facility] BUN 16 5 - 25 mg/dL LAB CHEMISTRY METHOD 08/17/2024 2:[address] [facility] Creatinine 0.92 0.50 - 1.10 mg/dL LAB CHEMISTRY METHOD 08/17/2024 2:[address] [facility] eGFR 60 >=60 mL/min/1. 73m2 LAB CHEMISTRY METHOD 08/17/2024 2:[address] [facility] Comment:Calculation based on the Chronic Kidney Disease Epidemiology Collaboration (CKD-EPI) equation refit without adjustment for race. BUN/Creatinine Ratio 17.4 LAB CHEMISTRY METHOD 08/17/2024 2:06 PM EDT [facility] Calcium 9.2 8.5 - 10.5 mg/dL LAB CHEMISTRY METHOD 08/17/2024 2:06 PM EDT [facility] Blood Venous blood specimen / Unknown Venipuncture / Unknown 08/17/2024 10:50 AM EDT 08/17/2024 12:33 PM EDT us Leatha Cantu MD LAB BLOOD ORDERABLES Fin al Result [facility] [address] [place] [address], from Last 3 Months or Most Recently Relevant to Health Maintenance Insurance MEDICAID - [place] [facility] [employer] Care Teams Wheel Loader Operator Relationship Specialty Start Date End Date Leatha Cantu MD [address] [place] [address] PCP - General Family Medicine 05/04/24
--- OUTSIDE RECORDS SUMMARY | 2024-11-29 22:12 | XMS_ITS | Encounter Summary ---
Author Organization [facility] Address [address] [place] [address] Care Team Providers Care Classifier Tender Name Role Phone Leatha Cantu MD Primary Care Provider + Encounter Details Date Type Department Care Team (Late st Contact Info) Description 05/28/2024 Lab Requisition [facility] - Main Lab [address] [place] [address] Leatha Cantu MD [address] [id number] Other jail (current) drug therapy Social History Tobacco Use Types Packs/Day Years [...] Associated Diagnosis Comments COMPLETE BLOOD COUNT Routine 05/29/2024 5:36 AM EST Other power operator (current) drug therapy BASIC METABOLIC PANEL Routine 05/29/2024 5:36 AM EST Other power operator (current) drug therapy documented in this encounter Results * (ABNORMAL) Basic metabolic panel (05/29/2024 5:36 AM EST) Sodium 139 133 - 145 mmol/L LAB CHEMISTRY METHOD 05/29/2024 11:51 AM EST [facility] Potassium 4.6 3.5 - 5.5 mmol/L LAB CHEMISTRY METHOD 05/29/2024 11:51 AM EST [facility] Chloride 106 96 - 110 mmol/L LAB CHEMISTRY METHOD 05/29/2024 11:51 AM [facility] CO2 26 21 - 32 mmol/L LAB CHEMISTRY METHOD 05/29/2024 11:51 AM [facility] Anion Gap 7 3 - 11 LAB CHEMISTRY METHOD 05/29/2024 11:51 AM [facility] Glucose 85 70 - 100 mg/dL LAB CHEMISTRY METHOD 05/29/2024 11:51 AM [facility] BUN 18 5 - 25 mg/dL LAB CHEMISTRY METHOD 05/29/2024 11:51 AM [facility] Creatinine 1.11(H) 0.50 - 1.10 mg/dL LAB CHEMISTRY METHOD 05/29/2024 11:51 AM [facility] eGFR 48(L) >=60 mL/min/1. 73m2 LAB CHEMISTRY METHOD 05/29/2024 11:51 AM [facility] Comment:Calculation based on the Chronic Kidney Disease Epidemiology Collaboration (CKD-EPI) equation refit without adjustment for race. BUN/Creatinine Ratio 16.2 LAB CHEMISTRY METHOD 05/29/2024 11:51 AM [facility] Calcium 9.3 8.5 - 10.5 mg/dL LAB CHEMISTRY METHOD 05/29/2024 11:51 AM [facility] Blood Venous blood specimen / Unknown Venipuncture / Unknown 05/29/2024 5:36 AM EST 05/29/2024 10:11 AM EST us Leatha Cantu MD LAB BLOOD ORDERABLES Fin al Result [facility] [address] [place] [address], * (ABNORMAL) Complete blood count (05/29/2024 5:36 AM EST) WBC 5.8 4.8 - 10.8 K/mcL LAB HEMETOLOGY METHOD 05/29/2024 10:44 AM [facility] RBC 4.10 3.80 - 4.80 M/mcL LAB HEMETOLOGY METHOD 05/29/2024 10:44 AM [facility] Hemoglobin 11.4(L) 11.5 - 16.0 g/dL LAB HEMETOLOGY METHOD 05/29/2024 10:44 AM [facility] Hematocrit 35.3 35.0 - 47.0 % LAB HEMETOLOGY METHOD 05/29/2024 10:44 AM [facility] MCV 87.2 79.0 - 98.0 FL LAB HEMETOLOGY METHOD 05/29/2024 10:44 AM [facility] MCH 28.1 27.0 - 32.0 pcg LAB HEMETOLOGY METHOD 05/29/2024 10:44 AM [facility] MCHC 32.3 32.0 - 37.0 g/dL LAB HEMETOLOGY METHOD 05/29/2024 10:44 AM [facility] RDW 14.7 11.0 - 15.0 % LAB HEMETOLOGY METHOD 05/29/2024 10:44 AM [facility] Platelets 224 130 - 400 K/mcL LAB HEMETOLOGY METHOD 05/29/2024 10:44 AM [facility] MPV 11.4(H) 7.0 - 11.0 FL LAB HEMETOLOGY METHOD 05/29/2024 10:44 AM [facility] NRBC 0.0 <1.0 % LAB HEMETOLOGY METHOD 05/29/2024 10:44 AM [facility] NRBC Absolute 0.00 <0.10 K/mcL LAB HEMETOLOGY METHOD 05/29/2024 10:44 AM [facility] Blood Venous blood specimen / Unknown Venipuncture / Unknown 05/29/2024 5:36 AM EST 05/29/2024 10:11 AM EST us Leatha Cantu MD LAB BLOOD ORDERABLES Fin al Result [facility] ([facility] [address] [place] [address], documented in this encounter Visit Diagnoses Diagnosis Other power operator (current) drug therapy documented in this encounter Care Teams Classifier Tender Relationship Specialty Start Date End Date Leatha Cantu MD [address] [place] [id number] PCP - General Family Medicine 05/04/24 documented as of this encounter
--- OUTSIDE RECORDS SUMMARY | 2024-11-29 22:12 | XMS_ITS | Encounter Summary ---
Author Organization [facility] Address [address] [place] [address] Care Team Providers Care Bag Bleacher Name Role Phone Leatha Cantu MD Primary Care Provider + Encounter Details Date Type Department Care Team (Late st Contact Info) Description 05/11/2024 Lab Requisition [facility] - Main Lab [address] [facility] [place] [address] Leatha Cantu MD [address] [address] Urinary tract infection, site not specified Social [...] Associated Diagnosis Comments COMPLETE BLOOD COUNT Routine 05/11/2024 10:02 AM EST Urinary tract infection, site not specified BASIC METABOLIC PANEL Routine 05/11/2024 10:02 AM EST Urinary tract infection, site not specified documented in this encounter Results * (ABNORMAL) Basic metabolic panel (05/11/2024 10:02 AM EST) Sodium 134 133 - 145 mmol/L LAB CHEMISTRY METHOD 05/11/2024 1:49 PM EST [facility] Potassium 4.3 3.5 - 5.5 mmol/L LAB CHEMISTRY METHOD 05/11/2024 1:49 PM EST [facility] Chloride 100 96 - 110 mmol/L LAB CHEMISTRY METHOD 05/11/2024 1:49 PM [facility] CO2 29 21 - 32 mmol/L LAB CHEMISTRY METHOD 05/11/2024 1:49 PM [facility] Anion Gap 5 3 - 11 LAB CHEMISTRY METHOD 05/11/2024 1:49 PM [facility] Glucose 121(H) 70 - 100 mg/dL LAB CHEMISTRY METHOD 05/11/2024 1:49 PM [facility] BUN 22 5 - 25 mg/dL LAB CHEMISTRY METHOD 05/11/2024 1:49 PM [facility] Creatinine 1.19(H) 0.50 - 1.10 mg/dL LAB CHEMISTRY METHOD 05/11/2024 1:49 PM [facility] eGFR 44(L) >=60 mL/min/1. 73m2 LAB CHEMISTRY METHOD 05/11/2024 1:49 PM [facility] Comment:Calculation based on the Chronic Kidney Disease Epidemiology Collaboration (CKD-EPI) equation refit without adjustment for race. BUN/Creatinine Ratio 18.5 LAB CHEMISTRY METHOD 05/11/2024 1:49 PM [facility] Calcium 9.6 8.5 - 10.5 mg/dL LAB CHEMISTRY METHOD 05/11/2024 1:49 PM [facility] Blood Venous blood specimen / Unknown Venipuncture / Unknown 05/11/2024 10:02 AM EST 05/11/2024 11:38 AM EST us Leatha Cantu MD LAB BLOOD ORDERABLES Fin al Result [facility] [address] [place] [address], * (ABNORMAL) Complete blood count (05/11/2024 10:02 AM EST) WBC 7.0 4.8 - 10.8 K/mcL LAB HEMETOLOGY METHOD 05/11/2024 1:42 PM [facility] RBC 4.00 3.80 - 4.80 M/mcL LAB HEMETOLOGY METHOD 05/11/2024 1:42 PM [facility] Hemoglobin 11.1(L) 11.5 - 16.0 g/dL LAB HEMETOLOGY METHOD 05/11/2024 1:42 PM [facility] Hematocrit 35.2 35.0 - 47.0 % LAB HEMETOLOGY METHOD 05/11/2024 1:42 PM [facility] MCV 87.1 79.0 - 98.0 FL LAB HEMETOLOGY METHOD 05/11/2024 1:42 PM [facility] MCH 27.5 27.0 - 32.0 pcg LAB HEMETOLOGY METHOD 05/11/2024 1:42 PM [facility] MCHC 31.5(L) 32.0 - 37.0 g/dL LAB HEMETOLOGY METHOD 05/11/2024 1:42 PM [facility] RDW 14.8 11.0 - 15.0 % LAB HEMETOLOGY METHOD 05/11/2024 1:42 PM [facility] Platelets 243 130 - 400 K/mcL LAB HEMETOLOGY METHOD 05/11/2024 1:42 PM [facility] MPV 10.7 7.0 - 11.0 FL LAB HEMETOLOGY METHOD 05/11/2024 1:42 PM [facility] NRBC 0.0 <1.0 % LAB HEMETOLOGY METHOD 05/11/2024 1:42 PM [facility] NRBC Absolute 0.00 <0.10 K/mcL LAB HEMETOLOGY METHOD 05/11/2024 1:42 PM [facility] Blood Venous blood specimen / Unknown Venipuncture / Unknown 05/11/2024 10:02 AM EST 05/11/2024 11:38 AM EST us Leatha Cantu MD LAB BLOOD ORDERABLES Fin al Result [facility] ([facility]) [facility] [address] [place] [address], documented in this encounter Visit Diagnoses Diagnosis Urinary tract infection, site not specified documented in this encounter Care Teams Bag Bleacher Relationship Specialty Start Date End Date Leatha Cantu MD [address] [place] [id number] PCP - General Family Medicine 05/04/24 documented as of this encounter
[2024-11-29 22:16] LABS: Alanine Aminotransferase 53 U/L (0-31); Albumin Level 3.0 g/dL (3.5-5.0); Alkaline Phosphatase 75 U/L (39-117); Anion Gap 9 (12-20); Aspartate Amino Transferase 88 U/L (5-31); Blood Urea Nitrogen 20 mg/dL (9-16); Calcium 8.2 mg/dL (8.4-10.2); Carbon Dioxide 23 mmol/L (22-29); Chloride 109 mmol/L (96-108); Creatinine Clr Calc Pharmacy 31.3; Estimated Glomerular Filt Rate 59; Potassium 3.4 mmol/L (3.3-5.1); Sodium 138 mmol/L (135-145); Total Protein 5.5 g/dL (6.5-8.0)
[2024-11-29 22:35] VITALS: BP 142/63; PULSE 95; RESP 14; O2SAT 94
--- NOTE | 2024-11-29 22:39 | PHA.MEDREC ---
Pharmacy Consult ? Medication Reconciliation Pharmacy has completed the medication reconciliation. Utilized list from [facility] and [facility]
[2024-11-29 22:41] LABS: Ammonia 24 umol/L (13-55)
[2024-11-29 22:59] VITALS: BP 123/62; PULSE 93; O2SAT 95
[2024-11-30] VITALS (10 sets, daily range): BP systolic 98–185; BP diastolic 45–76; PULSE 62–85; RESP 12–18; TEMP 36.7–37.2; O2SAT 96–100
--- NOTE | 2024-11-30 | ECG_ITS ---
Test Reason : PERICARDIAL EFFUSION Blood Pressure : */* mmHG Vent. Rate : 81 BPM Atrial Rate : 81 BPM P-R Int : 148 ms QRS Dur : 108 ms QT Int : 426 ms P-R-T Axes : -13 39 -13 degrees QTcB Int : 494 ms Poor data quality Undetermined rhythm Low voltage QRS Right bundle branch block Possible Inferior infarct , age undetermined Abnormal ECG When compared with ECG of 17-Sep-2024 13:04, Poor data quality in current ECG precludes serial comparison Borderline criteria for Inferior infarct are now Present Referred By: Shannan Reyna Electronically Signed By: RENEE DAVALOS MD
[2024-11-30 00:44] LABS: Appearance Urine Cloudy; Glucose Urine UA Negative (Negative); PH 5.5 (5.0-9.0); Specific Gravity - Urine 1.015 (1.005-1.025); UMIC TRIGGER UA YES
[2024-11-30] MEDS: iohexoL 350 MG/ML 100 ML INFUS..BTL 85 ML IV (01:11)
--- NOTE | 2024-11-30 01:42 | PC.NURSE ---
991 mL previously bladder scanned. Garcia placed
[2024-11-30] MEDS: Lactated Ringers 1,000 ML 999 ML IV (02:33)
[2024-11-30 02:47] LABS: CDiff Gene PCR POSITIVE (Negative)
--- NOTE | 2024-11-30 03:10 | P.HPHOSP_ITS ---
History of Present Illness Date of Service: 11/30/24 Attending physician on admission: Vikash Duarte Chief Complaint: colitis Pt unable to provide HPI, PMH, PSH due to dementia, delirium. Per nursing assessment and ED provider's documentation pt is an 89 yo female with PMH HTN, Dementia, recurring UTI, CTS, osteoporosis, Breast CA, CKD 3a, and anemia was BIBA from rehab facility with AMS from baseline noting hx of dementia after 4 days of persistent diarrhea and poor po intake. Pt is a DNR DNI per records. Per EMS, at time of arrival, BG 124 mg/dL, BP 124/78, Pulse 91, R 16 and POX 96% on oxygen. Pt eventually experienced hypoxia and hypotension (lowest systolic 98) while in the ED being evaluated. Pt was placed on NC and received IVF. CXR negative for acute findings. Pt was last admitted in August 2024 for UTI, PNA with lethargy. Work up in the ED noted CT head negative for acute findings noting AMS, pancolitis via ABD CT scan with evidence of UTI via UA with moderate LE, >50 WBcs and 4+ bacteria. In addition, larger pericardial effusion, now 15mm is present compared to previous CT finding of small pericardial effusion. Pt is not currently on blood thinners. Bladder scan was done in the ED and pt had over 900 ccs of urine in bladder and hsaw was placed. Creatinine Clearance 31, renal fx above pt's baseline. VBG 7.40, 37, 74, 23 and 94% on 2L. Ammonia WNL, ALT slightly elevated 53. Pt has no leukocytosis, low grade temp max 99. LA also normal 0.9. CRP pending. Pt was started on IV ceftriaxone for UTI/ colitis. Stool panel/CDIFF pending. Urine culture and blood cultures also pending. Pt's HCP is Rishi Flood, (attempted to call to update, no answer) Review of Systems 2 Review of Systems: Yes Unobtainable due to mental condition and Unobtainable due to mental status [facility] Medical History (Updated 11/30/24 @ 04:24 by Shannan Reyna, ELEAZAR-) Recurrent UTI Chronic kidney disease (CKD) stage G3a/A1, moderately decreased glomerular filtration rate (GFR) between 45-59 mL/min/1.73 square meter and albuminuria creatinine ratio less than 30 mg/g Carpal tunnel syndrome History of breast cancer Anemia Hypertension Cognitive capacity: sleeping deeply, delirium suspected Functional capacity: bed bound Patient : No Family History Father No problems noted. Mother No problems noted. Surgical History History of carpal tunnel release History of cataract surgery History of cholecystectomy Social History Household Members: Other Housing: Residential Do you presently have visiting nurse or other home services: No Unable to assess alcohol history related to: Unknown Alcohol intake: never Patient Tobacco Use Status: Tobacco use Unknown Advance Directives Date on File: 08/09/20 service: No Current occupational status: disabled Meds Allergies Allergy/AdvReac Type Severity Reaction Status Date / Time alendronate sodium (From Allergy Unknown MOUTH Verified 11/29/24 20:24 FOSAMAX) BLEEDING - IRRITATION cholecalciferol (vitamin D3) Allergy Unknown muscle Verified 11/29/24 20:24 (Vitamin D3) pains fish oil Allergy Unknown Unknown Verified 11/29/24 20:24 ALL VITAMINS Allergy Mild MUSCLE Uncoded 11/29/24 20:24 PAINS Active Medications: Current Medications Lactated Ringer's (Lr) 1,000 mls @ 999 mls/hr IV .Q1H1M CHIKI Stop: 11/30/24 03:30 Last Admin: 11/30/24 02:33 Dose: 999 mls/hr Home Medications ?Medication ?Instructions ?Recorded ?Confirmed ?Last Taken ?Type cholecalciferol (vitamin D3) 25 25 mcg PO DAILY 11/29/24 Unknown History mcg (1,000 unit) tablet (Vitamin D3) escitalopram oxalate 5 mg tablet 1 tab PO DAILY 11/29/24 Unknown History acetaminophen 325 mg tablet 650 mg PO Q6H PRN Pain (Sc joe 09/17/24 11/29/24 Unknown History Score 1-3) bisacodyl 10 mg rectal suppository 10 mg MA Q24H PRN C onstipation 09/17/24 11/29/24 Unknown History gabapentin 100 mg capsule 100 mg PO BID 09/17/2411/29 Unknown History guaifenesin 100 mg/5 mL oral liquid 200 mg PO Q24H PRN Cough 09/17/24 11/29/24 Unknown History magnesium hydroxide 400 mg/5 mL 30 ml PO Q24H PRN Cons tipation 09/17/24 11/29/24 Unknown History oral suspension (Milk of Magnesia) menthol 5 % topical patch 1 patch topical Q24H PRN Sujata n 09/17/24 11/29/24 Unknown History (Scale Score 1-3) risperidone 1 mg/mL oral solution 0.125 mg PO DAILY MA N Agitation 11/29/24 11/29/24 Unknown History risperidone 1 mg/mL oral solution 0.125 mg PO TID 11/0111/29/24 Unknown History Physical Exam 2 Vital Signs and Narrative: Vital Signs: Last Vital Signs Temp 99 F 11/30/24 01:17 Pulse 84 11/30/24 01:17 Resp 15 11/30/24 01:17 BP 120/64 11/30/24 01:17 Pulse Ox 100 11/30/24 01:17 O2 Del Method Nasal Cannula 11/30/24 01:17 O2 Flow Rate 2 11/30/24 01:17 BMI result Body Mass Index 17.7 sleeping, unable to provide HPI, ROS, PMH, pSH Neuro: unable to assess EYES: PERRLA, scerla nonicteric ENT: oral mucosa moist Cardiac: S1 S2 RRR, no murmur, no JVD, no edema in Lower ext Pulmonary: lungs diminshed B Abdominal: BS active in all 4 quadrants, no guarding, tenderness, rebounding MSK:unable to assess : shaw in place due to retentions, patent Extremities: no edema in lower extremities, PT and DP pulses palpable +2 Psych: unable to assess Skin: intact, unable to check backside Results Labs 11/29/24 21:46 11/29/24 21:46 Labs: Laboratory Results - last 24 hr 11/29/24 11/29/24 11/29/24 21:46 21:54 22:06 MCV 84.8 MCH 28.1 MCHC 33.1 RDW 14.8 Plt Count 167 D MPV 10.6 Immature Gran % (Auto) 0.3 Neut % (Auto) 76.2 H Lymph % (Auto) 13.6 L [place] % (Auto) 9.1 Eos % (Auto) 0.5 Baso % (Auto) 0.3 Lymph # (Auto) 1.3 [place] # (Auto) 0.8 Eos # (Auto) 0.1 Baso # (Auto) 0.0 Abs Immat Gran (auto) 0.03 Absolute Neuts (auto) 7.0 Absolute Nucleated RBC 0.000 Nucleated RBC % (auto) 0.0 VBG pH 7.40 VBG pCO2 37 VBG pO2 74 VBG HCO3 23 VBG O2 Saturation 94.0 VBG Base Excess -0.5 Anion Gap 9 L Estim Creat Clear Calc 31.3 Estimated GFR 59 Random Glucose 100 Lactic Acid 0.9 Calcium 8.2 L D Total Bilirubin 0.6 AST 88 H ALT 53 H Alkaline Phosphatase 75 Ammonia 24 Total Protein 5.5 L Albumin 3.0 L TSH 1.97 Urine Color Urine Appearance Urine pH Ur Specific [place] Urine Protein Urine Glucose (UA) Urine Ketones Urine Blood Urine Nitrite Ur Leukocyte Esterase Urine RBC Urine WBC Ur Squamous Epith Cells Urine Bacteria Hyaline Casts C. difficile Tox B Gene 11/30/24 11/30/24 00:38 01:44 MCV MCH MCHC RDW Plt Count MPV Immature Gran % (Auto) Neut % (Auto) Lymph % (Auto) [place] % (Auto) Eos % (Auto) Baso % (Auto) Lymph # (Auto) [place] # (Auto) Eos # (Auto) Baso # (Auto) Abs Immat Gran (auto) Absolute Neuts (auto) Absolute Nucleated RBC Nucleated RBC % (auto) VBG pH VBG pCO2 VBG pO2 VBG HCO3 VBG O2 Saturation VBG Base Excess Anion Gap Estim Creat Clear Calc Estimated GFR Random Glucose Lactic Acid Calcium Total Bilirubin AST ALT Alkaline Phosphatase Ammonia Total Protein Albumin TSH Urine Color Yellow Urine Appearance Cloudy Urine pH 5.5 Ur Specific [place] 1.015 Urine Protein Negative Urine Glucose (UA) Negative Urine Ketones Negative Urine Blood Negative Urine Nitrite Negative Ur Leukocyte Esterase Moderate (2+) H Urine RBC 0-2 Urine WBC >50 H Ur Squamous Epith Cells 0-2 Urine Bacteria 4+ Hyaline Casts 0-2 C. difficile Tox B Gene POSITIVE A* Imaging Radiologist's Impressions: CT ABD pelvis IMPRESSION: 1. Images degraded by patient motion. 2. Spencer colitis with additional involvement of the rectum. This also extends into the distal ileum suggesting infectious or inflammatory enterocolitis. Inflammatory bowel disease could be considered. 3. Nonspecific biliary dilation. Correlation with the patient's bilirubin level suggested. This may simply be related to postcholecystectomy ectasia. HEAD CT negative for acute findings CXR negative for acute findings Assessment and Plan (1) Colitis: Status: Acute (2) Acute UTI: Status: Acute Plan Pt unable to provide HPI, PMH, PSH due to dementia, delirium. Per nursing assessment and ED provider's documentation pt is an 89 yo female with PMH HTN, Dementia, recurring UTI, CTS, osteoporosis, Breast CA, CKD 3a, and anemia was BIBA from rehab facility with AMS from baseline noting hx of dementia after 4 days of persistent diarrhea and poor po intake. Pt is a DNR DNI per records. Per EMS, at time of arrival, BG 124 mg/dL, BP 124/78, Pulse 91, R 16 and POX 96% on oxygen. Pt eventually experienced hypoxia and hypotension (lowest systolic 98) while in the ED being evaluated. Pt was placed on NC and received IVF. Pt was last admitted in August 2024 for UTI, PNA with lethargy. Vitals have stabilized and pt is being admitted with the followjng medical problems: Acute Hypoxic Respiratory failure with Hypotension/ Sepsis Sepsis secondary to developing hypoxia and hypotension in the ED, pt did not meet SIRS criteria and treatment was started Oxygen via NC, VBG reassuring CXR negative for acute findings Continuous pulse oximetry Max temp 99.2 Hydration provided in ED, hourly rate continues, BP improved BC, urine culture pending Stool panel pending LA normal No leukocytosis No tachypnea or tachycardia noted Pancolitis Pt on cefepime (renal dosed) and flagyl Stool panel pending, CDIFF positive for GENE pcr, neg for toxin but results suggest colonization, need for contact precautions to continue No po vanco as toxin is negative Hydrocortisone MA daily for proctitis Gi consult if no improvement with tx Continue IV hydration Blood cultures pending Acute UTI/ recurring UTI/ acute urinary retention with delrium and known dementia Pt currently on Cefepime urine culture pending IVF continue Shaw placed for urinary retention (900ccs) Pt able to rest comfortably currently with known hx of Dementia, no medication required for behavioral changes CT head negative for acute findings Ammonia level WNL NPO until back to baseline, aspiration precautions in place Perciardial effusion, now moderate Previous CT done 09/23 noted small pericardial effusion, now moderate (15mm) Pt is not on blood thinners ESR CRP pending ECHO ordered ECG pending Telemetry Anemia, chronic H/H down from August 2024, 8.5/25.7 from 10.8/31.9 Check stool for occult No indication for transfusion currently May be due to CKD, iron deficiency, will check iron levels, erythropoeitin level, reticulocyte level Protonix IV CKD Stage 3a Renal fx this admission improved from previous admission in August 2024 Avoid hypotensipn, nephrotoxic medications Shaw in place for retention as above, I/Os Q8H BMP daily DVT prophylaxis: holding secondary to pericaridal effusion, anemia MED REC PENDING DNR DNI Quality Stroke Does the patient have a stroke diagnosis?: No Reason for No Anti-thrombotic by Day Two: Contraindicated (anemia, pericardial effusion ) VTE Prior VTE?: No VTE Risk Level:: Medical - moderate - high VTE Device Contraindication: N/A - Device Ordered VTE Drug Contraindication: N/A - Med Ordered
[2024-11-30 03:37] LABS: CDiff Toxin Negative (Negative)
[2024-11-30 03:38] LABS: CDIFF Internal ctrl Dots and bkg OK (V)
[2024-11-30] MEDS: metroNIDAZOLE/NS 500 MG/100 ML PIGGYBACK 100 MG IV ×3 (05:07→20:29)
[2024-11-30 05:34] LABS: Hematocrit 28.4 % (37.0-47.0); Hemoglobin 9.2 g/dl (12.0-16.0); Imm Gran Abs Auto 0.03 X10*3/uL (0.00-0.03); Imm Gran Pct Auto 0.4 % (0.0-0.4); Lymphocytes Absolute Auto 1.9 X10*3/uL (1.2-4.9); MANUAL DIFF FLAG SCAN; Mean Corpuscular HGB Conc 32.4 g/dl (31.0-35.0); Mean Corpuscular Hemoglobin 28.0 pg (27.0-33.0); Mean Corpuscular Volume 86.6 fL (80.0-98.0); NRBC Abs Auto 0.000 X10*3/uL (0.0-0.012); NRBC Pct Auto 0.0 /100WBC (0.0-0.2); PLT CLUMP 1; Red Blood Count 3.28 X10*6/uL (4.20-5.50); SCAN SMEAR FLAG 1
--- NOTE | 2024-11-30 05:36 | PC.NURSE ---
ekg sent to [facility]
[2024-11-30 05:50] LABS: White Blood Count 7.7 X10*3/uL (4.8-10.8)
[2024-11-30 05:51] LABS: Platelet Count 133 X10*3/uL (160-400)
[2024-11-30 05:53] LABS: Reticulocytes Absolute 0.040 X10*6/uL (0.026-0.095)
[2024-11-30 06:01] LABS: Albumin Level 2.7 g/dL (3.5-5.0); Alkaline Phosphatase 68 U/L (39-117); Anion Gap 12 (12-20); Aspartate Amino Transferase 58 U/L (5-31); Blood Urea Nitrogen 15 mg/dL (9-16); Calcium 8.0 mg/dL (8.4-10.2); Carbon Dioxide 19 mmol/L (22-29); Chloride 113 mmol/L (96-108); Creatinine Clr Calc Pharmacy 33.5; Estimated Glomerular Filt Rate > 60; Potassium 3.8 mmol/L (3.3-5.1); Sodium 140 mmol/L (135-145); Total Protein 5.1 g/dL (6.5-8.0)
--- NOTE | 2024-11-30 06:04 | PC.NURSE ---
approx. 4 incontinent episodes of light brown, malodorous, loose stool. sent to lab. +c.diff. precautions in place
[2024-11-30 06:06] LABS: Alanine Aminotransferase 49 U/L (0-31)
--- NOTE | 2024-11-30 06:06 | PC.NURSE ---
now, while asleep pt desatted to 70% SPO2 on 1L NC. similar to reported event at facility (see triage note). supplemental O2 bumped to pt awoken and coached to take some deep breaths, improved quickly to 96%
[2024-11-30 06:26] LABS: Iron 86 mcg/dL (30-160); Percent Iron Saturation 48 % (15-50); Total Iron Binding Capacity 179 mcg/dL (228-428); Unsaturated Iron Binding 93 ug/dL
--- NOTE | 2024-11-30 06:40 | PM.EVENT ---
Event Note Date of Service: 11/30/24 Event Note: Report receive from nursing that pt is experiencing Apnea and drop in POX, but POX returns to normal without prolonged hypoxia....stat ABG ordered. BMP noted CO2 of 19. Echo pending. Pt remains on tele and continuous Pulse Ox. Unclear if pt will need nonmechanical ventilation. Pt is DNR DNI only. Nursing instructed to notify attending with ABG results as this is change of shift. Vitals are otherwise stable, No known hx of HOLLEY per record. Time Spent With Patient Time: Total time managing care of this patient today ____ minutes.
--- NOTE | 2024-11-30 07:00 | CA_ITS ---
Transthoracic Echocardiogram Patient (Last, First, Middle): Agnes Nuñez D Gender: Female Date of : 1935 Age: 89 Procedure Date: 11/30/2024 Procedure Type: Transthoracic Echocardiogram Location: ER Height: 162.56 cm Weight: 46.72 kg BSA: 1.48 m2 Heart Rate: bpm BP: 135 / 57 mmHg Septic Tank Servicer: TO Referring MD: Shannan Reyna [facility] Slime Plant Operator: Nicola Arreola MD Symptoms: moderate pericardial effusion Study Quality: Adequate ECG Rhythm: Sinus Conclusions: - 1. Normal LV ejection fraction of 60 65% with impaired relaxation filling pattern 2. Trace aortic regurgitation 3. Normal LV systolic pressure 4. Small circumferential pericardial effusion, more moderate near the right atrium with no evidence of tamponade Findings Left Ventricle Normal left ventricular size, thickness, and systolic function. The visually estimated ejection fraction is between 60-65%. Spectral Doppler is indicative of an impaired relaxation filling pattern. E/E prime ratio is between 8 and 15 consistent with indeterminate filling pressures. Right Ventricle Normal right ventricular cavity size and systolic function. Atria Both atria are normal in size. Interatrial shunt cannot be excluded. Aortic Valve Normal aortic valve structure and function. There is no aortic valve stenosis. There is trace (trivial) aortic valve regurgitation. Mitral Valve Normal mitral valve structure and function. There is mild mitral annular calcification. There is trace mitral valve regurgitation. There is no mitral valve stenosis. Pulmonic Valve The pulmonic valve was not well visualized. Tricuspid Valve Normal tricuspid valve structure. There is mild tricuspid valve regurgitation. The right ventricular systolic pressure is normal. The right ventricular systolic pressure is 24 mmHg. Normal right atrial pressure. There is no evidence of pulmonary hypertension. Great Vessels All visible segments of the aorta are normal in size. The pulmonary artery was not well visualized. Venous The inferior vena cava is normal in size. Pericardium/Pleural There is a small circumferential pericardial effusion. There are no definitive echocardiographic findings of tamponade physiology. The inferior vena cava is normal in size with preserved respiratory variability. More moderate near the right atrium on subcostal views Prior Study Comparison No prior study available for comparison. Measurements 2D Linear Measurements IVSd: 0.70 0.6-0.9/0.6-1.0 cm LVIDd: 3.66 3.9-5.3/4.2-5.9 cm LVIDd Index: 2.47 2.4-3.2/2.2-3.1 cm/m2 LVIDs: 2.45 2.0-3.6 cm LVPWd: 0.73 0.7-1.1 cm LA Diam: 3.00 2.7-3.8/3.0-4.0 cm LAIDs Index: 2.03 1.5-2.3 cm/m2 LV Mass: 86.32 67-162/88-224 g LV Mass Index: 58.32 43-95/49-115 g/m2 LVOT Diam: 1.80 3.0+(-)1.3 cm 2D Systolic Function EF 4C: 65.00 >55% EF 2C: 63.70 >55% EF BiP: 64.00 >55% Mitral Valve MV Pk E: 0.99 MV PK A: 1.17 MV Decel Time: 162.00 E/A: 0.80 E'Lateral: 6.64 E'Medial: 5.55 E/E' Med: 17.80 E/E' Lat: 14.90 PHT: 47.00 MVA PHT: 4.68 Decel [place]: 6.11 Aortic Valve AoV Pk Jalen: 1.52 AoV Mn Jalen: 0.97 AoV VTI: 0.32 AoV Pk Grad: 9.00 Aov Mn Grad: 4.00 DOM Cont.VTI: 1.89 LVOT LVOT Pk Jalen: 1.06 LVOT Mn Jalen: 0.76 LVOT VTI: 0.24 LVOT Pk Grad: 4.00 LVOT Mn Grad: 3.00 LVOT Diam: 1.80 LVOT Area: 2.54 Diastolic Function MV Pk E: 0.99 MV Pk A: 1.17 E/A: 0.80 E'Medial: 5.55 E/E' Med: 17.80 E' Laterial: 6.64 E/E' Lat: 14.90 Right Ventricle TAPSE (mm): 17.90 TVS' Jalen: 10.20 Tricuspid Valve TR Pk Jalen: 2.31 TR Pk Grad: 21.00 RA Press: 3.00 RVSP: 24.00 Great Vessels Aorta Sinus of Valsalva: 2.56 2.0-3.5 cm Ao Asc: 3.10 2.1-3.4 cm Updated in Other Vendor System with Status of Final Nicola Arreola MD electronically signed on 12/01/2024 12:28:27 PM with status of Final
[2024-11-30 07:16] LABS: ABG HCO3 21 mmol/L (22-26); ABG O2 % Saturation 100.0 %
--- NOTE | 2024-11-30 07:23 | PC.NURSE ---
pt is resting with her eyes shut, pt is not oriented at all but will henrik and grone to painful tactile and at times to name call-which appears to be her baseline, respirations even and unlabored, ls slightly diminished in the bases, currently sating anywhere from 96-100% on the 2liters pt typically is not oxygen dependent, Garcia in place and draining well of light yellow urine about 200ml at this time. vs stable and ns on the monitor. pt is npo for aspirations precautions
[2024-11-30 07:24] LABS: Glucose, Whole Blood 66 mg/dL (60-115)
--- NOTE | 2024-11-30 07:36 | PC.NURSE ---
tigered the hospitalist about the pt's poc being 66, pt is npo and currently there is no orders for oral ir iv glucose
--- NOTE | 2024-11-30 07:42 | HO.PM.IMPN ---
Subjective Subjective Date of Service: 11/30/24 Interval History: Patient appears to be confused I spoke to Donny Villa (Healthcare proxy) and he confirmed she is DNR/DNI EKG was concerning and hence TTE, troponin was ordered, awaiting TTE official read, troponin was 18, Patient is unable to provide history based on her baseline medical and psychological condition Hence Healthcare proxy is being consulted for every medical management Review of Systems Review of Systems: Yes Unobtainable due to mental status (baseline ) Physical Exam Exam: Exam: General: AOx0, mild distress Resp: CTA bilaterally CVS: S1, S2, RRR GI: Generalized tenderness noted Skin: Dry, skin turgor decreased Psych: A&O times 0 Healthcare proxy Donny consulted Vital Signs: Vital Signs: Last Vital Signs Temp 98.6 F 11/30/24 07:14 Pulse 70 11/30/24 07:14 Resp 16 11/30/24 07:14 BP 156/60 H 11/30/24 07:14 Pulse Ox 100 11/30/24 07:14 O2 Del Method Nasal Cannula 11/30/24 07:14 O2 Flow Rate 2 11/30/24 07:14 BMI result Body Mass Index 17.7 Objective Data Active Medications Acetaminophen (Acetaminophen 325 Mg Tablet) 650 mg PO Q6H PRN PRN Reason: Pain, Mild 1-3,fever,headache Albuterol/Ipratropium (Albuterol/Iprat 2.5/0.5mg 3 Ml Ampul.Neb) 3 ml INHALE Q4H PRN PRN Reason: Shortness of Breath/Wheezing Calcium Carbonate (Calcium Carbonate 750 Mg Tab.Chew) 750 mg PO Q4H PRN PRN Reason: Heartburn Enoxaparin Sodium (Enoxaparin Sodium 30 Mg/0.3 Ml Syringe) 30 mg SUBCUT Q24H [facility] Last Admin: 11/30/24 05:07 Dose: 30 mg Documented By: MAHI Hydrocortisone (Hydrocortisone 100 Mg/60 Ml Enema) 100 mg OR DAILY [facility] Cefepime HCl (Maxipime) 2 gm in 50 mls @ 100 mls/hr IV Q24H [facility] Metronidazole (Flagyl) 500 mg in 100 mls @ 100 mls/hr IV Q12H [facility] Last Infusion: 11/30/24 06:10 Dose: Infused Documented By: HO.LAFLAMC Dextrose/Sodium Chloride (D5ns) 1,000 mls @ 80 mls/hr IVCONT .[id number] [facility] Magnesium Hydroxide (Milk Of Magnesia 30 Ml Oral.Susp) 30 ml PO DAILY PRN PRN Reason: Constipation Melatonin (Melatonin 3 Mg Tablet) 6 mg PO BEDTIME PRN PRN Reason: Insomnia Ondansetron HCl (Ondansetron Hcl 4 Mg/2 Ml Vial) 4 mg IVPUSH Q8H PRN PRN Reason: Nausea and Vomiting Pantoprazole Sodium (Pantoprazole Sodium 40 Mg/10 Ml Vial) 40 mg IVPUSH DAILY@0630 [facility] Last Admin: 11/30/24 05:07 Dose: 40 mg Documented By: MAHI Sodium Chloride (0.9 % Sodium Chloride Flush 3 Ml Syringe) 3 ml IVFLUSH QSHIFT [facility] Last Admin: 11/30/24 07:32 Dose: Not Given Documented By: STEVEN Non-Admin Reason: IV Running Labs 11/30/24 04:49 11/30/24 04:49 Labs: Laboratory Results - last 24 hr 11/29/24 11/29/24 11/29/24 21:46 21:54 22:06 MCV 84.8 MCH 28.1 MCHC 33.1 RDW 14.8 Plt Count 167 D MPV 10.6 Immature Gran % (Auto) 0.3 Neut % (Auto) 76.2 H Lymph % (Auto) 13.6 L [place] % (Auto) 9.1 Eos % (Auto) 0.5 Baso % (Auto) 0.3 Lymph # (Auto) 1.3 [place] # (Auto) 0.8 Eos # (Auto) 0.1 Baso # (Auto) 0.0 Abs Immat Gran (auto) 0.03 Absolute Neuts (auto) 7.0 Absolute Nucleated RBC 0.000 Nucleated RBC % (auto) 0.0 Smear Tech's Comments ESR Absolute Retic Percent Retic Immature Retic Fraction Retic Hgb Equivalent O2 Saturation ABG pH at Pt Temp ABG pCO2 at Pt Temp ABG pO2 at Pt Temp ABG HCO3 ABG Base Excess (Actual) VBG pH 7.40 VBG pCO2 37 VBG pO2 74 VBG HCO3 23 VBG O2 Saturation 94.0 VBG Base Excess -0.5 Anion Gap 9 L Estim Creat Clear Calc 31.3 Estimated GFR 59 POC Glucose Random Glucose 100 Lactic Acid 0.9 Calcium 8.2 L D Iron TIBC % Saturation Unsat Iron Binding Total Bilirubin 0.6 AST 88 H ALT 53 H Alkaline Phosphatase 75 Ammonia 24 C-Reactive Protein Total Protein 5.5 L Albumin 3.0 L TSH 1.97 Urine Color Urine Appearance Urine pH Ur Specific [place] Urine Protein Urine Glucose (UA) Urine Ketones Urine Blood Urine Nitrite Ur Leukocyte Esterase Urine RBC Urine WBC Ur Squamous Epith Cells Urine Bacteria Hyaline Casts C. difficile Tox B Gene C. difficile Toxin A&B C. difficile Interpret 11/30/24 11/30/24 11/30/24 00:38 01:44 04:49 MCV 86.6 MCH 28.0 MCHC 32.4 RDW 14.9 Plt Count 133 L MPV 11.9 Immature Gran % (Auto) 0.4 Neut % (Auto) 64.1 Lymph % (Auto) 24.7 [place] % (Auto) 9.2 Eos % (Auto) 1.2 Baso % (Auto) 0.4 Lymph # (Auto) 1.9 [place] # (Auto) 0.7 Eos # (Auto) 0.1 Baso # (Auto) 0.0 Abs Immat Gran (auto) 0.03 Absolute Neuts (auto) 5.0 Absolute Nucleated RBC 0.000 Nucleated RBC % (auto) 0.0 Smear Tech's Comments VERIFIED ESR 13 Absolute Retic 0.040 Percent Retic 1.2 Immature Retic Fraction 11.5 Retic Hgb Equivalent 29.5 L O2 Saturation ABG pH at Pt Temp ABG pCO2 at Pt Temp ABG pO2 at Pt Temp ABG HCO3 ABG Base Excess (Actual) VBG pH VBG pCO2 VBG pO2 VBG HCO3 VBG O2 Saturation VBG Base Excess Anion Gap 12 Estim Creat Clear Calc 33.5 Estimated GFR > 60 POC Glucose Random Glucose 83 Lactic Acid Calcium 8.0 L Iron TIBC % Saturation Unsat Iron Binding Total Bilirubin 0.4 AST 58 H ALT 49 H Alkaline Phosphatase 68 Ammonia C-Reactive Protein 2.81 H Total Protein 5.1 L Albumin 2.7 L TSH Urine Color Yellow Urine Appearance Cloudy Urine pH 5.5 Ur Specific [place] 1.015 Urine Protein Negative Urine Glucose (UA) Negative Urine Ketones Negative Urine Blood Negative Urine Nitrite Negative Ur Leukocyte Esterase Moderate (2+) H Urine RBC 0-2 Urine WBC >50 H Ur Squamous Epith Cells 0-2 Urine Bacteria 4+ Hyaline Casts 0-2 C. difficile Tox B Gene POSITIVE A* C. difficile Toxin A&B Negative C. difficile Interpret SEE NOTE 11/30/24 11/30/24 11/30/24 06:01 07:12 07:21 MCV MCH MCHC RDW Plt Count MPV Immature Gran % (Auto) Neut % (Auto) Lymph % (Auto) [place] % (Auto) Eos % (Auto) Baso % (Auto) Lymph # (Auto) [place] # (Auto) Eos # (Auto) Baso # (Auto) Abs Immat Gran (auto) Absolute Neuts (auto) Absolute Nucleated RBC Nucleated RBC % (auto) Smear Tech's Comments ESR Absolute Retic Percent Retic Immature Retic Fraction Retic Hgb Equivalent O2 Saturation 100.0 ABG pH at Pt Temp 7.36 ABG pCO2 at Pt Temp 38 ABG pO2 at Pt Temp 149 H ABG HCO3 21 L ABG Base Excess (Actual) -3.1 VBG pH VBG pCO2 VBG pO2 VBG HCO3 VBG O2 Saturation VBG Base Excess Anion Gap Estim Creat Clear Calc Estimated GFR POC Glucose 66 Random Glucose Lactic Acid Calcium Iron 86 TIBC 179 L % Saturation 48 Unsat Iron Binding 93 Total Bilirubin AST ALT Alkaline Phosphatase Ammonia C-Reactive Protein Total Protein Albumin TSH Urine Color Urine Appearance Urine pH Ur Specific [place] Urine Protein Urine Glucose (UA) Urine Ketones Urine Blood Urine Nitrite Ur Leukocyte Esterase Urine RBC Urine WBC Ur Squamous Epith Cells Urine Bacteria Hyaline Casts C. difficile Tox B Gene C. difficile Toxin A&B C. difficile Interpret Assessment and Plan (1) Colitis: Status: Acute Plan Pt unable to provide HPI, PMH, PSH due to dementia, delirium. Per nursing assessment and ED provider's documentation pt is an 89 yo female with PMH HTN, Dementia, recurring UTI, CTS, osteoporosis, Breast CA, CKD 3a, and anemia was BIBA from rehab facility with AMS from baseline noting hx of dementia after 4 days of persistent diarrhea and poor po intake was noted to have sepsis 2/2 pancolitis - C diff toxin B gene + Pt's HCP is Rishi Flood, - hcp invoked Acute sepsis with multiorgan failure secondary to pancolitis /C diff toxin B positive Acute hypoxic respiratory failure, AMS secondary to multi organ failure in the setting of sepsis C diff colonization UA positive for UTI Acute urinary retention likely in the setting of immobility/sepsis versus unclear etiology-Garcia placed on admission Started on Cefepime, vancomycin for broad-spectrum antibiotic coverage C diff colonization-started on IV Flagyl as the patient is unable to take p.o. and there is no per rectal vancomycin available GI panel sent out awaiting results We will continue IV fluids but will be careful given pericardial effusion which has been noted Patient has baseline dementia and healthcare proxy has been invoked, and I spoke to Donny her healthcare proxy and he confirmed DNR DNI given her baseline comorbid conditions Pericardial effusion noted POA TTE ordered EKG suggestive of new right bundle branch block, possible inferior infarct Troponin mildly elevated at 18, not unexpected in the setting of sepsis with multi organ failure Adult failure to thrive Hypoalbuminemia-we will keep her NPO for now and we will consult nutrition once she is able to take p.o. Lovenox 40 mg SC OD Quality Stroke Does the patient have a stroke diagnosis?: No Reason for No Anti-thrombotic by Day Two: Contraindicated (anemia, pericardial effusion ) VTE Prior VTE?: No VTE Risk Level:: Medical - moderate - high VTE Device Contraindication: N/A - Device Ordered VTE Drug Contraindication: N/A - Med Ordered
--- NOTE | 2024-11-30 09:32 | MHC.CM.PN ---
PT IS A LTC RESIDENT OF [facility] PTS PRIMARY HCP IS [facility] HOWEVER BOTH NUMBERS ON FILE ARE INCORRECT ([phone] & [phone]) CM CONTACTED PTS ALT HCP, MEL RICHA [phone] HCP ON FILE PCP: YOLANDA DOMINGUEZ IMM DELIVERED DCP: RETURN TO [facility] VIA BLS
[2024-11-30 09:35] LABS: Glucose, Whole Blood 78 mg/dL (60-115)
[2024-11-30] MEDS: cefEPime HCl/D5W 2 GM/50 ML PIGGYBACK IV (09:38)
[2024-11-30 11:31] LABS: Troponin-I High Sensitivity 18.0 ng/L (<3.5-17.0)
[2024-11-30 12:29] LABS: Glucose, Whole Blood 83 mg/dL (60-115)
--- NOTE | 2024-11-30 15:26 | PC.NURSE ---
Addendum entered by Milagros Kaufman RN 11/30/24 15:29: pt has not had a bowel movement since this physician underwriter took over at 0700 Original Note: went to reassess and reposition the pt, pt is more awake at this time, answering questions in [place], states no pain at this time, reports being in [place] thinks its Saturday but not sure of the year
[2024-11-30 15:45] LABS: Glucose, Whole Blood 76 mg/dL (60-115)
[2024-11-30] MEDS: 0.9 % Sodium Chloride Flush 3 ML SYRINGE IVFLUSH ×2 (17:28→23:42)
[2024-12-01 01:31] LABS: ABG Refer to POC result
[2024-12-01 03:28] VITALS: BP 133/62; PULSE 74; RESP 16; TEMP 36.3; O2SAT 99
[2024-12-01] MEDS: metroNIDAZOLE/NS 500 MG/100 ML PIGGYBACK 100 MG IV ×3 (04:58→22:04)
[2024-12-01 07:22] LABS: MANUAL DIFF FLAG NO
[2024-12-01 07:29] LABS: Hematocrit 28.4 % (37.0-47.0); Hemoglobin 8.9 g/dl (12.0-16.0); Imm Gran Abs Auto 0.02 X10*3/uL (0.00-0.03); Imm Gran Pct Auto 0.4 % (0.0-0.4); Lymphocytes Absolute Auto 1.4 X10*3/uL (1.2-4.9); Mean Corpuscular HGB Conc 31.3 g/dl (31.0-35.0); Mean Corpuscular Hemoglobin 27.6 pg (27.0-33.0); Mean Corpuscular Volume 87.9 fL (80.0-98.0); NRBC Abs Auto 0.000 X10*3/uL (0.0-0.012); NRBC Pct Auto 0.0 /100WBC (0.0-0.2); Platelet Count 181 X10*3/uL (160-400); Red Blood Count 3.23 X10*6/uL (4.20-5.50); White Blood Count 5.4 X10*3/uL (4.8-10.8)
[2024-12-01 07:40] LABS: Alanine Aminotransferase 29 U/L (0-31); Albumin Level 2.7 g/dL (3.5-5.0); Alkaline Phosphatase 56 U/L (39-117); Anion Gap 6 (12-20); Aspartate Amino Transferase 32 U/L (5-31); Blood Urea Nitrogen 10 mg/dL (9-16); Calcium 8.0 mg/dL (8.4-10.2); Carbon Dioxide 25 mmol/L (22-29); Chloride 113 mmol/L (96-108); Creatinine Clr Calc Pharmacy 31.6; Estimated Glomerular Filt Rate 60; Potassium 3.2 mmol/L (3.3-5.1); Sodium 141 mmol/L (135-145); Total Protein 5.0 g/dL (6.5-8.0)
[2024-12-01 07:41] LABS: Glucose, Whole Blood 85 mg/dL (60-115)
[2024-12-01 07:44] VITALS: BP 152/67; PULSE 80; RESP 18; TEMP 36.3; O2SAT 99
[2024-12-01] MEDS: cefEPime HCl/D5W 2 GM/50 ML PIGGYBACK IV (09:37)
[2024-12-01 09:40] VITALS: BMI 20.1
[2024-12-01 11:54] VITALS: BP 170/88; PULSE 107; RESP 20; TEMP 36.8; O2SAT 98
[2024-12-01 12:11] VITALS: BP 154/80
[2024-12-01 16:00] VITALS: BP 162/82; PULSE 91; RESP 20; TEMP 37.2; O2SAT 95
--- NOTE | 2024-12-01 16:47 | P.PNIM_ITS ---
Subjective Subjective Date of Service: 12/01/24 Interval History: Patient continues to be anxious and altered, is now hypertensive, tachycardic, continues to say ?do not believe me? She says help me, help me, help me, help me? Patient is primarily Urdu-speaking and I have requested nursing staff as a filleter who is at the bedside which I appreciate. Staff did mention that Healthcare proxy Donny has bedside Prognosis guarded Left vein infiltrated, we will scan Review of Systems Review of Systems: Yes Unobtainable due to mental condition and Unobtainable due to mental status Physical Exam 2 Exam: Exam: General: AOx0, mild distress Resp: CTA bilaterally CVS: S1, S2, RRR GI: Generalized tenderness noted Skin: Dry, skin turgor decreased Psych: A&O times 0 Healthcare proxy Donny updated by staff Vital Signs: Vital Signs: Last Vital Signs Temp 98.9 F 12/01/24 16:00 Pulse 91 12/01/24 16:00 Resp 20 12/01/24 16:00 BP 162/82 H 12/01/24 16:00 Pulse Ox 95 12/01/24 16:00 O2 Del Method Room Air 12/01/24 16:00 O2 Flow Rate 1 12/01/24 07:44 BMI result Body Mass Index 20.1 Objective Data Active Medications Albuterol/Ipratropium (Albuterol/Iprat 2.5/0.5mg 3 Ml Ampul.Neb) 3 ml INHALE Q4H PRN PRN Reason: Shortness of Breath/Wheezing Calcium Carbonate (Calcium Carbonate 750 Mg Tab.Chew) 750 mg PO Q4H PRN PRN Reason: Heartburn Enoxaparin Sodium (Enoxaparin Sodium 40 Mg/0.4 Ml Syringe) 40 mg SUBCUT Q24H [facility] Escitalopram Oxalate (Escitalopram Oxalate 5 Mg Tablet) 5 mg PO DAILY [facility] Last Admin: 12/01/24 10:32 Dose: Not Given Documented By: ZENOBIA Non-Admin Reason: NPO Hydrocortisone (Hydrocortisone 100 Mg/60 Ml Enema) 100 mg NM DAILY [facility] Last Admin: 12/01/24 10:33 Dose: Not Given Documented By: ZENOBIA Non-Admin Reason: NPO Cefepime HCl (Maxipime) 2 gm in 50 mls @ 100 mls/hr IV Q24H [facility] Last Infusion: 12/01/24 11:24 Dose: Infused Documented By: ZENOBIA Dextrose/Sodium Chloride (D5ns) 1,000 mls @ 80 mls/hr IVCONT .[id number] [facility] Last Admin: 12/01/24 11:22 Dose: 80 mls/hr Documented By: ZENOBIA Metronidazole (Flagyl) 500 mg in 100 mls @ 100 mls/hr IV Q8H [facility] Last Infusion: 12/01/24 14:48 Dose: Infused Documented By: ZENOBIA Dextrose/Sodium Chloride (D5ns) 1,000 mls @ 50 mls/hr IVCONT .Q20H [facility] Last Infusion: 12/01/24 13:29 Dose: Infused Documented By: ZENOBIA Acetaminophen (Ofirmev) 1,000 mg in 100 mls @ 400 mls/hr IV Q6H PRN PRN Reason: Pain, Mild (Pain Scale 1-3) Ondansetron HCl (Ondansetron Hcl 4 Mg/2 Ml Vial) 4 mg IVPUSH Q8H PRN PRN Reason: Nausea and Vomiting Pantoprazole Sodium (Pantoprazole Sodium 40 Mg/10 Ml Vial) 40 mg IVPUSH DAILY@0630 [facility] Last Admin: 12/01/24 06:01 Dose: 40 mg Documented By: MARC Risperidone (Risperidone Oral Fe 1 Mg/Ml Solution) 0.125 mg PO DAILY PRN PRN Reason: Agitation Sodium Chloride (0.9 % Sodium Chloride Flush 3 Ml Syringe) 3 ml IVFLUSH QSHIFT [facility] Last Admin: 12/01/24 09:42 Dose: Not Given Documented By: ZENOBIA Non-Admin Reason: IV Running Vitamin D (Cholecalciferol (Vitamin D3) 25 Mcg Tablet) 25 mcg PO DAILY [facility] Last Admin: 12/01/24 10:32 Dose: Not Given Documented By: ZENOBIA Non-Admin Reason: NPO Labs 12/01/24 07:07 12/01/24 07:07 Labs: Laboratory Results - last 24 hr 12/01/24 12/01/24 07:07 07:28 MCV 87.9 MCH 27.6 MCHC 31.3 RDW 14.9 Plt Count 181 D MPV 11.0 Immature Gran % (Auto) 0.4 Neut % (Auto) 59.2 Lymph % (Auto) 25.8 [place] % (Auto) 10.2 Eos % (Auto) 3.7 Baso % (Auto) 0.7 Lymph # (Auto) 1.4 [place] # (Auto) 0.6 Eos # (Auto) 0.2 Baso # (Auto) 0.0 Abs Immat Gran (auto) 0.02 Absolute Neuts (auto) 3.2 Absolute Nucleated RBC 0.000 Nucleated RBC % (auto) 0.0 Anion Gap 6 L Estim Creat Clear Calc 31.6 Estimated GFR 60 POC Glucose 85 Random Glucose 89 Calcium 8.0 L Total Bilirubin 0.3 AST 32 H ALT 29 Alkaline Phosphatase 56 Total Protein 5.0 L Albumin 2.7 L Microbiology Microbiology Results: Microbiology 11/30/24 06:01 Urine Culture - Preliminary Urine Catheterized - Garcia Catheter Gram negative lissy 11/29/24 22:06 Blood Culture - Preliminary Blood - Venous No growth after 24 hours. 11/29/24 21:46 Blood Culture - Preliminary Blood - Venous No growth after 24 hours. Assessment and Plan (1) Colitis: Status: Acute Plan Pt unable to provide HPI, PMH, PSH due to dementia, delirium. pt is an 89 yo female with PMH HTN, Dementia, recurring UTI, CTS, osteoporosis, Breast CA, CKD 3a, and anemia was BIBA from rehab facility with AMS from baseline noting hx of dementia after 4 days of persistent diarrhea and poor po intake was noted to have sepsis 2/2 pancolitis - C diff toxin B gene +, currently improving with IV Flagyl Pt's HCP is Rishi Flood, - hcp invoked Acute sepsis with multiorgan failure secondary to pancolitis /C diff toxin B positive Acute hypoxic respiratory failure, AMS secondary to multi organ failure in the setting of sepsis C diff colonization UA positive for UTI we will treat with broad-spectrum antibiotics (Cefepime, vancomycin), we will deescalate per clinical status Acute urinary retention likely in the setting of immobility/sepsis versus unclear etiology-Garcia placed on admission Continue on for broad-spectrum antibiotic coverage C diff colonization-continue on IV Flagyl as the patient is unable to take p.o. and there is no per rectal vancomycin available We will continue IV fluids but will be careful given pericardial effusion which has been noted Patient has baseline dementia and healthcare proxy has been invoked, and I spoke to Donny her healthcare proxy and he confirmed DNR DNI given her baseline comorbid conditions small circumferential pericardial effusion - without apparent tamponade physiology TTE ordered EKG suggestive of new right bundle branch block, possible inferior infarct Troponin mildly elevated at 18, not unexpected in the setting of sepsis with multi organ failure Adult failure to thrive Hypoalbuminemia-we will keep her NPO for now and we will consult nutrition once she is able to take p.o. Swallow eval is being limited given patient's agitation and risk for aspiration Requested official swallow eval which will likely happen tomorrow Patient's prognosis guarded Lovenox 40 mg SC OD Quality Stroke Does the patient have a stroke diagnosis?: No Reason for No Anti-thrombotic by Day Two: Contraindicated (anemia, pericardial effusion ) VTE Prior VTE?: No VTE Risk Level:: Medical - moderate - high VTE Device Contraindication: N/A - Device Ordered VTE Drug Contraindication: N/A - Med Ordered
[2024-12-01 20:00] VITALS: BP 162/68; PULSE 84; RESP 18; TEMP 36.9; O2SAT 95
[2024-12-02] VITALS (7 sets, daily range): BP systolic 141–160; BP diastolic 62–82; PULSE 84–98; RESP 16–20; TEMP 36.3–37.8; O2SAT 96–97
[2024-12-02] MEDS: metroNIDAZOLE/NS 500 MG/100 ML PIGGYBACK 100 MG IV ×3 (05:42→21:16)
[2024-12-02 06:59] LABS: MANUAL DIFF FLAG NO
[2024-12-02 07:02] LABS: Hematocrit 27.1 % (37.0-47.0); Hemoglobin 9.1 g/dl (12.0-16.0); Imm Gran Abs Auto 0.03 X10*3/uL (0.00-0.03); Imm Gran Pct Auto 0.4 % (0.0-0.4); Lymphocytes Absolute Auto 1.5 X10*3/uL (1.2-4.9); Mean Corpuscular HGB Conc 33.6 g/dl (31.0-35.0); Mean Corpuscular Hemoglobin 28.5 pg (27.0-33.0); Mean Corpuscular Volume 85.0 fL (80.0-98.0); NRBC Abs Auto 0.000 X10*3/uL (0.0-0.012); NRBC Pct Auto 0.0 /100WBC (0.0-0.2); Platelet Count 200 X10*3/uL (160-400); Red Blood Count 3.19 X10*6/uL (4.20-5.50); White Blood Count 7.2 X10*3/uL (4.8-10.8)
[2024-12-02 07:24] LABS: Alanine Aminotransferase 23 U/L (0-31); Albumin Level 2.9 g/dL (3.5-5.0); Alkaline Phosphatase 55 U/L (39-117); Anion Gap 10 (12-20); Aspartate Amino Transferase 30 U/L (5-31); Blood Urea Nitrogen 7 mg/dL (9-16); Calcium 8.0 mg/dL (8.4-10.2); Carbon Dioxide 25 mmol/L (22-29); Chloride 107 mmol/L (96-108); Creatinine Clr Calc Pharmacy 32.6; Estimated Glomerular Filt Rate > 60; Sodium 139 mmol/L (135-145); Total Protein 5.3 g/dL (6.5-8.0)
[2024-12-02 07:38] LABS: Potassium 2.6 mmol/L (3.3-5.1)
--- NOTE | 2024-12-02 08:12 | P.PNIM_ITS ---
Subjective Subjective Date of Service: 12/02/24 Interval History: Severe electrolyte abnormalities being corrected - probably 2/2 poor oral intake - pt passed official swallow eval - will start diet Review of Systems Review of Systems: Yes Unobtainable due to mental condition and Unobtainable due to mental status Physical Exam 2 Exam: Exam: General: AOx0, mild distress Resp: CTA bilaterally CVS: S1, S2, RRR GI: Generalized tenderness noted Skin: Dry, skin turgor decreased Psych: A&O times 0 Healthcare proxy Donny updated by staff Vital Signs: Vital Signs: Last Vital Signs Temp 98.4 F 12/02/24 07:57 Pulse 90 12/02/24 07:57 Resp 16 12/02/24 07:57 BP 150/73 H 12/02/24 07:57 Pulse Ox 96 12/02/24 07:57 O2 Del Method Room Air 12/02/24 07:57 O2 Flow Rate 1 12/01/24 07:44 BMI result Body Mass Index 20.1 Objective Data Active Medications Albuterol/Ipratropium (Albuterol/Iprat 2.5/0.5mg 3 Ml Ampul.Neb) 3 ml INHALE Q4H PRN PRN Reason: Shortness of Breath/Wheezing Calcium Carbonate (Calcium Carbonate 750 Mg Tab.Chew) 750 mg PO Q4H PRN PRN Reason: Heartburn Enoxaparin Sodium (Enoxaparin Sodium 40 Mg/0.4 Ml Syringe) 40 mg SUBCUT Q24H [facility] Last Admin: 12/01/24 22:11 Dose: 40 mg Documented By: BENJAMIN Escitalopram Oxalate (Escitalopram Oxalate 5 Mg Tablet) 5 mg PO DAILY [facility] Last Admin: 12/01/24 10:32 Dose: Not Given Documented By: ZENOBIA Non-Admin Reason: NPO Hydrocortisone (Hydrocortisone 100 Mg/60 Ml Enema) [address] DAILY [facility] Last Admin: 12/01/24 10:33 Dose: Not Given Documented By: ZENOBIA Non-Admin Reason: NPO Cefepime HCl (Maxipime) 2 gm in 50 mls @ 100 mls/hr IV Q24H [facility] Last Infusion: 12/01/24 11:24 Dose: Infused Documented By: ZENOBIA Metronidazole (Flagyl) 500 mg in 100 mls @ 100 mls/hr IV Q8H [facility] Last Infusion: 12/02/24 06:42 Dose: Infused Documented By: BENJAMIN Dextrose/Sodium Chloride (D5ns) 1,000 mls @ 50 mls/hr IVCONT .Q20H [facility] Last Admin: 12/02/24 03:02 Dose: 50 mls/hr Documented By: BENJAMIN Acetaminophen (Ofirmev) 1,000 mg in 100 mls @ 400 mls/hr IV Q6H PRN PRN Reason: Pain, Mild (Pain Scale 1-3) Potassium Chloride (Potassium Chloride/H20) 10 meq in 100 mls @ 100 mls/hr IV Q1H [facility] Stop: 12/02/24 11:29 Potassium Chloride (Potassium Chloride/H20) 10 meq in 100 mls @ 100 mls/hr IV Q1H [facility] Stop: 12/02/24 12:14 Ondansetron HCl (Ondansetron Hcl 4 Mg/2 Ml Vial) 4 mg IVPUSH Q8H PRN PRN Reason: Nausea and Vomiting Pantoprazole Sodium (Pantoprazole Sodium 40 Mg/10 Ml Vial) 40 mg IVPUSH DAILY@0630 [facility] Last Admin: 12/02/24 05:42 Dose: 40 mg Documented By: BENJAMIN Risperidone (Risperidone Oral Fe 1 Mg/Ml Solution) 0.125 mg PO DAILY PRN PRN Reason: Agitation Sodium Chloride (0.9 % Sodium Chloride Flush 3 Ml Syringe) 3 ml IVFLUSH QSHIFT [facility] Last Admin: 12/02/24 01:08 Dose: Not Given Documented By: BENJAMIN Non-Admin Reason: IV Running Vitamin D (Cholecalciferol (Vitamin D3) 25 Mcg Tablet) 25 mcg PO DAILY [facility] Last Admin: 12/01/24 10:32 Dose: Not Given Documented By: ZENOBIA Non-Admin Reason: NPO Labs 12/02/24 06:37 12/02/24 13:09 Labs: Laboratory Results - last 24 hr 12/02/24 06:37 MCV 85.0 MCH 28.5 MCHC 33.6 RDW 14.5 Plt Count 200 MPV 11.0 Immature Gran % (Auto) 0.4 Neut % (Auto) 69.8 Lymph % (Auto) 20.2 [place] % (Auto) 6.5 Eos % (Auto) 2.4 Baso % (Auto) 0.7 Lymph # (Auto) 1.5 [place] # (Auto) 0.5 Eos # (Auto) 0.2 Baso # (Auto) 0.1 Abs Immat Gran (auto) 0.03 Absolute Neuts (auto) 5.0 Absolute Nucleated RBC 0.000 Nucleated RBC % (auto) 0.0 Anion Gap 10 L Estim Creat Clear Calc 32.6 Estimated GFR > 60 Random Glucose 85 Calcium 8.0 L Total Bilirubin 0.5 AST 30 ALT 23 Alkaline Phosphatase 55 Total Protein 5.3 L Albumin 2.9 L Microbiology Microbiology Results: Microbiology 11/30/24 06:01 Urine Culture - Preliminary Urine Catheterized - Garcia Catheter Escherichia coli 11/29/24 22:06 Blood Culture - Preliminary Blood - Venous No growth after 48 hours. 11/29/24 21:46 Blood Culture - Preliminary Blood - Venous No growth after 48 hours. Assessment and Plan (1) Colitis: Status: Acute Plan Pt unable to provide HPI, PMH, PSH due to dementia, delirium. pt is an 89 yo female with PMH HTN, Dementia, recurring UTI, CTS, osteoporosis, Breast CA, CKD 3a, and anemia was BIBA from rehab facility with AMS from baseline noting hx of dementia after 4 days of persistent diarrhea and poor po intake was noted to have sepsis 2/2 pancolitis - C diff toxin B gene +, currently improving with IV Flagyl Pt's HCP is Donny Flood, - hcp invoked Acute sepsis with multiorgan failure secondary to pancolitis /C diff toxin B positive Acute hypoxic respiratory failure, AMS secondary to multi organ failure in the setting of sepsis C diff colonization UA positive for UTI we will treat with broad-spectrum antibiotics (Cefepime), we will deescalate per clinical status Acute urinary retention likely in the setting of immobility/sepsis versus unclear etiology-Garcia placed on admission C diff colonization-continue on IV Flagyl as the patient is unable to take p.o. and there is no per rectal vancomycin available IV fulids limited 2/2 mild-mod pericardial effusion Patient has baseline dementia and healthcare proxy has been invoked, and I spoke to Donny her healthcare proxy and he confirmed DNR DNI given her baseline comorbid conditions small circumferential pericardial effusion - without apparent tamponade physiology Could be chronic - would defer to OP PCP and cardiology follow up as pt is too sick for any current intervention and is not HD unstable EKG suggestive of new right bundle branch block, possible inferior infarct - chronic Troponin mildly elevated at 18, not unexpected in the setting of sepsis with multi organ failure Adult failure to thrive Hypoalbuminemia Passed official swallow eval - will initiate feeds Nutrition consult Patient's prognosis guarded Lovenox 40 mg SC OD This note is constructed using voice recognition software. While every effort has been made to ensure accuracy, child care supervisor errors may have been included. Quality Stroke Does the patient have a stroke diagnosis?: No Reason for No Anti-thrombotic by Day Two: Contraindicated (anemia, pericardial effusion ) VTE Prior VTE?: No VTE Risk Level:: Medical - moderate - high VTE Device Contraindication: N/A - Device Ordered VTE Drug Contraindication: N/A - Med Ordered
[2024-12-02 08:27] LABS: Magnesium 1.3 mg/dL (1.6-2.6)
[2024-12-02] MEDS: 0.9 % Sodium Chloride Flush 3 ML SYRINGE IVFLUSH ×3 (08:31→21:17)
[2024-12-02] MEDS: Potassium Chloride/H20 10 MEQ/100 ML PIGGYBACK 100 MEQ IV ×4 (08:31→11:58)
[2024-12-02] MEDS: cefEPime HCl/D5W 2 GM/50 ML PIGGYBACK IV (08:48)
--- NOTE | 2024-12-02 10:56 | MHC.CM.PN ---
Per ROUNDS discussion, Patient needs a swallow eval and she is not yet medically cleared for dc. Returning to LTC is the goal and CM will continue to follow.
--- NOTE | 2024-12-02 13:46 | MHC.SL.SWA ---
Speech Pathologist Impression: Dyphagia secondary to effects of dementia; oropharyngeal coordination WFL when pt accepts/participates in PO Risk of Aspiration Due to: Advanced dementia Weakness Dysphasia Diet Status: Liquid Consistency and Strategies for Safe Swallow: Liquid Intake Recommendation: Thin Liquid Intake Strategies: Solid Food Consistency: Dietary Recommendations: Grnd/Mech Altered (NDD2) Additional Modifications to Solid Foods: Oral Medication Intake: Whole with Puree Please contact the pharmacy regarding appropriate crushable or liquid drug formulations that are available whenever modified delivery is recommended. Compensatory Strategies and Precautions to be Taken for Safe Swallow: Supervision While Eating and Drinking for Safe Swallow: Total Assistance (1:1) Foods to Avoid: Swallowing Recommended Treatments: Recommendation for Speech: Inpatient Speech Therapy Comment: Evaluation 12/02: Pt is disoriented, crying out in Irish for help. Pt easily redirected with gentle verbal cues to task of PO trials. OM functioning observed at rest and during functional movements. ROM of jaw, lips, and tongue WNL. Pt speech is intelligible but repetitive. Pt voicing is absent of wetness. Sitter at bedside, MD and RN consulted. Trials presented for thin liquids and solids. Pt refused purees. Pt tolerated consecutive sips of thin liquid by straw and freda cracker by self feeding with efficient coordination of oropharyngeal phases. Mild anterior loss of freda cracker residuals observed over course of trials. Lingual sweep WFL to clear residuals from cheeks, but pt not aware of material on surface of lips. Pt again became weepy, refusing more trials. ONSITE CASE MANAGER texted MD and RN, reading hospital NDD2 with thins, straws ok, aspiration precautions, 1:1 feeding, meds in purees. ONSITE CASE MANAGER following. Frequency/Duration: Daily M-F Date Range for Service Req: Timeline to reassess: [employer] Founder Clinican/Clinical Fellow: No Supervisory Statement: I have reviewed and agree with the student/clinical fellow's documentation: N/A Speech Language Pathologist: Carolina Jones M.S., CCC-ONSITE CASE MANAGER
[2024-12-02 14:01] LABS: Blood Urea Nitrogen 7 mg/dL (9-16); Calcium 7.9 mg/dL (8.4-10.2); Creatinine Clr Calc Pharmacy 32.6; Estimated Glomerular Filt Rate > 60
[2024-12-02 14:15] LABS: Anion Gap 9 (12-20); Carbon Dioxide 25 mmol/L (22-29); Chloride 106 mmol/L (96-108); Potassium 3.2 mmol/L (3.3-5.1); Sodium 137 mmol/L (135-145)
[2024-12-03 00:16] VITALS: BP 145/60; PULSE 82; RESP 19; TEMP 36.9
[2024-12-03 04:00] VITALS: BP 140/69; PULSE 72; RESP 18; TEMP 37.4; O2SAT 97
[2024-12-03] MEDS: metroNIDAZOLE/NS 500 MG/100 ML PIGGYBACK 100 MG IV (05:24)
[2024-12-03 07:10] VITALS: BP 172/77; PULSE 83; RESP 18; TEMP 37.6; O2SAT 97
[2024-12-03 07:22] LABS: MANUAL DIFF FLAG NO
[2024-12-03 07:27] LABS: Hematocrit 27.2 % (37.0-47.0); Hemoglobin 9.4 g/dl (12.0-16.0); Imm Gran Abs Auto 0.03 X10*3/uL (0.00-0.03); Imm Gran Pct Auto 0.5 % (0.0-0.4); Lymphocytes Absolute Auto 1.7 X10*3/uL (1.2-4.9); Mean Corpuscular HGB Conc 34.6 g/dl (31.0-35.0); Mean Corpuscular Hemoglobin 28.7 pg (27.0-33.0); Mean Corpuscular Volume 82.9 fL (80.0-98.0); NRBC Abs Auto 0.000 X10*3/uL (0.0-0.012); NRBC Pct Auto 0.0 /100WBC (0.0-0.2); Platelet Count 199 X10*3/uL (160-400); Red Blood Count 3.28 X10*6/uL (4.20-5.50); White Blood Count 5.5 X10*3/uL (4.8-10.8)
[2024-12-03 07:47] LABS: Alanine Aminotransferase 18 U/L (0-31); Albumin Level 2.9 g/dL (3.5-5.0); Alkaline Phosphatase 52 U/L (39-117); Anion Gap 8 (12-20); Aspartate Amino Transferase 23 U/L (5-31); Blood Urea Nitrogen 5 mg/dL (9-16); Calcium 8.0 mg/dL (8.4-10.2); Carbon Dioxide 27 mmol/L (22-29); Chloride 107 mmol/L (96-108); Creatinine Clr Calc Pharmacy 31.8; Estimated Glomerular Filt Rate > 60; Sodium 139 mmol/L (135-145); Total Protein 5.4 g/dL (6.5-8.0)
[2024-12-03 07:52] LABS: Potassium 2.7 mmol/L (3.3-5.1)
[2024-12-03] MEDS: Potassium Chloride/H20 10 MEQ/100 ML PIGGYBACK 100 MEQ IV (08:09)
[2024-12-03] MEDS: cefEPime HCl/D5W 2 GM/50 ML PIGGYBACK IV (08:10)
[2024-12-03] MEDS: 0.9 % Sodium Chloride Flush 3 ML SYRINGE IVFLUSH ×2 (08:13→21:34)
[2024-12-03 08:48] LABS: Magnesium 1.6 mg/dL (1.6-2.6)
--- NOTE | 2024-12-03 08:50 | HO.PM.IMPN ---
Subjective Subjective Date of Service: 12/03/24 Interval History: Severe electrolyte abnormalities being corrected - probably 2/2 poor oral intake - pt passed official swallow eval - will start diet Recommendation for Speech: Inpatient Speech Therapy Comment: Evaluation 12/03: Patient seen at lunch today with sitter present. Patient was initially sleeping but woke easily. With repositioning of head of bed, patient cried out, and asked in Samoan for the bed to be put back down. Bed was lowered to 70 degrees for the meal, with explanation for need to be upright to eat given to patient. Patient presented with bites of ground meat mixed with mashed potatoes, with patient noted to masticate for a somewhat extended period then produce swallow with some residual in mouth noted after swallow. Patient offered sip of liquid from straw, which patient managed well with timely oral and pharyngeal phases of swallow. Patient presents as tolerating current diet level, which is appropriate for patient. Patient requires 1-1 feeding, sitter continued the meal with patient as RECREATION THERAPY AIDE left. Recommend continue on Ground Mechanical altered (NDD2) with thin liquids (straws ok), pills crushed in puree. Frequency/Duration: Daily M-F Date Range for Service Req: Timeline to reassess: Review of Systems Review of Systems: Yes Unobtainable due to mental condition and Unobtainable due to mental status Physical Exam Exam: Exam: General: AOx0, mild distress Resp: CTA bilaterally CVS: S1, S2, RRR GI: Generalized tenderness noted Skin: Dry, skin turgor decreased Psych: A&O times 0 Vital Signs: Vital Signs: Last Vital Signs Temp 99.6 F 12/03/24 07:10 Pulse 83 12/03/24 07:10 Resp 18 12/03/24 07:10 BP 172/77 H 12/03/24 07:10 Pulse Ox 97 12/03/24 07:10 O2 Del Method Room Air 12/03/24 07:10 O2 Flow Rate 1 12/01/24 07:44 BMI result Body Mass Index 20.1 Objective Data Active Medications Albuterol/Ipratropium (Albuterol/Iprat 2.5/0.5mg 3 Ml Ampul.Neb) 3 ml INHALE Q4H PRN PRN Reason: Shortness of Breath/Wheezing Calcium Carbonate (Calcium Carbonate 750 Mg Tab.Chew) 750 mg PO Q4H PRN PRN Reason: Heartburn Enoxaparin Sodium (Enoxaparin Sodium 40 Mg/0.4 Ml Syringe) 40 mg SUBCUT Q24H [facility] Last Admin: 12/02/24 21:16 Dose: 40 mg Documented By: BENJAMIN Escitalopram Oxalate (Escitalopram Oxalate 5 Mg Tablet) 5 mg PO DAILY [facility] Last Admin: 12/03/24 08:39 Dose: 5 mg Documented By: LOLY Hydrocortisone (Hydrocortisone 100 Mg/60 Ml Enema) 100 mg HI DAILY [facility] Last Admin: 12/02/24 10:36 Dose: Not Given Documented By: DANIA Non-Admin Reason: IV Running Metronidazole (Flagyl) 500 mg in 100 mls @ 100 mls/hr IV Q8H [facility] Last Infusion: 12/03/24 06:24 Dose: Infused Documented By: BENJAMIN Acetaminophen (Ofirmev) 1,000 mg in 100 mls @ 400 mls/hr IV Q6H PRN PRN Reason: Pain, Mild (Pain Scale 1-3) Potassium Chloride (Potassium Chloride/H20) 10 meq in 100 mls @ 100 mls/hr IV Q1H [facility] Stop: 12/03/24 11:59 Last Infusion: 12/03/24 08:50 Dose: 0 mls/hr Documented By: LOLY Meropenem (Meropenem 1 Gm Vial) 1 gm IVPUSH Q12H [facility] Last Admin: 12/03/24 08:49 Dose: 1 gm Documented By: LOLY Ondansetron HCl (Ondansetron Hcl 4 Mg/2 Ml Vial) 4 mg IVPUSH Q8H PRN PRN Reason: Nausea and Vomiting Risperidone (Risperidone Oral Fe 1 Mg/Ml Solution) 0.125 mg PO DAILY PRN PRN Reason: Agitation Sodium Chloride (0.9 % Sodium Chloride Flush 3 Ml Syringe) 3 ml IVFLUSH QSHIFT [facility] Last Admin: 12/03/24 08:13 Dose: 3 ml Documented By: LOLY Vitamin D (Cholecalciferol (Vitamin D3) 25 Mcg Tablet) 25 mcg PO DAILY [facility] Last Admin: 12/03/24 08:39 Dose: 25 mcg Documented By: LOLY Labs 12/03/24 06:54 12/03/24 06:54 Labs: Laboratory Results - last 24 hr 11/30/24 12/02/24 12/03/24 06:01 13:09 06:54 MCV 82.9 MCH 28.7 MCHC 34.6 RDW 14.5 Plt Count 199 MPV 10.9 Immature Gran % (Auto) 0.5 H Neut % (Auto) 53.5 Lymph % (Auto) 31.5 [place] % (Auto) 9.6 Eos % (Auto) 4.2 H Baso % (Auto) 0.7 Lymph # (Auto) 1.7 [place] # (Auto) 0.5 Eos # (Auto) 0.2 Baso # (Auto) 0.0 Abs Immat Gran (auto) 0.03 Absolute Neuts (auto) 3.0 Absolute Nucleated RBC 0.000 Nucleated RBC % (auto) 0.0 Anion Gap 9 L 8 L Estim Creat Clear Calc 32.6 31.8 Estimated GFR > 60 > 60 Random Glucose 139 H 94 Calcium 7.9 L 8.0 L Magnesium 1.6 Erythropoietin 14.0 Total Bilirubin 0.4 AST 23 ALT 18 Alkaline Phosphatase 52 Total Protein 5.4 L Albumin 2.9 L Microbiology Microbiology Results: Microbiology 11/30/24 06:01 Urine Culture - Final Urine Catheterized - Garcia Catheter Escherichia coli Assessment and Plan (1) Colitis: Status: Acute Plan Pt unable to provide HPI, PMH, PSH due to dementia, delirium. pt is an 89 yo female with PMH HTN, Dementia, recurring UTI, CTS, osteoporosis, Breast CA, CKD 3a, and anemia was BIBA from rehab facility with AMS from baseline noting hx of dementia after 4 days of persistent diarrhea and poor po intake was noted to have sepsis 2/2 pancolitis - C diff toxin B gene +, currently improving with IV Flagyl Pt's HCP is Donny Flood, - hcp invoked Acute sepsis with multiorgan failure secondary to ESBL E coli UTI Acute hypoxic respiratory failure, AMS secondary to multi organ failure in the setting of sepsis C diff colonization Patient was noted to have acute hypoxic respiratory failure and multi organ failure is likely in the setting of ESBL UTI and antibiotic has been switched to meropenem on 12/03/2024 Patient continues to wince with minimal ambulation and appears to be anxious-likely her baseline IV fluids limited secondary to [id number] pericardial effusion For C diff colonization we will switch to p.o. Flagyl since patient able to take crushed pills in size Patient has baseline dementia and healthcare proxy has been invoked, and I spoke to Donny her healthcare proxy and he confirmed DNR DNI given her baseline comorbid conditions small circumferential pericardial effusion - without apparent tamponade physiology Could be chronic - would defer to OP PCP and cardiology follow up as pt is too sick for any current intervention and is not HD unstable EKG suggestive of new right bundle branch block, possible inferior infarct - chronic Troponin mildly elevated at 18, not unexpected in the setting of sepsis with multi organ failure Adult failure to thrive Hypoalbuminemia Passed official swallow eval - will initiate feeds Patient's prognosis guarded Lovenox 40 mg SC OD This note is constructed using voice recognition software. While every effort has been made to ensure accuracy, forensic science examiner errors may have been included. Quality Stroke Does the patient have a stroke diagnosis?: No Reason for No Anti-thrombotic by Day Two: Contraindicated (anemia, pericardial effusion ) VTE Prior VTE?: No VTE Risk Level:: Medical - moderate - high VTE Device Contraindication: N/A - Device Ordered VTE Drug Contraindication: N/A - Med Ordered
[2024-12-03 11:26] VITALS: BP 163/74; PULSE 91; TEMP 37.6; O2SAT 97
[2024-12-03] MEDS: Potassium Chloride Packet 20 MEQ PACKET 40 MEQ PO (11:26)
--- NOTE | 2024-12-03 11:44 | MHC.CLN ---
CONSULT NO PO INTAKE RECORDED DIET ADVANCED TO GRD M/S ON 12/02 PER TEST DESKMAN PT IS CONFUSED, DISORIENTED AND ANXIOUS PT REQUIRES 1:1 FEED WITH MEALS RECOMMEND ADDING MAGIC CUP TID TO PROVIDE 870KCALS, 27G PROTEIN WITH 100% ACCEPTANCE MONITOR PO INTAKE AND ENCOURAGE SUPPLEMENT
[2024-12-03 16:00] VITALS: BP 151/68; PULSE 98; RESP 16; TEMP 37.6; O2SAT 96
--- NOTE | 2024-12-03 16:13 | MHC.SL.SWA ---
Speech Pathologist Impression: Risk of Aspiration Due to: Dysphasia Diet Status: Recommend continue on Ground Mechanical altered (NDD2) with thin liquids (straws ok), pills crushed in puree. Liquid Consistency and Strategies for Safe Swallow: Liquid Intake Recommendation: Thin Liquid Intake Strategies: Solid Food Consistency: Dietary Recommendations: Grnd/Mech Altered (NDD2) Additional Modifications to Solid Foods: Oral Medication Intake: Whole with Puree Please contact the pharmacy regarding appropriate crushable or liquid drug formulations that are available whenever modified delivery is recommended. Compensatory Strategies and Precautions to be Taken for Safe Swallow: Sitting Upright (90 deg) Liquids from Cup Liquids from Straw Small Bites and Sips Alternate Liquids/Solids Rate of Ingestion Change Supervision While Eating and Drinking for Safe Swallow: Total Assistance (1:1) Foods to Avoid: Swallowing Recommended Treatments: Compens. Strategy Educat. Recommendation for Speech: Inpatient Speech Therapy Comment: Evaluation 12/03: Patient seen at lunch today with sitter present. Patient was initially sleeping but woke easily. With repositioning of head of bed, patient cried out, and asked in Bengali for the bed to be put back down. Bed was lowered to 70 degrees for the meal, with explanation for need to be upright to eat given to patient. Patient presented with bites of ground meat mixed with mashed potatoes, with patient noted to masticate for a somewhat extended period then produce swallow with some residual in mouth noted after swallow. Patient offered sip of liquid from straw, which patient managed well with timely oral and pharyngeal phases of swallow. Patient presents as tolerating current diet level, which is appropriate for patient. Patient requires 1-1 feeding, sitter continued the meal with patient as [employer] MIXER left. Recommend continue on Ground Mechanical altered (NDD2) with thin liquids (straws ok), pills crushed in puree. Frequency/Duration: Daily M-F Date Range for Service Req: Timeline to reassess: Electronic Transaction Implementer Clinican/Clinical Fellow: No Supervisory Statement: I have reviewed and agree with the student/clinical fellow's documentation: N/A Speech Language Pathologist: Marilia Amor M.A., [facility]
[2024-12-03 20:00] VITALS: BP 157/72; PULSE 94; RESP 16; TEMP 36.4; O2SAT 97
[2024-12-04] VITALS (8 sets, daily range): BP systolic 108–162; BP diastolic 65–84; PULSE 76–90; RESP 16–20; TEMP 36.1–36.9; O2SAT 94–100
--- NOTE | 2024-12-04 | ECG_ITS ---
Test Reason : unsustained VT [id number] Blood Pressure : */* mmHG Vent. Rate : 92 BPM Atrial Rate : 92 BPM P-R Int : 166 ms QRS Dur : 110 ms QT Int : 390 ms P-R-T Axes : -4 61 -4 degrees QTcB Int : 482 ms Normal sinus rhythm Right bundle branch block Abnormal ECG When compared with ECG of 30-Nov-2024 05:10, Previous ECG has undetermined rhythm, needs review Borderline criteria for Inferior infarct are no longer Present Referred By: Cielo Raymond Electronically Signed By: Luis Mccoy
[2024-12-04 06:40] LABS: MANUAL DIFF FLAG NO
[2024-12-04 06:50] LABS: Hematocrit 27.7 % (37.0-47.0); Hemoglobin 9.3 g/dl (12.0-16.0); Imm Gran Abs Auto 0.03 X10*3/uL (0.00-0.03); Imm Gran Pct Auto 0.5 % (0.0-0.4); Lymphocytes Absolute Auto 2.1 X10*3/uL (1.2-4.9); Mean Corpuscular HGB Conc 33.6 g/dl (31.0-35.0); Mean Corpuscular Hemoglobin 27.9 pg (27.0-33.0); Mean Corpuscular Volume 83.2 fL (80.0-98.0); NRBC Abs Auto 0.000 X10*3/uL (0.0-0.012); NRBC Pct Auto 0.0 /100WBC (0.0-0.2); Platelet Count 202 X10*3/uL (160-400); Red Blood Count 3.33 X10*6/uL (4.20-5.50); White Blood Count 6.3 X10*3/uL (4.8-10.8)
[2024-12-04 07:36] LABS: Alanine Aminotransferase 16 U/L (0-31); Albumin Level 2.8 g/dL (3.5-5.0); Alkaline Phosphatase 47 U/L (39-117); Aspartate Amino Transferase 21 U/L (5-31); Blood Urea Nitrogen 9 mg/dL (9-16); Calcium 8.4 mg/dL (8.4-10.2); Creatinine Clr Calc Pharmacy 30.4; Estimated Glomerular Filt Rate 59; Total Protein 5.4 g/dL (6.5-8.0)
[2024-12-04 07:44] LABS: Anion Gap 10 (12-20); Carbon Dioxide 27 mmol/L (22-29); Chloride 106 mmol/L (96-108); Potassium 3.5 mmol/L (3.3-5.1); Sodium 139 mmol/L (135-145)
[2024-12-04] MEDS: 0.9 % Sodium Chloride Flush 3 ML SYRINGE IVFLUSH ×2 (09:16→22:12)
--- NOTE | 2024-12-04 10:32 | MHC.CM.PN ---
Patient is not yet medically cleared for dc ([facility] called this morning); returning to LTC is the goal and CM will continue to follow.
[2024-12-04 11:16] LABS: MANUAL DIFF FLAG NO
[2024-12-04 11:25] LABS: Hematocrit 30.2 % (37.0-47.0); Hemoglobin 10.3 g/dl (12.0-16.0); Imm Gran Abs Auto 0.03 X10*3/uL (0.00-0.03); Imm Gran Pct Auto 0.5 % (0.0-0.4); Lymphocytes Absolute Auto 1.5 X10*3/uL (1.2-4.9); Mean Corpuscular HGB Conc 34.1 g/dl (31.0-35.0); Mean Corpuscular Hemoglobin 28.4 pg (27.0-33.0); Mean Corpuscular Volume 83.2 fL (80.0-98.0); NRBC Abs Auto 0.000 X10*3/uL (0.0-0.012); NRBC Pct Auto 0.0 /100WBC (0.0-0.2); Platelet Count 213 X10*3/uL (160-400); Red Blood Count 3.63 X10*6/uL (4.20-5.50); White Blood Count 6.5 X10*3/uL (4.8-10.8)
[2024-12-04 11:34] LABS: Alanine Aminotransferase 20 U/L (0-31); Albumin Level 3.2 g/dL (3.5-5.0); Alkaline Phosphatase 53 U/L (39-117); Anion Gap 9 (12-20); Aspartate Amino Transferase 23 U/L (5-31); Blood Urea Nitrogen 9 mg/dL (9-16); Calcium 8.7 mg/dL (8.4-10.2); Carbon Dioxide 29 mmol/L (22-29); Chloride 105 mmol/L (96-108); Creatinine Clr Calc Pharmacy 31.1; Estimated Glomerular Filt Rate > 60; Magnesium 1.5 mg/dL (1.6-2.6); Potassium 3.7 mmol/L (3.3-5.1); Sodium 139 mmol/L (135-145); Total Protein 6.0 g/dL (6.5-8.0)
[2024-12-04 11:42] LABS: Troponin-I High Sensitivity 5.2 ng/L (<3.5-17.0)
--- NOTE | 2024-12-04 12:15 | PM.EVENT ---
Event Note Date of Service: 12/04/24 Event Note: Acute SVT, , 2 minutes, patient asymptomatic, self reverted to normal sinus, rainbow labs ordered-likely secondary to after electrolyte abnormalities which have been corrected. Prior to this in the a.m. all her electrolytes were correct Likely structural heart issue. Cardiology consulted Healthcare proxy updated about the vent Time Spent With Patient Time: Total time managing care of this patient today ____ minutes.
--- NOTE | 2024-12-04 12:16 | P.PNIM_ITS ---
Subjective Subjective Date of Service: 12/04/24 Interval History: Patient was hemodynamically stable in the a.m. Had an CARPENTER REPAIRER called in the AM at aroun 10.35am for self-limited 2 minute SVT Likely electrolytes abn HCP Donny updated Review of Systems Review of Systems: Yes Unobtainable due to mental condition and Unobtainable due to mental status Physical Exam 2 Exam: Exam: General: AOx0, mild distress Resp: CTA bilaterally CVS: S1, S2, RRR GI: Generalized tenderness noted Skin: Dry, skin turgor decreased Psych: A&O times 0 Vital Signs: Vital Signs: Last Vital Signs Temp 98.4 F 12/04/24 11:15 Pulse 85 12/04/24 11:15 Resp 16 12/04/24 11:15 BP 135/65 12/04/24 11:15 Pulse Ox 100 12/04/24 11:15 O2 Del Method Room Air 12/04/24 11:15 O2 Flow Rate 1 12/01/24 07:44 BMI result Body Mass Index 20.1 Objective Data Active Medications Albuterol/Ipratropium (Albuterol/Iprat 2.5/0.5mg 3 Ml Ampul.Neb) 3 ml INHALE Q4H PRN PRN Reason: Shortness of Breath/Wheezing Calcium Carbonate (Calcium Carbonate 750 Mg Tab.Chew) 750 mg PO Q4H PRN PRN Reason: Heartburn Enoxaparin Sodium (Enoxaparin Sodium 40 Mg/0.4 Ml Syringe) 40 mg SUBCUT Q24H [facility] Last Admin: 12/03/24 21:34 Dose: 40 mg Documented By: WALTER Escitalopram Oxalate (Escitalopram Oxalate 5 Mg Tablet) 5 mg PO DAILY [facility] Last Admin: 12/04/24 09:15 Dose: 5 mg Documented By: WALTER Hydrocortisone (Hydrocortisone 100 Mg/60 Ml Enema) 100 mg RI DAILY [facility] Last Admin: 12/04/24 09:16 Dose: Not Given Documented By: WALTER Non-Admin Reason: Patient Refused Acetaminophen (Ofirmev) 1,000 mg in 100 mls @ 400 mls/hr IV Q6H PRN PRN Reason: Pain, Mild (Pain Scale 1-3) Magnesium Sulfate/Dextrose (Magnesium Sulfate/D5w) 1 gm in 100 mls @ 100 mls/hr IV ONCE ONE Stop: 12/04/24 12:38 Potassium Phosphate (Kphos) 15 mmol in 250 mls @ 62.5 mls/hr IV Q4H [facility] Stop: 12/04/24 19:44 Dextrose/Sodium Chloride (D5ns) 1,000 mls @ 100 mls/hr IVCONT .Q10H [facility] Meropenem (Meropenem 1 Gm Vial) 1 gm IVPUSH Q12H [facility] Last Admin: 12/04/24 09:15 Dose: 1 gm Documented By: WALTER Metronidazole (Metronidazole 500 Mg Tablet) 500 mg PO Q8H [facility] Last Admin: 12/04/24 06:06 Dose: 500 mg Documented By: WALTER Ondansetron HCl (Ondansetron Hcl 4 Mg/2 Ml Vial) 4 mg IVPUSH Q8H PRN PRN Reason: Nausea and Vomiting Risperidone (Risperidone Oral Fe 1 Mg/Ml Solution) 0.125 mg PO DAILY PRN PRN Reason: Agitation Sodium Chloride (0.9 % Sodium Chloride Flush 3 Ml Syringe) 3 ml IVFLUSH [facility] Last Admin: 12/04/24 09:16 Dose: 3 ml Documented By: WALTER Sodium Chloride (0.9 % Sodium Chloride Flush 3 Ml Syringe) 3 ml IVFLUSH [facility] Vitamin D (Cholecalciferol (Vitamin D3) 25 Mcg Tablet) 25 mcg PO DAILY [facility] Last Admin: 12/04/24 09:15 Dose: 25 mcg Documented By: WALTER Labs 12/04/24 11:13 12/04/24 11:13 Labs: Laboratory Results - last 24 hr 12/04/24 12/04/24 06:18 11:13 MCV 83.2 83.2 MCH 27.9 28.4 MCHC 33.6 34.1 RDW 14.8 14.9 Plt Count 202 213 MPV 10.8 10.7 Immature Gran % (Auto) 0.5 H 0.5 H Neut % (Auto) 52.8 65.5 Lymph % (Auto) 33.3 23.5 [place] % (Auto) 8.1 7.6 Eos % (Auto) 4.8 H 2.3 Baso % (Auto) 0.5 0.6 Lymph # (Auto) 2.1 1.5 [place] # (Auto) 0.5 0.5 Eos # (Auto) 0.3 0.2 Baso # (Auto) 0.0 0.0 Abs Immat Gran (auto) 0.03 0.03 Absolute Neuts (auto) 3.3 4.2 Absolute Nucleated RBC 0.000 0.000 Nucleated RBC % (auto) 0.0 0.0 Anion Gap 10 L 9 L Estim Creat Clear Calc 30.4 31.1 Estimated GFR 59 > 60 Random Glucose 104 130 H Lactic Acid 2.1 H* Calcium 8.4 8.7 Phosphorus 2.0 L Magnesium 1.5 L Total Bilirubin 0.2 0.2 AST 21 23 ALT 16 20 Alkaline Phosphatase 47 53 Total Protein 5.4 L 6.0 L Albumin 2.8 L 3.2 L Microbiology Microbiology Results: Microbiology 11/30/24 06:01 Urine Culture - Final Urine Catheterized - Garcia Catheter Escherichia coli Assessment and Plan (1) Colitis: Status: Acute Plan Pt unable to provide HPI, PMH, PSH due to dementia, delirium. pt is an 89 yo female with PMH HTN, Dementia, recurring UTI, CTS, osteoporosis, Breast CA, CKD 3a, and anemia was BIBA from rehab facility with AMS from baseline noting hx of dementia after 4 days of persistent diarrhea and poor po intake was noted to have sepsis 2/2 pancolitis - C diff toxin B gene +, currently improving with IV Flagyl Pt's HCP is Donny Flood, - hcp invoked Acute SVT, , 2 minutes, patient asymptomatic, self reverted to normal sinus, rainbow labs ordered-likely secondary to after electrolyte abnormalities which have been corrected. Prior to this in the a.m. all her electrolytes were correct Likely structural heart issue. Cardiology consulted Healthcare proxy updated about the vent Plan to discharge her tomorrow if she remains asymptomatic overnight Acute sepsis with multiorgan failure secondary to ESBL E coli UTI-resolved Acute hypoxic respiratory failure, AMS secondary to multi organ failure in the setting of sepsis-resolved C diff colonization-being treated Patient was noted to have acute hypoxic respiratory failure and multi organ failure is likely in the setting of ESBL UTI and antibiotic has been switched to meropenem on 12/03/2024 Patient continues to wince with minimal ambulation and appears to be anxious- likely her baseline IV fluids limited secondary to [id number] pericardial effusion For C diff colonization we will switch to p.o. Flagyl since patient able to take crushed pills in size Patient has baseline dementia and healthcare proxy has been invoked, and I spoke to Donny her healthcare proxy and he confirmed DNR DNI given her baseline comorbid conditions small circumferential pericardial effusion - without apparent tamponade physiology Could be chronic - would defer to OP PCP and cardiology follow up as pt is too sick for any current intervention and is not HD unstable EKG suggestive of new right bundle branch block, possible inferior infarct - chronic Troponin mildly elevated at 18, not unexpected in the setting of sepsis with multi organ failure Adult failure to thrive Hypoalbuminemia Passed official swallow eval - will initiate feeds Patient's prognosis guarded Lovenox 40 mg SC OD This note is constructed using voice recognition software. While every effort has been made to ensure accuracy, air analysis technician errors may have been included. Quality Stroke Does the patient have a stroke diagnosis?: No Reason for No Anti-thrombotic by Day Two: Contraindicated (anemia, pericardial effusion ) VTE Prior VTE?: No VTE Risk Level:: Medical - moderate - high VTE Device Contraindication: N/A - Device Ordered VTE Drug Contraindication: N/A - Med Ordered
[2024-12-04] MEDS: Potassium Phosphate/NS 15 MMOL/250 ML PLAST..BAG 62.5 MMOL IV (12:25)
[2024-12-04 13:16] LABS: Reflex Lactate? Lactic Acid Added
--- NOTE | 2024-12-04 15:28 | PC.NURSE ---
Patient unable to tolerate IV k phos, c/o burning, attempted to administer in new IV access but patient still unable to tolerate. MD notified, ordered to run k Phos at a slower rate and dilute with NS. K phos running over 6 hours at 40.25 cc/hr diluted with NS at 40cc/hr. Patient tolerating medication at this time.
--- NOTE | 2024-12-04 15:36 | PC.NURSE ---
Patient yelling and screaming from room. Alert to person and responsive (baseline dementia). Upon assessment patient stating, i don't feel good, don't leave me alone in khmer, denying any palpitations or chest pain. BP:115/65, HR 170s-180s SVT from 10:18-10:22. 100% on 3L NC, lungs diminished, unlabored breathing. Patient converted to NSR with no intervention. EKG done- NSR. New orders for repeat CBC, lactic acid, CMP, MAG. Repeat VSS at 11:15 bp:135/65, HR 85, 100% on 3Liters NC, unlabored breathing resting comfortably in bed. cardiology consult pending.
--- NOTE | 2024-12-04 18:03 | PM.CNCAR ---
History of Present Illness History of Present Illness Date of Service: 12/04/24 Requesting physician: Cielo Raymond Chief complaint: UTI, SVT Narrative: Pleasant 89 year female who is in the hospital for UTI, sepsis and change in mental status. She has been on antibiotics. Today AUDIO VIDEO TECH was called on her for supraventricular tachycardia. This was self-limiting. Patient is unable to provide any history. Currently she is sinus on telemetry. [facility] Past Medical History Medical History (Updated 12/04/24 @ 19:08 by Luis Mccoy MD) Recurrent UTI Chronic kidney disease (CKD) stage G3a/A1, moderately decreased glomerular filtration rate (GFR) between 45-59 mL/min/1.73 square meter and albuminuria creatinine ratio less than 30 mg/g Carpal tunnel syndrome History of breast cancer Anemia Hypertension Family History Family History Father No problems noted. Mother No problems noted. Surgical History Surgical History History of carpal tunnel release History of cataract surgery History of cholecystectomy Social History Social History Household Members: None Housing: Assisted Living Facility Do you presently have visiting nurse or other home services: No Unable to assess alcohol history related to: Unable to respond Alcohol intake: never Comment: sitter at bedside Patient Tobacco Use Status: Tobacco use Unknown Second Hand Smoke Exposure: No Advance Directives Date on File: 08/09/20 service: No Current occupational status: disabled Meds Allergies Allergy/AdvReac Type Severity Reaction Status Date / Time alendronate sodium (From Allergy Unknown MOUTH Verified 11/29/24 20:24 FOSAMAX) BLEEDING - IRRITATION cholecalciferol (vitamin D3) Allergy Unknown muscle Verified 11/29/24 20:24 (Vitamin D3) pains fish oil Allergy Unknown Unknown Verified 11/29/24 20:24 ALL VITAMINS Allergy Mild MUSCLE Uncoded 11/29/24 20:24 PAINS Active Medications: Current Medications Albuterol/Ipratropium (Albuterol/Iprat 2.5/0.5mg 3 Ml Ampul.Neb) 3 ml INHALE Q4H PRN PRN Reason: Shortness of Breath/Wheezing Calcium Carbonate (Calcium Carbonate 750 Mg Tab.Chew) 750 mg PO Q4H PRN PRN Reason: Heartburn Enoxaparin Sodium (Enoxaparin Sodium 40 Mg/0.4 Ml Syringe) 40 mg SUBCUT Q24H [facility] Last Admin: 12/03/24 21:34 Dose: 40 mg Escitalopram Oxalate (Escitalopram Oxalate 5 Mg Tablet) 5 mg PO DAILY [facility] Last Admin: 12/04/24 09:15 Dose: 5 mg Hydrocortisone (Hydrocortisone 100 Mg/60 Ml Enema) 100 mg FL DAILY [facility] Last Admin: 12/04/24 09:16 Dose: Not Given Potassium Phosphate (Kphos) 15 mmol in 250 mls @ 62.5 mls/hr IV Q4H [facility] Stop: 12/04/24 19:44 Last Admin: 12/04/24 12:25 Dose: 62.5 mls/hr Meropenem (Meropenem 1 Gm Vial) 1 gm IVPUSH Q12H [facility] Last Admin: 12/04/24 09:15 Dose: 1 gm Metronidazole (Metronidazole 500 Mg Tablet) 500 mg PO Q8H [facility] Last Admin: 12/04/24 13:42 Dose: 500 mg Ondansetron HCl (Ondansetron Hcl 4 Mg/2 Ml Vial) 4 mg IVPUSH Q8H PRN PRN Reason: Nausea and Vomiting Risperidone (Risperidone Oral Fe 1 Mg/Ml Solution) 0.125 mg PO DAILY PRN PRN Reason: Agitation Sodium Chloride (0.9 % Sodium Chloride Flush 3 Ml Syringe) 3 ml IVFLUSH QSHIFT [facility] Last Admin: 12/04/24 09:16 Dose: 3 ml Vitamin D (Cholecalciferol (Vitamin D3) 25 Mcg Tablet) 25 mcg PO DAILY [facility] Last Admin: 12/04/24 09:15 Dose: 25 mcg Home Medications ?Medication ?Instructions ?Recorded ?Confirmed ?Last Taken ?Type cholecalciferol (vitamin D3) 25 25 mcg PO DAILY 11/13/21 11/29/24 Unknown History mcg (1,000 unit) tablet (Vitamin D3) escitalopram oxalate 5 mg tablet 1 tab PO DAILY 11/13/21 11/29/24 Unknown History acetaminophen 325 mg tablet 650 mg PO Q6H PRN Pain (Scale 09/17/24 11/29/24 Unknown History Score 1-3) bisacodyl 10 mg rectal suppository 10 mg FL Q24H PRN Constipation 09/17/24 11/29/24 Unknown History gabapentin 100 mg capsule 100 mg PO BID 09/17/24 11/29/24 Unknown History guaifenesin 100 mg/5 mL oral liquid 200 mg PO Q24H PRN Cough 09/17/24 11/29/24 Unknown History magnesium hydroxide 400 mg/5 mL 30 ml PO Q24H PRN Constipation 09/17/24 11/29/24 Unknown History oral suspension (Milk of Magnesia) menthol 5 % topical patch 1 patch topical Q24H PRN Pain 09/17/24 11/29/24 Unknown History (Scale Score 1-3) risperidone 1 mg/mL oral solution 0.125 mg PO DAILY PRN Agitation 11/29/24 11/29/24 Unknown History risperidone 1 mg/mL oral solution 0.125 mg PO TID 11/29/24 11/29/24 Unknown History Physical Exam Vital Signs: Vital Signs: Last Vital Signs Temp 98.3 F 12/04/24 16:00 Pulse 90 12/04/24 16:00 Resp 18 12/04/24 16:00 BP 108/76 12/04/24 16:00 Pulse Ox 99 12/04/24 16:00 O2 Del Method Room Air 12/04/24 16:00 O2 Flow Rate 3 12/04/24 11:15 BMI result Body Mass Index 20.1 GENERAL APPEARANCE: Somnolent. In no acute distress. NECK: no carotid bruit, no jugular venous distention. SKIN: no suspicious lesions, warm and dry. HEART: no murmurs, regular rate and rhythm. LUNGS: clear to auscultation bilaterally. ABDOMEN: soft, nontender. EXTREMITIES: no edema. Objective Labs and Meds 12/04/24 11:13 12/04/24 11:13 Lab results: Laboratory Results - last 24 hr 12/04/24 12/04/24 12/04/24 06:18 11:13 14:03 WBC 6.3 6.5 RBC 3.33 L 3.63 L Hgb 9.3 L 10.3 L Hct 27.7 L 30.2 L MCV 83.2 83.2 MCH 27.9 28.4 MCHC 33.6 34.1 RDW 14.8 14.9 Plt Count 202 213 MPV 10.8 10.7 Immature Gran % (Auto) 0.5 H 0.5 H Neut % (Auto) 52.8 65.5 Lymph % (Auto) 33.3 23.5 [place] % (Auto) 8.1 7.6 Eos % (Auto) 4.8 H 2.3 Baso % (Auto) 0.5 0.6 Lymph # (Auto) 2.1 1.5 [place] # (Auto) 0.5 0.5 Eos # (Auto) 0.3 0.2 Baso # (Auto) 0.0 0.0 Abs Immat Gran (auto) 0.03 0.03 Absolute Neuts (auto) 3.3 4.2 Absolute Nucleated RBC 0.000 0.000 Nucleated RBC % (auto) 0.0 0.0 Sodium 139 139 Potassium 3.5 D 3.7 Chloride 106 105 Carbon Dioxide 27 29 Anion Gap 10 L 9 L BUN 9 9 Creatinine 0.90 0.88 Estim Creat Clear Calc 30.4 31.1 Estimated GFR 59 > 60 Random Glucose 104 130 H Lactic Acid 2.1 H* 1.9 Lactic Acid F/U @ 2Hr Cancelled Calcium 8.4 8.7 Phosphorus 2.0 L Magnesium 1.5 L Total Bilirubin 0.2 0.2 AST 21 23 ALT 16 20 Alkaline Phosphatase 47 53 Troponin I High Sens 5.2 D Total Protein 5.4 L 6.0 L Albumin 2.8 L 3.2 L Assessment and Plan (1) SVT (supraventricular tachycardia): Status: Acute Plan [age] year female with supraventricular tachycardia in the setting of colitis and urinary tract infection/sepsis. Monitor electrolytes closely. If blood pressure stable then can add beta-veronica/titrate beta-blockers. Overall fairly benign rhythm and was self-limiting. We will continue to monitor on telemetry for now. Thank you for allowing me to participate in the care of your patient. Please feel free to contact me if you have any questions. Procedures Date of Service Date of Service: 12/04/24
[2024-12-04] MEDS: Potassium Phosphate/NS 15 MMOL/250 ML PLAST..BAG 40 MMOL IV (19:34)
[2024-12-05 03:37] VITALS: BP 141/85; PULSE 78; RESP 16; TEMP 36.9; O2SAT 100
[2024-12-05 06:51] LABS: MANUAL DIFF FLAG NO
[2024-12-05 07:05] VITALS: BP 172/68; PULSE 89; RESP 18; TEMP 36.7; O2SAT 99
[2024-12-05 07:29] LABS: Hematocrit 30.9 % (37.0-47.0); Hemoglobin 10.4 g/dl (12.0-16.0); Imm Gran Abs Auto 0.04 X10*3/uL (0.00-0.03); Imm Gran Pct Auto 0.6 % (0.0-0.4); Lymphocytes Absolute Auto 1.7 X10*3/uL (1.2-4.9); Mean Corpuscular HGB Conc 33.7 g/dl (31.0-35.0); Mean Corpuscular Hemoglobin 28.3 pg (27.0-33.0); Mean Corpuscular Volume 84.0 fL (80.0-98.0); NRBC Abs Auto 0.000 X10*3/uL (0.0-0.012); NRBC Pct Auto 0.0 /100WBC (0.0-0.2); Platelet Count 232 X10*3/uL (160-400); Red Blood Count 3.68 X10*6/uL (4.20-5.50); White Blood Count 6.6 X10*3/uL (4.8-10.8)
[2024-12-05 07:45] LABS: Alanine Aminotransferase 21 U/L (0-31); Albumin Level 3.3 g/dL (3.5-5.0); Alkaline Phosphatase 55 U/L (39-117); Anion Gap 11 (12-20); Aspartate Amino Transferase 30 U/L (5-31); Blood Urea Nitrogen 7 mg/dL (9-16); Calcium 8.9 mg/dL (8.4-10.2); Carbon Dioxide 28 mmol/L (22-29); Chloride 103 mmol/L (96-108); Creatinine Clr Calc Pharmacy 35.5; Estimated Glomerular Filt Rate > 60; Potassium 3.9 mmol/L (3.3-5.1); Sodium 138 mmol/L (135-145); Total Protein 6.2 g/dL (6.5-8.0)
--- NOTE | 2024-12-05 07:54 | HO.PM.IMPN ---
Subjective Subjective Date of Service: 12/05/24 Physical Exam Vital Signs: Vital Signs: Last Vital Signs Temp 98.0 F 12/05/24 07:05 Pulse 89 12/05/24 07:05 Resp 18 12/05/24 07:05 BP 172/68 H 12/05/24 07:05 Pulse Ox 99 12/05/24 07:05 O2 Del Method Room Air 12/05/24 07:05 O2 Flow Rate 3 12/05/24 03:37 BMI result Body Mass Index 20.1 Objective Data Active Medications Albuterol/Ipratropium (Albuterol/Iprat 2.5/0.5mg 3 Ml Ampul.Neb) 3 ml INHALE Q4H PRN PRN Reason: Shortness of Breath/Wheezing Calcium Carbonate (Calcium Carbonate 750 Mg Tab.Chew) 750 mg PO Q4H PRN PRN Reason: Heartburn Enoxaparin Sodium (Enoxaparin Sodium 40 Mg/0.4 Ml Syringe) 40 mg SUBCUT Q24H [facility] Last Admin: 12/04/24 22:11 Dose: 40 mg Documented By: MILTON Escitalopram Oxalate (Escitalopram Oxalate 5 Mg Tablet) 5 mg PO DAILY [facility] Last Admin: 12/04/24 09:15 Dose: 5 mg Documented By: WALTER Hydrocortisone (Hydrocortisone 100 Mg/60 Ml Enema) 100 mg CO DAILY [facility] Last Admin: 12/04/24 09:16 Dose: Not Given Documented By: WALTER Non-Admin Reason: Patient Refused Meropenem (Meropenem 1 Gm Vial) 1 gm IVPUSH Q12H [facility] Last Admin: 12/04/24 22:11 Dose: 1 gm Documented By: MILTON Metronidazole (Metronidazole 500 Mg Tablet) 500 mg PO Q8H [facility] Last Admin: 12/05/24 05:11 Dose: 500 mg Documented By: MILTON Ondansetron HCl (Ondansetron Hcl 4 Mg/2 Ml Vial) 4 mg IVPUSH Q8H PRN PRN Reason: Nausea and Vomiting Risperidone (Risperidone Oral Fe 1 Mg/Ml Solution) 0.125 mg PO DAILY PRN PRN Reason: Agitation Sodium Chloride (0.9 % Sodium Chloride Flush 3 Ml Syringe) 3 ml IVFLUSH QSHIFT [facility] Last Admin: 12/04/24 22:12 Dose: 3 ml Documented By: MILTON Vitamin D (Cholecalciferol (Vitamin D3) 25 Mcg Tablet) 25 mcg PO DAILY [facility] Last Admin: 12/04/24 09:15 Dose: 25 mcg Documented By: WALTER Labs 12/05/24 06:25 12/05/24 06:25 Labs: Laboratory Results - last 24 hr 12/04/24 12/04/24 12/04/24 11:13 14:03 18:18 MCV 83.2 MCH 28.4 MCHC 34.1 RDW 14.9 Plt Count 213 MPV 10.7 Immature Gran % (Auto) 0.5 H Neut % (Auto) 65.5 Lymph % (Auto) 23.5 [place] % (Auto) 7.6 Eos % (Auto) 2.3 Baso % (Auto) 0.6 Lymph # (Auto) 1.5 [place] # (Auto) 0.5 Eos # (Auto) 0.2 Baso # (Auto) 0.0 Abs Immat Gran (auto) 0.03 Absolute Neuts (auto) 4.2 Absolute Nucleated RBC 0.000 Nucleated RBC % (auto) 0.0 Anion Gap 9 L Estim Creat Clear Calc 31.1 Estimated GFR > 60 Random Glucose 130 H Lactic Acid 2.1 H* 1.9 0.9 Lactic Acid F/U @ 2Hr Cancelled Calcium 8.7 Phosphorus 2.0 L Magnesium 1.5 L Total Bilirubin 0.2 AST 23 ALT 20 Alkaline Phosphatase 53 Total Protein 6.0 L Albumin 3.2 L 12/05/24 06:25 MCV 84.0 MCH 28.3 MCHC 33.7 RDW 15.2 Plt Count 232 MPV 10.9 Immature Gran % (Auto) 0.6 H Neut % (Auto) 60.5 Lymph % (Auto) 25.2 [place] % (Auto) 8.7 Eos % (Auto) 4.1 H Baso % (Auto) 0.9 Lymph # (Auto) 1.7 [place] # (Auto) 0.6 Eos # (Auto) 0.3 Baso # (Auto) 0.1 Abs Immat Gran (auto) 0.04 H Absolute Neuts (auto) 4.0 Absolute Nucleated RBC 0.000 Nucleated RBC % (auto) 0.0 Anion Gap 11 L Estim Creat Clear Calc 35.5 Estimated GFR > 60 Random Glucose 102 Lactic Acid Lactic Acid F/U @ 2Hr Calcium 8.9 Phosphorus Magnesium Total Bilirubin 0.3 AST 30 ALT 21 Alkaline Phosphatase 55 Total Protein 6.2 L Albumin 3.3 L Microbiology Microbiology Results: Microbiology 11/29/24 22:06 Blood Culture - Final Blood - Venous No growth after 5 days. 11/29/24 21:46 Blood Culture - Final Blood - Venous No growth after 5 days. Quality Stroke Does the patient have a stroke diagnosis?: No Reason for No Anti-thrombotic by Day Two: Contraindicated (anemia, pericardial effusion ) VTE Prior VTE?: No VTE Risk Level:: Medical - moderate - high VTE Device Contraindication: N/A - Device Ordered VTE Drug Contraindication: N/A - Med Ordered
--- NOTE | 2024-12-05 08:44 | P.DS_ITS ---
DS: Providers Provider Date of Service: 12/05/24 Date of admission: 11/30/24 02:15 Date of discharge: 12/05/24 Primary care physician: Khadijah Cantu MD Consults: 12/04/24 11:13 Consult to Cardiology Routine Consulting Provider: [facility] Reason for consultation: Unstained Vtach DS: Diagnosis Discharge Diagnosis (1) SVT (supraventricular tachycardia): Status: Acute DS: Summary Hospital Course Hospital Course: Acute sepsis with multiorgan failure secondary to ESBL E coli UTI-resolved Acute hypoxic respiratory failure, AMS secondary to multi organ failure in the setting of sepsis-resolved C diff colonization-being treated- cont 7 days post DC and then MWF Patient was noted to have acute hypoxic respiratory failure and multi organ failure is likely in the setting of ESBL UTI - resolved, hence no abx at the time of DC SHe is on Metronidazole for Cdiff colonization IV fluids limited secondary to [id number] pericardial effusion Acute SVT On 12/04/24 , she had a 2 minutes, patient asymptomatic, self reverted to normal sinus, rainbow labs ordered-likely secondary to after electrolyte abnormalities vs structural abnormal abnormalities which have been corrected. Prior to this in the a.m. all her electrolytes were correct Pt unable to provide HPI, PMH, PSH due to dementia, delirium. pt is an 89 yo female with PMH HTN, Dementia, recurring UTI, CTS, osteoporosis, Breast CA, CKD 3a, and anemia was BIBA from rehab facility with AMS from baseline noting hx of dementia after 4 days of persistent diarrhea and poor po intake was noted to have sepsis 2/2 pancolitis - C diff toxin B gene +, currently improving with IV Flagyl Pt's HCP is Donny Flood, - hcp invoked small circumferential pericardial effusion - without apparent tamponade physiology Could be chronic - would defer to OP PCP and cardiology follow up EKG suggestive of new right bundle branch block, possible inferior infarct - chronic Troponin mildly elevated at 18, not unexpected in the setting of sepsis with multi organ failure Adult failure to thrive Hypoalbuminemia - encourage protein supplementation Patient's prognosis guarded Lovenox 40 mg SC OD This note is constructed using voice recognition software. While every effort has been made to ensure accuracy, installment dealer errors may have been included. Time spent discussing smoking cessation with patient: more than 10 minutes Time Attestation Discharge Coordination Time (in mins): 35 mins Quality: Safe Use of Opioids Does Pt have an Active Cancer Diagnosis on the Problem List?: No Quality: Stroke Does the patient have a stroke diagnosis?: No Physical Exam Vital Signs: Vital Signs: Last Vital Signs Temp 98.0 F 12/05/24 07:05 Pulse 89 12/05/24 07:05 Resp 18 12/05/24 07:05 BP 172/68 H 12/05/24 07:05 Pulse Ox 99 12/05/24 07:05 O2 Del Method Room Air 12/05/24 07:05 O2 Flow Rate 3 12/05/24 03:37 BMI result Body Mass Index 20.1 GENERAL APPEARANCE: Somnolent. In no acute distress. NECK: no carotid bruit, no jugular venous distention. SKIN: no suspicious lesions, warm and dry. HEART: no murmurs, regular rate and rhythm. LUNGS: clear to auscultation bilaterally. ABDOMEN: soft, nontender. EXTREMITIES: no edema. DS: Data Data Completed and Pending Labs on day of discharge: Laboratory Results - last 24 hr 12/04/24 12/04/24 12/04/24 11:13 14:03 18:18 WBC 6.5 RBC 3.63 L Hgb 10.3 L Hct 30.2 L MCV 83.2 MCH 28.4 MCHC 34.1 RDW 14.9 Plt Count 213 MPV 10.7 Immature Gran % (Auto) 0.5 H Neut % (Auto) 65.5 Lymph % (Auto) 23.5 [place] % (Auto) 7.6 Eos % (Auto) 2.3 Baso % (Auto) 0.6 Lymph # (Auto) 1.5 [place] # (Auto) 0.5 Eos # (Auto) 0.2 Baso # (Auto) 0.0 Abs Immat Gran (auto) 0.03 Absolute Neuts (auto) 4.2 Absolute Nucleated RBC 0.000 Nucleated RBC % (auto) 0.0 Sodium 139 Potassium 3.7 Chloride 105 Carbon Dioxide 29 Anion Gap 9 L BUN 9 Creatinine 0.88 Estim Creat Clear Calc 31.1 Estimated GFR > 60 Random Glucose 130 H Lactic Acid 2.1 H* 1.9 0.9 Lactic Acid F/U @ 2Hr Cancelled Calcium 8.7 Phosphorus 2.0 L Magnesium 1.5 L Total Bilirubin 0.2 AST 23 ALT 20 Alkaline Phosphatase 53 Troponin I High Sens 5.2 D Total Protein 6.0 L Albumin 3.2 L 12/05/24 06:25 WBC 6.6 RBC 3.68 L Hgb 10.4 L Hct 30.9 L MCV 84.0 MCH 28.3 MCHC 33.7 RDW 15.2 Plt Count 232 MPV 10.9 Immature Gran % (Auto) 0.6 H Neut % (Auto) 60.5 Lymph % (Auto) 25.2 [place] % (Auto) 8.7 Eos % (Auto) 4.1 H Baso % (Auto) 0.9 Lymph # (Auto) 1.7 [place] # (Auto) 0.6 Eos # (Auto) 0.3 Baso # (Auto) 0.1 Abs Immat Gran (auto) 0.04 H Absolute Neuts (auto) 4.0 Absolute Nucleated RBC 0.000 Nucleated RBC % (auto) 0.0 Sodium 138 Potassium 3.9 Chloride 103 Carbon Dioxide 28 Anion Gap 11 L BUN 7 L Creatinine 0.77 Estim Creat Clear Calc 35.5 Estimated GFR > 60 Random Glucose 102 Lactic Acid Lactic Acid F/U @ 2Hr Calcium 8.9 Phosphorus Magnesium Total Bilirubin 0.3 AST 30 ALT 21 Alkaline Phosphatase 55 Troponin I High Sens Total Protein 6.2 L Albumin 3.3 L Discharge Plan Discharge Anticipated Discharge Date/Time: 12/04/24 07:42 Patient Disposition: [facility] Discharge Diagnosis: Sepsis secondary to UTI/colitis Referrals: [facility] [Outside] - 1 Week Physician,Unknown J [Physician, Medical] - 1 Week Discharge Medications: New metronidazole 500 mg Tablet 500 mg PO Q8H 7 Days Qty: 21 0RF Continued escitalopram oxalate 5 mg tablet 1 tab PO DAILY cholecalciferol (vitamin D3) [Vitamin D3] 25 mcg (1,000 unit) Tablet 25 mcg PO DAILY risperidone 1 mg/mL Solution 0.125 mg PO DAILY PRN (Reason: Agitation) risperidone 1 mg/mL Solution 0.125 mg PO TID acetaminophen 325 mg Tablet 650 mg PO Q6H PRN (Reason: Pain (Scale Score 1-3)) guaifenesin 100 mg/5 mL Liquid 200 mg PO Q24H PRN (Reason: Cough) magnesium hydroxide [Milk of Magnesia] 400 mg/5 mL Suspension 30 ml PO Q24H PRN (Reason: Constipation) bisacodyl 10 mg Suppository 10 mg [place] Q24H PRN (Reason: Constipation) gabapentin 100 mg Capsule 100 mg PO BID menthol 5 % Adhesive Patch,Medicated 1 patch TOPICAL Q24H PRN (Reason: Pain (Scale Score 1-3)) Rx Instructions: apply to lower back, remove after 8 hours of use Discharge Orders: Discharge Order (Routine); Ordered 12/05/24 Ordered By: Cielo Raymond Activity on Discharge: As tolerated Stand Alone Forms: Patient Portal Discharge page Print Language: German Care Plan Goals: Continue antibiotics Continue dementia care Health Concerns: Dementia Poor overall gradually declining medical health Plan of Treatment: See above Assessment: See above
[2024-12-05 09:12] LABS: Magnesium 1.9 mg/dL (1.6-2.6)
[2024-12-05 09:15] VITALS: BP 172/68; PULSE 89
[2024-12-05] MEDS: Metoprolol Succinate ER 12.5 MG HALFTAB.ER.24H PO (09:15)
[2024-12-05] MEDS: 0.9 % Sodium Chloride Flush 3 ML SYRINGE IVFLUSH (09:15)
[2024-12-05 09:41] LABS: Thyroid Stimulating Hormone 3.03 uIU/mL (0.32-4.0)
[2024-12-05 11:16] VITALS: BP 143/82; PULSE 90; RESP 18; TEMP 36.9; O2SAT 99
--- NOTE | 2024-12-05 13:23 | MHC.CM.PN ---
Per MD, patient medically cleared for dc back to LTC. LM for alt HCP Helen to notify. IMM delivered. BLS transport scheduled for 2pm. RN and SNF aware.
--- NOTE | 2025-01-11 20:02 | P.CDIM_ITS ---
PROVIDER RESPONSE TEXT: To clarify, the appropriate diagnosis supported by the clinical indicators: Encephalopathy: multifactorial - metabolic, septic QUERY TEXT: PHYSICIAN'S DOCUMENTATION REQUEST Date of Query: 12/01/2024 10:59 AM EDT Patient Name: Agnes Nuñez Admit Date: 11/30/2024 Dear Cielo Raymond MD, A review of the medical record indicates additional documentation may be needed. Please review below and update the documentation accordingly. Clinical Indicators: Progress note dated 11/30/24 - Acute hypoxic respiratory failure, AMS secondary to multi organ failure in the setting of Sepsis. UA positive for UTI. Cefepime, vancomycin for broad-spectrum antibiotic coverage. Arrived with altered mental status off from baseline. Delirium/Dementia Based on the above, could you clarify if any of the following, is the most likely etiology of the altered mental status? Encephalopathy Indicate type such as metabolic, toxic, septic, hypertensive, etc. Dementia Indicate type of dementia, such as Alzheimer's, senile, vascular, Lewy body, etc. Baseline dementia Indicate type, such as Alzheimer's, senile, vascular, Lewy body, etc., and any associated behavioral disturbances (aggressive, combative, or violent behavior) Other (explain) Clinically unable to determine (explain) Thank you, Delisa Hammer, CCS, CDIS Use of terms such as suspected, likely, concern for, or probable (associated with a specific diagnosis that is being evaluated, monitored, or treated as if it exists) are acceptable and can be coded in the inpatient setting, when documented at the time of discharge. Please use your independent medical judgment in providing your response. THIS QUERY IS PART OF THE PERMANENT MEDICAL RECORD
== END 2024-12-05 14:05 | disposition skilled nursing facility (03) | DRG 871 ==
LOC: HO.ED 22:09 → HO.EDOVER 11-30 02:19 → HO.IMC 11-30 15:11
PROVIDERS: Hospitalist; Nurse Practitioner Family; Admitting Provider Hospitalist; Emergency Provider Student in an Organized Health Care Education/Training Program; PCP Internal Medicine; Visit Provider Student in an Organized Health Care Education/Training Program
DX: A41.9 Sepsis, unspecified organism (principal); G93.41 Metabolic encephalopathy; J96.01 Acute respiratory failure with hypoxia; F05 Delirium due to known physiological condition; I31.39 Other pericardial effusion (noninflammatory); N39.0 Urinary tract infection, site not specified; A04.72 Enterocolitis due to Clostridium difficile, not specified as recurrent; Z16.12 Extended spectrum beta lactamase (ESBL) resistance; I47.10 Supraventricular tachycardia, unspecified; R65.20 Severe sepsis without septic shock; F03.90 Unspecified dementia, unspecified severity, without behavioral disturbance, psychotic disturbance, mood disturbance, and anxiety; D63.1 Anemia in chronic kidney disease; R62.7 Adult failure to thrive; Z68.20 Body mass index [BMI] 20.0-20.9, adult; B96.20 Unspecified Escherichia coli [E. coli] as the cause of diseases classified elsewhere; N18.31 Chronic kidney disease, stage 3a; Z66 Do not resuscitate; R33.9 Retention of urine, unspecified; Z85.3 Personal history of malignant neoplasm of breast; Z22.1 Carrier of other intestinal infectious diseases; Z87.440 Personal history of urinary (tract) infections; Z79.899 Other long term (current) drug therapy
CPT/HCPCS: 36415; 36600; 70450; 71045; 74177; 80048; 80053; 81001; 82140; 82668; 82803; 82947; 83540; 83605; 83735; 84100; 84443; 84484; 85025; 85045; 85652; 86140; 87040; 87086; 87186; 87324; 87493; 92526; 92610; 93005; 93306; 99222; 99285; J0131; J0692; J0696; J1650; J1836; J2185; J2470; J3475; J3480; J7120; Q9957; Q9967

== ENCOUNTER → 2024-11-29 21:20 | Outpatient (BNV) | payer OTHER, SELFPAY | PROVIDERS: Emergency Provider Student in an Organized Health Care Education/Training Program; Visit Provider Radiology Diagnostic Radiology | DX: R41.82 Altered mental status, unspecified (principal) | CPT/HCPCS: 70450; 71045 ==

== ENCOUNTER → 2024-11-30 00:33 | Outpatient (BNV) | payer OTHER, SELFPAY | PROVIDERS: Emergency Provider Student in an Organized Health Care Education/Training Program; Visit Provider Radiology Diagnostic Radiology | DX: K51.00 Ulcerative (chronic) pancolitis without complications (principal) | CPT/HCPCS: 74177 ==

== ENCOUNTER 2024-11-30 02:15 | Outpatient (BNV) | payer OTHER, SELFPAY | END 2024-11-30 05:10 | PROVIDERS: Admitting Provider Hospitalist; Emergency Provider Student in an Organized Health Care Education/Training Program; Visit Provider Internal Medicine Cardiovascular Disease | DX: I31.39 Other pericardial effusion (noninflammatory) (principal); I35.1 Nonrheumatic aortic (valve) insufficiency | CPT/HCPCS: 93010; 93306 ==

== ENCOUNTER 2024-11-30 02:15 | Outpatient (BNV) | payer OTHER, SELFPAY | END 2024-12-04 10:27 | PROVIDERS: Admitting Provider Hospitalist; Emergency Provider Student in an Organized Health Care Education/Training Program; PCP Internal Medicine; Visit Provider Internal Medicine Cardiovascular Disease | DX: I45.10 Unspecified right bundle-branch block (principal) | CPT/HCPCS: 93010 ==

== ENCOUNTER → 2024-11-30 02:15 | Outpatient (BNV) | payer OTHER, SELFPAY | PROVIDERS: Admitting Provider Hospitalist; Emergency Provider Student in an Organized Health Care Education/Training Program; Visit Provider Nurse Practitioner Family | DX: I47.10 Supraventricular tachycardia, unspecified (principal) | CPT/HCPCS: 99232; 99239; 99499 ==

== ENCOUNTER → 2024-11-30 02:15 | Outpatient (BNV) | payer OTHER, SELFPAY | PROVIDERS: Admitting Provider Hospitalist; Emergency Provider Student in an Organized Health Care Education/Training Program; PCP Internal Medicine; Visit Provider Internal Medicine Cardiovascular Disease | DX: I47.10 Supraventricular tachycardia, unspecified (principal) | CPT/HCPCS: 99222 ==